=== PATIENT | male | born 1950 | race Caucasian/White ===

== ENCOUNTER 2018-05-21 15:30 | Inpatient (IN) ==
[2018-05-21] MEDS ORDERED: 0.9 % SODIUM CHLORIDE 1,000 ML IV ONE (15:53)
[2018-05-21] MEDS ORDERED: ONDANSETRON 4 MG/2 ML VIAL IV ONE (15:56)
--- NOTE | 2018-05-21 15:58 | Emergency Department Note ---
Abdominal Pain HPI - General Chief Complaint: Abdominal Pain Stated Complaint: Abdominal pain Time Seen by Provider: 05/21/18 15:49 Source: patient, family Mode of arrival: wheelchair Limitations: no limitations - History of Present Illness HPI Narrative: This patient has had significant abdominal pain with bloating for the last 2 weeks. Associated with nausea and diarrhea which is described as mild diarrhea. He was seen in March by Dr. Heard and had a colonoscopy and could not get past 40 cm due to severe diverticulitis and stenosis. Dr. Heard did have a follow-up note and I am assuming this patient was treated with antibiotics. He said 2 CT scans of the abdomen and pelvis this year. This patient did finish a course of antibiotics for diverticulitis last week. - Related Data Home Medications Medication Instructions Recorded Confirmed aspirin 81 mg tablet 81 mg PO QDAY 04/21/17 05/21/18 Hydrochlorothiazide [Oretic] 25 mg PO QDAY PRN 05/21/18 05/21/18 Previous Rx's Medication Instructions Recorded albuterol sulfate HFA 90 1 puff INHALATION Q6H PRN #18 g 11/26/17 mcg/actuation aerosol inhaler atorvastatin 80 mg tablet 80 mg PO QDAY #90 tab 01/19/18 benazepril 40 mg tablet 40 mg PO QDAY #90 tab 01/19/18 fluticasone 200 mcg-vilanterol 25 1 inh INHALATION QDAY #60 each 03/22/18 mcg/dose powder for inhalation tramadol 50 mg tablet 100 mg PO TID PRN #168 tab 04/19/18 Allergies Allergy/AdvReac Type Severity Reaction Status Date / Time morphine AdvReac Intermediate Unknown Verified 05/21/18 15:30 Review of Systems All systems ED: reviewed and negative except as stated. Abdominal Pain PMH - Past Medical History PMFSH Narrative: Medical History (Last Reviewed 03/16/18 @ 16:29 by Jairo Heard MD) Diverticulosis (Chronic) Low back pain (Chronic) Tobacco abuse (Chronic) Diverticulitis (Chronic ~09/2015) Hyperlipidemia (Chronic ~1986) Hypertension, essential (Chronic ~1986) Abdominal aneurysm (Chronic ~09/2015) Gout (Chronic ~1996) Back pain (Chronic ~2006) COPD (chronic obstructive pulmonary disease) (Chronic ~2011) Past Surgical History (Last Reviewed 03/16/18 @ 16:29 by Jairo Heard MD) H/O colonoscopy (Chronic ~2012) Family History (Last Reviewed 03/16/18 @ 16:29 by Jairo Heard MD) Mother Colon cancer Father Hypertension, essential Heart attack Brother Hypertension, essential Thyroid disease Medical history: Reports: aortic aneurysm, COPD, hyperlipidemia, hypertension Psychiatric history: Reports: no psych history - Social History Smoking status: Current some day smoker Physical Exam Limitations: no limitations General appearance: alert Head: atraumatic Eye: Present: normal appearance ENT: normal exam Neck: Present: normal inspection Chest: Present: normal inspection Respiratory: Present: normal lung sounds bilaterally Cardiovascular: Present: regular rate, normal rhythm, normal heart sounds Abdominal: Present: soft, distention, tenderness, normal bowel sounds. Absent: guarding, rebound, rigidity Neurological: Present: alert Psychiatric: Present: normal affect Skin: Present: warm, dry, intact Course Vital Signs Temperature 99.9 F H 05/21/18 15:30 Pulse Rate 108 H 05/21/18 15:30 Respiratory Rate 14 05/21/18 15:30 Blood Pressure 84/51 05/21/18 15:30 Pulse Oximetry (%) 93 05/21/18 15:30 Temperature 97.8 F 05/22/18 06:44 Pulse Rate 90 05/22/18 07:21 Respiratory Rate 20 05/22/18 07:16 Blood Pressure 89/50 05/22/18 07:16 Pulse Oximetry (%) 90 05/22/18 07:21 Abdominal Pain - MDM Narrative Medical decision making narrative: CT scan did reveal a blockage in the distal colon. Patient will be admitted to the hospital by Dr. Del Cid. - Lab Data Lab results reviewed: Yes I reviewed the patient's lab results. Result diagrams: 05/22/18 03:54 05/22/18 03:54 Lab Results 05/21/18 05/21/18 05/21/18 Range/Units 16:02 16:02 16:02 WBC 6.4 (4.5-11.0) K/mcL RBC 4.51 (4.50-5.90) M/mcL Hgb 13.1 L (13.5-16.5) g/dL Hct 39.7 L (41.0-55.0) % POC Hct 40.0 L (41.0-55.0) % MCV 88.1 (80.0-100.0) fL MCH 29.1 (26.0-34.0) pg MCHC 33.1 (31.0-36.0) g/dL RDW 14.9 H (11.5-14.5) % Plt Count 315 (140-440) K/mcL MPV 7.0 L (7.4-10.4) fL Total Counted 100 Seg Neutrophils % 61 (38-78) % Band Neutrophils % 6 (0-10) % Lymphocytes % 15 (15-49) % Monocytes % (Manual) 17 H (1-12) % Reactive Lymphocytes 1 (0-2) % Platelet Estimate Normal (NORMAL) RBC Morphology Normal (NORMAL) VBG Lactic Acid 1.7 (0.5-2.2) mmol/L POC Sodium 131 L (133-145) mmol/L Sodium 135 (133-145) mmol/L POC Potassium 3.2 L (3.3-5.1) mmol/L Potassium 3.5 (3.3-5.1) mmol/L POC Chloride 85 L (96-108) mmol/L Chloride 84 L (96-108) mmol/L Carbon Dioxide 34 H (22-30) mmol/L POC Total CO2 35 H (22-30) mmol/L Anion Gap 17.0 H (8-16) POC BUN 47 H (8-23) mg/dl BUN 56 H (8-23) mg/dl Creatinine 1.5 H (0.7-1.2) mg/dl POC Creatinine 1.4 H (0.7-1.2) mg/dl GFR Calculation 47 Glucose 107 H (70-105) mg/dL POC Glucose 105 (70-105) mg/dL Calcium 8.3 L (8.6-10.4) mg/dl POC WB Ioniz Calcium 0.84 L (1.16-1.32) mmol/L Total Bilirubin 0.9 (0.0-1.0) mg/dL AST 21 (0-37) U/l ALT 8 (0-40) U/l Alkaline Phosphatase 65 (39-117) U/L Total Protein 6.3 (5.9-8.4) gm/dL Albumin 2.9 L (3.2-5.2) gm/dL Globulin 3.4 (2.2-3.7) gm/dL Albumin/Globulin Ratio 0.9 L (1.0-2.3) Carcinoembryonic Ag (0.0-3.4) ng/mL Urine Color Urine Appearance Urine pH (5.0-9.0) Ur Specific [place] (1.000-1.035) Urine Protein (NEG) mg/dL Urine Glucose (UA) (NEG) mg/dL Urine Ketones (NEG) mg/dL Urine Occult Blood (<0.03) mg/dL Urine Nitrate (NEG) Urine Bilirubin (NEG) mg/dL Urine Urobilinogen (NEG) mg/dL Ur Leukocyte Esterase (NEG) /uL Urine RBC (0-1) /hpf Urine WBC (0-4) /hpf Ur Squamous Epith Cells (0-4) /hpf Ur Transition Epith Cell (0-2) /hpf Urine Bacteria (0) /hpf Hyaline Casts (0-2) /lpf Granular Casts (0) /lpf Urine Mucus (0) /hpf Ur Culture Indicated? 05/21/18 05/21/18 Range/Units 16:02 20:40 WBC (4.5-11.0) K/mcL RBC (4.50-5.90) M/mcL Hgb (13.5-16.5) g/dL Hct (41.0-55.0) % POC Hct (41.0-55.0) % MCV (80.0-100.0) fL MCH (26.0-34.0) pg MCHC (31.0-36.0) g/dL RDW (11.5-14.5) % Plt Count (140-440) K/mcL MPV (7.4-10.4) fL Total Counted Seg Neutrophils % (38-78) % Band Neutrophils % (0-10) % Lymphocytes % (15-49) % Monocytes % (Manual) (1-12) % Reactive Lymphocytes (0-2) % Platelet Estimate (NORMAL) RBC Morphology (NORMAL) VBG Lactic Acid (0.5-2.2) mmol/L POC Sodium (133-145) mmol/L Sodium (133-145) mmol/L POC Potassium (3.3-5.1) mmol/L Potassium (3.3-5.1) mmol/L POC Chloride (96-108) mmol/L Chloride (96-108) mmol/L Carbon Dioxide (22-30) mmol/L POC Total CO2 (22-30) mmol/L Anion Gap (8-16) POC BUN (8-23) mg/dl BUN (8-23) mg/dl Creatinine (0.7-1.2) mg/dl POC Creatinine (0.7-1.2) mg/dl GFR Calculation Glucose (70-105) mg/dL POC Glucose (70-105) mg/dL Calcium (8.6-10.4) mg/dl POC WB Ioniz Calcium (1.16-1.32) mmol/L Total Bilirubin (0.0-1.0) mg/dL AST (0-37) U/l ALT (0-40) U/l Alkaline Phosphatase (39-117) U/L Total Protein (5.9-8.4) gm/dL Albumin (3.2-5.2) gm/dL Globulin (2.2-3.7) gm/dL Albumin/Globulin Ratio (1.0-2.3) Carcinoembryonic Ag 3.8 H (0.0-3.4) ng/mL Urine Color Lyric Urine Appearance Hazy Urine pH 5.0 (5.0-9.0) Ur Specific [place] 1.019 (1.000-1.035) Urine Protein 30 A (NEG) mg/dL Urine Glucose (UA) Negative (NEG) mg/dL Urine Ketones 20 A (NEG) mg/dL Urine Occult Blood 0.03 A (<0.03) mg/dL Urine Nitrate Neg (NEG) Urine Bilirubin Neg (NEG) mg/dL Urine Urobilinogen 4.0 A (NEG) mg/dL Ur Leukocyte Esterase Neg (NEG) /uL Urine RBC 7 H (0-1) /hpf Urine WBC 8 H (0-4) /hpf Ur Squamous Epith Cells 0 (0-4) /hpf Ur Transition Epith Cell 2 (0-2) /hpf Urine Bacteria Few A (0) /hpf Hyaline Casts 10 H (0-2) /lpf Granular Casts 4 H (0) /lpf Urine Mucus Few (0) /hpf Ur Culture Indicated? Yes - Radiology Data Radiology results reviewed: Yes I reviewed the patient's radiology results. Disposition Pt seen by STUDIO CONTROL OPERATOR/PA only: No Clinical Impression: Large bowel obstruction Disposition: Xfer As Inpt ([facility])
[2018-05-21] MEDS: HYDROmorphone 2 MG/ML VIAL IV PRN ×2 (16:07→19:16)
[2018-05-21 16:18] LABS: Mean Cell Volume 88.1 fL (80.0-100.0); Mean Corpuscular HGB Conc 33.1 g/dL (31.0-36.0); Mean Corpuscular Hemoglobin 29.1 pg (26.0-34.0); Platelet Count 315 K/mcL (140-440); RBC 4.51 M/mcL (4.50-5.90); Red Cell Distribution Width 14.9 % (11.5-14.5)
[2018-05-21 16:39] LABS: ALT/SGPT 8 U/l (0-40); Albumin 2.9 gm/dL (3.2-5.2); Albumin/Globulin Ratio 0.9 (1.0-2.3); Alkaline Phosphatase 65 U/L (39-117); Blood Urea Nitrogen 56 mg/dl (8-23)
[2018-05-21 17:01] LABS: Band Neutrophils % 6 % (0-10); Lymphocytes % 15 % (15-49); Monocytes % (Manual) 17 % (1-12); Platelet Estimate NORMAL (NORMAL); RBC Morphology NORMAL (NORMAL); Segmented Neutrophils % 61 % (38-78)
[2018-05-21] MEDS ORDERED: LACTATED RINGERS 1,000 ML IV ONE (19:05)
[2018-05-21] MEDS ORDERED: METOCLOPRAMIDE 10 MG/2 ML VIAL IV ONE (19:42)
--- NOTE | 2018-05-21 20:28 | Cat Scan Report ---
CLINICAL INFORMATION: Diverticulitis with abdominal pain and distention COMPARISON: 03/05/18 TECHNIQUE: The abdomen was imaged without oral or IV contrast, scanning from the diaphragm to the symphysis pubis. Sagittal and coronal reformats were created. The radiation exposure was limited using dose reduction technology. FINDINGS: FINDINGS: Mild emphysema is present in the lung bases. There is no pleural effusion. The heart size is normal. There is pericardial thickening. Evaluation of abdominal organs without contrast is limited. The liver and spleen are normal in size and homogeneous. There is a small hiatus hernia. Gallbladder is distended but there are no stones within the lumen and the wall does not appear thickened or inflamed. The bile ducts are nondilated. No abnormality seen within the pancreas. There is a low-attenuation mass in the left adrenal gland which measures 1.2 x 2.2 cm. This is unchanged since the prior CT and may be a benign myelolipoma. The right adrenal is normal. There is no kidney stone or hydronephrosis on either side. A thrombosed saccular aneurysm is seen along the left side of the proximal abdominal aorta. It Measures 3.4 x 3.7 x 4.2 cm. This has remained stable since 03/05/18 and there is no retroperitoneal hemorrhage. The stomach is decompressed. There is dilatation of both large and small intestine. There is a large amount of impacted fecal material throughout the colon. There are appears to be an annular constricting lesion in the distal sigmoid colon. Transition point is at this level. Soft tissue thickening is present at the same level on 03/05/18 and was thought to represent diverticulitis. No diverticular identified at this level on the current exam. The patient had a colonoscopy performed in March and no tumor was reported in this region. On the prior CT there is a questionable tumor along the medial side of the cecum. There is a large amount stool in the cecum but I do not see an obvious tumor in this region. Urinary bladder is incompletely distended but appears normal. The prostate is small and there are calcifications within it. No ascites, free air, abscess or adenopathy are present. There are chronic stable degenerative changes in the lumbar spine. IMPRESSION: Distal large bowel obstruction in the sigmoid colon. This is highly suspicious for colon cancer. Acute diverticulitis is also in the differential. Emphysema Moderate sized saccular aneurysm in the abdominal aorta at the L2-3 level, near the origin of the left renal artery Dr. Sharp was called with the results Interpreted and Authenticated by: Christopher Clark 05/21/18
[2018-05-21] MEDS ORDERED: LIDOCAINE JEL 2% 1 TUBE 30GM TOPICAL ONE (21:26)
[2018-05-21 21:32] LABS: Appearance,Urine HAZY; Bacteria,Urine FEW /hpf (0); Bilirubin,Urine NEG (NEG); Color,Urine AMBER; Glucose,Urine (UA) NEGATIVE (NEG); Leukocyte Esterase,Urine NEG /uL (NEG); Mucus,Urine FEW /hpf (0); Protein,Urine 30 mg/dL (NEG); Specific Gravity,Urine 1.019 (1.000-1.035); Urine Blood 0.03 mg/dL (<0.03); Urine Granular Cast 4 /lpf (0); Urine Hyaline Cast 10 /lpf (0-2); Urine RBC 7 /hpf (0-1); Urine Squamous Epithelial Cell 0 /hpf (0-4); Urine Transitional Epi Cells 2 /hpf (0-2); Urine WBC 8 /hpf (0-4)
--- NOTE | 2018-05-21 21:44 | Internal Med History&Physical ---
Medical - H&P: HPI Patient information: Note initiated : 05/21/18 at 9:39 pm Service Date, if different from initiated Date: [] Patient: Luciano Nixon 67 y/o M admitted on for Abdominal pain. Chief Complaint: [] History of present illness: Mr. Nixon is a 67 year old M who was diagnosed with diverticulitis in February, since then has had continued abdominal symptoms. Doubt colitis was treated with antibiotics with some improvement in patient's symptoms. The patient has been following up with Dr. Heard. Patient notes that since the last few months he has had progressive abdominal pain progressive distention of abdomen, weight loss, decreased appetite and generalized weakness and malaise. The patient had a colonoscopy done I believe last month, severe stricture to the sigmoid colon was noted, colonoscope was not passed beyond the stricture. The patient notes that he has had bowel movements since, however he has had progressive distention of abdomen along with abdominal pain. He notes that he was unable to bear the pain today and therefore came to the ER for further evaluation. He has had 2-3 liquid bowel movements today. The patient has a history of COPD/emphysema does not use oxygen at baseline, uses Brio on a daily basis no recent use of rescue inhaler, denies any history of myocardial infarction or congestive heart failure denies any history of CVA or TIA, no history of chronic kidney disease., no history of diabetes. The patient admits to being a daily smoker. In the emergency room patient was hemodynamically stable, low-grade temperature at 99.9, tachycardia 108, blood pressure was low 84/51, saturating 93% on 2 L. Labs showed normal WBC count at 6.4, hemoglobin 13,000, potassium 3.5, BUN 56 creatinine 1.5. Lactic acid 1.7, bicarbonate 34. UA is pending. CT abdomen and pelvis shows large small bowel obstruction in the sigmoid colon, stricture probably in the sigmoid colon, possible acute diverticulitis in that region. Emphysema noted. 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 Patient has poor effort tolerance is unable to climb one flight of stairs. All systems: reviewed and no additional remarkable complaints except as stated ( as per HPI rest negative) Medical - H&P: PMH Medical history: Medical History (Last Reviewed 03/16/18 @ 16:29 by Jairo Heard MD) Diverticulosis (Chronic) Low back pain (Chronic) Tobacco abuse (Chronic) Diverticulitis (Chronic ~09/2015) Hyperlipidemia (Chronic ~1986) Hypertension, essential (Chronic ~1986) Abdominal aneurysm (Chronic ~09/2015) Gout (Chronic ~1996) Back pain (Chronic ~2006) COPD (chronic obstructive pulmonary disease) (Chronic ~2011) Surgical history: Past Surgical History (Last Reviewed 03/16/18 @ 16:29 by Jairo Heard MD) H/O colonoscopy (Chronic ~2011) Pertinent family history: Family History (Last Reviewed 03/16/18 @ 16:29 by Jairo Heard MD) Mother Colon cancer Father Hypertension, essential Heart attack Brother Hypertension, essential Thyroid disease Medical - H&P: Meds Home Medications Medication Instructions Recorded Confirmed Type aspirin 81 mg tablet 81 mg PO QDAY 04/21/17 05/21/18 History albuterol sulfate HFA 90 1 puff INHALATION Q6H PRN #18 g 11/26/17 05/21/18 Rx mcg/actuation aerosol inhaler atorvastatin 80 mg tablet 80 mg PO QDAY #90 tab 01/19/18 05/21/18 Rx benazepril 40 mg tablet 40 mg PO QDAY #90 tab 01/19/18 05/21/18 Rx fluticasone 200 mcg-vilanterol 25 1 inh INHALATION QDAY #60 each 03/22/18 Rx mcg/dose powder for inhalation tramadol 50 mg tablet 100 mg PO TID PRN #168 tab 04/19/18 05/21/18 Rx Hydrochlorothiazide [Oretic] 25 mg PO QDAY PRN 05/21/18 05/21/18 History Allergies Allergy/AdvReac Type Severity Reaction Status Date / Time morphine AdvReac Intermediate Unknown Verified 05/21/18 15:30 Medical - H&P: Exam - Constitutional Vitals: Temp Pulse Resp BP Pulse Ox 99.9 F H 106 H 16 116/65 93 05/21/18 15:30 05/21/18 21:16 05/21/18 16:14 05/21/18 21:16 05/21/18 21:16 Exam: GENERAL: The patient is a well-developed, thin in no apparent distress. Is alert and oriented x3. VITAL SIGNS: Reviewed and as noted elsewhere. HEENT: Head is normocephalic and atraumatic. Extraocular muscles are intact. Pupils are equal, round, and reactive to light. Nares appeared normal. Mouth appears any without lesions. Mucous membranes are dry. NECK: Normal to inspection, Supple, No lymphadenopathy or thyromegaly. LUNGS: Air entry equal on both sides decreased air entry bilaterally , no wheezing, crackles or rhonchi noted. No accessory muscles of respiration HEART: tachycardic rate and rhythm normal, S1 and S2 heard, no Gallop, S3 or Rub Noted, No Gross murmur heard. ABDOMEN: Soft, distended abdomen, can see colonic distention through skin, tender to palpation all over. EXTREMITIES: No cyanosis, clubbing, rash, lesions or edema. NEUROLOGIC: Cranial nerves II through XII are grossly intact. Motor and Sensory System Grossly Intact PSYCHIATRIC: Normal affect, Normal Mood. Appropriate Behavior. SKIN: No ulceration or wounds noted, No jaundice, No rash noted. Medical - H&P: Reslt - Labs CBC & Chem 7: 05/21/18 16:02 05/21/18 16:02 Labs: Short CBC 05/21/18 Range/Units 16:02 WBC 6.4 (4.5-11.0) K/mcL Hgb 13.1 L (13.5-16.5) g/dL Hct 39.7 L (41.0-55.0) % Plt Count 315 (140-440) K/mcL BMP 05/21/18 16:02 Sodium 135 Potassium 3.5 Chloride 84 L Carbon Dioxide 34 H BUN 56 H Creatinine 1.5 H Glucose 107 H Calcium 8.3 L Liver Function 05/21/18 Range/Units 16:02 Total Bilirubin 0.9 (0.0-1.0) mg/dL AST 21 (0-37) U/l ALT 8 (0-40) U/l Alkaline Phosphatase 65 (39-117) U/L Albumin 2.9 L (3.2-5.2) gm/dL Urine 05/21/18 Range/Units 20:40 Urine Color Lyric Urine Appearance Hazy Urine pH 5.0 (5.0-9.0) Ur Specific [place] 1.019 (1.000-1.035) Urine Protein 30 A (NEG) mg/dL Urine Glucose (UA) Negative (NEG) mg/dL Medical - H&P: A/P - Narrative A/P Narrative: A/P Acute large bowel obstruction Possible Ca Colon Acute Kidney Injury COPD exacerbation Acute hypoxic respiratory failure Dehydration Weight loss Hypertension Hyperlipidemia Iliac artery aneurysm thrombosed. Pre op risk assesstment Plan Admit to tele BP has stabilized by the time of admission IV cipro and flagyl for possible diverticulitis Gen Surgery consulted,NG to be placed, plan for likely surgery tomorrow RCRI is 1, but pt has Vascular disease, emphysema, on oxygen today, active smoker, which places him in moderate risk category No active wheezing, will avoid IV steroids, try and see how he does with neublizer treatment, some hypoxia could be from significant distention of abdomen preventing diaphragmatic movement hold home bp meds IV fluids for renal failure and dehydration, DVT scd, GI Famotid Full code NPO diet. Social History - Social History marital status: - Tobacco smoking status: Current some day smoker - Tobacco Type tobacco type: cigarettes - Alcohol alcohol intake frequency: holiday/special occasion only - Substance use substance use type: does not use
[2018-05-21] MEDS ORDERED: ACETAMINOPHEN 650 MG/65 ML BOTTLE IV PRN (22:31)
[2018-05-21] MEDS ORDERED: DEXTROSE 5%-1/2NS W/20MEQ KCL 1,000 ML IV SCH (22:31)
[2018-05-21] MEDS ORDERED: ONDANSETRON 4 MG/2 ML VIAL IV PRN (22:31)
[2018-05-21] MEDS ORDERED: NALOXONE HCL 0.4 MG/ML VIAL IV PRN (22:31)
[2018-05-21] MEDS ORDERED: CIPROFLOXACIN 400 MG/200 ML BAG IV SCH (22:31)
[2018-05-21] MEDS ORDERED: metroNIDAZOLE 500 MG/100 ML BAG IV ONE (22:40)
[2018-05-21] MEDS ORDERED: CIPROFLOXACIN 400 MG/200 ML BAG IV ONE (22:41)
[2018-05-21] MEDS: 0.9 % SODIUM CHLORIDE 10 ML SYRINGE IV SCH (22:56)
[2018-05-21] MEDS: metroNIDAZOLE 500 MG/100 ML BAG IV SCH (23:19)
[2018-05-21] MEDS ORDERED: ONDANSETRON 4 MG/2 ML VIAL ONE (23:20)
[2018-05-21] MEDS: IPRATROPIUM/ALBUTEROL 3 ML AMPUL.NEB NEB SCH (23:27)
--- NOTE | 2018-05-21 23:44 | Consultation ---
DATE OF CONSULTATION: 05/21/2018 CHIEF COMPLAINT: Mr. Nixon is seen in consultation at the request of Dr. Sharp in the Emergency Department for abdominal pain, distention, and findings on imaging suggestive of bowel obstruction. HISTORY OF PRESENT ILLNESS: Mr. Michel is a 67-year-old man, who presented to the emergency department with complaints of abdominal pain which has been present " With further questioning, the patient states that his pain has been present for about 4 months. He is not clear on the character of his pain other than it is a fairly constant pain. He states that it is starting to become intolerable. The pain itself has not changed much in character or severity by patient report over the past 2 months, but he is just very tired of hurting. He also reports recently having decreased food intake. He says that he has lost about 10 pounds since March. He says this is from not eating. He denies complete loss of appetite, but states that he does not feel like eating because of pain in his abdomen. He has not generally had nausea over the past couple of months, though he did have recent emesis last night. The patient is obviously distended in his abdomen during this interview and when questioned about the distention, he is unclear as to the onset or progression of this distention, but seems to suggest that this has been present for more than just the past couple of weeks. Regarding his most recent bowel habits, the patient states that he has passed 2 diarrhea stools today. He also had about 3-4 episodes of emesis last night, which consisted of brown liquid. He does not recall passing flatus for a week. His more recent medical history related to his GI system is significant for colonoscopy in 03/2018. This procedure was performed by Dr. Heard at [facility]. Review of that note shows that a colonoscopy could not be completed due to inability to pass a pediatric scope under fluoroscopy beyond what appeared to be a strictured sigmoid with tight turns. No mass, however, was noted during that evaluation. Followup evaluation during that admission included CT scan with air contrast in the rectum residual from the colonoscopy. At that time, moderate diverticulitis involving the mid distal sigmoid colon was noted with no sign of abscess, fistula, or other complications. This was noted to have increased inflammation compared to CT scan which had been done about 2 weeks ago also at [facility]. Review of that prior CT scan which was done on 03/05/2018 showed extensive sigmoid diverticulosis with pericolonic inflammatory change consistent with diverticulitis. The patient reports having an initial diagnosis of diverticulitis in 09/2015 with subsequent episodes. Review of the medical chart shows documentation of subsequent episodes as listed above. REVIEW OF SYSTEMS: CONSTITUTIONAL: Denies fevers or chills. GASTROINTESTINAL: Abdominal pain for several months as per above. Abdominal distention seemingly more recent occurrence. Emesis as per above. CARDIOVASCULAR: The patient denies a history of DE. States he is unable to walk up a single flight of stairs due to difficulty with breathing. Denies any history of arrhythmia. PULMONARY: The patient initially reported no lung problems on questioning of his pulmonary system, but further questioning reveals emphysema with continued smoking. GENITOURINARY: No dysuria or damir hematuria. PAST MEDICAL HISTORY: 1. COPD with history of exacerbations. 2. Personal history of colon polyps from colonoscopies prior to most recent by patient report, last colonoscopy was 2011. 3. Diverticulosis with episode of diverticulitis. 4. Low back pain. 5. Hypertension. 6. Thrombosed saccular abdominal aortic aneurysm. 7. Back pain. SOCIAL HISTORY: The patient is a current smoker, reportedly of 4 to 5 cigarettes a day and in the past year reports smoking 1 pack of cigarettes a day for 50 years. The patient is and accompanied at this visit by his . FAMILY HISTORY: Significant for colon cancer in his mother diagnosed at age 49. His mother from colon cancer. Father with myocardial infarction. Father and brother with hypertension. Brother with thyroid disease. ALLERGIES: MORPHINE. HOME MEDICATIONS: 1. Albuterol sulfate inhaler 1 puff q. 6 hours p.r.n. 2. Aspirin 81 mg daily. 3. Atorvastatin 80 mg daily. 4. Benazepril 40 mg daily. 5. Fluticasone 200 mcg - vilanterol 25 mcg 1 inhaled daily. 6. Hydrochlorothiazide 25 mg p.o. daily. 7. Tramadol 50 mg 2 pills t.i.d. p.r.n. PHYSICAL EXAMINATION: VITAL SIGNS: Temperature 99.9, pulse 95, respirations 16, blood pressure 103/62, O2 saturations 90% on 1 to 2 liters of oxygen during this evaluation. GENERAL APPEARANCE: Mr. Michel is an elderly gentleman, who appears older than stated age. He appears uncomfortable lying in the hospital bed, but not acutely distressed. The patient appears cachectic. HEENT: Head is normocephalic. Sclerae are white. CHEST: Breath sounds are clear in the upper taylor bilaterally. Diminished breath sounds at the bases. No wheezing noted on exam. CARDIOVASCULAR: Regular rhythm, slightly tachycardic rate. ABDOMEN: Distended. There is mild tenderness to palpation, but no guarding and no rebound. No tenderness in one specific area of the abdomen. Distention of the abdomen is clearly related to distended underlying bowel which in the area of the transverse colon can be seen outlined through the thin skin overlying the abdomen. EXTREMITIES: Warm with distal pulses diminished bilaterally at 1+. Capillary refill is at 2 to 3 seconds. No edema. LABS AND STUDIES: CBC drawn in the Emergency Department shows a normal white blood cell count of 6.4, hemoglobin of 13.1, hematocrit 39.7, and platelets of 315. Serum chemistries show glucose of 107, a BUN of 56, creatinine 1.5, sodium 135, potassium 3.5, chloride 84, CO2 of 34, calcium 8.3, total protein 6.3, albumin 2.9, total bilirubin 0.9, AST 21, ALT 8, alkaline phosphatase 65. Venous lactic acid is 1.7 (within normal range). Urinalysis is negative for nitrates, leukocyte esterase, but moderate blood is present. Urine was sent for culture. A CT scan of the abdomen and pelvis was performed in the Emergency Department. I reviewed the images and reports from that scan. Findings on the CT scan show dilatation of both the large and small intestine with a large amount of impacted fecal material throughout the colon. There is thought to be an annular constricting lesion in the distal sigmoid colon, which also appears to be a transition point of bowel caliber. Soft tissue thickening is present at the same level when compared to CT imaging from 03/05/2018 and at that time was thought to represent diverticulitis. On today's reading, no diverticula are identified at the level on current exam. There is no ascites, free air, abscess, or adenopathy present. Changes of emphysema are noted on the lower chest cuts. There is also noted to be pericardial thickening with a normal heart size. No pleural effusion noted. ASSESSMENT AND PLAN: Large bowel obstruction at the sigmoid colon, tumor versus stricture from recurring diverticulitis. I discussed findings on imaging with the patient and his . Findings on CT scan done today in the Emergency Department are suggestive of possible colon cancer, despite a previous CT imaging. It should be noted, however, that the final reading on today's CT report is read as the distal large bowel obstruction of the sigmoid colon, highly suspicious for colon cancer, although acute diverticulitis is also on the differential. The exact nature of the obstruction is not known at this time. However, given the patient's presentation and symptoms, treatment for his obstruction was discussed to begin with bowel rest, NG tube decompression, and IV fluid hydration. Given the degree of bowel distention, there is concern that he may need to proceed to surgery for a Patricia's procedure with creation of colostomy and resection of the area of obstructing bowel. Ideally if there is any way to prep the intestine prior to surgery to try and decrease the chance of having to create a colostomy, this would be ideal, although I cannot be sure that he would be able to do this even though the patient did tolerate at least half of his bowel prep and was able to clean out his intestine for the recently attempted colonoscopy in March. Plan at this time is that he will be admitted to the hospitalist service for management of his other medical issues with surgery consulting. NG tube will be placed for some decompression of the bowel, and he will be kept n.p.o. We will see how he does initially and if it seems possible to proceed with a slow bowel prep, then we can try this. If, however, his condition worsens, then we may need to proceed with operative intervention with the understanding that a colostomy creation is likely. This was all discussed with the patient and his . He verbalized understanding and agreement with this plan. RC:in Job ID: [id number] Doc ID: [id number] Jaylin POTTS
[2018-05-22] MEDS: HYDROmorphone 2 MG/ML VIAL IV PRN ×2 (00:03→06:46)
[2018-05-22] MEDS ORDERED: HYDROmorphone 2 MG/ML VIAL ONE ×3 (00:05→06:50)
[2018-05-22] MEDS ORDERED: ONDANSETRON 4 MG/2 ML VIAL ONE (02:36)
[2018-05-22] MEDS: IPRATROPIUM/ALBUTEROL 3 ML AMPUL.NEB NEB SCH ×6 (03:08→23:09)
[2018-05-22] MEDS: 0.9 % SODIUM CHLORIDE 10 ML SYRINGE IV SCH ×3 (05:19→23:24)
[2018-05-22 06:38] LABS: Basophils # (Auto) 0 K/mcL (0.0-0.3); Basophils % (Auto) 0.1 % (0.0-2.0); Eosinophils # (Auto) 0.1 K/mcL (0.0-0.7); Eosinophils % (Auto) 1.8 % (0.0-7.0); Granulocytes % (Auto) 71.1 % (38.0-78.0); Lymphocytes # (Auto) 0.5 K/mcL (1.5-4.8); Lymphocytes % (Auto) 11.7 % (15.5-49.0); Mean Corpuscular HGB Conc 33.4 g/dL (31.0-36.0); Mean Corpuscular Hemoglobin 29.4 pg (26.0-34.0); Monocytes # (Auto) 0.7 K/mcL (0.1-0.9); Monocytes % (Auto) 15.3 % (1.0-12.0); Platelet Count 285 K/mcL (140-440); RBC 3.78 M/mcL (4.50-5.90); Red Cell Distribution Width 15.2 % (11.5-14.5)
[2018-05-22] MEDS: metroNIDAZOLE 500 MG/100 ML BAG IV SCH ×5 (07:17→22:00)
[2018-05-22 07:18] LABS: ALT/SGPT 7 U/l (0-40); Albumin 2.5 gm/dL (3.2-5.2); Albumin/Globulin Ratio 0.9 (1.0-2.3); Alkaline Phosphatase 61 U/L (39-117); Bilirubin,Direct < 0.2 mg/dL (0.0-0.3); Blood Urea Nitrogen 52 mg/dl (8-23); Gamma Glutamyl Transpeptidase 13 U/L (8-61); Uric Acid 9.9 mg/dL (2.5-8.0)
[2018-05-22] MEDS ORDERED: LACTATED RINGERS 1,000 ML IV ONE ×3 (07:54→19:40)
--- NOTE | 2018-05-22 08:25 | General Surgery Progress Note ---
Surgical - Auxillary Note - Subjective Patient Information: Note initiated : 05/22/18 at 7:59 am Service Date, if different from initiated Date: [] Patient: Luciano Nixon 67 y/o M admitted on 05/21/18 for Abdominal pain. Chief Complaint: [] Patient resting in bed. Reports no change in abdomen. NGT placed with minimal output since ER last night. No stool or flatus overnight. BP down 82/45 this morning but had been medicated with Dilaudid prior. BP has been running low compared to documentation in prior outpatient records. Suspect related to dehydration from chronic evolving obstruction and poor p.o. intake. Vital Signs Temp Pulse Resp BP Pulse Ox 97.8 F 90 20 89/50 91 05/22/18 06:44 05/22/18 07:21 05/22/18 07:16 05/22/18 07:16 05/22/18 07:31 Period Temp Pulse Resp BP Sys/Faria Pulse Ox Last 24 Hr 97.8 F-99.9 F 90-132 11-24 81-123/41-75 81-99 Intake and Output 05/21/18 05/22/18 05/22/18 21:59 05:59 13:59 Intake Total 1000 / 1000 1300 / 1300 Output Total 50 / 50 200 / 200 Balance 950 / 950 1300 / 1300 -200 / -200 Weight 130 lb 132 lb 8 oz PE: No acute distress but uncomfortable in appearance. Chest: clear bilaterally CV: regular rhythm, tachycardic ABD: NGT in place with minimal bile tinged clear output. distention unchanged from admission; mildly tender over abdomen--recently medicated for pain. No guarding or rebound. EXT: warm, no edema. CBC and Chem 7 05/22/18 03:54 05/22/18 03:54 A/P: Large bowel obstruction at level of sigmoid colon: tumor vs inflammatory process. NGT output only 40cc of gastric juice slight bile tinged. Not much to decompress from above. Stomach decompressed on imaging. Patient with no stool or flatus. At home passed 2 diarrheal stools adn on further questioning these were with the help of milk of magnesia and has had no flatus at home over the past week. Without passage of any flatus for so long not likely to tolerate attempt for bowel prep. Discussed situation with patient and his , who was present at bedside. At this time surgical intervention with plans for colostomy is recommended to address sigmoid obstruction. Risks and benefits of procedure where reviewed. Risks include but are not limited to bleeding, infection, injury to other organs including the ureter, possible need for further surgery, and risks of general anesthesia. Patient verbalized understanding of the risks of surgery and would like to proceed.
[2018-05-22] MEDS: DEXTROSE 5%-LR W/20MEQ KCL 1,000 ML IV SCH ×2 (08:39→16:24)
[2018-05-22] MEDS ORDERED: FAMOTIDINE/PF 20 MG/2 ML VIAL IV SCH (09:00)
[2018-05-22] MEDS ORDERED: BUDESONIDE 0.5 MG/2 ML AMPUL.NEB NEB SCH (09:00)
[2018-05-22] MEDS ORDERED: CIPROFLOXACIN 400 MG/200 ML BAG IV SCH (09:00)
[2018-05-22] MEDS ORDERED: THIAMINE 100 MG in 0.9 % SODIUM CHLORIDE 50 ML IV SCH (09:00)
--- NOTE | 2018-05-22 09:12 | XRay Report ---
CLINICAL INFORMATION: Hypoxia COMPARISON: 03/22/2018 FINDINGS: Heart size, mediastinum and pulmonary vessels are normal. Moderate COPD changes appreciated. No infiltrates. No effusions. IMPRESSION: Moderate COPD - stable Interpreted and Authenticated by: Luciano Smith 05/22/18
--- NOTE | 2018-05-22 09:14 | XRay Report ---
CLINICAL INFORMATION: NG tube placement COMPARISON: None. FINDINGS: NG tip overlies the gastric fundus. [. Only the one superior one half the abdomen is included in the film. Stool gas pattern is grossly normal in this portion of the abdomen. No free air or soft tissue mass IMPRESSION: NG tip overlying the gastric fundus. Incomplete abdominal exam Interpreted and Authenticated by: Luciano Smith 05/22/18
[2018-05-22] MEDS ORDERED: LIDOCAINE 2% URO-JET 5 ML JEL.PF.APP UR ONE (09:56)
[2018-05-22] MEDS: 0.9 % SODIUM CHLORIDE 250 ML IV SCH ×2 (09:59→15:46)
[2018-05-22] MEDS ORDERED: ALBUMIN HUMAN 25 GM/100 ML BAG IV ONE (10:02)
[2018-05-22] MEDS ORDERED: IPRATROPIUM/ALBUTEROL 3 ML AMPUL.NEB NEB ONE ×2 (10:44→10:49)
--- NOTE | 2018-05-22 11:05 | Internal Med Progress Note ---
Medical - PN: Subj Patient information: Note initiated : 05/22/18 at 11:00 am Service Date, if different from initiated Date: [] Patient: Luciano Nixon 67 y/o M admitted on 05/21/18 for Abdominal pain. Chief Complaint: [] Interval history: Mr. Nixon is a 67 year old M who was diagnosed with diverticulitis in February, since then has had continued abdominal symptoms. Doubt colitis was treated with antibiotics with some improvement in patient's symptoms. The patient has been following up with Dr. Heard. Patient notes that since the last few months he has had progressive abdominal pain progressive distention of abdomen, weight loss, decreased appetite and generalized weakness and malaise. The patient had a colonoscopy done I believe last month, severe stricture to the sigmoid colon was noted, colonoscope was not passed beyond the stricture. The patient notes that he has had bowel movements since, however he has had progressive distention of abdomen along with abdominal pain. He notes that he was unable to bear the pain today and therefore came to the ER for further evaluation. He has had 2-3 liquid bowel movements today. The patient has a history of COPD/emphysema does not use oxygen at baseline, uses Brio on a daily basis no recent use of rescue inhaler, denies any history of myocardial infarction or congestive heart failure denies any history of CVA or TIA, no history of chronic kidney disease., no history of diabetes. The patient admits to being a daily smoker. In the emergency room patient was hemodynamically stable, low-grade temperature at 99.9, tachycardia 108, blood pressure was low 84/51, saturating 93% on 2 L. Labs showed normal WBC count at 6.4, hemoglobin 13,000, potassium 3.5, BUN 56 creatinine 1.5. Lactic acid 1.7, bicarbonate 34. UA is pending. CT abdomen and pelvis shows large small bowel obstruction in the sigmoid colon, stricture probably in the sigmoid colon, possible acute diverticulitis in that region. Emphysema noted. 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 Patient has poor effort tolerance is unable to climb one flight of stairs. 05/22 Patient seen examined, overnight was stable, still has abdominal pain, bp low, fluid bolus given, increase rate of IVF point of care echo shows collapsing IVC< pt should be able to tolerate more fluids. P(neri for surgery this AM still on oxygen place amin for measuring i/o, not much drainage from NG tube. Pertinent ROS: Denies headache, dizziness Denies chest pain, palpitations Denies cough or shortness of breath unchanged abdominal pain, . - Constitutional Vitals: Vital Signs Temp Pulse Resp BP Pulse Ox 97.8 F 98 H 20 108/57 96 05/22/18 06:44 05/22/18 10:30 05/22/18 07:16 05/22/18 10:31 05/22/18 10:30 Period Temp Pulse Resp BP Sys/Faria Pulse Ox Last 24 Hr 97.8 F-99.9 F 90-132 11-24 81-123/41-99 81-99 Intake and Output 05/21/18 05/22/18 05/22/18 21:59 05:59 13:59 Intake Total 1000 / 1000 1300 / 1300 100 / 100 Output Total 50 / 50 250 / 250 Balance 950 / 950 1300 / 1300 -150 / -150 Weight 130 lb 132 lb 8 oz Intake & Output: Intake & Output 05/21/18 05/22/18 05/22/18 21:59 05:59 13:59 Intake Total 1000 / 1000 1300 / 1300 100 / 100 Output Total 50 / 50 250 / 250 Balance 950 / 950 1300 / 1300 -150 / -150 Weight 130 lb 132 lb 8 oz Intake: IV 1000 / 1000 1300 / 1300 100 / 100 Sodium Chloride 0.9% 1,000 ml @ 1000 / 1000 Wide Open IV BOLUS ONE Rx#: [id number] CIPRO 400 mg In 200 ml @ 0 mls/ 200 / 200 hr IV .STK-MED ONE Rx#: [id number] Lactated Ringers 1,000 ml @ 1000 / 1000 Wide Open IV BOLUS ONE Rx#: [id number] FLAGYL 500 mg In 100 ml @ 0 mls 100 / 100 /hr IV .STK-MED ONE Rx#: [id number] Output: Gastric Drainage 50 / 50 Left Nare 50 / 50 Void Amount 250 / 250 Other: Urine Color Light Lyric Urine Odor Strong # Voids 1 Exam: Constitutional; Afebrile, cooperative, alert, not in distress. Eyes- No icterus, , No periorbital swelling Ears- Ext ear normal, hearing normal to conversation. Neck- Midline trachea, supple Respiratory system: Air Entry equal on both sides, No crackles or wheezing, no rhonchi. CVS- Rate rhythm regular, S1,S2 heard, no gallop, no rub. Abdomen- Soft tender and distended, not much change from yesterday NITROGLYCERIN NEUTRALIZER- AOOx3, moving all extremities, no gross focal deficit noted. Medical - PN: Obj Da - Labs CBC & Chem 7: 05/22/18 03:54 05/22/18 03:54 Labs: Abnormal Lab Results 05/22/18 05/22/18 05/22/18 03:54 03:54 03:54 RBC 3.78 L Hgb 11.1 L Hct 33.3 L POC Hct RDW 15.2 H MPV 7.2 L Lymph % (Auto) 11.7 L Lagrange % (Auto) 15.3 H Lymph # (Auto) 0.5 L Monocytes % (Manual) PT 16.4 H INR 1.3 H POC Sodium POC Potassium POC Chloride Chloride 91 L Carbon Dioxide 31 H POC Total CO2 Anion Gap POC BUN BUN 52 H Creatinine POC Creatinine Glucose 108 H Uric Acid 9.9 H Calcium 7.4 L POC WB Ioniz Calcium Total Protein 5.2 L Albumin 2.5 L Albumin/Globulin Ratio 0.9 L Carcinoembryonic Ag Urine Protein Urine Ketones Urine Occult Blood Urine Urobilinogen Urine RBC Urine WBC Urine Bacteria Hyaline Casts Granular Casts 05/21/18 05/21/18 05/21/18 20:40 16:02 16:02 RBC Hgb Hct POC Hct 40.0 L RDW MPV Lymph % (Auto) Lagrange % (Auto) Lymph # (Auto) Monocytes % (Manual) PT INR POC Sodium 131 L POC Potassium 3.2 L POC Chloride 85 L Chloride 84 L Carbon Dioxide 34 H POC Total CO2 35 H Anion Gap 17.0 H POC BUN 47 H BUN 56 H Creatinine 1.5 H POC Creatinine 1.4 H Glucose 107 H Uric Acid Calcium 8.3 L POC WB Ioniz Calcium 0.84 L Total Protein Albumin 2.9 L Albumin/Globulin Ratio 0.9 L Carcinoembryonic Ag 3.8 H Urine Protein 30 A Urine Ketones 20 A Urine Occult Blood 0.03 A Urine Urobilinogen 4.0 A Urine RBC 7 H Urine WBC 8 H Urine Bacteria Few A Hyaline Casts 10 H Granular Casts 4 H 05/21/18 16:02 RBC Hgb 13.1 L Hct 39.7 L POC Hct RDW 14.9 H MPV 7.0 L Lymph % (Auto) Lagrange % (Auto) Lymph # (Auto) Monocytes % (Manual) 17 H PT INR POC Sodium POC Potassium POC Chloride Chloride Carbon Dioxide POC Total CO2 Anion Gap POC BUN BUN Creatinine POC Creatinine Glucose Uric Acid Calcium POC WB Ioniz Calcium Total Protein Albumin Albumin/Globulin Ratio Carcinoembryonic Ag Urine Protein Urine Ketones Urine Occult Blood Urine Urobilinogen Urine RBC Urine WBC Urine Bacteria Hyaline Casts Granular Casts Meds: Medications Albuterol/Ipratropium (Duoneb) 3 ml NEB Q4HRT [facility] Last Admin: 05/22/18 07:30 Dose: Not Given Budesonide (Pulmicort) 0.5 mg NEB Q12 [facility] Last Admin: 05/22/18 07:30 Dose: Not Given Famotidine (Pepcid) 20 mg IV Q12 [facility] Last Admin: 05/22/18 09:59 Dose: 20 mg Hydromorphone HCl (Dilaudid) 1 mg IV Q2HP PRN PRN Reason: severe pain > 5 Last Admin: 05/22/18 06:46 Dose: 1 mg Acetaminophen (Ofirmev) 650 mg in 65 mls @ 130 mls/hr IV Q6HP PRN PRN Reason: PAIN/FEVER > 101 Metronidazole (Flagyl) 500 mg in 100 mls @ 100 mls/hr IV Q8H [facility] Last Infusion: 05/22/18 08:54 Dose: Infused Ciprofloxacin (Cipro) 400 mg in 200 mls @ 200 mls/hr IV Q12H [facility] Last Admin: 05/22/18 09:58 Dose: 200 mls/hr Potassium Cl/Dextrose/Lact Ringer's (Dextrose 5%-Lr W/20meq Kcl) 1,000 mls @ 125 mls/hr IV .Q8H [facility] Last Admin: 05/22/18 08:39 Dose: 125 mls/hr Thiamine HCl 100 mg/ Sodium (Chloride) 51 mls @ 50 mls/hr IV DAILY [facility] Stop: 05/24/18 10:02 Last Admin: 05/22/18 09:58 Dose: 50 mls/hr Sodium Chloride (Sodium Chloride 0.9%) 250 mls @ 20 mls/hr IV .[id number] [facility] Stop: 05/22/18 20:59 Last Admin: 05/22/18 09:59 Dose: Not Given Naloxone HCl (Narcan) 0.1 mg IV Q2MIN PRN PRN Reason: Opiate Reversal Ondansetron HCl (Zofran) 4 mg IV Q4HP PRN PRN Reason: Nausea And Vomiting Last Admin: 05/21/18 23:15 Dose: 4 mg Sodium Chloride (Saline Flush) 10 ml IV Q8 [facility] Last Admin: 05/22/18 05:19 Dose: Not Given Medical - PN: A/P - Time Spent With Patient Total time spent is greater than 50% in coordination of care (as documented) at patient's floor/unit and/or counseling patient: - Narrative A/P Narrative: A/P Acute large bowel obstruction Possible Ca Colon Acute Kidney Injury COPD exacerbation Acute hypoxic respiratory failure Dehydration Weight loss Hypertension Hyperlipidemia Iliac artery aneurysm thrombosed. Pre op risk assesstment Plan monitor on tele BP low this AM, IV LR bolus, switch IV replacement to D5LR with 20KCL, monitor BP Plan for surgery today, moderate risk from cardiovascular stand point, but also has emphysema and low albuminm which increase post op risk Continue IV cipro and flagyl for now. Continue duonebs and symbicort. hold home bp medications monitor urine output Amin to be placed DVT scd, GI Famotid Full code NPO diet. Medical - PN: Qual - VTE Deep Vein Thrombosis/Pulmonary Embolism Present on Admission: No
[2018-05-22] MEDS ORDERED: DEXAMETHASONE 10 MG/ML VIAL ONE (11:23)
[2018-05-22] MEDS ORDERED: SUCCINYLCHOLINE 20 MG/ML ML IV ONE (11:23)
[2018-05-22] MEDS ORDERED: PROPOFOL 200 MG/20 ML VIAL IV ONE (11:23)
[2018-05-22] MEDS ORDERED: KETAMINE 100 MG/ML ML ONE (11:23)
[2018-05-22] MEDS ORDERED: VECURONIUM BROMIDE 10 MG VIAL IV ONE (11:23)
[2018-05-22] MEDS ORDERED: LIDOCAINE HCL/PF 100 MG/5 ML SYRINGE IV ONE (11:23)
[2018-05-22] MEDS ORDERED: fentaNYL 100 MCG/2 ML VIAL IV ONE (11:23)
[2018-05-22] MEDS ORDERED: MIDAZOLAM 5 MG/5 ML VIAL ONE (11:23)
--- NOTE | 2018-05-22 12:11 | Brief Operative Note ---
Date of procedure: 05/22/18 Pre-op diagnosis: bowel obstruction Post-op diagnosis: same Procedure: cysto, mary kate stents Grafts/Implants: Yes (ureteral stents) Anesthesia: GETA Findings: see note Complications: none Surgeon: Rebel Slaughter Specimens Removed/Pathology: none sent Condition: stable Disposition: no change
[2018-05-22] MEDS ORDERED: PROPOFOL 1,000 MG in PREMIX 1 BAG IV SCH ×2 (15:15→17:37)
[2018-05-22] MEDS ORDERED: fentaNYL 2,500 MCG in 0.9 % SODIUM CHLORIDE 200 ML IV SCH (15:30)
--- NOTE | 2018-05-22 15:37 | Brief Operative Note ---
Date of procedure: 05/22/18 Pre-op diagnosis: large bowel obstruction at level of sigmoid colon. Post-op diagnosis: other (large bowel obstruction at level of rectosigmoid junction) Procedure: exploratory laparotomy with biopsy of liver nodule and creation of transverse loop colostomy. rigid proctoscopy to 10-12cm. Findings: Dilated small and large bowel from ligament of trietz to distal sigmoid colon at level of peritoneal reflection. No bowel ischemia or perforation. No visible mass at rectosigmoid junction but palpation below reflection suggest rectal mass. Very small white nodules noted in surface of liver mainly on left lobe. Rigid proctoscopy to 10-12cm with normal mucosa. Scope meets resistance at 10 - 12cm but no mass seen and no lumen to bowel found--question of tight curve to bowel that cannot be followed with scope. Complications: none Surgeon: Jaylin Del [employer] Cook: Rebel Slaughter Estimated blood loss (cc): 30 Specimens Removed/Pathology: other (liver nodules X2; left lobe) Condition: critical Disposition: ICU
--- NOTE | 2018-05-22 15:37 | Internal Med Progress Note ---
Medical - PN: Subj Patient information: Note initiated : 05/22/18 at 3:32 pm Service Date, if different from initiated Date: [] Patient: Luciano Nioxn 67 y/o M admitted on 05/21/18 for Abdominal pain. Chief Complaint: [] not passing stool. Obstruction in recto sigmoid colon unable to be traversed with pediatric scope. Interval history: Mr. Nixon is a 67 year old M who underwent low transverse colostomy this afternoon by Dr. Del Cid. Pt with dilated sigmoid above peritoneal reflection and Dr. Del Cid and Dr. Slaughter suspect a pelvic rectal mass. The pt had bilateral ureteral stents and mcdowell placed. Urine output was 200cc since noon and stool output was 800 since arrival on ICU. Pt is intubated sedated and hemodynamically stable without current pressors. Pt received small amount phenylephrine during surgery. He was weak on spontaneous breathing making only 80-150 volumes. Currently on vent AC 14 TV 400 FiO2 70% Additional PMFSH (Level 3 Only): COPD - Constitutional Vitals: Vital Signs Temp Pulse Resp BP Pulse Ox 97.8 F 98 H 20 108/57 96 05/22/18 06:44 05/22/18 10:30 05/22/18 07:16 05/22/18 10:31 05/22/18 10:30 Period Temp Pulse Resp BP Sys/Faria Pulse Ox Last 24 Hr 97.8 F-99.1 F 90-132 11-24 81-123/41-99 81-99 Intake and Output 05/22/18 05/22/18 05/22/18 05:59 13:59 21:59 Intake Total 1300 / 1300 100 / 100 200 / 200 Output Total 250 / 250 800 / 800 Balance 1300 / 1300 -150 / -150 -600 / -600 Weight 132 lb 8 oz Intake & Output: Intake & Output 05/22/18 05/22/18 05/22/18 05:59 13:59 21:59 Intake Total 1300 / 1300 100 / 100 200 / 200 Output Total 250 / 250 800 / 800 Balance 1300 / 1300 -150 / -150 -600 / -600 Weight 132 lb 8 oz Intake: IV 1300 / 1300 100 / 100 200 / 200 CIPRO 400 mg In 200 ml @ 0 mls/ 200 / 200 hr IV .[facility] Rx#: [id number] Lactated Ringers 1,000 ml @ 1000 / 1000 Wide Open IV B[facility] Rx#: [id number] FLAGYL 500 mg In 100 ml @ 0 mls 100 / 100 /hr IV .STK-[facility] Rx#: [id number] Output: Void Amount 250 / 250 Stool 800 / 800 Other: Urine Color Light Lyric Urine Odor Strong # Voids 1 General appearance: no acute distress, thin - Eye Eye exam: Present: normal appearance, PERRL. Absent: periorbital swelling - Neck Neck exam: Present: normal inspection. Absent: lymphadenopathy - Respiratory Respiratory exam: Present: decreased breath sounds, CTAB - Cardiovascular Cardiovascular exam: Present: normal rate and rhythm - GI/Abdominal GI/Abdominal exam: Present: diminished bowel sounds. Absent: firm, rigid Additional comments: loose de paz stool out colostomy - exam: Present: circumcision Additional comments: mcdowell and stent wires in place - Extremities Exam Extremities exam: Present: Foot pink and warm. Absent: pedal edema Additional comments: DP 1+ bilat Radial 1+ left right with art line in place - Skin Skin exam: Present: dry, warm. Absent: cyanosis, diaphoretic Medical - PN: Obj Da - Labs CBC & Chem 7: 05/22/18 03:54 05/22/18 03:54 Labs: Abnormal Lab Results 05/22/18 05/22/18 05/22/18 03:54 03:54 03:54 RBC 3.78 L Hgb 11.1 L Hct 33.3 L POC Hct RDW 15.2 H MPV 7.2 L Lymph % (Auto) 11.7 L [place] % (Auto) 15.3 H Lymph # (Auto) 0.5 L Monocytes % (Manual) PT 16.4 H INR 1.3 H POC Sodium POC Potassium POC Chloride Chloride 91 L Carbon Dioxide 31 H POC Total CO2 Anion Gap POC BUN BUN 52 H Creatinine POC Creatinine Glucose 108 H Uric Acid 9.9 H Calcium 7.4 L POC WB Ioniz Calcium Total Protein 5.2 L Albumin 2.5 L Albumin/Globulin Ratio 0.9 L Carcinoembryonic Ag Urine Protein Urine Ketones Urine Occult Blood Urine Urobilinogen Urine RBC Urine WBC Urine Bacteria Hyaline Casts Granular Casts 05/21/18 05/21/18 05/21/18 20:40 16:02 16:02 RBC Hgb Hct POC Hct 40.0 L RDW MPV Lymph % (Auto) [place] % (Auto) Lymph # (Auto) Monocytes % (Manual) PT INR POC Sodium 131 L POC Potassium 3.2 L POC Chloride 85 L Chloride 84 L Carbon Dioxide 34 H POC Total CO2 35 H Anion Gap 17.0 H POC BUN 47 H BUN 56 H Creatinine 1.5 H POC Creatinine 1.4 H Glucose 107 H Uric Acid Calcium 8.3 L POC WB Ioniz Calcium 0.84 L Total Protein Albumin 2.9 L Albumin/Globulin Ratio 0.9 L Carcinoembryonic Ag 3.8 H Urine Protein 30 A Urine Ketones 20 A Urine Occult Blood 0.03 A Urine Urobilinogen 4.0 A Urine RBC 7 H Urine WBC 8 H Urine Bacteria Few A Hyaline Casts 10 H Granular Casts 4 H 05/21/18 16:02 RBC Hgb 13.1 L Hct 39.7 L POC Hct RDW 14.9 H MPV 7.0 L Lymph % (Auto) [place] % (Auto) Lymph # (Auto) Monocytes % (Manual) 17 H PT INR POC Sodium POC Potassium POC Chloride Chloride Carbon Dioxide POC Total CO2 Anion Gap POC BUN BUN Creatinine POC Creatinine Glucose Uric Acid Calcium POC WB Ioniz Calcium Total Protein Albumin Albumin/Globulin Ratio Carcinoembryonic Ag Urine Protein Urine Ketones Urine Occult Blood Urine Urobilinogen Urine RBC Urine WBC Urine Bacteria Hyaline Casts Granular Casts Meds: Medications Albuterol/Ipratropium (Duoneb) 3 ml NEB Q4HRT [facility] Last Admin: 05/22/18 11:08 Dose: Not Given Budesonide (Pulmicort) 0.5 mg NEB Q12 [facility] Last Admin: 05/22/18 07:30 Dose: Not Given Famotidine (Pepcid) 20 mg IV Q12 [facility] Last Admin: 05/22/18 09:59 Dose: 20 mg Hydromorphone HCl (Dilaudid) 1 mg IV Q2HP PRN PRN Reason: severe pain > 5 Last Admin: 05/22/18 06:46 Dose: 1 mg Acetaminophen (Ofirmev) 650 mg in 65 mls @ 130 mls/hr IV Q6HP PRN PRN Reason: PAIN/FEVER > 101 Metronidazole (Flagyl) 500 mg in 100 mls @ 100 mls/hr IV Q8H [facility] Last Infusion: 05/22/18 08:54 Dose: Infused Ciprofloxacin (Cipro) 400 mg in 200 mls @ 200 mls/hr IV Q12H [facility] Last Infusion: 05/22/18 15:13 Dose: Infused Potassium Cl/Dextrose/Lact Ringer's (Dextrose 5%-Lr W/20meq Kcl) 1,000 mls @ 125 mls/hr IV .Q8H [facility] Last Admin: 05/22/18 08:39 Dose: 125 mls/hr Thiamine HCl 100 mg/ Sodium (Chloride) 51 mls @ 50 mls/hr IV DAILY [facility] Stop: 05/24/18 10:02 Last Admin: 05/22/18 09:58 Dose: 50 mls/hr Sodium Chloride (Sodium Chloride 0.9%) 250 mls @ 20 mls/hr IV .[id number] [facility] Stop: 05/22/18 20:59 Last Admin: 05/22/18 09:59 Dose: Not Given Propofol 1,000 mg/ Premix 100 mls @ 1.8 mls/hr IV .Q24H [facility]; Protocol Fentanyl 2,500 mcg/ Sodium (Chloride) 250 mls @ 4.2 mls/hr IV Q24H [facility]; Protocol Naloxone HCl (Narcan) 0.1 mg IV Q2MIN PRN PRN Reason: Opiate Reversal Ondansetron HCl (Zofran) 4 mg IV Q4HP PRN PRN Reason: Nausea And Vomiting Last Admin: 05/21/18 23:15 Dose: 4 mg Sodium Chloride (Saline Flush) 10 ml IV Q8 [facility] Last Admin: 05/22/18 05:19 Dose: Not Given Medical - PN: A/P - Time Spent With Patient Total time spent is greater than 50% in coordination of care (as documented) at patient's floor/unit and/or counseling patient: crirtical care time 45 mins Greater than 35 minutes (1) Large bowel obstruction Status: Acute Assessment and plan: post diverting distal transverse colostomy and passing lots of de paz stool Current Visit: Yes (2) COPD with exacerbation Status: Acute Assessment and plan: pt with respiratory failure and now ventilated. Will remain off paralytics and move toward extubation hopefully tomorrow. wean FI02 as tolerated Current Visit: No (3) Bilateral ureteral obstruction Status: Acute Assessment and plan: now post bilateral stents and on appropriate prophylactic coverage due to intraabdominal infection and on cipro and flagyl hematuria present not clotted but urine output has stopped despite bolus and good BP. Will flush mcdowell. Current Visit: Yes (4) Hypotension during surgery Status: Acute Assessment and plan: resolved. has art line and adequate IV access. not requiring pressors. Current Visit: Yes Medical - PN: Qual - VTE Deep Vein Thrombosis/Pulmonary Embolism Present on Admission: No
[2018-05-22] MEDS ORDERED: FUROSEMIDE 20 MG/2 ML VIAL IV ONE (16:19)
--- NOTE | 2018-05-22 17:32 | XRay Report ---
CLINICAL INFORMATION: Shortness of breath COPD COMPARISON: 05/21/2018 portable chest x-ray FINDINGS: Endotracheal tip is in satisfactory position - 3 cm above the jacky. OG tube extends off the edge of the film the gastric body. Heart size, mediastinum and pulmonary vessels are normal. Moderate COPD changes noted. Small patchy infiltrates have developed in both medial bases. There are no effusions IMPRESSION: Small patchy infiltrates developing in both medial bases - suspect aspiration Moderate COPD Endotracheal and OG tubes are in satisfactory position Interpreted and Authenticated by: Luciano Smith 05/22/18
[2018-05-22] MEDS ORDERED: 0.9 % SODIUM CHLORIDE 250 ML IV SCH (17:37)
[2018-05-22] MEDS ORDERED: NALOXONE HCL 0.4 MG/ML VIAL IV PRN (17:37)
--- NOTE | 2018-05-22 18:31 | XRay Report ---
CLINICAL INFORMATION: URETERAL STENT PLACEMENT COMPARISON: None. FINDINGS: Digital images from the OR show bilateral ureteral stents which are incompletely imaged. Exact location cannot be ascertained IMPRESSION: Probable bilateral ureteral stents - incompletely imaged Interpreted and Authenticated by: Luciano Smith 05/22/18
[2018-05-22] MEDS: BUDESONIDE 0.5 MG/2 ML AMPUL.NEB NEB SCH (19:09)
[2018-05-22 19:56] LABS: Blood Urea Nitrogen 43 mg/dl (8-23)
[2018-05-22] MEDS: FAMOTIDINE/PF 20 MG/2 ML VIAL IV SCH (20:58)
[2018-05-22] MEDS: CHLORHEXIDINE GLUCONATE 1 ML ORAL.SOL SWABMOUTH SCH (20:58)
[2018-05-22] MEDS: CIPROFLOXACIN 400 MG/200 ML BAG IV SCH (20:59)
[2018-05-22] MEDS ORDERED: 0.9 % SODIUM CHLORIDE 1,000 ML IV ONE (21:28)
[2018-05-23] MEDS ORDERED: 0.9 % SODIUM CHLORIDE 1,000 ML IV ONE (00:39)
[2018-05-23] MEDS: DEXTROSE 5%-LR W/20MEQ KCL 1,000 ML IV SCH ×4 (01:07→17:47)
[2018-05-23] MEDS ORDERED: NOREPINEPHRINE BITARTRATE 4 MG/4 ML AMPUL IV ONE (02:41)
[2018-05-23] MEDS ORDERED: HYDROCORTISONE SOD SUCC 100 MG VIAL IV ONE ×2 (02:42→05:23)
[2018-05-23] MEDS ORDERED: NOREPINEPHRINE BITARTRATE 8 MG in 0.9 % SODIUM CHLORIDE 242 ML IV SCH (02:45)
[2018-05-23] MEDS ORDERED: NOREPINEPHRINE BITARTRATE 16 MG in 0.9 % SODIUM CHLORIDE 234 ML IV SCH (02:50)
[2018-05-23] MEDS: 0.9 % SODIUM CHLORIDE 250 ML IV SCH ×4 (02:55→16:04)
[2018-05-23] MEDS: HYDROCORTISONE SOD SUCC 100 MG VIAL IV SCH ×5 (03:45→21:14)
[2018-05-23] MEDS: IPRATROPIUM/ALBUTEROL 3 ML AMPUL.NEB NEB SCH ×6 (03:49→22:56)
[2018-05-23 05:38] LABS: Basophils # (Auto) 0 K/mcL (0.0-0.3); Basophils % (Auto) 0.1 % (0.0-2.0); Eosinophils # (Auto) 0 K/mcL (0.0-0.7); Eosinophils % (Auto) 0 % (0.0-7.0); Granulocytes % (Auto) 88.7 % (38.0-78.0); Lymphocytes # (Auto) 0.3 K/mcL (1.5-4.8); Lymphocytes % (Auto) 3.9 % (15.5-49.0); Mean Cell Volume 88.8 fL (80.0-100.0); Mean Corpuscular HGB Conc 32.5 g/dL (31.0-36.0); Mean Corpuscular Hemoglobin 28.8 pg (26.0-34.0); Monocytes # (Auto) 0.6 K/mcL (0.1-0.9); Monocytes % (Auto) 7.3 % (1.0-12.0); Platelet Count 272 K/mcL (140-440); RBC 3.69 M/mcL (4.50-5.90); Red Cell Distribution Width 15.2 % (11.5-14.5)
[2018-05-23 05:45] LABS: ALT/SGPT 11 U/l (0-40); Albumin/Globulin Ratio 0.8 (1.0-2.3); Alkaline Phosphatase 118 U/L (39-117); Bilirubin,Direct < 0.2 mg/dL (0.0-0.3); Blood Urea Nitrogen 42 mg/dl (8-23); Gamma Glutamyl Transpeptidase 15 U/L (8-61)
[2018-05-23] MEDS: metroNIDAZOLE 500 MG/100 ML BAG IV SCH ×3 (05:47→21:14)
[2018-05-23] MEDS: 0.9 % SODIUM CHLORIDE 10 ML SYRINGE IV SCH ×3 (05:50→21:31)
[2018-05-23] MEDS: BUDESONIDE 0.5 MG/2 ML AMPUL.NEB NEB SCH ×2 (07:13→19:20)
[2018-05-23] MEDS ORDERED: LACTATED RINGERS 500 ML IV SCH ×2 (07:45→19:30)
--- NOTE | 2018-05-23 07:51 | General Surgery Progress Note ---
Surgical - Auxillary Note - Subjective Patient Information: Note initiated : 05/23/18 at 7:38 am Service Date, if different from initiated Date: [] Patient: Luciano Nixon 67 y/o M admitted on 05/21/18 for Abdominal pain. Chief Complaint: Patient remains sedated and ventilated. Was given 20mg lasix last evening post op for low urine output. Was initially hypertensive post op but became hypotensive throughout night and levophed started--currently at 8mcg. Had 120cc urine output overnight. Vital Signs Temp Pulse Resp BP Pulse Ox 98.6 F 79 14 90/53 99 05/23/18 07:15 05/23/18 07:26 05/23/18 07:26 05/23/18 00:35 05/23/18 07:15 Period Temp Pulse Resp BP Sys/Faria Pulse Ox Last 24 Hr 97.9 F-99.5 F 74-113 14-24 82-136/53-99 86-100 Intake and Output 05/22/18 05/23/18 05/23/18 21:59 05:59 13:59 Intake Total 4519 / 4519 2586 / 2586 70 / 70 Output Total 1245 / 1245 300 / 300 305 / 305 Balance 3274 / 3274 2286 / 2286 -235 / -235 Weight 132 lb 8 oz PE: Patient sedated. Chest: clear in upper taylor. Diminished at bases. CV: regular rate and rhythm ABD: soft, less distended than yesterday. Dressing clean and dry. Ostomy with large amount of yellow liquid stool in appliance. EXT: Mild edema of hands and feet. DP pulses diminished but palpable bilaterally (stronger than on admission). No cyanosis. Art line in place-- right radial. CBC and Chem 7 05/23/18 03:47 05/23/18 03:47 A/P: S/p exploratory laparotomy with transverse loop colostomy for large bowel obstruction, and biopsy of liver nodules. Post op Resp failure: hx of emphysema. Vent management per hospitalist service but will discuss when to start weaning trials. Hypotension: suspect this is combination of hypovolemia and added effect of propofol and fentanyl. Review of medical records show a baseline BUN and Cr from 07/2017 of 11 and 1.0. Will bolus with LR 500ccs and follow response. Would like to use lasix sparingly (although it is noted he is on this regularly at home.) Will try to wean levophed as tolerated to keep MAP at or above 60. If weaning trials are done will have better idea of what his pressures are like with less sedation.
--- NOTE | 2018-05-23 08:49 | XRay Report ---
CLINICAL INFORMATION: intubated patient - hypoxia COMPARISON: 05/22/2018. FINDINGS: Lines and tubes in stable satisfactory position. Cardiomediastinal silhouette and pulmonary vessels are normal. Moderate patchy bibasilar infiltrates progressed. Suspect aspiration. Moderate underlying COPD noted. (A prominent skin fold overlying the lateral mid/lower thorax mimics a pneumothorax) IMPRESSION: Moderate patchy bibasilar infiltrates - progressing. Suspect aspiration pneumonia. Interpreted and Authenticated by: Luciano Smith 05/23/18
--- NOTE | 2018-05-23 09:09 | Internal Med Progress Note ---
Medical - PN: Subj Patient information: Note initiated : 05/23/18 at 9:05 am Service Date, if different from initiated Date: [] Patient: Luciano Nixon 67 y/o M admitted on 05/21/18 for Abdominal pain. Chief Complaint: [] abdominal pain and bloating. pelvic colon obstruction Interval history: pt underwent distal transverse colon colostomy and last pm received 4 liters fluid. Pt had initially low urine output now is 100/hr. Pt with steroids started at 0200 and this morning doing some weaning exercises. following commands. Family and Dr. Del Cid have already visited. - Constitutional Vitals: Vital Signs Temp Pulse Resp BP Pulse Ox 98.6 F 79 14 90/53 99 05/23/18 07:15 05/23/18 07:26 05/23/18 07:26 05/23/18 00:35 05/23/18 07:15 Period Temp Pulse Resp BP Sys/Faria Pulse Ox Last 24 Hr 97.9 F-99.5 F 74-113 14-24 90-136/53-99 94-100 Intake and Output 05/22/18 05/23/18 05/23/18 21:59 05:59 13:59 Intake Total 4519 / 4519 2586 / 2586 162 / 162 Output Total 1245 / 1245 300 / 300 350 / 350 Balance 3274 / 3274 2286 / 2286 -188 / -188 Weight 132 lb 8 oz Intake & Output: Intake & Output 05/22/18 05/23/18 05/23/18 21:59 05:59 13:59 Intake Total 4519 / 4519 2586 / 2586 162 / 164 Output Total 1245 / 1245 300 / 300 350 / 350 Balance 3274 / 3274 2286 / 2286 -188 / -186 Weight 132 lb 8 oz Intake: IV 4519 / 4519 2586 / 2586 162 / 164 Sodium Chloride 0.9% 1,000 ml @ 1999 / 1999 Wide Open IV [facility] Rx#: [id number] Dextrose 5%-Lr W/20Meq KCl 1, 100 / 100 000 ml @ 125 mls/hr IV .Q8H [facility] Rx#:[id number] Lactated Ringers 1,000 ml @ 1000 / 1000 Wide Open IV [facility] Rx#: [id number] Levophed 16 mg In Sodium / 7 29 / 29 Chloride 0.9% 234 ml @ 8 MCG/ MIN 7.5 mls/hr IV Q24H [facility] Rx#: [id number] Diprivan 1,000 mg In Premix 1 73 / 75 Bag @ 5 MCG/KG/MIN 1.8 mls/hr IV .Q24H [facility] Rx#:[id number] Vitamin B1 100 mg In Sodium 51 / 51 Chloride 0.9% 50 ml @ 50 mls/hr IV DAILY [facility] Rx#:[id number] fentaNYL 2,500 MCG In Sodium 8 / 8 Chloride 0.9% 200 ml @ 0.7 MCG/ KG/HR 4.2 mls/hr IV Q24H [facility] Rx #:[id number] Output: Urine Catheter Amount 95 / 95 150 / 150 350 / 350 Stool 1150 / 1150 150 / 150 Other: Urine Appearance Uretheral (Mcdowell) Sediment Sediment Hematuria Hematuria Urine Color Dark Red Dark Lyric Uretheral (Mcdowell) Dark Red Dark Red Stool Size Moderate Stool Color Brown Brown Pale Stool Consistency Liquid Soft - Head Head exam: Present: atraumatic, normal inspection - Eye Eye exam: Present: normal appearance, PERRL. Absent: scleral icterus Pupils: Present: normal accommodation - Respiratory Respiratory exam: Present: normal respiratory exam, decreased breath sounds - Cardiovascular Cardiovascular exam: Present: normal rate and rhythm - GI/Abdominal GI/Abdominal exam: Present: soft, distended. Absent: diminished bowel sounds - Expanded Lower Extremity Exam Ankle exam: Absent: swelling, tenderness - Neurological Exam Additional comments: opens eyes to commands and squeezes with hands and raises left thumb to command Medical - PN: Obj Da - Labs CBC & Chem 7: 05/23/18 03:47 05/23/18 03:47 Labs: Abnormal Lab Results 05/23/18 05/23/18 05/22/18 03:47 03:47 18:43 RBC 3.69 L Hgb 10.6 L Hct 32.8 L POC Hct RDW 15.2 H MPV 6.9 L Gran % 88.7 H Lymph % (Auto) 3.9 L [place] % (Auto) Lymph # (Auto) 0.3 L Monocytes % (Manual) PT INR POC Sodium Sodium 131 L POC Potassium POC Chloride Chloride 94 L Carbon Dioxide POC Total CO2 Anion Gap POC BUN BUN 42 H 43 H Creatinine 1.6 H POC Creatinine Glucose 187 H 189 H Uric Acid Calcium 6.7 L 7.1 L POC WB Ioniz Calcium Alkaline Phosphatase 118 H Lactate Dehydrogenase 350 H Total Protein 4.4 L Albumin 2.0 L Albumin/Globulin Ratio 0.8 L Carcinoembryonic Ag Urine Protein Urine Ketones Urine Occult Blood Urine Urobilinogen Urine RBC Urine WBC Urine Bacteria Hyaline Casts Granular Casts 05/22/18 05/22/18 05/22/18 03:54 03:54 03:54 RBC 3.78 L Hgb 11.1 L Hct 33.3 L POC Hct RDW 15.2 H MPV 7.2 L Gran % Lymph % (Auto) 11.7 L [place] % (Auto) 15.3 H Lymph # (Auto) 0.5 L Monocytes % (Manual) PT 16.4 H INR 1.3 H POC Sodium Sodium POC Potassium POC Chloride Chloride 91 L Carbon Dioxide 31 H POC Total CO2 Anion Gap POC BUN BUN 52 H Creatinine POC Creatinine Glucose 108 H Uric Acid 9.9 H Calcium 7.4 L POC WB Ioniz Calcium Alkaline Phosphatase Lactate Dehydrogenase Total Protein 5.2 L Albumin 2.5 L Albumin/Globulin Ratio 0.9 L Carcinoembryonic Ag Urine Protein Urine Ketones Urine Occult Blood Urine Urobilinogen Urine RBC Urine WBC Urine Bacteria Hyaline Casts Granular Casts 05/21/18 05/21/18 05/21/18 20:40 16:02 16:02 RBC Hgb Hct POC Hct 40.0 L RDW MPV Gran % Lymph % (Auto) [place] % (Auto) Lymph # (Auto) Monocytes % (Manual) PT INR POC Sodium 131 L Sodium POC Potassium 3.2 L POC Chloride 85 L Chloride 84 L Carbon Dioxide 34 H POC Total CO2 35 H Anion Gap 17.0 H POC BUN 47 H BUN 56 H Creatinine 1.5 H POC Creatinine 1.4 H Glucose 107 H Uric Acid Calcium 8.3 L POC WB Ioniz Calcium 0.84 L Alkaline Phosphatase Lactate Dehydrogenase Total Protein Albumin 2.9 L Albumin/Globulin Ratio 0.9 L Carcinoembryonic Ag 3.8 H Urine Protein 30 A Urine Ketones 20 A Urine Occult Blood 0.03 A Urine Urobilinogen 4.0 A Urine RBC 7 H Urine WBC 8 H Urine Bacteria Few A Hyaline Casts 10 H Granular Casts 4 H 05/21/18 16:02 RBC Hgb 13.1 L Hct 39.7 L POC Hct RDW 14.9 H MPV 7.0 L Gran % Lymph % (Auto) [place] % (Auto) Lymph # (Auto) Monocytes % (Manual) 17 H PT INR POC Sodium Sodium POC Potassium POC Chloride Chloride Carbon Dioxide POC Total CO2 Anion Gap POC BUN BUN Creatinine POC Creatinine Glucose Uric Acid Calcium POC WB Ioniz Calcium Alkaline Phosphatase Lactate Dehydrogenase Total Protein Albumin Albumin/Globulin Ratio Carcinoembryonic Ag Urine Protein Urine Ketones Urine Occult Blood Urine Urobilinogen Urine RBC Urine WBC Urine Bacteria Hyaline Casts Granular Casts Meds: Medications Albuterol/Ipratropium (Duoneb) 3 ml NEB Q4HRT [facility] Last Admin: 05/23/18 07:13 Dose: 3 ml Budesonide (Pulmicort) 0.5 mg NEB Q12 [facility] Last Admin: 05/23/18 07:13 Dose: 0.5 mg Chlorhexidine Gluconate (Peridex) 15 ml SWABMOUTH BID [facility] Last Admin: 05/22/18 20:58 Dose: 15 ml Famotidine (Pepcid) 20 mg IV Q12 [facility] Last Admin: 05/22/18 20:58 Dose: 20 mg Hydrocortisone Sodium Succinate (Solu-Cortef) 50 mg IV Q6 [facility] Last Admin: 05/23/18 05:50 Dose: Not Given Hydromorphone HCl (Dilaudid) 1 mg IV Q2HP PRN PRN Reason: severe pain > 5 Ciprofloxacin (Cipro) 400 mg in 200 mls @ 200 mls/hr IV Q12H [facility] Last Infusion: 05/22/18 23:28 Dose: Infused Potassium Cl/Dextrose/Lact Ringer's (Dextrose 5%-Lr W/20meq Kcl) 1,000 mls @ 125 mls/hr IV .Q8H [facility] Last Admin: 05/23/18 01:55 Dose: 125 mls/hr Fentanyl 2,500 mcg/ Sodium (Chloride) 250 mls @ 4.2 mls/hr IV Q24H [facility]; Protocol Metronidazole (Flagyl) 500 mg in 100 mls @ 100 mls/hr IV Q8H [facility] Last Admin: 05/23/18 05:47 Dose: 100 mls/hr Acetaminophen (Ofirmev) 650 mg in 65 mls @ 130 mls/hr IV Q6HP PRN PRN Reason: PAIN/FEVER > 101 Propofol 1,000 mg/ Premix 100 mls @ 1.8 mls/hr IV .Q24H [facility]; Protocol Last Titration: 05/23/18 08:35 Dose: 20 mcg/kg/min, 7.21 mls/hr Thiamine HCl 100 mg/ Sodium (Chloride) 51 mls @ 50 mls/hr IV DAILY [facility] Stop: 05/24/18 10:02 Sodium Chloride (Sodium Chloride 0.9%) 250 mls @ 20 mls/hr IV .[id number] [facility] Last Admin: 05/23/18 02:55 Dose: 20 mls/hr Norepinephrine Bitartrate 16 (mg/ Sodium Chloride) 250 mls @ 7.5 mls/hr IV Q24H [facility]; Protocol Last Titration: 05/23/18 08:48 Dose: 4 mcg/min, 3.75 mls/hr Sodium Chloride (Sodium Chloride 0.9%) 250 mls @ 20 mls/hr IV .[id number] [facility] Last Admin: 05/23/18 03:47 Dose: Not Given Naloxone HCl (Narcan) 0.1 mg IV Q2MIN PRN PRN Reason: Opiate Reversal Ondansetron HCl (Zofran) 4 mg IV Q4HP PRN PRN Reason: Nausea And Vomiting Sodium Chloride (Saline Flush) 10 ml IV Q8 [facility] Last Admin: 05/23/18 05:50 Dose: Not Given - ABG Interpretation Interpretation: normal - EKG Data EKG shows normal: sinus rhythm Medical - PN: A/P - Time Spent With Patient Total time spent is greater than 50% in coordination of care (as documented) at patient's floor/unit and/or counseling patient: Greater than 35 minutes (1) Large bowel obstruction Status: Acute Assessment and plan: post diverting distal transverse colostomy and passing lots of de paz stool pt put out 1500cc stool overnight and doing well. no blood. suspected underlying colorectal cancer. liver bx pending. mildly elevated CEA Current Visit: Yes (2) COPD with exacerbation Problem details: stable on vent CO2 48. cont Pressure support trial at 5/5. Status: Chronic Assessment and plan: pt with respiratory failure and now ventilated. Will remain off paralytics and move toward extubation hopefully tomorrow. wean FI02 as tolerated Current Visit: Yes (3) Bilateral ureteral obstruction Status: Acute Assessment and plan: now post bilateral stents and on appropriate prophylactic coverage due to intraabdominal infection and on cipro and flagyl hematuria lessening. Pt now making adequate urine. Mild increase in creatinine from baseline. cont fluids and mcdowell and stents. Current Visit: Yes (4) Hypotension during surgery Status: Acute Assessment and plan: resolved. has art line and adequate IV access. not requiring pressors. Current Visit: Yes Medical - PN: Qual - VTE Deep Vein Thrombosis/Pulmonary Embolism Present on Admission: No
[2018-05-23] MEDS: CHLORHEXIDINE GLUCONATE 1 ML ORAL.SOL SWABMOUTH SCH (10:06)
[2018-05-23] MEDS: FAMOTIDINE/PF 20 MG/2 ML VIAL IV SCH ×2 (10:06→21:14)
[2018-05-23] MEDS: THIAMINE 100 MG in 0.9 % SODIUM CHLORIDE 50 ML IV SCH (10:07)
[2018-05-23] MEDS: CIPROFLOXACIN 400 MG/200 ML BAG IV SCH ×2 (10:07→21:13)
[2018-05-23] MEDS: HYDROmorphone 2 MG/ML VIAL IV PRN ×5 (13:59→22:36)
[2018-05-23] MEDS ORDERED: NOREPINEPHRINE BITARTRATE 16 MG in 0.9 % SODIUM CHLORIDE 234 ML IV PRN (15:15)
[2018-05-23] MEDS ORDERED: fentaNYL 2,500 MCG in 0.9 % SODIUM CHLORIDE 200 ML IV SCH (15:30)
[2018-05-23] MEDS ORDERED: ACETAMINOPHEN 650 MG/65 ML BOTTLE IV PRN (16:24)
[2018-05-23] MEDS ORDERED: HYDROmorphone 2 MG/ML VIAL IV ONE (16:30)
[2018-05-23] MEDS: ACETAMINOPHEN 650 MG/65 ML BOTTLE IV PRN (16:54)
[2018-05-23 17:31] LABS: ALT/SGPT 15 U/l (0-40); Albumin 2.1 gm/dL (3.2-5.2); Albumin/Globulin Ratio 0.8 (1.0-2.3); Alkaline Phosphatase 49 U/L (39-117); Blood Urea Nitrogen 42 mg/dl (8-23)
[2018-05-23] MEDS ORDERED: LACTATED RINGERS 500 ML IV ONE (19:28)
[2018-05-23] MEDS ORDERED: LACTATED RINGERS 1,000 ML IV ONE (21:07)
[2018-05-23] MEDS: HEPARIN 5,000 UNIT/ML VIAL SQ SCH (21:14)
[2018-05-24] MEDS ORDERED: LACTATED RINGERS 1,000 ML IV ONE (00:39)
[2018-05-24] MEDS: HYDROmorphone 2 MG/ML VIAL IV PRN ×6 (02:14→19:59)
[2018-05-24] MEDS: IPRATROPIUM/ALBUTEROL 3 ML AMPUL.NEB NEB SCH ×6 (02:45→23:02)
[2018-05-24] MEDS: fentaNYL 100 MCG/2 ML VIAL IV PRN ×5 (04:09→20:54)
[2018-05-24] MEDS ORDERED: fentaNYL 100 MCG/2 ML VIAL IV ONE (04:15)
[2018-05-24] MEDS: DEXTROSE 5%-LR W/20MEQ KCL 1,000 ML IV SCH ×4 (04:57→23:21)
[2018-05-24] MEDS: 0.9 % SODIUM CHLORIDE 250 ML IV SCH ×4 (05:01→17:45)
[2018-05-24] MEDS: metroNIDAZOLE 500 MG/100 ML BAG IV SCH ×3 (05:52→21:56)
[2018-05-24] MEDS: HYDROCORTISONE SOD SUCC 100 MG VIAL IV SCH ×3 (05:52→21:56)
[2018-05-24] MEDS: 0.9 % SODIUM CHLORIDE 10 ML SYRINGE IV SCH ×3 (05:52→21:55)
[2018-05-24 06:27] LABS: Basophils # (Auto) 0 K/mcL (0.0-0.3); Basophils % (Auto) 0 % (0.0-2.0); Eosinophils # (Auto) 0 K/mcL (0.0-0.7); Eosinophils % (Auto) 0.1 % (0.0-7.0); Granulocytes % (Auto) 81.8 % (38.0-78.0); Lymphocytes # (Auto) 0.3 K/mcL (1.5-4.8); Lymphocytes % (Auto) 4.9 % (15.5-49.0); Mean Cell Volume 88.1 fL (80.0-100.0); Mean Corpuscular HGB Conc 33.2 g/dL (31.0-36.0); Mean Corpuscular Hemoglobin 29.2 pg (26.0-34.0); Monocytes # (Auto) 0.7 K/mcL (0.1-0.9); Monocytes % (Auto) 13.2 % (1.0-12.0); Platelet Count 250 K/mcL (140-440); RBC 3.56 M/mcL (4.50-5.90); Red Cell Distribution Width 15.5 % (11.5-14.5)
[2018-05-24 07:01] LABS: ALT/SGPT 13 U/l (0-40); Albumin 1.9 gm/dL (3.2-5.2); Albumin/Globulin Ratio 0.8 (1.0-2.3); Alkaline Phosphatase 51 U/L (39-117); Bilirubin,Direct < 0.2 mg/dL (0.0-0.3); Blood Urea Nitrogen 41 mg/dl (8-23); Gamma Glutamyl Transpeptidase 17 U/L (8-61); Uric Acid 6.2 mg/dL (2.5-8.0)
[2018-05-24] MEDS: ACETAMINOPHEN 650 MG/65 ML BOTTLE IV PRN ×2 (07:06→21:53)
[2018-05-24] MEDS ORDERED: FUROSEMIDE 20 MG/2 ML VIAL IV ONE (08:00)
--- NOTE | 2018-05-24 08:00 | General Surgery Progress Note ---
Surgical - Auxillary Note - Subjective Patient Information: Note initiated : 05/24/18 at 7:40 am Service Date, if different from initiated Date: [] Patient: Luciano Nixon 67 y/o M admitted on 05/21/18 for Abdominal pain. Chief Complaint: Patient resting in bed. Had issues with pain control last night. Fentanyl for breakthrough was added and pain currently controlled at a 2/10. Also received 2.5 liters fluid bolus for low urine output. UO now about 20-30cc 's/hr. Currently 11 liters positive in I&Os and up from 132 to 158 lbs in weight from admission. Vital Signs Temp Pulse Resp BP Pulse Ox 98.9 F 102 H 20 90/53 95 05/24/18 04:30 05/24/18 06:30 05/24/18 06:00 05/23/18 00:35 05/24/18 06:30 Period Temp Pulse Resp BP Sys/Faria Pulse Ox Last 24 Hr 98.0 F-98.9 F 81-111 12-22 93-100 Intake and Output 05/23/18 05/24/18 05/24/18 21:59 05:59 13:59 Intake Total 1100 / 1100 2382 / 2382 483 / 483 Output Total 380 / 380 455 / 455 200 / 200 Balance 720 / 720 1927 / 1927 283 / 283 Weight 132 lb 8 oz 158 lb 3.2 oz Patient Weight 05/25/18 05:59 Weight 158 lb 3.2 oz PE: Resting in bed. Alert, oriented and appropriate in conversation. Not distressed. Chest: congested cough this morning. upper anterior taylor clear but diminished breath sounds at bases and posteriorly. CXR appears to have increased vascular markings and fluid overload. Final read pending. CV: regular rhythm, tachy ABD: distended--unchanged from yesterday. Incision without erythema or drainage. Ostomy with some stool balls in appliance. EXT: warm, DP pulses palpable. Mild edema of feet and hands. Capillary refill ~2 seconds in upper and lower extremities. CBC and Chem 7 05/24/18 04:21 05/24/18 04:21 A/P: s/p diverting loop transverse colostomy for large bowel obstruction; obstructing cause still uncertain. I&Os 11 liters positive with CXR findings c/w fluid overload. BPs good. Will dose with lasix. Nutritional status poor over at least two months preceding surgery. Not sure how soon bowel will adequately decompress and have function return. Will order PICC for TPN and because IVs failing--three lost yesterday. PT and OT for strengthening. Ureteral stents removed this morning by Dr. Norman. Liver nodule pathology pending.
[2018-05-24] MEDS ORDERED: ACETYLCYSTEINE 800 MG/4 ML VIAL NEB ONE (08:01)
--- NOTE | 2018-05-24 08:07 | Operative Note ---
DATE OF OPERATION: 05/22/2018 PREOPERATIVE DIAGNOSIS: Large bowel obstruction at the level of sigmoid colon. POSTOPERATIVE DIAGNOSIS: Large bowel obstruction at the level of the rectosigmoid junction with unclear etiology, inflammatory versus tumor. PROCEDURE PERFORMED: 1. Exploratory laparotomy with creation of transverse loop colostomy. 2. Biopsy of liver nodules x2. 3. Rigid proctoscopy. FINDINGS: 1. Dilated small and large bowel from the ligament of Treitz to the distal sigmoid colon at the level of the peritoneal reflection. No bowel ischemia or perforation. No visible mass at rectosigmoid junction but palpation below the reflection suggest a rectal mass. 2. Very small white nodules noted on the surface of the liver, mainly on the left flow. 3. Rigid proctoscopy performed to 10 to 12 cm with normal mucosa. The scope met some resistance at about 10 to 12 cm, but no masses seen and no lumen to the bowel was found, question of tight curve to bowel that could not be followed with the scope. INDICATIONS FOR PROCEDURE: The patient is a 67-year-old man who presented to the emergency department yesterday with complaints of abdominal pain which has been ongoing for a few months. The patient also on presentation had significant distention of his abdomen. Review of his past medical history reveals previous treatments for presumed diverticulitis of the sigmoid colon. He previously underwent a colonoscopy with an area of tight stricture thought to be a tight curve in the bowel with inability to complete the colonoscopy as this area of tight stricture was at the sigmoid colon. No mass was noted then. On presentation to the ER yesterday the patient complained of persistent pain that is unrelenting. Imaging of his abdomen was performed with a CT scan which showed a dilation of both the small and large intestine down to the level of the sigmoid colon. In this area the CT scan was read as having an area of stricture thought to be likely related to tumor, although acute diverticulitis was within the differential. Prior to coming to the hospital, patient had had episodes of emesis at home. Although he states he had passed two diarrheal stools he had only manage this with the use milk of magnesia and was otherwise not passing stool and had not passed flatus for about a week. NG tube was placed resulting in only a minimal amount of gastric output showing that NG tube decompression was not likely to help with decompressing the bowel. Due to patient's significant distention of the bowel with what seems to be a complete obstruction clinically, he is taken to the operating room for relief of the obstruction with plans for colostomy creation. DESCRIPTION OF PROCEDURE: After obtaining informed consent, the patient was taken to the operating room where a timeout was taken to confirm that he was here for the above-stated procedure. The patient was placed in the supine position on the operating table and general endotracheal anesthesia was induced. The patient was then placed in lithotomy position. At this point, Dr. Slaughter from Urology stepped in and placed two ureteral stents in anticipation of possible extensive pelvic dissection for resection of the sigmoid colon. That procedure is dictated in a separate note. Upon completion of this procedure, patient was placed in the supine position on the operating table, and the abdomen was prepped and draped in a sterile manner. The abdomen was entered via a vertical midline incision made in the skin with a scalpel. Dissection was carried down through the subcutaneous tissue layer using electrocautery. The abdominal wall fascia was incised and then the peritoneal cavity opened. Clear ascitic fluid came from the wound upon opening the peritoneal cavity. The bowel was grossly distended and met the incision immediately upon opening. There was a small serosal injury to the mid small bowel and this was repaired with interrupted 3-0 Vicryl sutures. Exploration of the abdomen was then performed. Bowel was noted to be dilated beginning at the ligament of Treitz and followed all the way along of the small bowel and the colon until the distal sigmoid. The bowel was dilated all the way down to the peritoneal reflection in the pelvis. The sigmoid colon extended into this area and seemed to take a sharp turn as it met the peritoneal reflection. There was no obvious sign of diverticulitis and diverticula were not noted significantly within the sigmoid colon. At the peritoneal reflection palpation revealed thickening of the tissue, although the bowel wall above the reflection was not itself thickened and no mass was palpated. Palpation of the tissues extending deep to the peritoneal reflection revealed a fullness suggestive of a mass lying in the bowel distal to the reflection. At this point, there was concern that cause of obstruction was more likely related to a rectal tumor. Given the findings at surgery and the palpable firmness that lay beneath the reflection it was decided to perform rigid proctoscopy. The abdomen was covered with moistened gauze and Ioban was placed. The upper field was kept sterile and the patient was placed back in [facility] and rigid proctoscopy was performed. A rigid proctoscopy was performed to about 10 to 12 cm. The proctoscope could not be advanced any further along the length of the rectum. At about this distance the rectum seemed to stop with no clear lumen to be seen. Despite repeated efforts of insufflation and gentle maneuvering of the proctoscope to follow the lumen of the bowel at about 10 to 12 cm the mucosa seemed to have no further openings suggesting that there may have been a tight turn in this area that could not be followed through with the scope. The rectal mucosa that was visualized appeared normal. The rigid proctoscope was withdrawn. The patient was returned back to supine position. The gloves and gowns were changed. I returned to the abdomen. Further inspection along the peritoneal surfaces was performed along with further running of the bowel and inspection of the omental surfaces. No lesions were noted. Palpation of the liver revealed some areas of small sand-like nodularity that on visual inspection were small white nodules on the surface of the liver more seen on the left than the right lobe. At this point, the falciform ligament was taken down; it was tied with 2-0 Vicryl ties proximally and distally and then divided between ties. This was done to allow better mobilization of the liver for visualization and for access to biopsy two of the larger nodules. The nodules seen on the liver were all 1 mm or less in size. Two of these nodules were taken from the left lobe of the liver and each sent separately for pathology. The sites of biopsy were cauterized. At this point, there was still concern that probable cause of obstruction may be a proximal rectal tumor, although this could not be verified by visualization of any mass from above or below. Not being certain the actual cause of obstruction but being concerned that it might be a rectal tumor, it was decided not to further dissect this area as the extent of that operation would be significant in an already ill and decompensated patient and he might benefit from preoperative therapies if this proves to be a rectal tumor. Additionally, the finding of the nodules on the liver were concerning for possibility of metastatic disease given their appearance and feel, so pending that pathology it was decided to address the most urgent problem at this time, which is a complete bowel obstruction and this was addressed with creation of a transverse loop colostomy. The transverse colon was very mobile and a site was chosen on the distal transverse colon the site of colostomy creation. The omentum was easily lifted off the transverse colon in this area to allow for mobilization of the colon to the abdominal wall. A site of ostomy creation was then picked on the anterior abdominal wall to the left of midline and a defect created using a scalpel to excise the skin and then electrocautery to excise the subcutaneous tissue and incise the abdominal wall fascia. The distal portion of transverse colon was brought through the abdominal wall defect and held in place with a Adriana forceps while the remainder of the intraperitoneal portion of the operation continued. The bowel was once again inspected. There was no evidence of any ischemia or perforation. It was returned to the abdomen. The liver was inspected at the sites of biopsy and no bleeding or leakage of bile was noted. The omentum was turned up to lay on top of these areas prior to closure. Before closing the abdomen, the site of ostomy was again evaluated. The transverse colon was well situated through the hole. A few stay sutures were placed on the undersurface of the abdominal wall in the serosal layer of the colon to help hold it in place during manipulation and closure of the abdomen. Next, the abdominal wall wound fascia was closed using 2 #1 Prolene sutures in a running fashion. Skin of the incision was irrigated and suctioned of the irrigant. The skin was then closed with skin pina. The abdominal incision was then covered with a towel and the ostomy was matured. The distal transverse colon was incised at the ostomy site and the edges of the colon were sewn to the skin. This was done using 3-0 chromic sutures. During maturing of the ostomy some liquid stool started to come from the ostomy. The ostomy was fitted with an appliance. Sponge and instrument counts were correct at the end of the case. The patient remained intubated postoperatively due to poor respiratory function which was not unexpected preoperatively. He was transferred directly to the ICU OR. IV FLUIDS: 3 liters. ESTIMATED BLOOD LOSS: 30 mL URINE OUTPUT: 150 mL SPECIMEN: Biopsy of liver nodules from the left lobe of liver. RC:[email or web address] Job ID: [id number] Doc ID: [id number] Jaylin Del Cid MD
[2018-05-24] MEDS: BUDESONIDE 0.5 MG/2 ML AMPUL.NEB NEB SCH ×2 (08:21→19:17)
--- NOTE | 2018-05-24 08:59 | Operative Note ---
DATE OF OPERATION: 05/22/2018 PREOPERATIVE DIAGNOSIS: Bowel obstruction. POSTOPERATIVE DIAGNOSIS: Bowel obstruction. PROCEDURE DONE: Cystoscopy and stent placement. SURGEON: Rebel Slaughter M.D. INDICATION: The patient is a 67-year-old with abdominal distention. It does appear that he has a bowel obstruction, and Dr. Del Cid requested that stents be placed to help define the anatomy. He presents now for that procedure. PROCEDURE: The patient was identified and consent was signed. He was given general anesthesia, placed in lithotomy position, prepped and draped in a standard fashion. Cystourethroscopy shows a narrowing at the bulbar urethra down to about 18-Omani. I was able to put the scope through this and then was able to enter the bladder. He did have some hypertrophy of the prostate. Orifices were in their normal position, but the floor of the bladder was distorted with the left higher than the right side. We were able to find the right orifice, placed a wire and a 7-Omani ureteral catheter was then placed. The wire was removed, and this showed good position. This was left exiting the penis. We then reinserted the cystoscope. We were able to find the left orifice, cannulate this, place a wire up into the kidney and then put the 7-Omani catheter over the top of this. The wire was then removed and both ureteral catheters were exiting the penis. Ferrell catheter was placed. A 16-Omani coude tip catheter was placed, and the stents were placed in the catheter and exiting to drainage bag. He was then repositioned for Dr. Del Cid' operation. He tolerated the procedure well. There was minimal blood loss. RZ:[email or web address] Job ID: [id number] Doc ID: [id number] Rebel Slaughter MD
[2018-05-24] MEDS: THIAMINE 100 MG in 0.9 % SODIUM CHLORIDE 50 ML IV SCH (09:34)
[2018-05-24] MEDS: CIPROFLOXACIN 400 MG/200 ML BAG IV SCH ×2 (09:35→21:04)
[2018-05-24] MEDS: HEPARIN 5,000 UNIT/ML VIAL SQ SCH ×2 (09:35→21:05)
[2018-05-24] MEDS: FAMOTIDINE/PF 20 MG/2 ML VIAL IV SCH ×2 (09:35→21:05)
--- NOTE | 2018-05-24 10:28 | XRay Report ---
CLINICAL INFORMATION: Intubated patient COMPARISON: 05/23/2018 FINDINGS: Heart size, mediastinum and pulmonary vessels are normal. Patient is now extubated. NG tube stable satisfactory position. Moderate COPD again noted. Moderate bibasilar infiltrates are worsened. Small left pleural effusion progressed IMPRESSION: Moderate bibasilar infiltrates - worsening. Suspect aspiration pneumonia. Patient now extubated moderate COPD. Moderately heavy calcific plaque in the carotid bifurcation regions - suggest carotid Doppler study as an outpatient Interpreted and Authenticated by: Luciano Smith 05/24/18
--- NOTE | 2018-05-24 11:51 | Internal Med Progress Note ---
Medical - PN: Subj Patient information: Note initiated : 05/24/18 at 11:49 am Service Date, if different from initiated Date: [] Patient: Luciano Nixon 67 y/o M admitted on 05/21/18 for Abdominal pain. Chief Complaint: [] Interval history: pt with hypotension to MAP 55 and low diastolic 35 last pm. Given fluid. This morning had more abd pain and fullness now better after diuresis. Pressors were not needed. Pt slept an hour late morning and feels better but reports severe fatigue and weakness. Pertinent ROS: no fever. U.O 35 cc hour last night now 200/hr this morning after lasix. Some nausea worsened with Ice chips. - Constitutional Vitals: Vital Signs Temp Pulse Resp BP Pulse Ox 98.7 F 109 H 18 144/71 96 05/24/18 08:00 05/24/18 11:26 05/24/18 11:26 05/24/18 07:33 05/24/18 11:00 Period Temp Pulse Resp BP Sys/Faria Pulse Ox Last 24 Hr 98.0 F-98.9 F 82-120 16-22 144-144/71-93 93-99 Intake and Output 05/23/18 05/24/18 05/24/18 21:59 05:59 13:59 Intake Total 1100 / 1100 2382 / 2382 899 / 899 Output Total 380 / 380 455 / 455 690 / 690 Balance 720 / 720 1926 209 Weight 132 lb 8 oz 158 lb 3.2 oz Patient Weight 05/25/18 05:59 Weight 158 lb 3.2 oz Intake & Output: Intake & Output 05/23/18 05/24/18 05/24/18 21:59 05:59 13:59 Intake Total 1100 / 1100 2382 / 2382 899 / 899 Output Total 380 / 380 455 / 455 690 / 690 Balance 720 / 720 1926 209 Weight 132 lb 8 oz 158 lb 3.2 oz Intake: IV 1100 / 1100 2382 / 2382 899 / 899 Dextrose 5%-Lr W/20Meq KCl 1, 1000 / 1000 000 ml @ 125 mls/hr IV .Q8H [facility] Rx#:[id number] Lactated Ringers 1,000 ml @ 1517 / 1517 483 / 483 Wide Open IV BOLUS ONE Rx#: [id number] Vitamin B1 100 mg In Sodium 51 / 51 Chloride 0.9% 50 ml @ 50 mls/hr IV DAILY [facility] Rx#:[id number] Output: Urine Catheter Amount 380 / 380 305 / 305 540 / 540 Stool 150 / 150 150 / 150 Other: Urine Appearance Clear Clear Sediment Sediment Mucous Threads Small Blood Clots Uretheral (Mcdowell) Clear Small Blood Clots Urine Color Light Lyric Blood Tinged Uretheral (Mcdowell) Blood Tinged Stool Color Brown Brown Brown Stool Consistency Soft Soft Liquid Adrianne General appearance: average body habitus, no acute distress - Respiratory Respiratory exam: Present: normal respiratory exam Additional comments: few basilar crackles cleared completely after several deep breaths.. mod air movt no wheezing - Cardiovascular Cardiovascular exam: Present: normal rate and rhythm - GI/Abdominal GI/Abdominal exam: Present: diminished bowel sounds, distended, guarding. Absent: rebound, rigid - Extremities Exam Extremities exam: Present: pedal edema Additional comments: trace - Skin Skin exam: Present: dry, warm Medical - PN: Obj Da - Labs CBC & Chem 7: 05/24/18 04:21 05/24/18 04:21 Labs: Abnormal Lab Results 05/24/18 05/24/18 05/23/18 04:21 04:21 16:20 RBC 3.56 L Hgb 10.4 L Hct 31.4 L POC Hct RDW 15.5 H MPV 6.9 L Gran % 81.8 H Lymph % (Auto) 4.9 L [place] % (Auto) 13.2 H Lymph # (Auto) 0.3 L Monocytes % (Manual) PT INR POC Sodium Sodium POC Potassium POC Chloride Chloride Carbon Dioxide POC Total CO2 Anion Gap POC BUN BUN 41 H 42 H Creatinine 1.7 H 1.8 H POC Creatinine Glucose 128 H 147 H Uric Acid Calcium 6.9 L 7.0 L POC WB Ioniz Calcium AST 44 H Alkaline Phosphatase Lactate Dehydrogenase Total Protein 4.3 L 4.8 L Albumin 1.9 L 2.1 L Albumin/Globulin Ratio 0.8 L 0.8 L Carcinoembryonic Ag Urine Protein Urine Ketones Urine Occult Blood Urine Urobilinogen Urine RBC Urine WBC Urine Bacteria Hyaline Casts Granular Casts 05/23/18 05/23/18 05/22/18 03:47 03:47 18:43 RBC 3.69 L Hgb 10.6 L Hct 32.8 L POC Hct RDW 15.2 H MPV 6.9 L Gran % 88.7 H Lymph % (Auto) 3.9 L [place] % (Auto) Lymph # (Auto) 0.3 L Monocytes % (Manual) PT INR POC Sodium Sodium 131 L POC Potassium POC Chloride Chloride 94 L Carbon Dioxide POC Total CO2 Anion Gap POC BUN BUN 42 H 43 H Creatinine 1.6 H POC Creatinine Glucose 187 H 189 H Uric Acid Calcium 6.7 L 7.1 L POC WB Ioniz Calcium AST Alkaline Phosphatase 118 H Lactate Dehydrogenase 350 H Total Protein 4.4 L Albumin 2.0 L Albumin/Globulin Ratio 0.8 L Carcinoembryonic Ag Urine Protein Urine Ketones Urine Occult Blood Urine Urobilinogen Urine RBC Urine WBC Urine Bacteria Hyaline Casts Granular Casts 05/22/18 05/22/18 05/22/18 03:54 03:54 03:54 RBC 3.78 L Hgb 11.1 L Hct 33.3 L POC Hct RDW 15.2 H MPV 7.2 L Gran % Lymph % (Auto) 11.7 L [place] % (Auto) 15.3 H Lymph # (Auto) 0.5 L Monocytes % (Manual) PT 16.4 H INR 1.3 H POC Sodium Sodium POC Potassium POC Chloride Chloride 91 L Carbon Dioxide 31 H POC Total CO2 Anion Gap POC BUN BUN 52 H Creatinine POC Creatinine Glucose 108 H Uric Acid 9.9 H Calcium 7.4 L POC WB Ioniz Calcium AST Alkaline Phosphatase Lactate Dehydrogenase Total Protein 5.2 L Albumin 2.5 L Albumin/Globulin Ratio 0.9 L Carcinoembryonic Ag Urine Protein Urine Ketones Urine Occult Blood Urine Urobilinogen Urine RBC Urine WBC Urine Bacteria Hyaline Casts Granular Casts 05/21/18 05/21/18 05/21/18 20:40 16:02 16:02 RBC Hgb Hct POC Hct 40.0 L RDW MPV Gran % Lymph % (Auto) [place] % (Auto) Lymph # (Auto) Monocytes % (Manual) PT INR POC Sodium 131 L Sodium POC Potassium 3.2 L POC Chloride 85 L Chloride 84 L Carbon Dioxide 34 H POC Total CO2 35 H Anion Gap 17.0 H POC BUN 47 H BUN 56 H Creatinine 1.5 H POC Creatinine 1.4 H Glucose 107 H Uric Acid Calcium 8.3 L POC WB Ioniz Calcium 0.84 L AST Alkaline Phosphatase Lactate Dehydrogenase Total Protein Albumin 2.9 L Albumin/Globulin Ratio 0.9 L Carcinoembryonic Ag 3.8 H Urine Protein 30 A Urine Ketones 20 A Urine Occult Blood 0.03 A Urine Urobilinogen 4.0 A Urine RBC 7 H Urine WBC 8 H Urine Bacteria Few A Hyaline Casts 10 H Granular Casts 4 H 05/21/18 16:02 RBC Hgb 13.1 L Hct 39.7 L POC Hct RDW 14.9 H MPV 7.0 L Gran % Lymph % (Auto) [place] % (Auto) Lymph # (Auto) Monocytes % (Manual) 17 H PT INR POC Sodium Sodium POC Potassium POC Chloride Chloride Carbon Dioxide POC Total CO2 Anion Gap POC BUN BUN Creatinine POC Creatinine Glucose Uric Acid Calcium POC WB Ioniz Calcium AST Alkaline Phosphatase Lactate Dehydrogenase Total Protein Albumin Albumin/Globulin Ratio Carcinoembryonic Ag Urine Protein Urine Ketones Urine Occult Blood Urine Urobilinogen Urine RBC Urine WBC Urine Bacteria Hyaline Casts Granular Casts Meds: Medications Albuterol/Ipratropium (Duoneb) 3 ml NEB Q4HRT [facility] Last Admin: 05/24/18 11:22 Dose: 3 ml Budesonide (Pulmicort) 0.5 mg NEB Q12 [facility] Last Admin: 05/24/18 08:21 Dose: 0.5 mg Famotidine (Pepcid) 20 mg IV Q12 [facility] Last Admin: 05/24/18 09:35 Dose: 20 mg Fentanyl (Sublimaze) 25 mcg IV Q1HP PRN PRN Reason: PAIN LEVEL > 6 Last Admin: 05/24/18 11:47 Dose: 25 mcg Heparin Sodium (Porcine) (Heparin) 5,000 unit SQ Q12 [facility] Last Admin: 05/24/18 09:35 Dose: 5,000 unit Hydrocortisone Sodium Succinate (Solu-Cortef) 50 mg IV Q8 [facility] Last Admin: 05/24/18 05:52 Dose: 50 mg Hydromorphone HCl (Dilaudid) 1 mg IV Q2HP PRN PRN Reason: severe pain > 5 Last Admin: 05/24/18 11:14 Dose: 1 mg Ciprofloxacin (Cipro) 400 mg in 200 mls @ 200 mls/hr IV Q12H [facility] Last Infusion: 05/24/18 10:35 Dose: Infused Potassium Cl/Dextrose/Lact Ringer's (Dextrose 5%-Lr W/20meq Kcl) 1,000 mls @ 125 mls/hr IV .Q8H [facility] Last Admin: 05/24/18 09:43 Dose: Not Given Metronidazole (Flagyl) 500 mg in 100 mls @ 100 mls/hr IV Q8H [facility] Last Infusion: 05/24/18 06:52 Dose: Infused Acetaminophen (Ofirmev) 650 mg in 65 mls @ 130 mls/hr IV Q6HP PRN PRN Reason: PAIN/FEVER > 101 Last Infusion: 05/24/18 07:36 Dose: Infused Sodium Chloride (Sodium Chloride 0.9%) 250 mls @ 20 mls/hr IV .[id number] [facility] Last Admin: 05/24/18 05:01 Dose: Not Given Sodium Chloride (Sodium Chloride 0.9%) 250 mls @ 20 mls/hr IV .[id number] [facility] Last Admin: 05/24/18 05:01 Dose: Not Given Acetaminophen (Ofirmev) 650 mg in 65 mls @ 130 mls/hr IV Q8HP PRN PRN Reason: PAIN/FEVER > 101 Naloxone HCl (Narcan) 0.1 mg IV Q2MIN PRN PRN Reason: Opiate Reversal Ondansetron HCl (Zofran) 4 mg IV Q4HP PRN PRN Reason: Nausea And Vomiting Sodium Chloride (Saline Flush) 10 ml IV Q8 [facility] Last Admin: 05/24/18 05:52 Dose: 10 ml - Imaging and cardiology Chest x-ray Status: image reviewed by me Additional comments: right middle lobe pneumonia. Medical - PN: A/P - Time Spent With Patient Total time spent is greater than 50% in coordination of care (as documented) at patient's floor/unit and/or counseling patient: Greater than 35 minutes (1) Large bowel obstruction Status: Acute Assessment and plan: post diverting distal transverse colostomy and passing lots of de paz stool initially now some formed stool. suspected underlying colorectal cancer. liver bx pending. mildly elevated CEA Current Visit: Yes (2) COPD with exacerbation Problem details: stable on vent CO2 48. cont Pressure support trial at 5/5. Status: Chronic Assessment and plan: extubated and RML infiltrate seen. Prob aspiration pneumonia. cont abx and nebs and steroids Current Visit: Yes (3) Bilateral ureteral obstruction Status: Resolved Assessment and plan: now post bilateral stents and on appropriate prophylactic coverage due to intraabdominal infection and on cipro and flagyl hematuria lessening. Pt now making adequate urine. Mild increase in creatinine from baseline. cont fluids and mcdowell and stents. stents removed today by DR. Slaughter. Reported was prophylactic not actual ureteral obstruction. Placed for possible tumor resection but was only diverted. does have bladder outlet obstruction and retained 400cc voided 25 prior to surgery, Current Visit: Yes (4) Hypotension during surgery Status: Acute Assessment and plan: off pressors but bp still marginal at night. Cortisol lab not back empiric treatment. Will replace 2 calcium corrected to 7.7 with albumin allowance. Current Visit: Yes (5) Protein calorie malnutrition Status: Acute Assessment and plan: severe malnutrition and is hypocalcemic also. correct for bp and start TPN as discussed with Dr. Del Cid Current Visit: Yes - Narrative A/P Narrative: 35 mins spent in evaluation and coordination of care for this patient today Medical - PN: Qual - VTE Deep Vein Thrombosis/Pulmonary Embolism Present on Admission: No
[2018-05-24] MEDS ORDERED: CALCIUM GLUCONATE 13.95 MEQ in DEXTROSE 5% IN WATER 50 ML IV ONE (12:11)
[2018-05-24] MEDS ORDERED: TPN PER PHARMACY IV SCH (12:18)
--- NOTE | 2018-05-24 14:29 | XRay Report ---
CLINICAL INFORMATION: Picc line position COMPARISON: 05/24/2018 0548 hours FINDINGS: Cardiomediastinal silhouette and pulmonary vessels are normal. Moderate COPD changes again noted. Moderate consolidated infiltrate or atelectasis left base, retrocardiac region, has worsened. Moderate vague right basilar infiltrate has also worsened. Small bilateral pleural effusions noted. NG tube is in stable satisfactory position. PICC line tip overlies the SVC right atrial junction in satisfactory position IMPRESSION: 1. Right PICC line in the SVC right atrial junction in satisfactory position 2. Moderate consolidated infiltrate/atelectasis left base and small left pleural effusion worsening. Moderate patchy right basilar infiltrate also worsening 3. Underlying moderate COPD Interpreted and Authenticated by: Luciano Smith 05/24/18
[2018-05-24] MEDS: POTASSIUM PHOSPHATE IV SCH (15:05)
[2018-05-24] MEDS: [UNRECOGNIZED DRUG - OTHER] IV SCH (15:05)
[2018-05-24] MEDS: FAT EMULSION 20% 250 ML IV SCH (15:05)
[2018-05-24] MEDS: MVI IV SCH (15:05)
[2018-05-24] MEDS: SODIUM CHLORIDE IV SCH (15:05)
[2018-05-24] MEDS: CALCIUM GLUCONATE IV SCH (15:05)
[2018-05-24] MEDS ORDERED: LORazepam 1 MG TABLET PO PRN (20:04)
[2018-05-24] MEDS: LORazepam 2 MG/ML VIAL IV SCH (21:54)
[2018-05-25] MEDS: DEXTROSE 5%-LR W/20MEQ KCL 1,000 ML IV SCH ×3 (04:00→17:11)
[2018-05-25] MEDS: IPRATROPIUM/ALBUTEROL 3 ML AMPUL.NEB NEB SCH ×4 (04:00→18:58)
[2018-05-25] MEDS: fentaNYL 100 MCG/2 ML VIAL IV PRN ×4 (05:00→21:00)
[2018-05-25] MEDS: HYDROmorphone 2 MG/ML VIAL IV PRN ×7 (05:10→22:04)
[2018-05-25] MEDS: 0.9 % SODIUM CHLORIDE 250 ML IV SCH ×3 (05:15→17:35)
[2018-05-25] MEDS: ACETAMINOPHEN 650 MG/65 ML BOTTLE IV PRN ×3 (05:30→18:50)
[2018-05-25] MEDS: HYDROCORTISONE SOD SUCC 100 MG VIAL IV SCH ×3 (05:30→22:02)
[2018-05-25] MEDS: metroNIDAZOLE 500 MG/100 ML BAG IV SCH ×3 (05:30→21:56)
[2018-05-25] MEDS: 0.9 % SODIUM CHLORIDE 10 ML SYRINGE IV SCH ×3 (05:31→21:57)
[2018-05-25 05:37] LABS: Basophils # (Auto) 0 K/mcL (0.0-0.3); Basophils % (Auto) 0 % (0.0-2.0); Eosinophils # (Auto) 0 K/mcL (0.0-0.7); Eosinophils % (Auto) 0 % (0.0-7.0); Granulocytes % (Auto) 76.8 % (38.0-78.0); Lymphocytes # (Auto) 0.3 K/mcL (1.5-4.8); Lymphocytes % (Auto) 8.6 % (15.5-49.0); Mean Cell Volume 87.9 fL (80.0-100.0); Mean Corpuscular HGB Conc 33.4 g/dL (31.0-36.0); Mean Corpuscular Hemoglobin 29.3 pg (26.0-34.0); Monocytes # (Auto) 0.5 K/mcL (0.1-0.9); Monocytes % (Auto) 14.6 % (1.0-12.0); Platelet Count 243 K/mcL (140-440); RBC 3.31 M/mcL (4.50-5.90); Red Cell Distribution Width 15.2 % (11.5-14.5)
[2018-05-25 06:00] LABS: ALT/SGPT 13 U/l (0-40); Albumin 1.9 gm/dL (3.2-5.2); Albumin/Globulin Ratio 0.9 (1.0-2.3); Alkaline Phosphatase 53 U/L (39-117); Bilirubin,Direct < 0.2 mg/dL (0.0-0.3); Blood Urea Nitrogen 37 mg/dl (8-23); Gamma Glutamyl Transpeptidase 12 U/L (8-61); Uric Acid 6.1 mg/dL (2.5-8.0)
[2018-05-25] MEDS: BUDESONIDE 0.5 MG/2 ML AMPUL.NEB NEB SCH ×2 (08:23→18:59)
[2018-05-25] MEDS: CIPROFLOXACIN 400 MG/200 ML BAG IV SCH ×2 (09:17→20:17)
[2018-05-25] MEDS: HEPARIN 5,000 UNIT/ML VIAL SQ SCH ×2 (09:17→20:16)
[2018-05-25] MEDS: FAMOTIDINE/PF 20 MG/2 ML VIAL IV SCH ×2 (09:17→20:16)
[2018-05-25] MEDS ORDERED: ACETYLCYSTEINE 800 MG/4 ML VIAL NEB ONE (09:58)
--- NOTE | 2018-05-25 13:24 | Surgical Pathology Report ---
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 -- NO MALIGNANCY IDENTIFIED. 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 -- NO MALIGNANCY IDENTIFIED. (DMT:selene) PROCEDURAL IMPRESSION Bowel obstruction. GROSS DESCRIPTION Specimen A: Received in formalin labeled "A", are two portions of de paz-brown tissue which are 0.3 x 0.2 x 0.1 and 0.9 x 0.7 x 0.3 cm. The larger fragment is inked black and it is trisected. Totally submitted - one cassette. Specimen B: Received in formalin labeled "B", is a 0.5 x 0.3 x 0.1 cm yellow-brown tissue fragment. Totally submitted - one cassette. (STS:sln) Electronically Signed by: Alexey Farias M.D.
[2018-05-25] MEDS ORDERED: [UNRECOGNIZED DRUG - OTHER] IV SCH (15:00)
[2018-05-25] MEDS ORDERED: CALCIUM GLUCONATE IV SCH (15:00)
[2018-05-25] MEDS ORDERED: MVI IV SCH (15:00)
[2018-05-25] MEDS ORDERED: SODIUM CHLORIDE IV SCH (15:00)
[2018-05-25] MEDS ORDERED: POTASSIUM PHOSPHATE IV SCH (15:00)
[2018-05-25] MEDS ORDERED: POTASSIUM CHLORIDE 20 MEQ in DEXTROSE 5% IN WATER 100 ML IV ONE ×2 (15:23→19:20)
[2018-05-25] MEDS: CALCIUM GLUCONATE IV SCH (15:30)
[2018-05-25] MEDS: POTASSIUM PHOSPHATE IV SCH (15:30)
[2018-05-25] MEDS: SODIUM CHLORIDE IV SCH (15:30)
[2018-05-25] MEDS: [UNRECOGNIZED DRUG - OTHER] IV SCH (15:30)
[2018-05-25] MEDS: MVI IV SCH (15:30)
[2018-05-25] MEDS: FAT EMULSION 20% 250 ML IV SCH (15:54)
[2018-05-25] MEDS: METOPROLOL TARTRATE 25 MG TABLET PO SCH ×2 (16:26→20:34)
--- NOTE | 2018-05-25 16:29 | General Surgery Progress Note ---
Subjective Patient reports: still having pain, no flatus, bowel movement, afebrile Narrative: Note initiated : 05/25/18 at 4:29 pm Service Date, if different from initiated Date: [] Patient: Luciano Nixon 67 y/o M admitted on 05/21/18 for Abdominal Pain/ Large Bowel Obstruction. Chief Complaint: [Patient's pain is still poorly controlled. He has some shortness of breath but his oxygenation saturation is adequate. He is afebrile. He has tachycardia which is probably related to pain. There is a small amount of output through his stoma.] Objective Temp Pulse Resp BP Pulse Ox 98.2 F 107 H 16 160/83 96 05/25/18 12:00 05/25/18 15:15 05/25/18 15:15 05/25/18 15:02 05/25/18 15:15 - Additional Data Intake & Output - Last 24 hours: Intake & Output 05/23/18 05/24/18 05/25/18 05/26/18 05:59 05:59 05:59 05:59 Intake Total 7205 / 7205 5654 / 5654 3614 / 3614 2320 / 2320 Output Total 1795 / 1795 1675 / 1675 2593 / 2593 633 / 633 Balance 5410 / 5410 3979 / 3979 1021 / 1021 1687 / 1687 Weight 132 lb 8 oz 132 lb 8 oz 159 lb - General physical appearance moderate distress, moderate pain - Eyes PERRL, normal ocular movement - ENT normal pinna, normal nares, normal mucosa, no hearing loss, no congestion - Neck no masses, no bruits, trachea midline, no lymphadectomy, no venous distension - Respiratory other (lungs are generally clear, though he has decreased breath sounds bilaterally; there is splinting due to incisional pain) - Cardiovascular Cardiovascular exam: Present: +S1, +S2, tachycardia. Absent: JVD - Abdomen tender (distended abdomen with hypoactive bowel sounds; incision looks good; small amount of stool output in his stoma) - Integumentary no rash, no growths, no abnormal pigmentation - Neurologic normal coordination, normal sensation - Psychiatric oriented to time, oriented to person, oriented to place, speech is normal, memory intact - Labs 06/02/18 04:24 06/03/18 04:22 Diabetes panel 05/25/18 Range/Units 04:00 Sodium 140 (133-145) mmol/L Potassium 3.4 (3.3-5.1) mmol/L Chloride 105 (96-108) mmol/L Carbon Dioxide 26 (22-30) mmol/L BUN 37 H (8-23) mg/dl Creatinine 1.7 H (0.7-1.2) mg/dl Glucose 208 H (70-105) mg/dL Calcium 7.5 L (8.6-10.4) mg/dl AST 29 (0-37) U/l ALT 13 (0-40) U/l Alkaline Phosphatase 53 (39-117) U/L Total Protein 4.1 L (5.9-8.4) gm/dL Albumin 1.9 L (3.2-5.2) gm/dL Triglycerides 39 (<150) mg/dl Calcium panel 05/25/18 Range/Units 04:00 Calcium 7.5 L (8.6-10.4) mg/dl Phosphorus 2.7 (2.7-4.5) mg/dL Albumin 1.9 L (3.2-5.2) gm/dL Pituitary panel 05/25/18 Range/Units 04:00 Sodium 140 (133-145) mmol/L Potassium 3.4 (3.3-5.1) mmol/L Chloride 105 (96-108) mmol/L Carbon Dioxide 26 (22-30) mmol/L BUN 37 H (8-23) mg/dl Creatinine 1.7 H (0.7-1.2) mg/dl Glucose 208 H (70-105) mg/dL Calcium 7.5 L (8.6-10.4) mg/dl Adrenal panel 05/25/18 Range/Units 04:00 Sodium 140 (133-145) mmol/L Potassium 3.4 (3.3-5.1) mmol/L Chloride 105 (96-108) mmol/L Carbon Dioxide 26 (22-30) mmol/L BUN 37 H (8-23) mg/dl Creatinine 1.7 H (0.7-1.2) mg/dl Glucose 208 H (70-105) mg/dL Calcium 7.5 L (8.6-10.4) mg/dl Total Bilirubin 0.2 (0.0-1.0) mg/dL AST 29 (0-37) U/l ALT 13 (0-40) U/l Alkaline Phosphatase 53 (39-117) U/L Total Protein 4.1 L (5.9-8.4) gm/dL Albumin 1.9 L (3.2-5.2) gm/dL Assessment and Plan (1) Large bowel obstruction Status: Acute Assessment and plan: We'll continue present therapy. Monitor IV fluid balance closely due to fluid overload (2) COPD (chronic obstructive pulmonary disease) Status: Chronic - Time Spent With Patient Total time spent is greater than 50% in coordination of care (as documented) at patient's floor/unit and/or counseling patient:
[2018-05-25] MEDS: ONDANSETRON 4 MG/2 ML VIAL IV PRN (17:07)
[2018-05-25] MEDS: INSULIN LISPRO 1 UNIT/0.01 ML UNIT SQ SCH (17:56)
[2018-05-25] MEDS: METOPROLOL TARTRATE 5 MG/5 ML VIAL IV SCH (18:38)
--- NOTE | 2018-05-25 19:24 | Internal Med Progress Note ---
Medical - PN: Subj Patient information: Note initiated : 05/25/18 at 7:22 pm Service Date, if different from initiated Date: [] Patient: Luciano Nixon 67 y/o M admitted on 05/21/18 for Abdominal Pain/ Large Bowel Obstruction. Chief Complaint: [] Interval history: Pt reports good rest today. Ice chips today didnt cause nausea or pain. After clamped 6 hours NGT residual was 250cc. Pt with TPN and LR. Rhythm last SVT this morning 4am. PACs and sinus tachy through day. Pt reports feels very weak. - Constitutional Vitals: Vital Signs Temp Pulse Resp BP Pulse Ox 97.8 F 99 H 18 123/91 98 05/25/18 17:45 05/25/18 18:01 05/25/18 18:01 05/25/18 18:01 05/25/18 18:01 Period Temp Pulse Resp BP Sys/Faria Pulse Ox Last 24 Hr 97.8 F-99.2 F 79-120 10-27 98-160/49-91 92-100 Intake and Output 05/25/18 05/25/18 05/25/18 05:59 13:59 21:59 Intake Total 1615 / 1615 1430 / 1430 1999 Output Total 520 / 520 505 / 505 813 / 813 Balance 1095 / 1095 925 / 925 1187 / 1187 Intake & Output: Intake & Output 05/25/18 05/25/18 05/25/18 05:59 13:59 21:59 Intake Total 1615 / 1615 1430 / 1430 1999 Output Total 520 / 520 505 / 505 813 / 813 Balance 1095 / 1095 925 / 925 1187 / 1187 Intake: IV 1615 / 1615 1430 / 1430 1999 Calcium Gluconate 4.65 Meq 710 / 710 Sodium Chloride 20 Meq Potassium Phosphate 15 Meq Infuvite Adult 10 ml Selenium 60 Mcg In Clinimix 5%-20% Solution 1,000 ml @ 30 mls/hr IV Q24H [facility] Rx#:[id number] Dextrose 5%-Lr W/20Meq KCl 1, 1000 / 1000 1000 / 1000 1000 / 1000 000 ml @ 125 mls/hr IV .Q8H [facility] Rx#:[id number] Intralipid 20% 250 ml @ 25 mls/ 250 / 250 hr IV DAILY@1600 [facility] Rx#: [id number] Potassium Chloride 20 Meq In 110 / 110 Dextrose 5% in Water 100 ml @ 55 mls/hr IV ONCE ONE Rx#: [id number] Output: Gastric Drainage 250 / 250 Left Nare 250 / 250 Urine Catheter Amount 345 / 345 505 / 505 153 / 153 Void Amount 160 / 160 Stool 175 / 175 250 / 250 Other: Urine Appearance Clear Clear Uretheral (Ferrell) Clear Clear Clear Urine Color Light Lyric Light Lyric Uretheral (Ferrell) Light Lyric Light Lyric Light Lyric Stool Size Moderate Stool Color Brown Brown Stool Consistency Liquid Liquid Adrianne Adrianne General appearance: average body habitus, cooperative - Respiratory Respiratory exam: Present: normal respiratory exam, decreased breath sounds Additional comments: bases - Cardiovascular Cardiovascular exam: Present: normal rate and rhythm, tachycardia - GI/Abdominal GI/Abdominal exam: Present: diminished bowel sounds, tenderness. Absent: firm, guarding, rebound - Extremities Exam Extremities exam: Present: pedal edema Additional comments: 2+ - Neurological Exam Neurological exam: Present: alert, oriented X3 - Psychiatric Psychiatric exam: Present: normal affect, normal mood Medical - PN: Obj Da - Labs CBC & Chem 7: 05/25/18 04:00 05/25/18 04:00 Labs: Abnormal Lab Results 05/25/18 05/25/18 05/24/18 04:00 04:00 04:21 WBC 3.6 L RBC 3.31 L Hgb 9.7 L Hct 29.1 L RDW 15.2 H MPV 6.8 L Gran % Lymph % (Auto) 8.6 L [place] % (Auto) 14.6 H Lymph # (Auto) 0.3 L Sodium Chloride BUN 37 H 41 H Creatinine 1.7 H 1.7 H Glucose 208 H 128 H Calcium 7.5 L 6.9 L AST Alkaline Phosphatase Lactate Dehydrogenase Total Protein 4.1 L 4.3 L Albumin 1.9 L 1.9 L Albumin/Globulin Ratio 0.9 L 0.8 L 05/24/18 05/23/18 05/23/18 04:21 16:20 03:47 WBC RBC 3.56 L Hgb 10.4 L Hct 31.4 L RDW 15.5 H MPV 6.9 L Gran % 81.8 H Lymph % (Auto) 4.9 L [place] % (Auto) 13.2 H Lymph # (Auto) 0.3 L Sodium Chloride BUN 42 H 42 H Creatinine 1.8 H 1.6 H Glucose 147 H 187 H Calcium 7.0 L 6.7 L AST 44 H Alkaline Phosphatase 118 H Lactate Dehydrogenase 350 H Total Protein 4.8 L 4.4 L Albumin 2.1 L 2.0 L Albumin/Globulin Ratio 0.8 L 0.8 L 05/23/18 05/22/18 03:47 18:43 WBC RBC 3.69 L Hgb 10.6 L Hct 32.8 L RDW 15.2 H MPV 6.9 L Gran % 88.7 H Lymph % (Auto) 3.9 L [place] % (Auto) Lymph # (Auto) 0.3 L Sodium 131 L Chloride 94 L BUN 43 H Creatinine Glucose 189 H Calcium 7.1 L AST Alkaline Phosphatase Lactate Dehydrogenase Total Protein Albumin Albumin/Globulin Ratio Meds: Medications Albuterol/Ipratropium (Duoneb) 3 ml NEB Q6HRT [facility] Last Admin: 05/25/18 18:58 Dose: 3 ml Budesonide (Pulmicort) 0.5 mg NEB Q12 [facility] Last Admin: 05/25/18 18:59 Dose: 0.5 mg Diagnostic Test (Pha) (Accu-Chek) 1 each FS Q6 [facility] Last Admin: 05/25/18 17:49 Dose: 1 each Famotidine (Pepcid) 20 mg IV Q12 [facility] Last Admin: 05/25/18 09:17 Dose: 20 mg Fentanyl (Sublimaze) 25 mcg IV Q1HP PRN PRN Reason: PAIN LEVEL > 6 Last Admin: 05/25/18 17:56 Dose: 25 mcg Furosemide (Lasix) 20 mg IV BIDD [facility] Heparin Sodium (Porcine) (Heparin) 5,000 unit SQ Q12 [facility] Last Admin: 05/25/18 09:17 Dose: 5,000 unit Hydrocortisone Sodium Succinate (Solu-Cortef) 50 mg IV Q8 [facility] Last Admin: 05/25/18 13:56 Dose: 50 mg Hydromorphone HCl (Dilaudid) 1 mg IV Q2HP PRN PRN Reason: severe pain > 5 Last Admin: 05/25/18 16:46 Dose: 1 mg Ciprofloxacin (Cipro) 400 mg in 200 mls @ 200 mls/hr IV Q12H [facility] Last Infusion: 05/25/18 13:57 Dose: Infused Metronidazole (Flagyl) 500 mg in 100 mls @ 100 mls/hr IV Q8H [facility] Last Infusion: 05/25/18 15:58 Dose: Infused Acetaminophen (Ofirmev) 650 mg in 65 mls @ 130 mls/hr IV Q6HP PRN PRN Reason: PAIN/FEVER > 101 Last Infusion: 05/25/18 11:50 Dose: Infused Sodium Chloride (Sodium Chloride 0.9%) 250 mls @ 20 mls/hr IV .[id number] [facility] Last Admin: 05/25/18 17:35 Dose: Not Given Acetaminophen (Ofirmev) 650 mg in 65 mls @ 130 mls/hr IV Q8HP PRN PRN Reason: PAIN/FEVER > 101 Fat Emulsion Intravenous (Intralipid 20%) 250 mls @ 25 mls/hr IV DAILY@1600 [facility] Last Admin: 05/25/18 15:54 Dose: 25 mls/hr Calcium Gluconate 5 meq/Sodium Chloride 20 meq/Potassium Phosphate 20 meq/ Multivitamins/Minerals 10 ml/Selenium 60 mcg/ Potassium Chloride 20 meq/ Amino Acids 1,041.7981 mls @ 30 mls/hr IV Q24H [facility] Last Admin: 05/25/18 14:45 Dose: 30 mls/hr Potassium Chloride 20 meq/ (Dextrose) 110 mls @ 55 mls/hr IV ONCE ONE Stop: 05/25/18 21:19 Insulin Human Lispro (Humalog) 0 unit SQ Q6 [facility]; Protocol Last Admin: 05/25/18 17:56 Dose: 2 unit Lorazepam (Ativan) 1 mg IV QHS [facility] Last Admin: 05/24/18 21:54 Dose: 1 mg Metoprolol Tartrate (Lopressor) 5 mg IV Q6 [facility] Last Admin: 05/25/18 18:38 Dose: Not Given Metoprolol Tartrate (Lopressor) 25 mg PO BID [facility] Last Admin: 05/25/18 16:26 Dose: 25 mg Naloxone HCl (Narcan) 0.1 mg IV Q2MIN PRN PRN Reason: Opiate Reversal Ondansetron HCl (Zofran) 4 mg IV Q4HP PRN PRN Reason: Nausea And Vomiting Last Admin: 05/25/18 17:07 Dose: 4 mg Sodium Chloride (Saline Flush) 10 ml IV Q8 [facility] Last Admin: 05/25/18 14:34 Dose: 10 ml Medical - PN: A/P - Time Spent With Patient Total time spent is greater than 50% in coordination of care (as documented) at patient's floor/unit and/or counseling patient: Greater than 35 minutes (1) Large bowel obstruction Status: Acute Assessment and plan: post diverting distal transverse colostomy and passing lots of de paz stool initially now some formed stool. suspected underlying colorectal cancer. liver bx pending. mildly elevated CEA Current Visit: Yes (2) COPD with exacerbation Problem details: stable on vent CO2 48. cont Pressure support trial at 12/26. Status: Chronic Assessment and plan: extubated and RML infiltrate seen. Prob aspiration pneumonia. cont abx and nebs and steroids Current Visit: Yes (3) Hypotension during surgery Status: Acute Assessment and plan: stable bp now. ready to diurese. Current Visit: Yes (4) Protein calorie malnutrition Status: Acute Assessment and plan: severe malnutrition and is hypocalcemic also. tolerating TPN. Stop LR fluid Current Visit: Yes (5) Ileus following gastrointestinal surgery Status: Acute Assessment and plan: was obstructed. Now with mild ileus. 250 cc residual on NGT. back to suction and will increase ambulation and diurese excess fluid replace potassium Current Visit: Yes Medical - PN: Qual - VTE Deep Vein Thrombosis/Pulmonary Embolism Present on Admission: No
[2018-05-25] MEDS: LORazepam 2 MG/ML VIAL IV SCH (20:12)
[2018-05-25] MEDS ORDERED: POTASSIUM CHLORIDE 20 MEQ/10 ML VIAL IV ONE (20:17)
[2018-05-25] MEDS: FUROSEMIDE 20 MG/2 ML VIAL IV SCH (22:01)
[2018-05-25] MEDS ORDERED: FUROSEMIDE 20 MG/2 ML VIAL IV ONE (22:05)
[2018-05-26] MEDS: METOPROLOL TARTRATE 5 MG/5 ML VIAL IV SCH ×3 (00:03→09:15)
[2018-05-26] MEDS: fentaNYL 100 MCG/2 ML VIAL IV PRN (00:03)
[2018-05-26] MEDS: IPRATROPIUM/ALBUTEROL 3 ML AMPUL.NEB NEB SCH ×4 (00:03→19:40)
[2018-05-26] MEDS: INSULIN LISPRO 1 UNIT/0.01 ML UNIT SQ SCH ×4 (00:29→18:01)
[2018-05-26] MEDS: ACETAMINOPHEN 650 MG/65 ML BOTTLE IV PRN ×2 (00:31→05:46)
[2018-05-26] MEDS: HYDROmorphone 2 MG/ML VIAL IV PRN ×5 (02:52→20:55)
[2018-05-26] MEDS: HYDROCORTISONE SOD SUCC 100 MG VIAL IV SCH ×3 (05:37→22:27)
[2018-05-26] MEDS ORDERED: ACETAMINOPHEN 1,000 MG/100 ML BOTTLE IV ONE (05:39)
[2018-05-26] MEDS: metroNIDAZOLE 500 MG/100 ML BAG IV SCH ×3 (05:39→22:28)
[2018-05-26] MEDS: 0.9 % SODIUM CHLORIDE 10 ML SYRINGE IV SCH ×3 (05:40→22:32)
[2018-05-26] MEDS: 0.9 % SODIUM CHLORIDE 250 ML IV SCH ×2 (05:41→17:52)
[2018-05-26 06:02] LABS: Basophils # (Auto) 0 K/mcL (0.0-0.3); Basophils % (Auto) 0 % (0.0-2.0); Eosinophils # (Auto) 0 K/mcL (0.0-0.7); Eosinophils % (Auto) 0 % (0.0-7.0); Granulocytes % (Auto) 88.4 % (38.0-78.0); Lymphocytes # (Auto) 0.5 K/mcL (1.5-4.8); Lymphocytes % (Auto) 4.9 % (15.5-49.0); Mean Cell Volume 88.6 fL (80.0-100.0); Mean Corpuscular Hemoglobin 29.3 pg (26.0-34.0); Monocytes # (Auto) 0.6 K/mcL (0.1-0.9); Monocytes % (Auto) 6.7 % (1.0-12.0); Platelet Count 257 K/mcL (140-440); RBC 3.74 M/mcL (4.50-5.90); Red Cell Distribution Width 15.4 % (11.5-14.5)
[2018-05-26 06:31] LABS: ALT/SGPT 13 U/l (0-40); Albumin/Globulin Ratio 0.8 (1.0-2.3); Alkaline Phosphatase 58 U/L (39-117); Bilirubin,Direct < 0.2 mg/dL (0.0-0.3); Blood Urea Nitrogen 34 mg/dl (8-23); Gamma Glutamyl Transpeptidase 15 U/L (8-61); Uric Acid 5.4 mg/dL (2.5-8.0)
[2018-05-26] MEDS: BUDESONIDE 0.5 MG/2 ML AMPUL.NEB NEB SCH ×2 (07:01→19:40)
[2018-05-26] MEDS: FUROSEMIDE 20 MG/2 ML VIAL IV SCH ×2 (07:17→16:05)
[2018-05-26] MEDS: METOPROLOL TARTRATE 25 MG TABLET PO SCH ×2 (07:18→20:58)
[2018-05-26] MEDS: HEPARIN 5,000 UNIT/ML VIAL SQ SCH ×2 (08:23→20:54)
[2018-05-26] MEDS: FAMOTIDINE/PF 20 MG/2 ML VIAL IV SCH ×2 (08:23→20:54)
[2018-05-26] MEDS: CIPROFLOXACIN 400 MG/200 ML BAG IV SCH ×2 (08:23→20:57)
[2018-05-26] MEDS ORDERED: DILTIAZEM 25 MG/5 ML VIAL IV ONE ×2 (09:41→10:37)
[2018-05-26] MEDS ORDERED: AMIODARONE 150 MG in DEXTROSE 5% IN WATER 50 ML IV ONE ×2 (09:50→10:36)
[2018-05-26] MEDS ORDERED: AMIODARONE 360 MG in PREMIX 1 BAG IV SCH (10:00)
[2018-05-26] MEDS ORDERED: AMIODARONE 150 MG/3 ML VIAL IV ONE (10:05)
--- NOTE | 2018-05-26 13:13 | General Surgery Progress Note ---
Subjective Patient reports: feels better, pain is less, flatus, bowel movement, diarrhea, afebrile Narrative: Note initiated : 05/26/18 at 1:11 pm Service Date, if different from initiated Date: [] Patient: Luciano Nixon 67 y/o M admitted on 05/21/18 for Abdominal Pain/ Large Bowel Obstruction. Chief Complaint: [patient is improved from a GI standpoint.. He has had more output through his stoma and his abdominal x-rays shows decreased fecal burden in his proximal colon. He has had difficulty with tachyarrhythmias, but this is now being controlled. He has no other complaints except for weakness.] Objective Temp Pulse Resp BP Pulse Ox 97.2 F 120 H 18 137/86 99 05/26/18 04:01 05/26/18 13:04 05/26/18 13:04 05/26/18 07:00 05/26/18 08:06 - Additional Data Intake & Output - Last 24 hours: Intake & Output 05/24/18 05/25/18 05/26/18 05/27/18 05:59 05:59 05:59 05:59 Intake Total 5654 / 5654 3614 / 3614 4568 / 4568 471 / 471 Output Total 1675 / 1675 2593 / 2593 3153 / 3153 60 / 60 Balance 3979 / 3979 1021 / 1021 1415 / 1415 411 / 411 Weight 132 lb 8 oz 159 lb 164 lb 8 oz - General physical appearance well developed, well nourished, no distress - Eyes PERRL, normal ocular movement - ENT normal pinna, normal nares, normal mucosa, no hearing loss, no congestion - Neck no masses, no bruits, trachea midline, no venous distension - Respiratory normal respiratory effort, clear to auscultation - Cardiovascular Cardiovascular exam: Present: irregular rhythm, tachycardia (irregularly irregular rhythm with heart rate 120) - Abdomen soft, tender (, mild tenderness along operative site; stoma appears to be healthy;;;;;;;;;;;;; active bowel sounds) - Integumentary no rash, no growths, no abnormal pigmentation - Neurologic normal coordination, normal sensation - Psychiatric oriented to time, oriented to person, oriented to place, speech is normal, memory intact - Labs 05/26/18 04:00 05/26/18 04:00 Diabetes panel 05/26/18 Range/Units 04:00 Sodium 141 (133-145) mmol/L Potassium 3.6 (3.3-5.1) mmol/L Chloride 105 (96-108) mmol/L Carbon Dioxide 27 (22-30) mmol/L BUN 34 H (8-23) mg/dl Creatinine 1.5 H (0.7-1.2) mg/dl Glucose 142 H (70-105) mg/dL Calcium 7.4 L (8.6-10.4) mg/dl AST 28 (0-37) U/l ALT 13 (0-40) U/l Alkaline Phosphatase 58 (39-117) U/L Total Protein 4.5 L (5.9-8.4) gm/dL Albumin 2.0 L (3.2-5.2) gm/dL Triglycerides 62 (<150) mg/dl Calcium panel 05/26/18 Range/Units 04:00 Calcium 7.4 L (8.6-10.4) mg/dl Phosphorus 2.4 L (2.7-4.5) mg/dL Albumin 2.0 L (3.2-5.2) gm/dL Pituitary panel 05/26/18 Range/Units 04:00 Sodium 141 (133-145) mmol/L Potassium 3.6 (3.3-5.1) mmol/L Chloride 105 (96-108) mmol/L Carbon Dioxide 27 (22-30) mmol/L BUN 34 H (8-23) mg/dl Creatinine 1.5 H (0.7-1.2) mg/dl Glucose 142 H (70-105) mg/dL Calcium 7.4 L (8.6-10.4) mg/dl Adrenal panel 05/26/18 Range/Units 04:00 Sodium 141 (133-145) mmol/L Potassium 3.6 (3.3-5.1) mmol/L Chloride 105 (96-108) mmol/L Carbon Dioxide 27 (22-30) mmol/L BUN 34 H (8-23) mg/dl Creatinine 1.5 H (0.7-1.2) mg/dl Glucose 142 H (70-105) mg/dL Calcium 7.4 L (8.6-10.4) mg/dl Total Bilirubin 0.2 (0.0-1.0) mg/dL AST 28 (0-37) U/l ALT 13 (0-40) U/l Alkaline Phosphatase 58 (39-117) U/L Total Protein 4.5 L (5.9-8.4) gm/dL Albumin 2.0 L (3.2-5.2) gm/dL Assessment and Plan (1) COPD with exacerbation Problem details: stable on vent CO2 48. cont Pressure support trial at 12/26. Status: Chronic Current Visit: Yes (2) Large bowel obstruction Status: Acute Current Visit: Yes (3) Ileus following gastrointestinal surgery Status: Acute Current Visit: Yes (4) Hypertension, essential Status: Chronic Current Visit: No (5) COPD (chronic obstructive pulmonary disease) Status: Chronic Current Visit: No - Time Spent With Patient Total time spent is greater than 50% in coordination of care (as documented) at patient's floor/unit and/or counseling patient:
--- NOTE | 2018-05-26 13:19 | XRay Report ---
CLINICAL INFORMATION: Follow distal colonic obstruction COMPARISON: 02/15/2018 plain film and preoperative abdominal and pelvic CT 05/13/2018 FINDINGS: NG tip in the gastric antrum in satisfactory position. Stomach is decompressed. There a few loops of mildly dilated small bowel in midabdomen. Most of the small bowel and colon are decompressed. No free air or soft tissue mass. Surgical pina present in the midline laparotomy. Small region of consolidated atelectasis in the left base with small left pleural effusion is new from the previous chest x-ray IMPRESSION: Mild ileus pattern. No evidence of bowel obstruction. Small region of densely consolidated atelectasis in left lower lobe with small left pleural effusion - new. Interpreted and Authenticated by: Luciano Smith 05/26/18
[2018-05-26] MEDS ORDERED: MAGNESIUM SULFATE 2 GM/50 ML BAG IV ONE (14:51)
[2018-05-26] MEDS ORDERED: POTASSIUM PHOSPHATE IV SCH (15:00)
[2018-05-26] MEDS ORDERED: [UNRECOGNIZED DRUG - OTHER] IV SCH (15:00)
[2018-05-26] MEDS: DILTIAZEM 125 MG in DEXTROSE 5% IN WATER 100 ML IV SCH (15:00)
[2018-05-26] MEDS ORDERED: POTASSIUM PHOSPHATE 20 MEQ in DEXTROSE 5% IN WATER 250 ML IV ONE (15:00)
[2018-05-26] MEDS ORDERED: CALCIUM GLUCONATE IV SCH (15:00)
[2018-05-26] MEDS ORDERED: SODIUM CHLORIDE IV SCH (15:00)
[2018-05-26] MEDS ORDERED: MVI IV SCH (15:00)
--- NOTE | 2018-05-26 15:00 | Internal Med Progress Note ---
Medical - PN: Subj Patient information: Note initiated : 05/26/18 at 2:57 pm Service Date, if different from initiated Date: [] Patient: Luciano Nixon 67 y/o M admitted on 05/21/18 for Abdominal Pain/ Large Bowel Obstruction. Chief Complaint: [] Interval history: Patient with runs of SVT yesterday with exertion limited to sitting up at the side of the bed. He was started on metoprolol IV. This morning he had atrial fibrillation with rapid ventricular response and I was called to bedside. Times he had mild diaphoresis and dyspnea when heart rate over 150. Heart rate controlled with diltiazem with minimal side effect of bradycardia. Patient has been receiving amiodarone load but the initial 150 mg bolus did not slow the heart rate or convert the rhythm. He received a second 150 mg bolus and is on his 1 mg/m load. Patient denies chest pain. He is uncomfortable with his NG tube states it makes it hard to swallow or spit. Additionally patient's colostomy output has increased. Dr. Heard has ordered for NG tube to be removed. Patient was started on TPN 2 days ago at 30 cc an hour and thus far is still tolerating it well. Patient is upset that the there was some nurse dispute yesterday at his bedside he also reports that he is upset that Dr. Heard has not pulled his NG tube yet. Ultimately the patient is much more alert and is no longer lethargic sleeping like he was yesterday. - Constitutional Vitals: Vital Signs Temp Pulse Resp BP Pulse Ox 98.1 F 123 H 16 96/72 98 05/26/18 14:31 05/26/18 14:02 05/26/18 14:31 05/26/18 14:31 05/26/18 14:31 Period Temp Pulse Resp BP Sys/Faria Pulse Ox Last 24 Hr 97.2 F-98.8 F 31-144 9-22 73-160/57-103 83-100 Intake and Output 05/26/18 05/26/18 05/26/18 05:59 13:59 21:59 Intake Total 825 / 825 471 / 471 Output Total 1695 / 1695 400 / 400 170 / 170 Balance -870 / -870 71 / 71 -170 / -170 Intake & Output: Intake & Output 05/26/18 05/26/18 05/26/18 05:59 13:59 21:59 Intake Total 825 / 825 471 / 471 Output Total 1695 / 1695 400 / 400 170 / 170 Balance -870 / -870 71 / 71 -170 / -170 Intake: IV 725 / 725 471 / 471 Cordarone 150 mg In Dextrose 5% 106 / 106 in Water 50 ml @ 300 mls/hr IV ONCE ONE Rx#:[id number] Intralipid 20% 250 ml @ 25 mls/ 250 / 250 hr IV DAILY@1600 [facility] Rx#: [id number] Oral 100 / 100 Output: Gastric Drainage 350 / 350 Left Nare 350 / 350 Urine Catheter Amount 860 / 860 400 / 400 170 / 170 Void Amount 360 / 360 Stool 125 / 125 Other: Urine Appearance Uretheral (Ferrell) Clear Clear Urine Color Uretheral (Ferrell) Light Lyric Bright Yellow Urine Odor Uretheral (Ferrell) Normal Stool Size Moderate Stool Color Brown Stool Consistency Liquid General appearance: average body habitus, cooperative, mild distress - Respiratory Respiratory exam: Present: normal respiratory exam, CTAB - Cardiovascular Cardiovascular exam: Present: irregular rhythm, tachycardia Additional comments: With carotid massage and diltiazem push he did drop his heart rate into the 90s but still irregular - GI/Abdominal GI/Abdominal exam: Present: soft, diminished bowel sounds, tenderness. Absent: guarding, rebound - Extremities Exam Extremities exam: Present: pedal edema (2+) - Psychiatric Psychiatric exam: Present: anxious, normal affect, normal mood Medical - PN: Obj Da - Labs CBC & Chem 7: 05/26/18 04:00 05/26/18 04:00 Labs: Abnormal Lab Results 05/26/18 05/26/18 05/25/18 04:00 04:00 04:00 WBC RBC 3.74 L Hgb 10.9 L Hct 33.1 L RDW 15.4 H MPV 6.8 L Gran % 88.4 H Lymph % (Auto) 4.9 L [place] % (Auto) Gran # 8.6 H Lymph # (Auto) 0.5 L BUN 34 H 37 H Creatinine 1.5 H 1.7 H Glucose 142 H 208 H Calcium 7.4 L 7.5 L Phosphorus 2.4 L AST Lactate Dehydrogenase 269 H Total Protein 4.5 L 4.1 L Albumin 2.0 L 1.9 L Albumin/Globulin Ratio 0.8 L 0.9 L 05/25/18 05/24/18 05/24/18 04:00 04:21 04:21 WBC 3.6 L RBC 3.31 L 3.56 L Hgb 9.7 L 10.4 L Hct 29.1 L 31.4 L RDW 15.2 H 15.5 H MPV 6.8 L 6.9 L Gran % 81.8 H Lymph % (Auto) 8.6 L 4.9 L [place] % (Auto) 14.6 H 13.2 H Gran # Lymph # (Auto) 0.3 L 0.3 L BUN 41 H Creatinine 1.7 H Glucose 128 H Calcium 6.9 L Phosphorus AST Lactate Dehydrogenase Total Protein 4.3 L Albumin 1.9 L Albumin/Globulin Ratio 0.8 L 05/23/18 16:20 WBC RBC Hgb Hct RDW MPV Gran % Lymph % (Auto) [place] % (Auto) Gran # Lymph # (Auto) BUN 42 H Creatinine 1.8 H Glucose 147 H Calcium 7.0 L Phosphorus AST 44 H Lactate Dehydrogenase Total Protein 4.8 L Albumin 2.1 L Albumin/Globulin Ratio 0.8 L Meds: Medications Albuterol/Ipratropium (Duoneb) 3 ml NEB Q6HRT [facility] Last Admin: 05/26/18 12:56 Dose: 3 ml Budesonide (Pulmicort) 0.5 mg NEB Q12 [facility] Last Admin: 05/26/18 07:01 Dose: 0.5 mg Diagnostic Test (Pha) (Accu-Chek) 1 each FS Q6 [facility] Last Admin: 05/26/18 12:25 Dose: 1 each Famotidine (Pepcid) 20 mg IV Q12 [facility] Last Admin: 05/26/18 08:23 Dose: 20 mg Fentanyl (Sublimaze) 25 mcg IV Q1HP PRN PRN Reason: PAIN LEVEL > 6 Last Admin: 05/26/18 00:03 Dose: 25 mcg Furosemide (Lasix) 20 mg IV BIDD [facility] Last Admin: 05/26/18 07:17 Dose: 20 mg Heparin Sodium (Porcine) (Heparin) 5,000 unit SQ Q12 [facility] Last Admin: 05/26/18 08:23 Dose: 5,000 unit Hydrocortisone Sodium Succinate (Solu-Cortef) 50 mg IV Q8 [facility] Last Admin: 05/26/18 14:12 Dose: 50 mg Hydromorphone HCl (Dilaudid) 1 mg IV Q2HP PRN PRN Reason: severe pain > 5 Last Admin: 05/26/18 14:08 Dose: 1 mg Ciprofloxacin (Cipro) 400 mg in 200 mls @ 200 mls/hr IV Q12H [facility] Last Infusion: 05/26/18 09:30 Dose: Infused Metronidazole (Flagyl) 500 mg in 100 mls @ 100 mls/hr IV Q8H [facility] Last Admin: 05/26/18 14:12 Dose: 100 mls/hr Acetaminophen (Ofirmev) 650 mg in 65 mls @ 130 mls/hr IV Q6HP PRN PRN Reason: PAIN/FEVER > 101 Last Infusion: 05/26/18 06:30 Dose: Infused Sodium Chloride (Sodium Chloride 0.9%) 250 mls @ 20 mls/hr IV .[id number] [facility] Last Admin: 05/26/18 05:41 Dose: Not Given Acetaminophen (Ofirmev) 650 mg in 65 mls @ 130 mls/hr IV Q8HP PRN PRN Reason: PAIN/FEVER > 101 Fat Emulsion Intravenous (Intralipid 20%) 250 mls @ 25 mls/hr IV DAILY@1600 [facility] Last Infusion: 05/26/18 02:50 Dose: Infused Calcium Gluconate 5 meq/Sodium Chloride 20 meq/Potassium Phosphate 20 meq/ Multivitamins/Minerals 10 ml/Selenium 60 mcg/ Potassium Chloride 20 meq/ Amino Acids 1,041.7981 mls @ 30 mls/hr IV Q24H [facility] Stop: 05/26/18 14:59 Last Admin: 05/25/18 14:45 Dose: 30 mls/hr AMIODARONE 360 mg/ Premix 200 mls @ 33.33 mls/hr IV .Q6H1M [facility]; Protocol Stop: 05/26/18 15:59 Last Admin: 05/26/18 10:16 Dose: 1 mg/min, 33.33 mls/hr Calcium Gluconate 5 meq/Sodium Chloride 20 meq/Potassium Phosphate 30 meq/ Multivitamins/Minerals 10 ml/Selenium 60 mcg/ Potassium Chloride 20 meq/ Magnesium Sulfate 16.24 meq/ Amino Acids 1,048.0708 mls @ 30 mls/hr IV Q24H [facility] AMIODARONE 360 mg/ Premix 200 mls @ 16.66 mls/hr IV .Q12H1M [facility] Stop: 05/27/18 10:00 Diltiazem HCl 125 mg/ Dextrose 125 mls @ 5 mls/hr IV Q12H [facility]; Protocol Potassium Phosphate 20 meq/ (Dextrose) 254.5455 mls @ 127.273 mls/hr IV ONCE ONE Stop: 05/26/18 16:51 Magnesium Sulfate (Magnesium Sulfate) 2 gm in 50 mls @ 50 mls/hr IV ONCE ONE Stop: 05/26/18 15:50 Insulin Human Lispro (Humalog) 0 unit SQ Q6 [facility]; Protocol Last Admin: 05/26/18 12:33 Dose: 2 unit Lorazepam (Ativan) 1 mg IV QHS [facility] Last Admin: 05/25/18 20:12 Dose: 1 mg Metoprolol Tartrate (Lopressor) 25 mg PO BID [facility] Last Admin: 05/26/18 07:18 Dose: Not Given Naloxone HCl (Narcan) 0.1 mg IV Q2MIN PRN PRN Reason: Opiate Reversal Ondansetron HCl (Zofran) 4 mg IV Q4HP PRN PRN Reason: Nausea And Vomiting Last Admin: 05/25/18 17:07 Dose: 4 mg Sodium Chloride (Saline Flush) 10 ml IV Q8 [facility] Last Admin: 05/26/18 12:18 Dose: 10 ml - EKG Data EKG comments: 05/26/18 15:01 A. fib with rapid ventricular response and occasional PVCs Medical - PN: A/P - Time Spent With Patient Total time spent is greater than 50% in coordination of care (as documented) at patient's floor/unit and/or counseling patient: Greater than 35 minutes (one hour of critical care time) (1) Large bowel obstruction Status: Acute Assessment and plan: post diverting distal transverse colostomy and passing lots of de paz stool initially now some formed stool. suspected underlying colorectal cancer. liver bx pending. mildly elevated CEA Current Visit: Yes (2) COPD with exacerbation Problem details: stable on vent CO2 48. cont Pressure support trial at 5/5. Status: Chronic Assessment and plan: extubated and RML infiltrate seen. Prob aspiration pneumonia. cont abx and nebs and steroids Current Visit: Yes (3) Hypotension during surgery Status: Acute Assessment and plan: stable bp now. ready to diurese. Current Visit: Yes (4) Protein calorie malnutrition Status: Acute Assessment and plan: severe malnutrition and is hypocalcemic also. tolerating TPN. Stop LR fluid Current Visit: Yes (5) Ileus following gastrointestinal surgery Status: Acute Assessment and plan: was obstructed. Now with mild ileus. 250 cc residual on NGT. back to suction and will increase ambulation and diurese excess fluid replace potassium Current Visit: Yes Medical - PN: Qual - VTE Documentation of Mechanical Device: Intermittent pneumatic compression boot (we' ll start low-dose Lovenox) Is this test being ordered to rule out VTE?: No Deep Vein Thrombosis/Pulmonary Embolism Present on Admission: No
[2018-05-26] MEDS: FAT EMULSION 20% 250 ML IV SCH (15:58)
[2018-05-26] MEDS: AMIODARONE 360 MG in PREMIX 1 BAG IV SCH (16:06)
[2018-05-26] MEDS: LORazepam 2 MG/ML VIAL IV SCH (20:50)
[2018-05-27] MEDS: INSULIN LISPRO 1 UNIT/0.01 ML UNIT SQ SCH ×5 (00:18→23:55)
[2018-05-27] MEDS: HYDROmorphone 2 MG/ML VIAL IV PRN ×6 (01:39→22:05)
[2018-05-27] MEDS: fentaNYL 100 MCG/2 ML VIAL IV PRN (02:54)
[2018-05-27] MEDS: DILTIAZEM 125 MG in DEXTROSE 5% IN WATER 100 ML IV SCH (04:24)
[2018-05-27] MEDS ORDERED: PREMIX 1 BAG IV ONE (04:26)
[2018-05-27] MEDS: AMIODARONE 360 MG in PREMIX 1 BAG IV SCH (05:43)
[2018-05-27 05:44] LABS: Basophils # (Auto) 0 K/mcL (0.0-0.3); Basophils % (Auto) 0 % (0.0-2.0); Eosinophils # (Auto) 0 K/mcL (0.0-0.7); Eosinophils % (Auto) 0.1 % (0.0-7.0); Granulocytes % (Auto) 90.9 % (38.0-78.0); Lymphocytes # (Auto) 0.5 K/mcL (1.5-4.8); Lymphocytes % (Auto) 5.7 % (15.5-49.0); Mean Cell Volume 87.4 fL (80.0-100.0); Mean Corpuscular HGB Conc 33.4 g/dL (31.0-36.0); Mean Corpuscular Hemoglobin 29.2 pg (26.0-34.0); Monocytes # (Auto) 0.3 K/mcL (0.1-0.9); Monocytes % (Auto) 3.3 % (1.0-12.0); Platelet Count 222 K/mcL (140-440); RBC 3.62 M/mcL (4.50-5.90); Red Cell Distribution Width 15.5 % (11.5-14.5)
[2018-05-27] MEDS: metroNIDAZOLE 500 MG/100 ML BAG IV SCH ×3 (05:49→21:26)
[2018-05-27] MEDS: HYDROCORTISONE SOD SUCC 100 MG VIAL IV SCH ×3 (05:49→21:33)
[2018-05-27] MEDS: 0.9 % SODIUM CHLORIDE 10 ML SYRINGE IV SCH ×3 (05:50→20:28)
[2018-05-27 06:23] LABS: ALT/SGPT 14 U/l (0-40); Albumin/Globulin Ratio 0.8 (1.0-2.3); Alkaline Phosphatase 63 U/L (39-117); Bilirubin,Direct < 0.2 mg/dL (0.0-0.3); Blood Urea Nitrogen 29 mg/dl (8-23); Gamma Glutamyl Transpeptidase 21 U/L (8-61); Uric Acid 5.5 mg/dL (2.5-8.0)
[2018-05-27] MEDS ORDERED: POTASSIUM PHOSPHATE 40 MEQ in DEXTROSE 5% IN WATER 500 ML IV ONE (07:30)
[2018-05-27] MEDS ORDERED: AMIODARONE HCL 200 MG TABLET PO ONE (07:37)
--- NOTE | 2018-05-27 07:44 | Internal Med Progress Note ---
Medical - PN: Subj Patient information: Note initiated : 05/27/18 at 7:42 am Service Date, if different from initiated Date: [] Patient: Luciano Nixon 67 y/o M admitted on 05/21/18 for Abdominal Pain/ Large Bowel Obstruction. Chief Complaint: [] Interval history: says he feels super weak though is agreeable to getting up with assistance. abdominal pain is much less. breathing ok. No nausea after NGT out yesterday. Converted to NSR last night but lots of PVCs potassium very low after diuresis (2.8) - Constitutional Vitals: Vital Signs Temp Pulse Resp BP Pulse Ox 98.0 F 88 18 130/66 95 05/26/18 17:31 05/27/18 06:01 05/27/18 06:01 05/27/18 06:01 05/27/18 06:01 Period Temp Pulse Resp BP Sys/Faria Pulse Ox Last 24 Hr 98.0 F-98.2 F 31-144 9-29 73-145/50-103 83-99 Intake and Output 05/26/18 05/27/18 05/27/18 21:59 05:59 13:59 Intake Total 1397.5455 / 1397.5455 300 / 300 100 / 100 Output Total 1240 / 1240 970 / 970 280 / 280 Balance 157.5455 / 157.5455 -670 / -670 -180 / -180 Weight 164 lb 8 oz Intake & Output: Intake & Output 05/26/18 05/27/18 05/27/18 21:59 05:59 13:59 Intake Total 1397.5455 / 1397.5455 300 / 300 100 / 100 Output Total 1240 / 1240 970 / 970 280 / 280 Balance 157.5455 / 157.5455 -670 / -670 -180 / -180 Weight 164 lb 8 oz Intake: IV 1397.5455 / 1397.5455 300 / 300 100 / 100 Nexterone 360 mg In Premix 1 194 / 194 200 / 200 Bag @ 0.5 MG/MIN 16.66 mls/hr IV .Q12H1M [facility] Rx#:[id number] Calcium Gluconate 5 Meq Sodium 756 / 756 Chloride 20 Meq Potassium Phosphate 20 Meq Infuvite Adult 10 ml Selenium 60 Mcg Potassium Chloride 20 Meq In Clinimix 5%-20% Solution 1,000 ml @ 30 mls/hr IV Q24H [facility] Rx#: [id number] Cardizem 125 mg In Dextrose 5% 43 / 43 in Water 100 ml @ 5 MG/HR 5 mls /hr IV Q12H [facility] Rx#:[id number] Potassium Phosphate 20 Meq In 254.5455 / 254.5455 Dextrose 5% in Water 250 ml @ 127.273 mls/hr IV ONCE ONE Rx#: [id number] Output: Urine Catheter Amount 1140 / 1140 970 / 970 280 / 280 Stool 100 / 100 Other: Urine Appearance Clear Clear Clear Uretheral (Ferrell) Clear Urine Color Bright Yellow Bright Yellow Bright Yellow Uretheral (Ferrell) Bright Yellow Urine Odor Normal Normal Normal Uretheral (Ferrell) Normal Stool Size Moderate Stool Color Brown Stool Consistency Liquid - Head Head exam: Present: normal inspection - Neck Neck exam: Present: full ROM - Cardiovascular Cardiovascular exam: Present: irregular rhythm Additional comments: rate controlled - GI/Abdominal GI/Abdominal exam: Present: normal bowel sounds, soft. Absent: distended, rebound, tenderness Additional comments: lots of de paz stool in the ostomy bag - Extremities Exam Extremities exam: Present: pedal edema Additional comments: 1+ - Neurological Exam Neurological exam: Present: alert, oriented X3 - Psychiatric Psychiatric exam: Present: normal affect, normal mood - Skin Skin exam: Present: dry, warm. Absent: cyanosis, diaphoretic Medical - PN: Obj Da - Labs CBC & Chem 7: 05/27/18 04:00 05/27/18 04:00 Labs: Abnormal Lab Results 05/27/18 05/27/18 05/26/18 04:00 04:00 04:00 WBC RBC 3.62 L Hgb 10.6 L Hct 31.6 L RDW 15.5 H MPV 6.7 L Gran % 90.9 H Lymph % (Auto) 5.7 L [place] % (Auto) Gran # Lymph # (Auto) 0.5 L Potassium 2.8 L* BUN 29 H 34 H Creatinine 1.5 H Glucose 147 H 142 H Calcium 7.2 L 7.4 L Phosphorus 2.4 L Lactate Dehydrogenase 281 H 269 H Total Protein 4.4 L 4.5 L Albumin 2.0 L 2.0 L Albumin/Globulin Ratio 0.8 L 0.8 L 05/26/18 05/25/18 05/25/18 04:00 04:00 04:00 WBC 3.6 L RBC 3.74 L 3.31 L Hgb 10.9 L 9.7 L Hct 33.1 L 29.1 L RDW 15.4 H 15.2 H MPV 6.8 L 6.8 L Gran % 88.4 H Lymph % (Auto) 4.9 L 8.6 L [place] % (Auto) 14.6 H Gran # 8.6 H Lymph # (Auto) 0.5 L 0.3 L Potassium BUN 37 H Creatinine 1.7 H Glucose 208 H Calcium 7.5 L Phosphorus Lactate Dehydrogenase Total Protein 4.1 L Albumin 1.9 L Albumin/Globulin Ratio 0.9 L Meds: Medications Albuterol/Ipratropium (Duoneb) 3 ml NEB Q6HP PRN PRN Reason: Shortness Of Breath Amiodarone HCl (Cordarone) 400 mg PO ONCE ONE Stop: 05/27/18 07:38 Budesonide (Pulmicort) 0.5 mg NEB Q12 [facility] Last Admin: 05/26/18 19:40 Dose: 0.5 mg Diagnostic Test (Pha) (Accu-Chek) 1 each FS Q6 [facility] Last Admin: 05/27/18 05:41 Dose: 1 each Famotidine (Pepcid) 20 mg PO BID [facility] Fentanyl (Sublimaze) 25 mcg IV Q1HP PRN PRN Reason: PAIN LEVEL > 6 Last Admin: 05/27/18 02:54 Dose: 25 mcg Heparin Sodium (Porcine) (Heparin) 5,000 unit SQ Q12 [facility] Last Admin: 05/26/18 20:54 Dose: 5,000 unit Hydrocortisone Sodium Succinate (Solu-Cortef) 50 mg IV Q8 [facility] Last Admin: 05/27/18 05:49 Dose: 50 mg Hydromorphone HCl (Dilaudid) 1 mg IV Q2HP PRN PRN Reason: severe pain > 5 Last Admin: 05/27/18 01:39 Dose: 1 mg Ciprofloxacin (Cipro) 400 mg in 200 mls @ 200 mls/hr IV Q12H [facility] Last Admin: 05/26/18 20:57 Dose: 200 mls/hr Metronidazole (Flagyl) 500 mg in 100 mls @ 100 mls/hr IV Q8H [facility] Last Infusion: 05/27/18 06:49 Dose: Infused Acetaminophen (Ofirmev) 650 mg in 65 mls @ 130 mls/hr IV Q6HP PRN PRN Reason: PAIN/FEVER > 101 Last Infusion: 05/26/18 06:30 Dose: Infused Sodium Chloride (Sodium Chloride 0.9%) 250 mls @ 20 mls/hr IV .[id number] [facility] Last Admin: 05/26/18 17:52 Dose: 10 mls/hr Acetaminophen (Ofirmev) 650 mg in 65 mls @ 130 mls/hr IV Q8HP PRN PRN Reason: PAIN/FEVER > 101 Fat Emulsion Intravenous (Intralipid 20%) 250 mls @ 25 mls/hr IV DAILY@1600 [facility] Last Admin: 05/26/18 15:58 Dose: 25 mls/hr Calcium Gluconate 5 meq/Sodium Chloride 20 meq/Potassium Phosphate 30 meq/ Multivitamins/Minerals 10 ml/Selenium 60 mcg/ Potassium Chloride 20 meq/ Magnesium Sulfate 16.24 meq/ Amino Acids 1,048.0708 mls @ 30 mls/hr IV Q24H [facility] Last Admin: 05/26/18 15:58 Dose: 30 mls/hr AMIODARONE 360 mg/ Premix 200 mls @ 16.66 mls/hr IV .Q12H1M [facility] Stop: 05/27/18 10:00 Last Admin: 05/27/18 05:43 Dose: 0.5 mg/min, 16.66 mls/hr Potassium Phosphate 40 meq/ (Dextrose) 509.0909 mls @ 127.273 mls/hr IV ONCE ONE Stop: 05/27/18 11:29 Insulin Human Lispro (Humalog) 0 unit SQ Q6 [facility]; Protocol Last Admin: 05/27/18 05:42 Dose: Not Given Lorazepam (Ativan) 1 mg IV QHS [facility] Last Admin: 05/26/18 20:50 Dose: 1 mg Metoprolol Tartrate (Lopressor) 25 mg PO BID [facility] Last Admin: 05/26/18 20:58 Dose: Not Given Naloxone HCl (Narcan) 0.1 mg IV Q2MIN PRN PRN Reason: Opiate Reversal Ondansetron HCl (Zofran) 4 mg IV Q4HP PRN PRN Reason: Nausea And Vomiting Last Admin: 05/25/18 17:07 Dose: 4 mg Potassium Chloride (Kdur) 40 meq PO Q4 [facility] Stop: 05/27/18 12:01 Sodium Chloride (Saline Flush) 10 ml IV Q8 [facility] Last Admin: 05/27/18 05:50 Dose: 10 ml Medical - PN: A/P - Time Spent With Patient Total time spent is greater than 50% in coordination of care (as documented) at patient's floor/unit and/or counseling patient: (1) Large bowel obstruction Status: Acute Assessment and plan: post diverting distal transverse colostomy and passing lots of de paz stool initially now some formed stool. suspected underlying colorectal cancer. liver bx pending. mildly elevated CEA advancing diet Current Visit: Yes (2) COPD with exacerbation Problem details: stable on vent CO2 48. cont Pressure support trial at 12/26. Status: Chronic Assessment and plan: extubated and RML infiltrate seen. Prob aspiration pneumonia. cont abx and nebs and steroids improved. 4 more days abx and stop Current Visit: Yes (3) Hypotension during surgery Status: Resolved Assessment and plan: resolved. multifactorial. adrenal insufficiency and afib and malnutrition and sepsis Current Visit: Yes (4) Protein calorie malnutrition Status: Acute Assessment and plan: severe malnutrition continue TPN and advance diet as tolerated. Current Visit: Yes (5) Ileus following gastrointestinal surgery Status: Resolved Assessment and plan: was obstructed. Now with mild ileus. 250 cc residual on NGT. back to suction and will increase ambulation and diurese excess fluid replace potassium Current Visit: Yes (6) Atrial fibrillation with rapid ventricular response Problem details: problematic post op and pt initially SVT not controlled with beta miky and dilt then AFib RVR started on amiodarone 05/26/18. Status: Acute Assessment and plan: amiodarone iv load complete. now plan 400mg po bid for 3 days then 200mg bid as rhythm allows. cont oral metoprolol 25 mg bid. stop diltiazem Current Visit: Yes - Narrative A/P Narrative: increase activity and need to be up in chair and out of bed. 40 mins critical care time. Dr. Painter to assume care this afternoon Medical - PN: Qual - VTE Is this test being ordered to rule out VTE?: No Deep Vein Thrombosis/Pulmonary Embolism Present on Admission: No
[2018-05-27] MEDS: BUDESONIDE 0.5 MG/2 ML AMPUL.NEB NEB SCH ×2 (08:07→20:45)
[2018-05-27] MEDS: IPRATROPIUM/ALBUTEROL 3 ML AMPUL.NEB NEB PRN ×2 (08:07→20:45)
[2018-05-27] MEDS: POTASSIUM CHLORIDE 20 MEQ TABLET PO SCH ×2 (08:22→12:46)
[2018-05-27] MEDS ORDERED: ENOXAPARIN 30 MG/0.3 ML SYRINGE SQ SCH (09:00)
[2018-05-27] MEDS: 0.9 % SODIUM CHLORIDE 250 ML IV SCH ×2 (10:35→20:29)
[2018-05-27] MEDS: CIPROFLOXACIN 400 MG/200 ML BAG IV SCH ×2 (10:36→20:28)
[2018-05-27] MEDS: FAMOTIDINE 20 MG TABLET PO SCH ×2 (10:45→20:29)
[2018-05-27] MEDS: HEPARIN 5,000 UNIT/ML VIAL SQ SCH ×2 (10:45→20:29)
[2018-05-27] MEDS: METOPROLOL TARTRATE 25 MG TABLET PO SCH ×2 (10:45→20:29)
--- NOTE | 2018-05-27 12:59 | XRay Report ---
CLINICAL INFORMATION: FOLLOW -UP OF SMALL BOWEL OBSTRUCTION COMPARISON: 05/26/2018 FINDINGS: NG is been removed. Small amounts of gas in the stomach and proximal small bowel which remain normal caliber. Distal small bowel and colon are decompressed. No free air or soft tissue mass. IMPRESSION: Mild ileus - no evidence recurrent bowel obstruction. Interpreted and Authenticated by: Luciano Smith 05/27/18
[2018-05-27] MEDS ORDERED: MVI IV SCH (15:00)
[2018-05-27] MEDS ORDERED: SODIUM CHLORIDE IV SCH (15:00)
[2018-05-27] MEDS ORDERED: POTASSIUM PHOSPHATE IV SCH (15:00)
[2018-05-27] MEDS ORDERED: [UNRECOGNIZED DRUG - OTHER] IV SCH (15:00)
[2018-05-27] MEDS ORDERED: CALCIUM GLUCONATE IV SCH (15:00)
[2018-05-27] MEDS: ONDANSETRON 4 MG/2 ML VIAL IV PRN (15:05)
[2018-05-27] MEDS: FAT EMULSION 20% 250 ML IV SCH (16:25)
[2018-05-27] MEDS: ACETAMINOPHEN 650 MG/65 ML BOTTLE IV PRN (16:53)
--- NOTE | 2018-05-27 18:24 | General Surgery Progress Note ---
Subjective Patient reports: feels better, pain is less, tolerating liquids well, flatus, bowel movement, afebrile Narrative: Note initiated : 05/27/18 at 6:22 pm Service Date, if different from initiated Date: [] Patient: Luciano Nixon 67 y/o M admitted on 05/21/18 for Abdominal Pain/ Large Bowel Obstruction. Chief Complaint: [patient continues to improve. He complains of weakness. His tachy- arrhythmia, is now controlled. He has excellent output through his stoma and his abdominal distention is significantly less. Low potassium has been corrected.] Objective Temp Pulse Resp BP Pulse Ox 97.5 F 82 15 114/77 97 05/27/18 16:01 05/27/18 17:01 05/27/18 17:01 05/27/18 17:01 05/27/18 17:01 - Additional Data Intake & Output - Last 24 hours: Intake & Output 05/25/18 05/26/18 05/27/18 05/28/18 05:59 05:59 05:59 05:59 Intake Total 3614 / 3614 4568 / 4568 2618.5455 / 2618.5455 1195.0909 / 1195.0909 Output Total 2593 / 2593 3153 / 3153 2610 / 2610 1775 / 1775 Balance 1021 / 1021 1415 / 1415 8.5455 / 8.5455 -579.9091 / -579.9091 Weight 159 lb 164 lb 8 oz 164 lb 8 oz 164 lb 8 oz - Labs 05/27/18 04:00 05/27/18 04:00 Diabetes panel 05/27/18 Range/Units 04:00 Sodium 141 (133-145) mmol/L Potassium 2.8 L* (3.3-5.1) mmol/L Chloride 103 (96-108) mmol/L Carbon Dioxide 28 (22-30) mmol/L BUN 29 H (8-23) mg/dl Creatinine 1.1 (0.7-1.2) mg/dl Glucose 147 H (70-105) mg/dL Calcium 7.2 L (8.6-10.4) mg/dl AST 33 (0-37) U/l ALT 14 (0-40) U/l Alkaline Phosphatase 63 (39-117) U/L Total Protein 4.4 L (5.9-8.4) gm/dL Albumin 2.0 L (3.2-5.2) gm/dL Triglycerides 91 (<150) mg/dl Calcium panel 05/27/18 Range/Units 04:00 Calcium 7.2 L (8.6-10.4) mg/dl Phosphorus 2.7 (2.7-4.5) mg/dL Albumin 2.0 L (3.2-5.2) gm/dL Pituitary panel 05/27/18 Range/Units 04:00 Sodium 141 (133-145) mmol/L Potassium 2.8 L* (3.3-5.1) mmol/L Chloride 103 (96-108) mmol/L Carbon Dioxide 28 (22-30) mmol/L BUN 29 H (8-23) mg/dl Creatinine 1.1 (0.7-1.2) mg/dl Glucose 147 H (70-105) mg/dL Calcium 7.2 L (8.6-10.4) mg/dl Adrenal panel 05/27/18 Range/Units 04:00 Sodium 141 (133-145) mmol/L Potassium 2.8 L* (3.3-5.1) mmol/L Chloride 103 (96-108) mmol/L Carbon Dioxide 28 (22-30) mmol/L BUN 29 H (8-23) mg/dl Creatinine 1.1 (0.7-1.2) mg/dl Glucose 147 H (70-105) mg/dL Calcium 7.2 L (8.6-10.4) mg/dl Total Bilirubin 0.2 (0.0-1.0) mg/dL AST 33 (0-37) U/l ALT 14 (0-40) U/l Alkaline Phosphatase 63 (39-117) U/L Total Protein 4.4 L (5.9-8.4) gm/dL Albumin 2.0 L (3.2-5.2) gm/dL Assessment and Plan (1) COPD with exacerbation Problem details: stable on vent CO2 48. cont Pressure support trial at 12/26. Status: Chronic Current Visit: Yes (2) Large bowel obstruction Status: Resolved Current Visit: Yes (3) Ileus following gastrointestinal surgery Status: Resolved Assessment and plan: Significantly improved with good output via colostomy Current Visit: Yes (4) Hypertension, essential Status: Chronic Current Visit: No (5) COPD (chronic obstructive pulmonary disease) Status: Chronic Current Visit: No - Time Spent With Patient Total time spent is greater than 50% in coordination of care (as documented) at patient's floor/unit and/or counseling patient:
[2018-05-27] MEDS ORDERED: 0.9 % SODIUM CHLORIDE 10 ML SYRINGE IV PRN (18:31)
[2018-05-27] MEDS: LORazepam 2 MG/ML VIAL IV SCH (20:28)
[2018-05-28] MEDS: HYDROmorphone 2 MG/ML VIAL IV PRN ×2 (04:47→08:03)
[2018-05-28] MEDS: metroNIDAZOLE 500 MG/100 ML BAG IV SCH ×3 (05:36→21:05)
[2018-05-28] MEDS: INSULIN LISPRO 1 UNIT/0.01 ML UNIT SQ SCH ×3 (05:37→17:45)
[2018-05-28] MEDS: 0.9 % SODIUM CHLORIDE 10 ML SYRINGE IV SCH ×3 (05:37→20:07)
[2018-05-28] MEDS: HYDROCORTISONE SOD SUCC 100 MG VIAL IV SCH ×3 (05:39→21:04)
[2018-05-28 06:38] LABS: Basophils # (Auto) 0 K/mcL (0.0-0.3); Basophils % (Auto) 0 % (0.0-2.0); Eosinophils # (Auto) 0 K/mcL (0.0-0.7); Eosinophils % (Auto) 0 % (0.0-7.0); Granulocytes % (Auto) 89.3 % (38.0-78.0); Lymphocytes # (Auto) 0.5 K/mcL (1.5-4.8); Lymphocytes % (Auto) 7.3 % (15.5-49.0); Mean Cell Volume 87.8 fL (80.0-100.0); Monocytes # (Auto) 0.2 K/mcL (0.1-0.9); Monocytes % (Auto) 3.4 % (1.0-12.0); Platelet Count 215 K/mcL (140-440); RBC 3.69 M/mcL (4.50-5.90); Red Cell Distribution Width 15.3 % (11.5-14.5)
[2018-05-28 07:19] LABS: ALT/SGPT 15 U/l (0-40); Albumin/Globulin Ratio 0.9 (1.0-2.3); Alkaline Phosphatase 45 U/L (39-117); Bilirubin,Direct < 0.2 mg/dL (0.0-0.3); Blood Urea Nitrogen 23 mg/dl (8-23); Gamma Glutamyl Transpeptidase 20 U/L (8-61); Uric Acid 4.7 mg/dL (2.5-8.0)
[2018-05-28] MEDS: BUDESONIDE 0.5 MG/2 ML AMPUL.NEB NEB SCH ×2 (08:18→20:29)
[2018-05-28] MEDS: IPRATROPIUM/ALBUTEROL 3 ML AMPUL.NEB NEB PRN ×2 (08:18→20:29)
[2018-05-28] MEDS ORDERED: MAGNESIUM SULFATE 2 GM/50 ML BAG IV ONE (09:38)
[2018-05-28] MEDS ORDERED: POTASSIUM CHLORIDE 20 MEQ PACKET PO ONE (09:38)
[2018-05-28] MEDS ORDERED: METOPROLOL TARTRATE 25 MG TABLET PO ONE (09:38)
[2018-05-28] MEDS: FAMOTIDINE 20 MG TABLET PO SCH ×2 (09:47→20:07)
[2018-05-28] MEDS: METOPROLOL TARTRATE 25 MG TABLET PO SCH ×2 (09:47→20:07)
[2018-05-28] MEDS: HEPARIN 5,000 UNIT/ML VIAL SQ SCH ×2 (09:47→20:07)
--- NOTE | 2018-05-28 09:55 | XRay Report ---
CLINICAL INFORMATION: pneumonia follow up COMPARISON: 05/24/2018 FINDINGS: Heart size, mediastinum and pulmonary vessels are unremarkable. Moderate consolidated infiltrate/atelectasis in the left base - retrocardiac region though slight progression. Moderate left pleural effusion is also worsened slightly. Small infiltrate or atelectasis in the right base with small effusion has also worsened. Right PICC line remains stable satisfactory position IMPRESSION: Moderate densely consolidated atelectasis/infiltrate in the left base (retrocardiac region) and moderate left pleural effusion - slight worsening Small infiltrate or atelectasis right base with small right pleural effusion also worsening Interpreted and Authenticated by: Luciano Smith 05/28/18
[2018-05-28] MEDS: CIPROFLOXACIN 400 MG/200 ML BAG IV SCH ×2 (10:17→20:07)
[2018-05-28] MEDS ORDERED: NALOXONE HCL 0.4 MG/ML VIAL IV PRN (11:01)
[2018-05-28] MEDS ORDERED: ONDANSETRON 4 MG/2 ML VIAL IV PRN (11:01)
[2018-05-28] MEDS ORDERED: HYDROmorphone 2 MG/ML VIAL IV PRN (11:01)
[2018-05-28] MEDS ORDERED: fentaNYL 100 MCG/2 ML VIAL IV PRN (11:01)
[2018-05-28] MEDS ORDERED: TPN PER PHARMACY IV SCH (11:01)
[2018-05-28] MEDS ORDERED: ACETAMINOPHEN 650 MG/65 ML BOTTLE IV PRN ×2 (11:01)
[2018-05-28] MEDS: traMADol 50 MG TABLET PO PRN ×2 (11:20→19:14)
[2018-05-28] MEDS ORDERED: SODIUM CHLORIDE IV SCH (12:00)
[2018-05-28] MEDS ORDERED: CALCIUM GLUCONATE IV SCH (12:00)
[2018-05-28] MEDS ORDERED: [UNRECOGNIZED DRUG - REMARK] IV SCH (12:00)
[2018-05-28] MEDS ORDERED: MVI IV SCH (12:00)
[2018-05-28] MEDS ORDERED: [UNRECOGNIZED DRUG - OTHER] IV SCH (12:00)
[2018-05-28] MEDS ORDERED: POTASSIUM PHOSPHATE IV SCH (12:00)
[2018-05-28] MEDS ORDERED: HYDROCORTISONE SOD SUCC 100 MG VIAL IV SCH (14:00)
[2018-05-28] MEDS: 0.9 % SODIUM CHLORIDE 10 ML SYRINGE IV PRN ×3 (14:22→20:08)
[2018-05-28] MEDS ORDERED: FUROSEMIDE 20 MG/2 ML VIAL IV ONE (15:14)
--- NOTE | 2018-05-28 15:23 | Internal Med Progress Note ---
Medical - PN: Subj Patient information: Note initiated : 05/28/18 at 3:20 pm Service Date, if different from initiated Date: [] Patient: Luciano Nixon 67 y/o M admitted on 05/21/18 for Abdominal Pain/ Large Bowel Obstruction. Chief Complaint: [] Interval history: 05/28 Patient seen examined, no acute overnight issues, patient has some chr pain for which he wans tramadol resumed X ray suggestive of worsening pleural effusion, and pna vs atelectasis, pt is positive [id number] since admission. No acute events on tele, sinus rhythm mostly, but has some SVT noted there was AFib with RVR for which cardizme and amiodarone was used Echo ordered Pertinent ROS: Denies headache, dizziness Denies chest pain, palpitations Denies cough or shortness of breath Denies abdominal pain, nausea or vomiting. Just has generalized weakness - Constitutional Vitals: Vital Signs Temp Pulse Resp BP Pulse Ox 98.4 F 95 H 18 114/72 97 05/28/18 12:11 05/28/18 12:11 05/28/18 12:11 05/28/18 12:11 05/28/18 12:11 Period Temp Pulse Resp BP Sys/Faria Pulse Ox Last 24 Hr 97.5 F-99.0 F 72-97 14-24 108-139/58-90 91-99 Intake and Output 05/28/18 05/28/18 05/28/18 05:59 13:59 21:59 Intake Total 350 / 350 700 / 700 Output Total 905 / 905 300 / 300 Balance -555 / -555 400 / 400 Intake & Output: Intake & Output 05/28/18 05/28/18 05/28/18 05:59 13:59 21:59 Intake Total 350 / 350 700 / 700 Output Total 905 / 905 300 / 300 Balance -555 / -555 400 / 400 Intake: IV 350 / 350 100 / 100 Intralipid 20% 250 ml @ 25 mls/ 250 / 250 hr IV DAILY@1600 [facility] Rx#: [id number] Oral 600 / 600 Output: Urine Catheter Amount 605 / 605 300 / 300 Stool 300 / 300 Other: Meal Breakfast Percent of Meal Consumed 75% Feeding Ability Independent Urine Appearance Hematuria Clear Uretheral (Mcdowell) Clear Hematuria Urine Color Dark Lyric Blood Tinged Uretheral (Mcdowell) Dark Lyric Blood Tinged Stool Size Copious Smear Stool Color Brown Brown Pale Stool Consistency Liquid Soft Watery Loose # of times incontinent of 1 Bowels Exam: Constitutional; Afebrile, cooperative, alert, not in distress. Eyes- No icterus, , No periorbital swelling Ears- Ext ear normal, hearing normal to conversation. Neck- Midline trachea, supple Respiratory system: Air Entry decreased no the left base, No crackles or wheezing, no rhonchi. CVS- Rate rhythm regular, S1,S2 heard, no gallop, no rub. 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 edema noted on hands and feet Medical - PN: Obj Da - Labs CBC & Chem 7: 05/28/18 04:00 05/28/18 04:00 Labs: Abnormal Lab Results 05/28/18 05/28/18 05/27/18 04:00 04:00 04:00 RBC 3.69 L Hgb 10.7 L Hct 32.4 L RDW 15.3 H MPV 7.1 L Gran % 89.3 H Lymph % (Auto) 7.3 L Gran # Lymph # (Auto) 0.5 L Potassium 2.8 L* BUN 29 H Creatinine Glucose 155 H 147 H Calcium 7.3 L 7.2 L Phosphorus Lactate Dehydrogenase 281 H Total Protein 4.2 L 4.4 L Albumin 2.0 L 2.0 L Albumin/Globulin Ratio 0.9 L 0.8 L 05/27/18 05/26/18 05/26/18 04:00 04:00 04:00 RBC 3.62 L 3.74 L Hgb 10.6 L 10.9 L Hct 31.6 L 33.1 L RDW 15.5 H 15.4 H MPV 6.7 L 6.8 L Gran % 90.9 H 88.4 H Lymph % (Auto) 5.7 L 4.9 L Gran # 8.6 H Lymph # (Auto) 0.5 L 0.5 L Potassium BUN 34 H Creatinine 1.5 H Glucose 142 H Calcium 7.4 L Phosphorus 2.4 L Lactate Dehydrogenase 269 H Total Protein 4.5 L Albumin 2.0 L Albumin/Globulin Ratio 0.8 L Meds: Medications Albuterol/Ipratropium (Duoneb) 3 ml NEB Q6HP PRN PRN Reason: Shortness Of Breath Budesonide (Pulmicort) 0.5 mg NEB Q12 [facility] Diagnostic Test (Pha) (Accu-Chek) 1 each FS Q6 [facility] Last Admin: 05/28/18 13:50 Dose: 1 each Famotidine (Pepcid) 20 mg PO BID [facility] Fentanyl (Sublimaze) 25 mcg IV Q1HP PRN PRN Reason: PAIN LEVEL > 6 Furosemide (Lasix) 20 mg IV DAILY [facility] Heparin Sodium (Porcine) (Heparin) 5,000 unit SQ Q12 [facility] Heparin Sodium (Porcine) (Heparin Flush) 2 ml IV Q12 [facility] Hydrocortisone Sodium Succinate (Solu-Cortef) 25 mg IV Q8 [facility] Last Admin: 05/28/18 14:22 Dose: 25 mg Calcium Gluconate 10 meq/Potassium Phosphate 80 meq/Multivitamins/Minerals 10 ml /Selenium 60 mcg/ Potassium Chloride 80 meq/ Magnesium Sulfate 32.48 meq/ Amino Acids 2,099.1871 mls @ 65 mls/hr IV Q24H [facility] Last Admin: 05/28/18 11:58 Dose: 65 mls/hr Ciprofloxacin (Cipro) 400 mg in 200 mls @ 200 mls/hr IV Q12H [facility] Fat Emulsion Intravenous (Intralipid 20%) 250 mls @ 25 mls/hr IV DAILY@1600 [facility] Metronidazole (Flagyl) 500 mg in 100 mls @ 100 mls/hr IV Q8H [facility] Last Admin: 05/28/18 14:22 Dose: 100 mls/hr Acetaminophen (Ofirmev) 650 mg in 65 mls @ 130 mls/hr IV Q6HP PRN PRN Reason: PAIN/FEVER > 101 Acetaminophen (Ofirmev) 650 mg in 65 mls @ 130 mls/hr IV Q8HP PRN PRN Reason: PAIN/FEVER > 101 Insulin Human Lispro (Humalog) 0 unit SQ Q6 [facility]; Protocol Last Admin: 05/28/18 14:06 Dose: Not Given Metoprolol Tartrate (Lopressor) 50 mg PO BID [facility] Naloxone HCl (Narcan) 0.1 mg IV Q2MIN PRN PRN Reason: Opiate Reversal Ondansetron HCl (Zofran) 4 mg IV Q4HP PRN PRN Reason: Nausea And Vomiting Oxycodone HCl (Roxicodone) 5 mg PO Q4HP PRN PRN Reason: Severe Pain Sodium Chloride (Saline Flush) 10 ml IV UD PRN PRN Reason: FLUSH Last Admin: 05/28/18 14:22 Dose: 10 ml Sodium Chloride (Saline Flush) 10 ml IV Q8 [facility] Last Admin: 05/28/18 14:23 Dose: 10 ml Tramadol HCl (Ultram) 50 mg PO Q6HP PRN PRN Reason: Pain Last Admin: 05/28/18 11:20 Dose: 50 mg Medical - PN: A/P - Time Spent With Patient Total time spent is greater than 50% in coordination of care (as documented) at patient's floor/unit and/or counseling patient: - Narrative A/P Narrative: A/P Acute large bowel obstruction- s/p surgery, followed by Dr Del Cid and now Dr Heard, Ostomy draining well, pt reports some urge to have bowel movement, etioogy could be colon ca or diverticulosis. Acute Kidney Injury- resolved, creat is now normal, Fluid overload/ - Generalized fluid overload noted, albumin is 2.0, gentle diuresis for now, will supplement with albumin if needed. Pleural effusion- Left sided effusion, atelactasis vs pna noted, on antibiotics , no increased oxygen needs, no cough, no fever, hence I think pna is low probability. Aggresive pulmonary toilet will help, diuresis will help, if persists, will tap the fluid. COPD exacerbation- no wheezing, no increased oxygen needs, wean off steroids, on hydrocortisone? Acute hypoxic respiratory failure- resolved Hypertension- BP stable, continue home meds, Atrial fibrillatino- Noted on tele, needing cardizem and amiodarone, on metoprolol now, titrate dosing upwards, etiology likely post op/ electrolytes imbalances. Echo ordered Hyperlipidemia- continue statin Iliac artery aneurysm thrombosed.- stable Pre op risk assesstment d/c mcdowell DVT scd, GI Famotid Full code Diet- TPN/liquid diet Xfer to tele status. Medical - PN: Qual - VTE Is this test being ordered to rule out VTE?: No Deep Vein Thrombosis/Pulmonary Embolism Present on Admission: No
[2018-05-28] MEDS ORDERED: FAT EMULSION 20% 250 ML IV SCH (16:00)
--- NOTE | 2018-05-28 16:18 | General Surgery Progress Note ---
Subjective Patient reports: feels better, pain is less, flatus, bowel movement, shortness of breath, afebrile Narrative: Note initiated : 05/28/18 at 4:16 pm Service Date, if different from initiated Date: [] Patient: Luciano Nixon 67 y/o M admitted on 05/21/18 for Abdominal Pain/ Large Bowel Obstruction. Chief Complaint: [Patient is clinically better. He is tolerating full liquids and ensure without difficulty. He is having regular bowel movements. He does complain of mild shortness of breath and has some volume overload. He has been started on diuresis earlier today. Chest x-ray shows developing bilateral pleural effusions.] Objective Temp Pulse Resp BP Pulse Ox 99 F 79 18 102/83 96 05/28/18 15:34 05/28/18 15:34 05/28/18 15:34 05/28/18 15:34 05/28/18 15:34 - Additional Data Intake & Output - Last 24 hours: Intake & Output 05/26/18 05/27/18 05/28/18 05/29/18 05:59 05:59 05:59 05:59 Intake Total 4568 / 4568 2618.5455 / 2618.5455 1745.0909 / 1745.0909 800 / 800 Output Total 3153 / 3153 2610 / 2610 3365 / 3365 1000 / 1000 Balance 1415 / 1415 8.5455 / 8.5455 -1619.9091 / -1619.9091 -200 / -200 Weight 164 lb 8 oz 164 lb 8 oz 160 lb 14.4 oz - General physical appearance well developed, well nourished, no distress, other (minimal abdominal pain) - Eyes PERRL, normal ocular movement - ENT normal pinna, normal nares, normal mucosa, no hearing loss, no congestion - Neck no masses, no bruits, trachea midline, no venous distension - Respiratory normal expansion, normal respiratory effort, clear to auscultation - Cardiovascular Cardiovascular exam: Present: irregular rhythm, +S1, +S2. Absent: JVD - Abdomen non tender, bowel sounds (present), surgical scars ( incision looks good; stoma is healthy), masses (none) - Integumentary no rash, no growths, no abnormal pigmentation - Neurologic normal coordination, normal sensation - Musculoskeletal normal gait, normal posture - Psychiatric oriented to time, oriented to person, oriented to place, speech is normal, memory intact - Labs 05/28/18 04:00 05/28/18 04:00 Diabetes panel 05/28/18 Range/Units 04:00 Sodium 142 (133-145) mmol/L Potassium 3.3 (3.3-5.1) mmol/L Chloride 107 (96-108) mmol/L Carbon Dioxide 25 (22-30) mmol/L BUN 23 (8-23) mg/dl Creatinine 0.8 (0.7-1.2) mg/dl Glucose 155 H (70-105) mg/dL Calcium 7.3 L (8.6-10.4) mg/dl AST 33 (0-37) U/l ALT 15 (0-40) U/l Alkaline Phosphatase 45 (39-117) U/L Total Protein 4.2 L (5.9-8.4) gm/dL Albumin 2.0 L (3.2-5.2) gm/dL Triglycerides 68 (<150) mg/dl Calcium panel 05/28/18 Range/Units 04:00 Calcium 7.3 L (8.6-10.4) mg/dl Phosphorus 3.0 (2.7-4.5) mg/dL Albumin 2.0 L (3.2-5.2) gm/dL Pituitary panel 05/28/18 Range/Units 04:00 Sodium 142 (133-145) mmol/L Potassium 3.3 (3.3-5.1) mmol/L Chloride 107 (96-108) mmol/L Carbon Dioxide 25 (22-30) mmol/L BUN 23 (8-23) mg/dl Creatinine 0.8 (0.7-1.2) mg/dl Glucose 155 H (70-105) mg/dL Calcium 7.3 L (8.6-10.4) mg/dl Adrenal panel 05/28/18 Range/Units 04:00 Sodium 142 (133-145) mmol/L Potassium 3.3 (3.3-5.1) mmol/L Chloride 107 (96-108) mmol/L Carbon Dioxide 25 (22-30) mmol/L BUN 23 (8-23) mg/dl Creatinine 0.8 (0.7-1.2) mg/dl Glucose 155 H (70-105) mg/dL Calcium 7.3 L (8.6-10.4) mg/dl Total Bilirubin 0.2 (0.0-1.0) mg/dL AST 33 (0-37) U/l ALT 15 (0-40) U/l Alkaline Phosphatase 45 (39-117) U/L Total Protein 4.2 L (5.9-8.4) gm/dL Albumin 2.0 L (3.2-5.2) gm/dL Assessment and Plan (1) COPD with exacerbation Problem details: stable on vent CO2 48. cont Pressure support trial at 12/26. Status: Chronic Current Visit: Yes (2) Large bowel obstruction Status: Resolved Current Visit: Yes (3) Ileus following gastrointestinal surgery Status: Resolved Assessment and plan: Significantly improved with good output via colostomy Diet advanced Current Visit: Yes (4) Hypertension, essential Status: Chronic Current Visit: No (5) COPD (chronic obstructive pulmonary disease) Status: Chronic Current Visit: No - Time Spent With Patient Total time spent is greater than 50% in coordination of care (as documented) at patient's floor/unit and/or counseling patient:
[2018-05-28] MEDS: oxyCODONE HCL 5 MG TABLET PO PRN ×2 (16:57→21:04)
[2018-05-28] MEDS ORDERED: METOPROLOL TARTRATE 25 MG TABLET PO SCH (21:00)
[2018-05-29] MEDS: INSULIN LISPRO 1 UNIT/0.01 ML UNIT SQ SCH ×4 (00:11→17:58)
[2018-05-29] MEDS: traMADol 50 MG TABLET PO PRN ×3 (00:18→20:03)
[2018-05-29] MEDS: oxyCODONE HCL 5 MG TABLET PO PRN ×3 (03:27→18:06)
[2018-05-29] MEDS: HYDROCORTISONE SOD SUCC 100 MG VIAL IV SCH ×2 (05:59→21:20)
[2018-05-29] MEDS: metroNIDAZOLE 500 MG/100 ML BAG IV SCH ×2 (05:59→14:35)
[2018-05-29] MEDS: 0.9 % SODIUM CHLORIDE 10 ML SYRINGE IV SCH ×2 (06:00→14:36)
[2018-05-29 06:22] LABS: Basophils # (Auto) 0 K/mcL (0.0-0.3); Basophils % (Auto) 0 % (0.0-2.0); Eosinophils # (Auto) 0 K/mcL (0.0-0.7); Eosinophils % (Auto) 0.1 % (0.0-7.0); Granulocytes % (Auto) 90.3 % (38.0-78.0); Lymphocytes # (Auto) 0.6 K/mcL (1.5-4.8); Lymphocytes % (Auto) 6.9 % (15.5-49.0); Mean Cell Volume 88.3 fL (80.0-100.0); Mean Corpuscular HGB Conc 32.9 g/dL (31.0-36.0); Mean Corpuscular Hemoglobin 29.1 pg (26.0-34.0); Monocytes # (Auto) 0.2 K/mcL (0.1-0.9); Monocytes % (Auto) 2.7 % (1.0-12.0); Platelet Count 240 K/mcL (140-440); RBC 3.75 M/mcL (4.50-5.90); Red Cell Distribution Width 15.6 % (11.5-14.5)
[2018-05-29] MEDS ORDERED: traMADol 50 MG TABLET PO PRN (06:30)
[2018-05-29 06:44] LABS: ALT/SGPT 14 U/l (0-40); Albumin/Globulin Ratio 0.9 (1.0-2.3); Alkaline Phosphatase 59 U/L (39-117); Bilirubin,Direct < 0.2 mg/dL (0.0-0.3); Blood Urea Nitrogen 25 mg/dl (8-23); Gamma Glutamyl Transpeptidase 22 U/L (8-61); Uric Acid 4.2 mg/dL (2.5-8.0)
[2018-05-29] MEDS: 0.9 % SODIUM CHLORIDE 10 ML SYRINGE IV PRN ×5 (06:59→14:35)
[2018-05-29] MEDS: BUDESONIDE 0.5 MG/2 ML AMPUL.NEB NEB SCH ×2 (08:10→20:08)
[2018-05-29] MEDS: IPRATROPIUM/ALBUTEROL 3 ML AMPUL.NEB NEB PRN ×3 (08:10→20:08)
[2018-05-29] MEDS: METOPROLOL TARTRATE 25 MG TABLET PO SCH ×2 (08:20→21:21)
[2018-05-29] MEDS: FAMOTIDINE 20 MG TABLET PO SCH ×2 (08:20→21:20)
[2018-05-29] MEDS: HEPARIN 5,000 UNIT/ML VIAL SQ SCH ×2 (08:20→21:21)
[2018-05-29] MEDS ORDERED: POTASSIUM CHLORIDE 20 MEQ PACKET PO ONE (08:35)
[2018-05-29] MEDS ORDERED: FUROSEMIDE 20 MG/2 ML VIAL IV SCH (09:00)
[2018-05-29] MEDS ORDERED: HYDROCORTISONE SOD SUCC 100 MG VIAL IV SCH (09:00)
[2018-05-29] MEDS: CIPROFLOXACIN 400 MG/200 ML BAG IV SCH ×2 (09:54→21:20)
[2018-05-29] MEDS ORDERED: fentaNYL 100 MCG/2 ML VIAL IV PRN (10:29)
[2018-05-29] MEDS ORDERED: NALOXONE HCL 0.4 MG/ML VIAL IV PRN (10:29)
[2018-05-29] MEDS ORDERED: ONDANSETRON 4 MG/2 ML VIAL IV PRN (10:29)
[2018-05-29] MEDS ORDERED: TPN PER PHARMACY IV SCH (10:29)
[2018-05-29] MEDS ORDERED: ACETAMINOPHEN 650 MG/65 ML BOTTLE IV PRN (10:29)
--- NOTE | 2018-05-29 11:23 | General Surgery Progress Note ---
Subjective Patient reports: feels better, pain is less, tolerating a regular diet, flatus, bowel movement, afebrile Narrative: Note initiated : 05/29/18 at 11:23 am Service Date, if different from initiated Date: [] Patient: Luciano Nixon 67 y/o M admitted on 05/21/18 for Abdominal Pain/ Large Bowel Obstruction. Chief Complaint: [patient continues to do well from a GI standpoint. He is having bowel movements through his stoma and through his rectum suggesting that the ostomy is only partially diverting. He is tolerating a regular diet without difficulty. His stoma looks healthy & His incision is healing uneventfully.] Objective Temp Pulse Resp BP Pulse Ox 98.1 F 94 H 18 138/87 94 05/29/18 07:24 05/29/18 08:11 05/29/18 08:11 05/29/18 07:24 05/29/18 08:11 - Additional Data Intake & Output - Last 24 hours: Intake & Output 05/27/18 05/28/18 05/29/18 05/30/18 05:59 05:59 05:59 05:59 Intake Total 2618.5455 / 2618.5455 1745.0909 / 1745.0909 2940.3435 / 2940.3435 100 / 100 Output Total 2610 / 2610 3365 / 3365 1850 / 1850 1025 / 1025 Balance 8.5455 / 8.5455 -1619.9091 / -1619.9091 1090.3435 / 1090.3435 -925 / - 925 Weight 164 lb 8 oz 160 lb 14.4 oz 163 lb 1 oz - General physical appearance well developed, well nourished, no distress - Eyes PERRL, normal ocular movement - ENT normal pinna, normal nares, normal mucosa, no hearing loss, no congestion - Neck no masses, no bruits, trachea midline, no venous distension - Respiratory normal expansion, normal respiratory effort, clear to percussion, clear to auscultation, other (patient has good equal breath sounds...... In spite of his chest x-ray findings) - Cardiovascular Cardiovascular exam: Present: normal rate and rhythm, +S1, +S2, tachycardia. Absent: JVD - Abdomen tender ( minimal abdominal tenderness;;;;;;;;;;;;;;;;;;;;;;;;;;;;; stoma looks good), bowel sounds (present), surgical scars (none), masses (none) - Integumentary no rash, no growths, no abnormal pigmentation - Neurologic normal coordination, normal sensation - Musculoskeletal normal gait, normal posture - Psychiatric oriented to time, oriented to person, oriented to place, speech is normal, memory intact - Labs 05/29/18 04:00 05/29/18 04:00 Diabetes panel 05/29/18 Range/Units 04:00 Sodium 142 (133-145) mmol/L Potassium 3.4 (3.3-5.1) mmol/L Chloride 107 (96-108) mmol/L Carbon Dioxide 26 (22-30) mmol/L BUN 25 H (8-23) mg/dl Creatinine 0.7 (0.7-1.2) mg/dl Glucose 125 H (70-105) mg/dL Calcium 7.3 L (8.6-10.4) mg/dl AST 25 (0-37) U/l ALT 14 (0-40) U/l Alkaline Phosphatase 59 (39-117) U/L Total Protein 4.2 L (5.9-8.4) gm/dL Albumin 2.0 L (3.2-5.2) gm/dL Triglycerides 104 (<150) mg/dl Calcium panel 05/29/18 Range/Units 04:00 Calcium 7.3 L (8.6-10.4) mg/dl Phosphorus 2.7 (2.7-4.5) mg/dL Albumin 2.0 L (3.2-5.2) gm/dL Pituitary panel 05/29/18 Range/Units 04:00 Sodium 142 (133-145) mmol/L Potassium 3.4 (3.3-5.1) mmol/L Chloride 107 (96-108) mmol/L Carbon Dioxide 26 (22-30) mmol/L BUN 25 H (8-23) mg/dl Creatinine 0.7 (0.7-1.2) mg/dl Glucose 125 H (70-105) mg/dL Calcium 7.3 L (8.6-10.4) mg/dl Adrenal panel 05/29/18 Range/Units 04:00 Sodium 142 (133-145) mmol/L Potassium 3.4 (3.3-5.1) mmol/L Chloride 107 (96-108) mmol/L Carbon Dioxide 26 (22-30) mmol/L BUN 25 H (8-23) mg/dl Creatinine 0.7 (0.7-1.2) mg/dl Glucose 125 H (70-105) mg/dL Calcium 7.3 L (8.6-10.4) mg/dl Total Bilirubin < 0.2 (0.0-1.0) mg/dL AST 25 (0-37) U/l ALT 14 (0-40) U/l Alkaline Phosphatase 59 (39-117) U/L Total Protein 4.2 L (5.9-8.4) gm/dL Albumin 2.0 L (3.2-5.2) gm/dL Assessment and Plan (1) COPD with exacerbation Problem details: stable on vent CO2 48. cont Pressure support trial at 5. Status: Chronic Current Visit: Yes (2) Large bowel obstruction Status: Resolved Assessment and plan: Patient has good stoma function Current Visit: Yes (3) Ileus following gastrointestinal surgery Status: Resolved Assessment and plan: Significantly improved with good output via colostomy Diet advanced Current Visit: Yes (4) Hypertension, essential Status: Chronic Current Visit: No (5) COPD (chronic obstructive pulmonary disease) Status: Chronic Current Visit: No - Time Spent With Patient Total time spent is greater than 50% in coordination of care (as documented) at patient's floor/unit and/or counseling patient:
--- NOTE | 2018-05-29 11:25 | XRay Report ---
CLINICAL INFORMATION: Follow up for pleural effusion COMPARISON: 05/28/2018 FINDINGS: Heart size, mediastinum and pulmonary vessels are normal. Moderate bilateral pleural effusions and bibasilar infiltrates have progressed modestly even given technique differences. Right PICC line stable satisfactory position IMPRESSION: Slight worsening in moderate size bibasilar infiltrates and effusions Interpreted and Authenticated by: Luciano Smith 05/29/18
[2018-05-29] MEDS: ACETAMINOPHEN 650 MG/65 ML BOTTLE IV PRN ×2 (11:58→21:50)
[2018-05-29] MEDS ORDERED: [UNRECOGNIZED DRUG - REMARK] IV SCH (12:00)
--- NOTE | 2018-05-29 13:16 | Internal Med Progress Note ---
Medical - PN: Subj Patient information: Note initiated : 05/29/18 at 1:13 pm Service Date, if different from initiated Date: [] Patient: Luciano Nixon 67 y/o M admitted on 05/21/18 for Abdominal Pain/ Large Bowel Obstruction. Chief Complaint: [] Interval history: 05/28 Patient seen examined, no acute overnight issues, patient has some chr pain for which he wans tramadol resumed X ray suggestive of worsening pleural effusion, and pna vs atelectasis, pt is positive [id number] since admission. No acute events on tele, sinus rhythm mostly, but has some SVT noted there was AFib with RVR for which cardizme and amiodarone was used Echo ordered 05/29 Patient seen and examined, no acute overnight events, no events on telemetry. Pain medications at home doses reviewed and resumed. Chest x-ray done today shows again worsening of infiltrate versus atelectasis and effusion. Patient is on IV diuretics but we will do a therapeutic thoracocentesis today. Echo result pending. Patient has no acute complaints still feels weak, but better. Surgery consult appreciated. Stoma is functioning well. Patient is having bowel movements as well as stool output from the stoma. xfer to med surg status. Pertinent ROS: Denies headache, dizziness Denies chest pain, palpitations Denies cough improving shortness of breath Denies abdominal pain, nausea or vomiting. - Constitutional Vitals: Vital Signs Temp Pulse Resp BP Pulse Ox 98.1 F 94 H 18 138/87 94 05/29/18 07:24 05/29/18 08:11 05/29/18 08:11 05/29/18 07:24 05/29/18 08:11 Period Temp Pulse Resp BP Sys/Faria Pulse Ox Last 24 Hr 98.1 F-99.2 F 79-99 16-22 102-144/68-87 92-99 Intake and Output 05/28/18 05/29/18 05/29/18 21:59 05:59 13:59 Intake Total 540 / 540 400 / 400 165 / 165 Output Total 1550 / 1550 1425 / 1425 Balance -1010 / -1010 400 / 400 -1260 / -1260 Weight 163 lb 1 oz Intake & Output: Intake & Output 05/28/18 05/29/18 05/29/18 21:59 05:59 13:59 Intake Total 540 / 540 400 / 400 165 / 165 Output Total 1550 / 1550 1425 / 1425 Balance -1010 / -1010 400 / 400 -1260 / -1260 Weight 163 lb 1 oz Intake: IV 300 / 300 350 / 350 165 / 165 Intralipid 20% 250 ml @ 25 mls/ 250 / 250 hr IV DAILY@1600 [facility] Rx#: [id number] Oral 240 / 240 50 / 50 Output: Void Amount 1225 / 1225 975 / 975 Urine/Stool Mix 150 / 150 Stool 325 / 325 300 / 300 Other: Meal Nourishment/Supplement Percent of Meal Consumed 100% Feeding Ability Independent Urine Appearance Clear Clear Urine Color Bright Yellow Straw Urine Odor Strong Stool Size Moderate Moderate Stool Color Brown Brown Stool Consistency Liquid Liquid Watery Loose # Voids 1 1 # Bowel Movements 1 1 # of times incontinent of 1 Bowels Exam: Constitutional; Afebrile, cooperative, alert, not in distress. Eyes- No icterus, , No periorbital swelling Ears- Ext ear normal, hearing normal to conversation. Neck- Midline trachea, supple Respiratory system: Air Entry decreased left base, No crackles or wheezing, no rhonchi. CVS- Rate rhythm regular, S1,S2 heard, no gallop, no rub. 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 Medical - PN: Obj Da - Labs CBC & Chem 7: 05/29/18 04:00 05/29/18 04:00 Labs: Abnormal Lab Results 05/29/18 05/29/18 05/28/18 04:00 04:00 04:00 RBC 3.75 L Hgb 10.9 L Hct 33.1 L RDW 15.6 H MPV 7.2 L Gran % 90.3 H Lymph % (Auto) 6.9 L Lymph # (Auto) 0.6 L Potassium BUN 25 H Glucose 125 H 155 H Calcium 7.3 L 7.3 L Lactate Dehydrogenase Total Protein 4.2 L 4.2 L Albumin 2.0 L 2.0 L Albumin/Globulin Ratio 0.9 L 0.9 L 05/28/18 05/27/18 05/27/18 04:00 04:00 04:00 RBC 3.69 L 3.62 L Hgb 10.7 L 10.6 L Hct 32.4 L 31.6 L RDW 15.3 H 15.5 H MPV 7.1 L 6.7 L Gran % 89.3 H 90.9 H Lymph % (Auto) 7.3 L 5.7 L Lymph # (Auto) 0.5 L 0.5 L Potassium 2.8 L* BUN 29 H Glucose 147 H Calcium 7.2 L Lactate Dehydrogenase 281 H Total Protein 4.4 L Albumin 2.0 L Albumin/Globulin Ratio 0.8 L Meds: Medications Albuterol/Ipratropium (Duoneb) 3 ml NEB Q6HP PRN PRN Reason: Shortness Of Breath Budesonide (Pulmicort) 0.5 mg NEB Q12 [facility] Diagnostic Test (Pha) (Accu-Chek) 1 each FS Q6 [facility] Last Admin: 05/29/18 12:45 Dose: 1 each Famotidine (Pepcid) 20 mg PO BID [facility] Fentanyl (Sublimaze) 25 mcg IV Q1HP PRN PRN Reason: PAIN LEVEL > 6 Furosemide (Lasix) 20 mg IV DAILY [facility] Heparin Sodium (Porcine) (Heparin) 5,000 unit SQ Q12 [facility] Heparin Sodium (Porcine) (Heparin Flush) 2 ml IV Q12 [facility] Hydrocortisone Sodium Succinate (Solu-Cortef) 25 mg IV Q12 [facility] Calcium Gluconate 10 meq/Potassium Phosphate 120 meq/Multivitamins/Minerals 10 ml/Selenium 60 mcg/ Potassium Chloride 80 meq/ Magnesium Sulfate 32.48 meq/ Amino Acids 2,108.278 mls @ 65 mls/hr IV Q24H [facility] Last Admin: 05/29/18 12:23 Dose: 65 mls/hr Ciprofloxacin (Cipro) 400 mg in 200 mls @ 200 mls/hr IV Q12H [facility] Fat Emulsion Intravenous (Intralipid 20%) 250 mls @ 25 mls/hr IV DAILY@1600 [facility] Metronidazole (Flagyl) 500 mg in 100 mls @ 100 mls/hr IV Q8H [facility] Acetaminophen (Ofirmev) 650 mg in 65 mls @ 130 mls/hr IV Q6-8HP PRN PRN Reason: PAIN/FEVER > 101 Last Infusion: 05/29/18 12:28 Dose: Infused Insulin Human Lispro (Humalog) 0 unit SQ Q6 [facility]; Protocol Last Admin: 05/29/18 13:03 Dose: Not Given Metoprolol Tartrate (Lopressor) 50 mg PO BID [facility] Naloxone HCl (Narcan) 0.1 mg IV Q2MIN PRN PRN Reason: Opiate Reversal Ondansetron HCl (Zofran) 4 mg IV Q4HP PRN PRN Reason: Nausea And Vomiting Oxycodone HCl (Roxicodone) 5 mg PO Q4HP PRN PRN Reason: Severe Pain Last Admin: 05/29/18 11:57 Dose: 5 mg Sodium Chloride (Saline Flush) 10 ml IV UD PRN PRN Reason: FLUSH Last Admin: 05/29/18 12:00 Dose: 10 ml Sodium Chloride (Saline Flush) 10 ml IV Q8 [facility] Tramadol HCl (Ultram) 100 mg PO Q6HP PRN PRN Reason: Pain Medical - PN: A/P - Time Spent With Patient Total time spent is greater than 50% in coordination of care (as documented) at patient's floor/unit and/or counseling patient: - Narrative A/P Narrative: A/P Acute large bowel obstruction- s/p surgery, followed by Dr Del Cid and now Dr Heard, Ostomy draining well, pt reports some urge to have bowel movement, etioogy could be colon ca or diverticulosis. Acute Kidney Injury- resolved, creat is now normal, Fluid overload/ - Generalized fluid overload noted, albumin is 2.0, gentle diuresis for now, will supplement with albumin if needed. Pleural effusion- Left sided effusion, atelactasis vs pna noted, on antibiotics , no increased oxygen needs, no cough, no fever, hence I think pna is low probability. x ray shows persistent fluid, to under go thoracocentesis today. COPD exacerbation- no wheezing, no increased oxygen needs, continute to wean off steroid, on hydrocort 25 bid for now, Acute hypoxic respiratory failure- on 2 L oxygen, incresaed demands likely from worsening effusion. Hypertension- BP stable, continue home meds, Atrial fibrillation- Noted on tele, needing cardizem and amiodarone, on metoprolol now, titrate dosing upwards, etiology likely post op/ electrolytes imbalances. Echo ordered, results awaited. HR stable for 24 hrs, Hyperlipidemia- continue statin Iliac artery aneurysm thrombosed.- stable d/c mcdowell DVT scd, GI Famotid Full code Diet- being advanced by surgery. Xfer to med surg status, Medical - PN: Qual - VTE Is this test being ordered to rule out VTE?: No Deep Vein Thrombosis/Pulmonary Embolism Present on Admission: No
[2018-05-29] MEDS: FAT EMULSION 20% 250 ML IV SCH (15:56)
--- NOTE | 2018-05-29 17:47 | XRay Report ---
CLINICAL INFORMATION: Post left thoracentesis with 1 L transudative fluid removed COMPARISON: 05/29/2018 1052 hours FINDINGS: Left pleural effusion has resolved. There is a small (5%) left basilar pneumothorax. Left lung is now well expanded and clear. Small right pleural effusion and minimal infiltrate in the right base shows improvement from x-ray earlier today. PICC line in stable satisfactory position. Heart size, mediastinum and pulmonary vessels are normal IMPRESSION: Following left thoracentesis - the pleural effusion has been completely evacuated. There is a 5% left basilar pneumothorax. Suggest follow-up film in two hours to ensure stability or regression Small right pleural effusion and minor right basilar infiltrate improving on the film earlier today Interpreted and Authenticated by: Luciano Smith 05/29/18
--- NOTE | 2018-05-29 17:49 | Ultrasound Report ---
Ultrasound-guided thoracentesis CLINICAL INFORMATION: Moderate left pleural effusion TECHNIQUE: Procedure and risks including possibility of bleeding, infection, and pneumothorax were explained to the patient. They understood and wished to proceed. With the patient in upright position, the fluid was first sonographically localized over the posterior left 10th intercostal space at posterior axillary line. The skin overlying this region was marked, prepped and locally anesthetized with 1% lidocaine using a 25-gauge needle to the level the parietal pleura. An 18-gauge Yueh needle was then advanced under sonographic guidance into the pleural fluid and approximately 1 L of simple appearing transudative fluid was aspirated. Post procedure scanning shows only minimal residual fluid. Patient tolerated procedure well. Follow-up chest x-ray to be obtained IMPRESSION: Successful thoracentesis yielding 1 L of transudative appearing simple pleural fluid. It was sent to the lab for requested studies. Interpreted and Authenticated by: Luciano Smith 05/29/18
[2018-05-29 19:02] LABS: pH,Body Fluid 7.54
[2018-05-29 19:06] LABS: Amylase,Pleural Fluid 10 U/L; Glucose,Pleural Fluid 127 mg/dL; LDH,Pleural Fluid 88 U/L
[2018-05-29 19:49] LABS: Appearance,Pleural Fluid CLEAR; Color,Pleural Fluid PALE YELLOW; Lymphocytes,Pleural Fluid 12 %; Monocytes,Pleural Fluid 9 %; Neutrophils,Pleural Fluid 24 %; Nucleated Cells,Pleural Fld 18 /cumm; RBC,Pleural Fluid < 50000 /cumm
[2018-05-29] MEDS ORDERED: HYDROmorphone 2 MG/ML VIAL IV SCH (21:45)
[2018-05-29] MEDS ORDERED: HYDROmorphone 2 MG/ML VIAL ONE (21:48)
[2018-05-29] MEDS ORDERED: KETOROLAC 15 MG/ML VIAL IV ONE (21:52)
--- NOTE | 2018-05-29 22:09 | General Surgery Procedure Note ---
Date of procedure: Note initiated : 05/29/18 at 10:07 pm Service Date, if different from initiated Date: [] Pre-op diagnosis: left pneumothorax Post-op diagnosis: other (left pneumothorax) Procedure: left closed tube thoracoscopy Findings: greater than 50% left sided pneumothorax Anesthesia: local (1% xylocaine) Surgeon: Jairo Heard Pathology: none sent Condition: stable Disposition: no change
--- NOTE | 2018-05-29 22:14 | General Surgery Progress Note ---
Subjective Patient reports: shortness of breath Narrative: Note initiated : 05/29/18 at 10:12 pm Service Date, if different from initiated Date: [] Patient: Luciano Nixon 67 y/o M admitted on 05/21/18 for Abdominal Pain/ Large Bowel Obstruction. Chief Complaint: [Patient developed pneumothorax left side After drainage of pleural fluid . He was observed for a few hours and the pneumothorax increased. The patient was seen by me earlier and a 24 [place] straight [place] chest tube was placed uneventfully. Follow-up chest x-ray shows full expansion of the left lung. The patient's shortness of breath improved. He has the anticipated chest wall pain.] Objective Temp Pulse Resp BP Pulse Ox 98.9 F 102 H 26 H 125/74 100 05/29/18 16:15 05/29/18 21:12 05/29/18 21:12 05/29/18 16:15 05/29/18 21:12 - Additional Data Intake & Output - Last 24 hours: Intake & Output 05/27/18 05/28/18 05/29/18 05/30/18 05:59 05:59 05:59 05:59 Intake Total 2618.5455 / 2618.5455 1745.0909 / 1745.0909 2940.3435 / 2940.3435 1072 / 1072 Output Total 2610 / 2610 3365 / 3365 1850 / 1850 2350 / 2350 Balance 8.5455 / 8.5455 -1619.9091 / -1619.9091 1090.3435 / 1090.3435 -1278 / - 1278 Weight 164 lb 8 oz 160 lb 14.4 oz 163 lb 1 oz - General physical appearance moderate distress, moderate pain - Eyes PERRL, normal ocular movement - ENT normal pinna, normal nares, normal mucosa, no hearing loss, no congestion - Neck no masses, no bruits, trachea midline, no lymphadectomy, no venous distension - Respiratory other (some splinting due to chest wall pain but with equal breath sounds bilaterally) - Cardiovascular Cardiovascular exam: Present: RRR, +S1, +S2, tachycardia - Abdomen tender (mild incisional tenderness; stoma is working adequately; good active bowel sounds) - Integumentary no rash, no growths, no abnormal pigmentation - Neurologic normal coordination, normal sensation - Psychiatric oriented to time, oriented to person, oriented to place, speech is normal, memory intact - Labs 06/02/18 04:24 06/03/18 04:22 Diabetes panel 05/29/18 Range/Units 04:00 Sodium 142 (133-145) mmol/L Potassium 3.4 (3.3-5.1) mmol/L Chloride 107 (96-108) mmol/L Carbon Dioxide 26 (22-30) mmol/L BUN 25 H (8-23) mg/dl Creatinine 0.7 (0.7-1.2) mg/dl Glucose 125 H (70-105) mg/dL Calcium 7.3 L (8.6-10.4) mg/dl AST 25 (0-37) U/l ALT 14 (0-40) U/l Alkaline Phosphatase 59 (39-117) U/L Total Protein 4.2 L (5.9-8.4) gm/dL Albumin 2.0 L (3.2-5.2) gm/dL Triglycerides 104 (<150) mg/dl Calcium panel 05/29/18 Range/Units 04:00 Calcium 7.3 L (8.6-10.4) mg/dl Phosphorus 2.7 (2.7-4.5) mg/dL Albumin 2.0 L (3.2-5.2) gm/dL Pituitary panel 05/29/18 Range/Units 04:00 Sodium 142 (133-145) mmol/L Potassium 3.4 (3.3-5.1) mmol/L Chloride 107 (96-108) mmol/L Carbon Dioxide 26 (22-30) mmol/L BUN 25 H (8-23) mg/dl Creatinine 0.7 (0.7-1.2) mg/dl Glucose 125 H (70-105) mg/dL Calcium 7.3 L (8.6-10.4) mg/dl Adrenal panel 05/29/18 Range/Units 04:00 Sodium 142 (133-145) mmol/L Potassium 3.4 (3.3-5.1) mmol/L Chloride 107 (96-108) mmol/L Carbon Dioxide 26 (22-30) mmol/L BUN 25 H (8-23) mg/dl Creatinine 0.7 (0.7-1.2) mg/dl Glucose 125 H (70-105) mg/dL Calcium 7.3 L (8.6-10.4) mg/dl Total Bilirubin < 0.2 (0.0-1.0) mg/dL AST 25 (0-37) U/l ALT 14 (0-40) U/l Alkaline Phosphatase 59 (39-117) U/L Total Protein 4.2 L (5.9-8.4) gm/dL Albumin 2.0 L (3.2-5.2) gm/dL Assessment and Plan (1) Pneumothorax, left Status: Resolved Assessment and plan: f/u cxr in a.m. continuous suction under water seal at 20cm water (2) COPD with exacerbation Problem details: stable on vent CO2 48. cont Pressure support trial at 5/. Status: Chronic (3) Large bowel obstruction Status: Acute Assessment and plan: Patient has good stoma function (4) Ileus following gastrointestinal surgery Status: Deleted Assessment and plan: Significantly improved with good output via colostomy Diet advanced (5) Hypertension, essential Status: Chronic (6) COPD (chronic obstructive pulmonary disease) Status: Chronic - Time Spent With Patient Total time spent is greater than 50% in coordination of care (as documented) at patient's floor/unit and/or counseling patient:
[2018-05-29] MEDS ORDERED: KETOROLAC 15 MG/ML VIAL ONE (22:23)
--- NOTE | 2018-05-29 22:24 | Event Note ---
Patient had a USG guided pleural tap by radiology pt post procedure developed pneumothorax, I was unaware of this complication. Radiologist wanted a repeat CXR after 2 hrs according to his x ray report, The patient was short of breath, and had a repeat CXR which showed significant pneumothorax. Given worsening shortness of breath and pneumothorax, Dr Heard was called in for urgent chest tube placement. The chest tube was placed by Dr Heard at bed side. Repeat CXR Showed good reexpansion of the lungs. Aggressive pain management post procedure.
[2018-05-30] MEDS: metroNIDAZOLE 500 MG/100 ML BAG IV SCH ×4 (00:07→21:35)
[2018-05-30] MEDS: oxyCODONE HCL 5 MG TABLET PO PRN ×5 (00:41→21:36)
[2018-05-30] MEDS: INSULIN LISPRO 1 UNIT/0.01 ML UNIT SQ SCH ×4 (00:42→17:16)
[2018-05-30] MEDS: 0.9 % SODIUM CHLORIDE 10 ML SYRINGE IV SCH (02:43)
[2018-05-30 06:58] LABS: Basophils # (Auto) 0 K/mcL (0.0-0.3); Basophils % (Auto) 0 % (0.0-2.0); Eosinophils # (Auto) 0 K/mcL (0.0-0.7); Eosinophils % (Auto) 0 % (0.0-7.0); Granulocytes % (Auto) 90.3 % (38.0-78.0); Lymphocytes # (Auto) 0.7 K/mcL (1.5-4.8); Lymphocytes % (Auto) 6.3 % (15.5-49.0); Mean Cell Volume 87.9 fL (80.0-100.0); Monocytes # (Auto) 0.4 K/mcL (0.1-0.9); Monocytes % (Auto) 3.4 % (1.0-12.0); Platelet Count 269 K/mcL (140-440); RBC 3.67 M/mcL (4.50-5.90); Red Cell Distribution Width 15.6 % (11.5-14.5)
[2018-05-30 07:18] LABS: ALT/SGPT 13 U/l (0-40); Albumin 2.1 gm/dL (3.2-5.2); Albumin/Globulin Ratio 0.9 (1.0-2.3); Alkaline Phosphatase 55 U/L (39-117); Bilirubin,Direct < 0.2 mg/dL (0.0-0.3); Blood Urea Nitrogen 25 mg/dl (8-23); Gamma Glutamyl Transpeptidase 27 U/L (8-61); Uric Acid 4.1 mg/dL (2.5-8.0)
[2018-05-30] MEDS: HYDROmorphone 2 MG/ML VIAL IV PRN ×5 (07:49→22:50)
--- NOTE | 2018-05-30 08:21 | XRay Report ---
CLINICAL INFORMATION: pneumothorax follow up COMPARISON: 05/29/2018 1726 hours FINDINGS: Left pneumothorax as increased now approximately 50%. Left lung is clear. Heart size, mediastinum and pulmonary vessels are normal. Small infiltrate or atelectasis has progressed in the right base. A small right pleural effusion is unchanged IMPRESSION: Worsening left pneumothorax - now 50% Small right basilar infiltrate or atelectasis progressing Interpreted and Authenticated by: Luciano Smith 05/30/18
--- NOTE | 2018-05-30 08:23 | XRay Report ---
CLINICAL INFORMATION: chest tube placement COMPARISON: Left-sided pneumothorax FINDINGS: Left chest tube now in place overlying the lateral mid thorax. Left lung has reexpanded and the pneumothorax has resolved. Tiny left pleural effusion noted. Moderate subcutaneous emphysema now noted over the left lateral chest wall. Small infiltrate in the right base with small right pleural effusion has worsened slightly. Cardiomediastinal silhouette and pulmonary vessels remain normal. PICC line in stable satisfactory position. IMPRESSION: Left lung now reexpanded following chest tube placement. Small left pleural effusion noted. Small right basilar infiltrate and effusion continue to worsen Interpreted and Authenticated by: Luciano Smith 05/30/18
--- NOTE | 2018-05-30 08:34 | XRay Report ---
CLINICAL INFORMATION: pneumothorax follow up COMPARISON: 05/29/2018 2144 hours FINDINGS: Heart size, mediastinum and pulmonary vessels are normal. PICC line remains in stable satisfactory position. The sidehole of the left chest tube overlies left lateral ribs. Consider advancing the tube 4 to 5 cm. Left lung remains well expanded and clear. No pleural effusion. Small patchy infiltrate and effusion the right base is improved. IMPRESSION: 1. The most proximal left chest tube sidehole overlies the ribs and may be extrapleural. Consider advancing the tube 5 cm. Subcutaneous gas in the left lateral chest wall is unchanged. Left lung is well expanded and clear without evidence recurrent pneumothorax. No left pleural effusion 2. Small right basilar infiltrate and effusion - improved Interpreted and Authenticated by: Luciano Smith 05/30/18
[2018-05-30] MEDS ORDERED: FUROSEMIDE 20 MG/2 ML VIAL IV SCH (09:00)
[2018-05-30] MEDS: FAMOTIDINE 20 MG TABLET PO SCH ×2 (09:15→21:35)
[2018-05-30] MEDS: METOPROLOL TARTRATE 25 MG TABLET PO SCH ×2 (09:15→21:35)
[2018-05-30] MEDS: HYDROCORTISONE SOD SUCC 100 MG VIAL IV SCH (09:16)
[2018-05-30] MEDS: CIPROFLOXACIN 400 MG/200 ML BAG IV SCH ×2 (09:16→20:31)
[2018-05-30] MEDS: HEPARIN 5,000 UNIT/ML VIAL SQ SCH ×2 (09:17→21:35)
[2018-05-30] MEDS: BUDESONIDE 0.5 MG/2 ML AMPUL.NEB NEB SCH ×2 (09:30→20:55)
[2018-05-30] MEDS: IPRATROPIUM/ALBUTEROL 3 ML AMPUL.NEB NEB PRN ×2 (09:30→20:56)
[2018-05-30] MEDS: traMADol 50 MG TABLET PO PRN ×2 (11:54→18:59)
[2018-05-30] MEDS ORDERED: [UNRECOGNIZED DRUG - REMARK] IV SCH (12:00)
--- NOTE | 2018-05-30 12:40 | General Surgery Progress Note ---
Subjective Patient reports: feels better, pain is less, tolerating a regular diet, flatus, bowel movement, afebrile Narrative: Note initiated : 05/30/18 at 12:38 pm Service Date, if different from initiated Date: [] Patient: Luciano Nixon 67 y/o M admitted on 05/21/18 for Abdominal Pain/ Large Bowel Obstruction. Chief Complaint: [Patient is doing much better Status post left closed tube thoracostomy for major pneumothorax. He no longer has demonstrable air leak. His chest wall pain is much improved. He denies abdominal discomfort and his stoma continues to function appropriately. Chest x-ray shows complete reexpansion of the left lung.] Objective Temp Pulse Resp BP Pulse Ox 98.5 F 75 20 102/60 96 05/30/18 12:00 05/30/18 09:20 05/30/18 12:00 05/30/18 12:00 05/30/18 12:00 - Additional Data Intake & Output - Last 24 hours: Intake & Output 05/28/18 05/29/18 05/30/18 05/31/18 05:59 05:59 05:59 05:59 Intake Total 1745.0909 / 1745.0909 2940.3435 / 2940.3435 2040 / 2040 300 / 300 Output Total 3365 / 3365 1850 / 1850 3175 / 3175 900 / 900 Balance -1619.9091 / -1619.9091 1090.3435 / 1090.3435 -1135 / -1135 -600 / -600 Weight 160 lb 14.4 oz 163 lb 1 oz 157 lb - General physical appearance no distress, moderate pain, chronically ill - Eyes PERRL, normal ocular movement - ENT normal pinna, normal nares, normal mucosa, no hearing loss, no congestion - Neck no masses, no bruits, trachea midline, no lymphadectomy, no venous distension - Respiratory normal expansion, normal respiratory effort, clear to auscultation, other ( excellent breath sounds bilaterally without around pleural rub) - Cardiovascular Cardiovascular exam: Present: normal rate and rhythm, RRR, +S1, +S2. Absent: JVD, tachycardia - Abdomen soft, non tender (abdomen is soft and benign; incision looks good; stoma is functioning appropriately) - Integumentary no rash, no growths, no abnormal pigmentation - Neurologic normal coordination, normal sensation - Musculoskeletal normal gait, normal posture - Psychiatric oriented to time, oriented to person, oriented to place, speech is normal, memory intact - Labs 05/30/18 04:00 05/30/18 04:00 Diabetes panel 05/30/18 Range/Units 04:00 Sodium 143 (133-145) mmol/L Potassium 3.6 (3.3-5.1) mmol/L Chloride 108 (96-108) mmol/L Carbon Dioxide 24 (22-30) mmol/L BUN 25 H (8-23) mg/dl Creatinine 0.7 (0.7-1.2) mg/dl Glucose 99 (70-105) mg/dL Calcium 7.2 L (8.6-10.4) mg/dl AST 25 (0-37) U/l ALT 13 (0-40) U/l Alkaline Phosphatase 55 (39-117) U/L Total Protein 4.4 L (5.9-8.4) gm/dL Albumin 2.1 L (3.2-5.2) gm/dL Triglycerides 139 (<150) mg/dl Calcium panel 05/30/18 Range/Units 04:00 Calcium 7.2 L (8.6-10.4) mg/dl Phosphorus 3.4 (2.7-4.5) mg/dL Albumin 2.1 L (3.2-5.2) gm/dL Pituitary panel 05/30/18 Range/Units 04:00 Sodium 143 (133-145) mmol/L Potassium 3.6 (3.3-5.1) mmol/L Chloride 108 (96-108) mmol/L Carbon Dioxide 24 (22-30) mmol/L BUN 25 H (8-23) mg/dl Creatinine 0.7 (0.7-1.2) mg/dl Glucose 99 (70-105) mg/dL Calcium 7.2 L (8.6-10.4) mg/dl Adrenal panel 05/30/18 Range/Units 04:00 Sodium 143 (133-145) mmol/L Potassium 3.6 (3.3-5.1) mmol/L Chloride 108 (96-108) mmol/L Carbon Dioxide 24 (22-30) mmol/L BUN 25 H (8-23) mg/dl Creatinine 0.7 (0.7-1.2) mg/dl Glucose 99 (70-105) mg/dL Calcium 7.2 L (8.6-10.4) mg/dl Total Bilirubin 0.2 (0.0-1.0) mg/dL AST 25 (0-37) U/l ALT 13 (0-40) U/l Alkaline Phosphatase 55 (39-117) U/L Total Protein 4.4 L (5.9-8.4) gm/dL Albumin 2.1 L (3.2-5.2) gm/dL Assessment and Plan (1) Pneumothorax, left Status: Acute Assessment and plan: f/u cxr in a.m. continuous suction under water seal at 20cm water Current Visit: Yes (2) COPD with exacerbation Problem details: stable on vent CO2 48. cont Pressure support trial at 12/26. Status: Chronic Current Visit: Yes (3) Large bowel obstruction Status: Resolved Assessment and plan: Patient has good stoma function Current Visit: Yes (4) Ileus following gastrointestinal surgery Status: Resolved Assessment and plan: Significantly improved with good output via colostomy Diet advanced Current Visit: Yes (5) Hypertension, essential Status: Chronic Current Visit: No (6) COPD (chronic obstructive pulmonary disease) Status: Chronic Current Visit: No - Time Spent With Patient Total time spent is greater than 50% in coordination of care (as documented) at patient's floor/unit and/or counseling patient:
--- NOTE | 2018-05-30 12:50 | Internal Med Progress Note ---
Medical - PN: Subj Patient information: Note initiated : 05/30/18 at 12:46 pm Service Date, if different from initiated Date: [] Patient: Luciano Nixon 67 y/o M admitted on 05/21/18 for Abdominal Pain/ Large Bowel Obstruction. Chief Complaint: [] Interval history: 05/28 Patient seen examined, no acute overnight issues, patient has some chr pain for which he wans tramadol resumed X ray suggestive of worsening pleural effusion, and pna vs atelectasis, pt is positive [id number] since admission. No acute events on tele, sinus rhythm mostly, but has some SVT noted there was AFib with RVR for which cardizme and amiodarone was used Echo ordered 05/29 Patient seen and examined, no acute overnight events, no events on telemetry. Pain medications at home doses reviewed and resumed. Chest x-ray done today shows again worsening of infiltrate versus atelectasis and effusion. Patient is on IV diuretics but we will do a therapeutic thoracocentesis today. Echo result pending. Patient has no acute complaints still feels weak, but better. Surgery consult appreciated. Stoma is functioning well. Patient is having bowel movements as well as stool output from the stoma. xfer to med surg status. 05/30 Patient seen and examined, status post thoracocentesis complicated by significant pneumothorax. Status post chest tube placement by surgery. Repeat chest x-ray shows resolution of pneumothorax. Stoma functioning well. Pain control is reasonable. Patient is tolerating p.o. diet well he remains on TPN. Albumin still low. Besides the pain in the chest from the chest tube the patient has no acute complaints Pertinent ROS: chest pain present Denies headache, dizziness Denies palpitations Denies cough or shortness of breath Denies abdominal pain, nausea or vomiting. - Constitutional Vitals: Vital Signs Temp Pulse Resp BP Pulse Ox 98.5 F 75 20 102/60 96 05/30/18 12:00 05/30/18 09:20 05/30/18 12:00 05/30/18 12:00 05/30/18 12:00 Period Temp Pulse Resp BP Sys/Faria Pulse Ox Last 24 Hr 98.5 F-99.0 F 75-104 16-26 102-146/60-90 94-100 Intake and Output 05/29/18 05/30/18 05/30/18 21:59 05:59 13:59 Intake Total 547 / 547 768 / 768 300 / 300 Output Total 925 / 925 825 / 825 900 / 900 Balance -378 / -378 -57 / -57 -600 / -600 Weight 157 lb Intake & Output: Intake & Output 05/29/18 05/30/18 05/30/18 21:59 05:59 13:59 Intake Total 547 / 547 768 / 768 300 / 300 Output Total 925 / 925 825 / 825 900 / 900 Balance -378 / -378 -57 / -57 -600 / -600 Weight 157 lb Intake: IV 427 / 427 588 / 588 100 / 100 Calcium Gluconate 10 Meq 300 / 300 Potassium Phosphate 120 Meq Infuvite Adult 10 ml Selenium 60 Mcg Potassium Chloride 80 Meq Magnesium Sulfate 32.48 Meq In Clinimix 5%-20% Solution 2, 000 ml @ 65 mls/hr IV Q24H [facility] Rx#:[id number] Intralipid 20% 250 ml @ 25 mls/ 27 / 27 223 / 223 hr IV DAILY@1600 [facility] Rx#: [id number] Oral 120 / 120 180 / 180 200 / 200 Output: Chest Tube Drainage 0 / 0 Left Mid-Axillary Chest 0 / 0 Void Amount 325 / 325 600 / 600 900 / 900 Urine/Stool Mix 350 / 350 Stool 250 / 250 225 / 225 Other: Meal Breakfast Percent of Meal Consumed 100% Feeding Ability Independent Urine Appearance Clear Clear Urine Color Dark Yellow Light Lyric Urine Odor Normal Stool Size Moderate Stool Color Brown Stool Consistency Liquid Loose # Voids 1 Exam: Constitutional; Afebrile, cooperative, alert, not in distress. Eyes- No icterus, , No periorbital swelling Ears- Ext ear normal, hearing normal to conversation. Neck- Midline trachea, supple Respiratory system: Air Entry equal on both sides, No crackles or wheezing, no rhonchi. CVS- Rate rhythm regular, S1,S2 heard, no gallop, no rub. 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 Medical - PN: Obj Da - Labs CBC & Chem 7: 05/30/18 04:00 05/30/18 04:00 Labs: Abnormal Lab Results 05/30/18 05/30/18 05/29/18 04:00 04:00 04:00 RBC 3.67 L Hgb 10.7 L Hct 32.3 L RDW 15.6 H MPV 7.2 L Gran % 90.3 H Lymph % (Auto) 6.3 L Gran # 9.7 H Lymph # (Auto) 0.7 L BUN 25 H 25 H Glucose 125 H Calcium 7.2 L 7.3 L Lactate Dehydrogenase 300 H Total Protein 4.4 L 4.2 L Albumin 2.1 L 2.0 L Albumin/Globulin Ratio 0.9 L 0.9 L 05/29/18 05/28/18 05/28/18 04:00 04:00 04:00 RBC 3.75 L 3.69 L Hgb 10.9 L 10.7 L Hct 33.1 L 32.4 L RDW 15.6 H 15.3 H MPV 7.2 L 7.1 L Gran % 90.3 H 89.3 H Lymph % (Auto) 6.9 L 7.3 L Gran # Lymph # (Auto) 0.6 L 0.5 L BUN Glucose 155 H Calcium 7.3 L Lactate Dehydrogenase Total Protein 4.2 L Albumin 2.0 L Albumin/Globulin Ratio 0.9 L Meds: Medications Albuterol/Ipratropium (Duoneb) 3 ml NEB Q6HP PRN PRN Reason: Shortness Of Breath Last Admin: 05/30/18 09:30 Dose: 3 ml Budesonide (Pulmicort) 0.5 mg NEB Q12 [facility] Last Admin: 05/30/18 09:30 Dose: 0.5 mg Diagnostic Test (Pha) (Accu-Chek) 1 each FS Q6 [facility] Last Admin: 05/30/18 11:49 Dose: 1 each Famotidine (Pepcid) 20 mg PO BID [facility] Last Admin: 05/30/18 09:15 Dose: 20 mg Fentanyl (Sublimaze) 25 mcg IV Q1HP PRN PRN Reason: PAIN LEVEL > 6 Furosemide (Lasix) 20 mg IV DAILY [facility] Last Admin: 05/30/18 09:16 Dose: 20 mg Heparin Sodium (Porcine) (Heparin) 5,000 unit SQ Q12 [facility] Last Admin: 05/30/18 09:17 Dose: 5,000 unit Heparin Sodium (Porcine) (Heparin Flush) 2 ml IV Q12 [facility] Last Admin: 05/30/18 09:17 Dose: 2 ml Hydrocortisone Sodium Succinate (Solu-Cortef) 25 mg IV DAILY [facility] Hydromorphone HCl (Dilaudid) 1 mg IV Q2HP PRN PRN Reason: PAIN LEVEL > 6 Last Admin: 05/30/18 12:38 Dose: 1 mg Ciprofloxacin (Cipro) 400 mg in 200 mls @ 200 mls/hr IV Q12H [facility] Last Admin: 05/30/18 09:16 Dose: 200 mls/hr Fat Emulsion Intravenous (Intralipid 20%) 250 mls @ 25 mls/hr IV DAILY@1600 [facility] Last Infusion: 05/30/18 02:55 Dose: Infused Metronidazole (Flagyl) 500 mg in 100 mls @ 100 mls/hr IV Q8H [facility] Last Infusion: 05/30/18 06:05 Dose: Infused Acetaminophen (Ofirmev) 650 mg in 65 mls @ 130 mls/hr IV Q6-8HP PRN PRN Reason: PAIN/FEVER > 101 Last Infusion: 05/29/18 22:20 Dose: Infused Calcium Gluconate 10 meq/Potassium Phosphate 100 meq/Multivitamins/Minerals 10 ml/Selenium 60 mcg/ Potassium Chloride 80 meq/ Magnesium Sulfate 48.72 meq/ Amino Acids 2,107.7326 mls @ 65 mls/hr IV Q24H [facility] Last Admin: 05/30/18 12:21 Dose: 65 mls/hr Insulin Human Lispro (Humalog) 0 unit SQ Q6 [facility]; Protocol Last Admin: 05/30/18 11:50 Dose: Not Given Metoprolol Tartrate (Lopressor) 50 mg PO BID [facility] Last Admin: 05/30/18 09:15 Dose: 50 mg Naloxone HCl (Narcan) 0.1 mg IV Q2MIN PRN PRN Reason: Opiate Reversal Ondansetron HCl (Zofran) 4 mg IV Q4HP PRN PRN Reason: Nausea And Vomiting Oxycodone HCl (Roxicodone) 5 mg PO Q4HP PRN PRN Reason: Severe Pain Last Admin: 05/30/18 09:15 Dose: 5 mg Sodium Chloride (Saline Flush) 10 ml IV UD PRN PRN Reason: FLUSH Last Admin: 05/29/18 14:35 Dose: 10 ml Tramadol HCl (Ultram) 100 mg PO Q6HP PRN PRN Reason: Pain Last Admin: 05/30/18 11:54 Dose: 100 mg Medical - PN: A/P - Time Spent With Patient Total time spent is greater than 50% in coordination of care (as documented) at patient's floor/unit and/or counseling patient: - Narrative A/P Narrative: A/P Acute large bowel obstruction- s/p surgery, followed by Dr Del Cid and now Dr Heard, Ostomy draining well, pt reports some urge to have bowel movement, etioogy could be colon ca or diverticulosis. Acute Pneumothorax,- s/p thoracocentesis, s/p chest tube, with good reexpansion of the lung. Acute Kidney Injury- resolved, creat is now normal, Fluid overload/ - Generalized fluid overload noted, albumin is 2.0, gentle diuresis for now, will supplement with albumin if needed. Pleural effusion-s/p thoracocentesis, left sided, 900cc drained, transudative. microbiology is neg. COPD exacerbation- no wheezing, no increased oxygen needs, continute to wean off steroid, on hydrocort 25 daily for now, will wean off rapidly over next couple of days Acute hypoxic respiratory failure- resolved, on room air now. Hypertension- BP stable, continue home meds, Atrial fibrillation- Noted on tele, needing cardizem and amiodarone, on metoprolol now, titrate dosing upwards, etiology likely post op/ electrolytes imbalances. Echo ordered, results awaited. HR stable for 24 hrs, Hyperlipidemia- continue statin Iliac artery aneurysm thrombosed.- stable d/c mcdowell DVT scd, GI Famotid Full code Diet- being advanced by surgery. Medical - PN: Qual - VTE Is this test being ordered to rule out VTE?: No Deep Vein Thrombosis/Pulmonary Embolism Present on Admission: No
[2018-05-30] MEDS: FAT EMULSION 20% 250 ML IV SCH (17:14)
[2018-05-31] MEDS: INSULIN LISPRO 1 UNIT/0.01 ML UNIT SQ SCH ×4 (01:36→17:01)
[2018-05-31] MEDS: traMADol 50 MG TABLET PO PRN ×3 (01:36→23:52)
[2018-05-31] MEDS: HYDROmorphone 2 MG/ML VIAL IV PRN ×2 (03:39→21:56)
[2018-05-31] MEDS: metroNIDAZOLE 500 MG/100 ML BAG IV SCH ×3 (05:21→23:53)
[2018-05-31] MEDS: oxyCODONE HCL 5 MG TABLET PO PRN ×5 (05:21→23:52)
[2018-05-31 05:29] LABS: Basophils # (Auto) 0 K/mcL (0.0-0.3); Basophils % (Auto) 0 % (0.0-2.0); Eosinophils # (Auto) 0.2 K/mcL (0.0-0.7); Eosinophils % (Auto) 1.8 % (0.0-7.0); Granulocytes % (Auto) 82.8 % (38.0-78.0); Lymphocytes # (Auto) 1.1 K/mcL (1.5-4.8); Mean Cell Volume 87.7 fL (80.0-100.0); Mean Corpuscular HGB Conc 33.1 g/dL (31.0-36.0); Monocytes # (Auto) 0.3 K/mcL (0.1-0.9); Monocytes % (Auto) 3.4 % (1.0-12.0); Platelet Count 266 K/mcL (140-440); RBC 3.48 M/mcL (4.50-5.90); Red Cell Distribution Width 15.5 % (11.5-14.5)
[2018-05-31 05:52] LABS: ALT/SGPT 11 U/l (0-40); Albumin 1.9 gm/dL (3.2-5.2); Albumin/Globulin Ratio 0.8 (1.0-2.3); Alkaline Phosphatase 43 U/L (39-117); Bilirubin,Direct < 0.2 mg/dL (0.0-0.3); Blood Urea Nitrogen 24 mg/dl (8-23); Gamma Glutamyl Transpeptidase 27 U/L (8-61); Uric Acid 3.7 mg/dL (2.5-8.0)
[2018-05-31] MEDS: IPRATROPIUM/ALBUTEROL 3 ML AMPUL.NEB NEB PRN ×2 (08:07→20:27)
[2018-05-31] MEDS: BUDESONIDE 0.5 MG/2 ML AMPUL.NEB NEB SCH ×2 (08:08→20:27)
--- NOTE | 2018-05-31 08:37 | XRay Report ---
CLINICAL INFORMATION: pneumothorax follow up COMPARISON: 05/30/2018 FINDINGS: Left-sided chest tube has further retracted: the radiopaque marker representing location of most proximal end hole, is now clearly in the soft tissues of the left lateral chest wall. A small amount of subcutaneous emphysema has increased slightly. Prominent skinfold over the lateral left upper thorax mimics a recurrent pneumothorax. A similar skinfold seen over the lateral right upper lobe. Moderate right basilar infiltrate as worsened. New small left basilar infiltrate or atelectasis developed. Small right pleural effusion unchanged. Cardiomediastinal silhouette and pulmonary vessels remain normal.] Stable satisfactory position. IMPRESSION: 1. No evidence of recurrent left pneumothorax. A skinfold, laterally in the left upper lobe region, mimics a pneumothorax. 2. Interval retraction of the chest tube. The most proximal sidehole is now located in the soft tissues of the left lateral chest wall resulting in modest increase in subcutaneous emphysema. 3. Moderate right basilar infiltrate worsening. New small left basilar infiltrate or atelectasis. Small right pleural effusion Interpreted and Authenticated by: Luciano Smith 05/31/18
[2018-05-31] MEDS: FUROSEMIDE 20 MG/2 ML VIAL IV SCH (08:55)
[2018-05-31] MEDS: FAMOTIDINE 20 MG TABLET PO SCH ×2 (08:56→21:57)
[2018-05-31] MEDS: METOPROLOL TARTRATE 25 MG TABLET PO SCH ×2 (08:56→21:57)
[2018-05-31] MEDS: HEPARIN 5,000 UNIT/ML VIAL SQ SCH ×2 (08:56→21:55)
[2018-05-31] MEDS ORDERED: HYDROCORTISONE SOD SUCC 100 MG VIAL IV SCH (09:00)
--- NOTE | 2018-05-31 11:09 | Internal Med Progress Note ---
Medical - PN: Subj Patient information: Note initiated : 05/31/18 at 11:07 am Service Date, if different from initiated Date: [] Patient: Luciano Nixon 67 y/o M admitted on 05/21/18 for Abdominal Pain/ Large Bowel Obstruction. Chief Complaint: [] Interval history: 05/28 Patient seen examined, no acute overnight issues, patient has some chr pain for which he wans tramadol resumed X ray suggestive of worsening pleural effusion, and pna vs atelectasis, pt is positive [id number] since admission. No acute events on tele, sinus rhythm mostly, but has some SVT noted there was AFib with RVR for which cardizme and amiodarone was used Echo ordered 05/29 Patient seen and examined, no acute overnight events, no events on telemetry. Pain medications at home doses reviewed and resumed. Chest x-ray done today shows again worsening of infiltrate versus atelectasis and effusion. Patient is on IV diuretics but we will do a therapeutic thoracocentesis today. Echo result pending. Patient has no acute complaints still feels weak, but better. Surgery consult appreciated. Stoma is functioning well. Patient is having bowel movements as well as stool output from the stoma. xfer to med surg status. 05/30 Patient seen and examined, status post thoracocentesis complicated by significant pneumothorax. Status post chest tube placement by surgery. Repeat chest x-ray shows resolution of pneumothorax. Stoma functioning well. Pain control is reasonable. Patient is tolerating p.o. diet well he remains on TPN. Albumin still low. Besides the pain in the chest from the chest tube the patient has no acute complaints 05/31 Patient seen and examined, no acute overnight events, pain level is around 5-6. Chest x-ray shows no recurrence of pneumothorax. Plan to clamp chest tube and possible removal tomorrow. Patient is able to tolerate p.o. diet well is hungry. Remains on TPN will discuss with surgery if okay to discontinue same. IV lasix increased to 40, pt is diuresing well Pertinent ROS: Denies headache, dizziness Denies chest pain, palpitations. chest pain at site of chest tube present. Denies cough or shortness of breath Denies abdominal pain, nausea or vomiting. - Constitutional Vitals: Vital Signs Temp Pulse Resp BP Pulse Ox 98.2 F 88 20 127/76 94 05/31/18 07:24 05/31/18 08:09 05/31/18 08:09 05/31/18 07:24 05/31/18 08:09 Period Temp Pulse Resp BP Sys/Faria Pulse Ox Last 24 Hr 97.7 F-98.5 F 69-88 16-20 102-127/60-82 94-97 Intake and Output 05/30/18 05/31/18 05/31/18 21:59 05:59 13:59 Intake Total 100 / 100 100 / 100 Output Total 325 / 325 1110 / 1110 1450 / 1450 Balance -225 / -225 -1010 / -1010 -1450 / -1450 Weight 158 lb Intake & Output: Intake & Output 05/30/18 05/31/18 05/31/18 21:59 05:59 13:59 Intake Total 100 / 100 100 / 100 Output Total 325 / 325 1110 / 1110 1450 / 1450 Balance -225 / -225 -1010 / -1010 -1450 / -1450 Weight 158 lb Intake: IV 100 / 100 100 / 100 Output: Chest Tube Drainage 0 / 0 Left Mid-Axillary Chest 0 / 0 Urine Catheter Amount 225 / 225 Void Amount 325 / 325 475 / 475 1400 / 1400 # of times incontinent of urine 0 / 0 Stool 410 / 410 50 / 50 Other: Meal Breakfast Percent of Meal Consumed 75% Feeding Ability Independent Urine Appearance Clear Clear Clear Urine Color Light Lyric Dark Yellow Pale Urine Odor Normal Normal Stool Size Moderate Small Stool Color Brown Brown Stool Consistency Liquid Liquid Loose # Voids 1 4 # Bowel Movements 1 Exam: Constitutional; Afebrile, cooperative, alert, not in distress. Eyes- No icterus, , No periorbital swelling Ears- Ext ear normal, hearing normal to conversation. Neck- Midline trachea, supple Respiratory system: Air Entry equal on both sides, No crackles or wheezing, no rhonchi. Left chest tube in place. CVS- Rate rhythm regular, S1,S2 heard, no gallop, no rub. Abdomen- Soft abdomen, no organomegaly, no guarding or rigidity, [employer]- AOOx3, moving all extremities, no gross focal deficit noted. Medical - PN: Obj Da - Labs CBC & Chem 7: 05/31/18 04:00 05/31/18 04:00 Labs: Abnormal Lab Results 05/31/18 05/31/18 05/30/18 04:00 04:00 04:00 RBC 3.48 L Hgb 10.1 L Hct 30.5 L RDW 15.5 H MPV 6.8 L Gran % 82.8 H Lymph % (Auto) 12.0 L Gran # Lymph # (Auto) 1.1 L BUN 24 H 25 H Creatinine 0.6 L Glucose Calcium 7.2 L 7.2 L Lactate Dehydrogenase 300 H Total Protein 4.2 L 4.4 L Albumin 1.9 L 2.1 L Albumin/Globulin Ratio 0.8 L 0.9 L 05/30/18 05/29/18 05/29/18 04:00 04:00 04:00 RBC 3.67 L 3.75 L Hgb 10.7 L 10.9 L Hct 32.3 L 33.1 L RDW 15.6 H 15.6 H MPV 7.2 L 7.2 L Gran % 90.3 H 90.3 H Lymph % (Auto) 6.3 L 6.9 L Gran # 9.7 H Lymph # (Auto) 0.7 L 0.6 L BUN 25 H Creatinine Glucose 125 H Calcium 7.3 L Lactate Dehydrogenase Total Protein 4.2 L Albumin 2.0 L Albumin/Globulin Ratio 0.9 L Meds: Medications Albuterol/Ipratropium (Duoneb) 3 ml NEB Q6HP PRN PRN Reason: Shortness Of Breath Last Admin: 05/31/18 08:07 Dose: 3 ml Budesonide (Pulmicort) 0.5 mg NEB Q12 [facility] Last Admin: 05/31/18 08:08 Dose: 0.5 mg Diagnostic Test (Pha) (Accu-Chek) 1 each FS Q6 [facility] Last Admin: 05/31/18 05:48 Dose: 1 each Famotidine (Pepcid) 20 mg PO BID [facility] Last Admin: 05/31/18 08:56 Dose: 20 mg Fentanyl (Sublimaze) 25 mcg IV Q1HP PRN PRN Reason: PAIN LEVEL > 6 Furosemide (Lasix) 40 mg IV DAILY [facility] Last Admin: 05/31/18 08:55 Dose: 40 mg Heparin Sodium (Porcine) (Heparin) 5,000 unit SQ Q12 [facility] Last Admin: 05/31/18 08:56 Dose: 5,000 unit Heparin Sodium (Porcine) (Heparin Flush) 2 ml IV Q12 [facility] Last Admin: 05/31/18 08:55 Dose: 2 ml Hydrocortisone Sodium Succinate (Solu-Cortef) 25 mg IV DAILY [facility] Last Admin: 05/31/18 08:54 Dose: 25 mg Hydromorphone HCl (Dilaudid) 1 mg IV Q2HP PRN PRN Reason: PAIN LEVEL > 6 Last Admin: 05/31/18 03:39 Dose: 1 mg Ciprofloxacin (Cipro) 400 mg in 200 mls @ 200 mls/hr IV Q12H [facility] Last Admin: 05/30/18 20:31 Dose: 200 mls/hr Fat Emulsion Intravenous (Intralipid 20%) 250 mls @ 25 mls/hr IV DAILY@1600 [facility] Last Admin: 05/30/18 17:14 Dose: 25 mls/hr Metronidazole (Flagyl) 500 mg in 100 mls @ 100 mls/hr IV Q8H [facility] Last Admin: 05/31/18 05:21 Dose: 100 mls/hr Acetaminophen (Ofirmev) 650 mg in 65 mls @ 130 mls/hr IV Q6-8HP PRN PRN Reason: PAIN/FEVER > 101 Last Infusion: 05/29/18 22:20 Dose: Infused Calcium Gluconate 10 meq/Potassium Phosphate 100 meq/Multivitamins/Minerals 10 ml/Selenium 60 mcg/ Potassium Chloride 80 meq/ Magnesium Sulfate 48.72 meq/ Amino Acids 2,107.7326 mls @ 65 mls/hr IV Q24H [facility] Last Admin: 05/30/18 12:21 Dose: 65 mls/hr Insulin Human Lispro (Humalog) 0 unit SQ Q6 [facility]; Protocol Last Admin: 05/31/18 05:49 Dose: Not Given Metoprolol Tartrate (Lopressor) 50 mg PO BID [facility] Last Admin: 05/31/18 08:56 Dose: 50 mg Naloxone HCl (Narcan) 0.1 mg IV Q2MIN PRN PRN Reason: Opiate Reversal Ondansetron HCl (Zofran) 4 mg IV Q4HP PRN PRN Reason: Nausea And Vomiting Oxycodone HCl (Roxicodone) 5 mg PO Q4HP PRN PRN Reason: Severe Pain Last Admin: 05/31/18 10:14 Dose: 5 mg Sodium Chloride (Saline Flush) 10 ml IV UD PRN PRN Reason: FLUSH Last Admin: 05/29/18 14:35 Dose: 10 ml Tramadol HCl (Ultram) 100 mg PO Q6HP PRN PRN Reason: Pain Last Admin: 05/31/18 01:36 Dose: 100 mg Medical - PN: A/P - Time Spent With Patient Total time spent is greater than 50% in coordination of care (as documented) at patient's floor/unit and/or counseling patient: - Narrative A/P Narrative: A/P Acute large bowel obstruction- s/p surgery, followed by Dr Del Cid and now Dr Heard, Ostomy draining well, pt reports some urge to have bowel movement, etioogy could be colon ca or diverticulosis. Acute Pneumothorax,- s/p thoracocentesis, s/p chest tube, with good reexpansion of the lung, clampped today, will be likely removed. Acute Kidney Injury- resolved, creat is now normal, diuresing well. Fluid overload/ - Generalized fluid overload noted, albumin is 2.0, gentle diuresis for now, Pleural effusion-s/p thoracocentesis, left sided, 900cc drained, transudative. microbiology is neg. COPD exacerbation- no wheezing, no increased oxygen needs, continue to wean off steroid, on Hydrocort 25 daily for now, 12.5 for tomorrow and then stop. Acute hypoxic respiratory failure- resolved, on room air now. Hypertension- BP stable, continue home meds, Atrial fibrillation- Noted on tele, needing cardizem and amiodarone, on metoprolol now, titrate dosing upwards, etiology likely post op/ electrolytes imbalances. Echo ordered, results awaited. HR stable now on metoprolol. Hyperlipidemia- continue statin Iliac artery aneurysm thrombosed.- stable d/c mcdowell DVT scd, GI Famotid Full code Diet- being advanced by surgery. Medical - PN: Qual - VTE Is this test being ordered to rule out VTE?: No Deep Vein Thrombosis/Pulmonary Embolism Present on Admission: No
[2018-05-31] MEDS: CIPROFLOXACIN 400 MG/200 ML BAG IV SCH ×2 (11:11→22:41)
[2018-05-31] MEDS ORDERED: [UNRECOGNIZED DRUG - REMARK] IV SCH (12:00)
--- NOTE | 2018-05-31 15:23 | General Surgery Progress Note ---
Subjective Patient reports: feels better, pain is less, tolerating a regular diet, flatus, bowel movement, afebrile Narrative: Note initiated : 05/31/18 at 3:21 pm Service Date, if different from initiated Date: [] Patient: Luciano Nixon 67 y/o M admitted on 05/21/18 for Abdominal Pain/ Large Bowel Obstruction. Chief Complaint: [Patient is doing well. He has some discomfort around his chest tube. His abdominal discomfort is well controlled. He is having regular bowel movements through the stoma and per rectum. There is no evidence of air leak. Chest x-ray shows no pneumothorax but they there is some subcutaneous emphysema. Suction was discontinued earlier today.] Objective Temp Pulse Resp BP Pulse Ox 98.5 F 88 18 115/74 96 05/31/18 15:15 05/31/18 08:09 05/31/18 15:15 05/31/18 15:15 05/31/18 15:15 - Additional Data Intake & Output - Last 24 hours: Intake & Output 05/29/18 05/30/18 05/31/18 06/01/18 05:59 05:59 05:59 05:59 Intake Total 2940.3435 / 2940.3435 2040 / 2040 900 / 900 660 / 660 Output Total 1850 / 1850 3175 / 3175 2335 / 2335 1750 / 1750 Balance 1090.3435 / 1090.3435 -1135 / -1135 -1435 / -1435 -1090 / -1090 Weight 163 lb 1 oz 157 lb 158 lb 158 lb - General physical appearance well developed, well nourished, no distress - Eyes PERRL, normal ocular movement - ENT normal pinna, normal nares, normal mucosa, no hearing loss, no congestion - Neck no masses, no bruits, trachea midline, no lymphadectomy, no venous distension - Respiratory normal expansion, normal respiratory effort, clear to auscultation, other (Good equal breath sounds bilaterally) - Cardiovascular Cardiovascular exam: Present: normal rate and rhythm, RRR, +S1, +S2. Absent: JVD, tachycardia - Abdomen non tender, bowel sounds (present), surgical scars (none), masses (Stoma shows evidence of more retraction and may need to be revised) - Neurologic normal coordination, normal sensation - Musculoskeletal normal gait, normal posture - Psychiatric oriented to time, oriented to person, oriented to place, speech is normal, memory intact - Labs 05/31/18 04:00 05/31/18 04:00 Diabetes panel 05/31/18 Range/Units 04:00 Sodium 143 (133-145) mmol/L Potassium 3.3 (3.3-5.1) mmol/L Chloride 108 (96-108) mmol/L Carbon Dioxide 26 (22-30) mmol/L BUN 24 H (8-23) mg/dl Creatinine 0.6 L (0.7-1.2) mg/dl Glucose 98 (70-105) mg/dL Calcium 7.2 L (8.6-10.4) mg/dl AST 18 (0-37) U/l ALT 11 (0-40) U/l Alkaline Phosphatase 43 (39-117) U/L Total Protein 4.2 L (5.9-8.4) gm/dL Albumin 1.9 L (3.2-5.2) gm/dL Triglycerides 80 (<150) mg/dl Calcium panel 05/31/18 Range/Units 04:00 Calcium 7.2 L (8.6-10.4) mg/dl Phosphorus 3.4 (2.7-4.5) mg/dL Albumin 1.9 L (3.2-5.2) gm/dL Pituitary panel 05/31/18 Range/Units 04:00 Sodium 143 (133-145) mmol/L Potassium 3.3 (3.3-5.1) mmol/L Chloride 108 (96-108) mmol/L Carbon Dioxide 26 (22-30) mmol/L BUN 24 H (8-23) mg/dl Creatinine 0.6 L (0.7-1.2) mg/dl Glucose 98 (70-105) mg/dL Calcium 7.2 L (8.6-10.4) mg/dl Adrenal panel 05/31/18 Range/Units 04:00 Sodium 143 (133-145) mmol/L Potassium 3.3 (3.3-5.1) mmol/L Chloride 108 (96-108) mmol/L Carbon Dioxide 26 (22-30) mmol/L BUN 24 H (8-23) mg/dl Creatinine 0.6 L (0.7-1.2) mg/dl Glucose 98 (70-105) mg/dL Calcium 7.2 L (8.6-10.4) mg/dl Total Bilirubin 0.2 (0.0-1.0) mg/dL AST 18 (0-37) U/l ALT 11 (0-40) U/l Alkaline Phosphatase 43 (39-117) U/L Total Protein 4.2 L (5.9-8.4) gm/dL Albumin 1.9 L (3.2-5.2) gm/dL Assessment and Plan (1) Pneumothorax, left Status: Acute Assessment and plan: f/u cxr in a.m. continuous suction under water seal at 20cm water Current Visit: Yes (2) COPD with exacerbation Problem details: stable on vent CO2 48. cont Pressure support trial at 12/26. Status: Chronic Current Visit: Yes (3) Large bowel obstruction Status: Resolved Assessment and plan: Patient has good stoma function Current Visit: Yes (4) Ileus following gastrointestinal surgery Status: Resolved Assessment and plan: Significantly improved with good output via colostomy Diet advanced Current Visit: Yes (5) Hypertension, essential Status: Chronic Current Visit: No (6) COPD (chronic obstructive pulmonary disease) Status: Chronic Current Visit: No - Time Spent With Patient Total time spent is greater than 50% in coordination of care (as documented) at patient's floor/unit and/or counseling patient:
[2018-05-31] MEDS: FAT EMULSION 20% 250 ML IV SCH (16:57)
[2018-06-01] MEDS: INSULIN LISPRO 1 UNIT/0.01 ML UNIT SQ SCH ×4 (00:01→16:35)
[2018-06-01] MEDS: HYDROmorphone 2 MG/ML VIAL IV PRN ×2 (04:28→23:22)
[2018-06-01] MEDS: oxyCODONE HCL 5 MG TABLET PO PRN ×4 (04:29→20:44)
[2018-06-01] MEDS: metroNIDAZOLE 500 MG/100 ML BAG IV SCH ×3 (05:09→22:02)
[2018-06-01 06:10] LABS: Basophils # (Auto) 0 K/mcL (0.0-0.3); Basophils % (Auto) 0.2 % (0.0-2.0); Eosinophils # (Auto) 0.3 K/mcL (0.0-0.7); Eosinophils % (Auto) 3.1 % (0.0-7.0); Granulocytes % (Auto) 79.8 % (38.0-78.0); Lymphocytes % (Auto) 11.8 % (15.5-49.0); Mean Cell Volume 88.4 fL (80.0-100.0); Mean Corpuscular HGB Conc 32.7 g/dL (31.0-36.0); Mean Corpuscular Hemoglobin 28.9 pg (26.0-34.0); Monocytes # (Auto) 0.4 K/mcL (0.1-0.9); Monocytes % (Auto) 5.1 % (1.0-12.0); Platelet Count 288 K/mcL (140-440); Red Cell Distribution Width 15.4 % (11.5-14.5)
[2018-06-01] MEDS: traMADol 50 MG TABLET PO PRN ×3 (06:31→22:01)
[2018-06-01] MEDS: IPRATROPIUM/ALBUTEROL 3 ML AMPUL.NEB NEB PRN ×2 (07:34→20:49)
[2018-06-01] MEDS: BUDESONIDE 0.5 MG/2 ML AMPUL.NEB NEB SCH ×2 (07:35→20:49)
--- NOTE | 2018-06-01 08:12 | XRay Report ---
CLINICAL INFORMATION: pneumothorax COMPARISON: 05/31/2018 FINDINGS: Left chest tube remain in stable position. Left lung is well expanded with only minimal residual left basilar atelectasis. There is no evidence recurrent pneumothorax or pleural effusion. Moderate right basilar infiltrate and small right pleural effusion are unchanged. Heart size, mediastinum and pulmonary vessels are normal. Right PICC line remaining in stable satisfactory position IMPRESSION: 1. Left lung remains is well expanded with minor left basilar atelectasis. No evidence of recurrent left pneumothorax or effusion 2. 3. Moderate vague right basilar infiltrate and small effusion unchanged Interpreted and Authenticated by: Luciano Smith 06/01/18
[2018-06-01] MEDS ORDERED: HYDROCORTISONE SOD SUCC 100 MG VIAL IV SCH (09:00)
[2018-06-01] MEDS: FAMOTIDINE 20 MG TABLET PO SCH ×2 (09:01→20:44)
[2018-06-01] MEDS: METOPROLOL TARTRATE 25 MG TABLET PO SCH ×2 (09:03→20:44)
[2018-06-01] MEDS: HEPARIN 5,000 UNIT/ML VIAL SQ SCH ×2 (09:07→20:45)
[2018-06-01 09:10] LABS: Basophils # (Auto) 0 K/mcL (0.0-0.3); Basophils % (Auto) 0 % (0.0-2.0); Eosinophils # (Auto) 0.3 K/mcL (0.0-0.7); Eosinophils % (Auto) 3.2 % (0.0-7.0); Granulocytes % (Auto) 81.1 % (38.0-78.0); Lymphocytes # (Auto) 0.8 K/mcL (1.5-4.8); Lymphocytes % (Auto) 10.1 % (15.5-49.0); Mean Cell Volume 88.3 fL (80.0-100.0); Mean Corpuscular HGB Conc 33.2 g/dL (31.0-36.0); Mean Corpuscular Hemoglobin 29.3 pg (26.0-34.0); Monocytes # (Auto) 0.5 K/mcL (0.1-0.9); Monocytes % (Auto) 5.6 % (1.0-12.0); Platelet Count 313 K/mcL (140-440); RBC 3.53 M/mcL (4.50-5.90); Red Cell Distribution Width 15.8 % (11.5-14.5)
[2018-06-01 09:36] LABS: ALT/SGPT 15 U/l (0-40); Albumin 1.9 gm/dL (3.2-5.2); Albumin/Globulin Ratio 0.8 (1.0-2.3); Alkaline Phosphatase 54 U/L (39-117); Bilirubin,Direct < 0.2 mg/dL (0.0-0.3); Blood Urea Nitrogen 20 mg/dl (8-23); Gamma Glutamyl Transpeptidase 51 U/L (8-61); Uric Acid 3.6 mg/dL (2.5-8.0)
[2018-06-01] MEDS ORDERED: POTASSIUM CHLORIDE 20 MEQ PACKET PO ONE (09:38)
[2018-06-01] MEDS: FUROSEMIDE 20 MG/2 ML VIAL IV SCH (09:45)
[2018-06-01] MEDS: CIPROFLOXACIN 400 MG/200 ML BAG IV SCH ×3 (10:19→20:45)
--- NOTE | 2018-06-01 11:36 | Internal Med Progress Note ---
Medical - PN: Subj Patient information: Note initiated : 06/01/18 at 11:33 am Service Date, if different from initiated Date: [] Patient: Luciano Nixon 67 y/o M admitted on 05/21/18 for Abdominal Pain/ Large Bowel Obstruction. Chief Complaint: [] Interval history: 05/28 Patient seen examined, no acute overnight issues, patient has some chr pain for which he wans tramadol resumed X ray suggestive of worsening pleural effusion, and pna vs atelectasis, pt is positive [id number] since admission. No acute events on tele, sinus rhythm mostly, but has some SVT noted there was AFib with RVR for which cardizme and amiodarone was used Echo ordered 05/29 Patient seen and examined, no acute overnight events, no events on telemetry. Pain medications at home doses reviewed and resumed. Chest x-ray done today shows again worsening of infiltrate versus atelectasis and effusion. Patient is on IV diuretics but we will do a therapeutic thoracocentesis today. Echo result pending. Patient has no acute complaints still feels weak, but better. Surgery consult appreciated. Stoma is functioning well. Patient is having bowel movements as well as stool output from the stoma. xfer to med surg status. 05/30 Patient seen and examined, status post thoracocentesis complicated by significant pneumothorax. Status post chest tube placement by surgery. Repeat chest x-ray shows resolution of pneumothorax. Stoma functioning well. Pain control is reasonable. Patient is tolerating p.o. diet well he remains on TPN. Albumin still low. Besides the pain in the chest from the chest tube the patient has no acute complaints 05/31 Patient seen and examined, no acute overnight events, pain level is around 5-6. Chest x-ray shows no recurrence of pneumothorax. Plan to clamp chest tube and possible removal tomorrow. Patient is able to tolerate p.o. diet well is hungry. Remains on TPN will discuss with surgery if okay to discontinue same. IV lasix increased to 40, pt is diuresing well 06/01 Patient seen and examined, no acute overnight events, pain is controlled. Chest x-ray shows stable findings. Patient feels better feels that he is moving better appetite is coming back. Swelling is improving slowly Pertinent ROS: Denies headache, dizziness Denies chest pain, palpitations (chest tube site cp present) Denies cough or shortness of breath Denies abdominal pain, nausea or vomiting. - Constitutional Vitals: Vital Signs Temp Pulse Resp BP Pulse Ox 98.4 F 79 16 129/71 95 06/01/18 08:00 06/01/18 08:00 06/01/18 08:00 06/01/18 08:00 06/01/18 08:00 Period Temp Pulse Resp BP Sys/Faria Pulse Ox Last 24 Hr 97.7 F-98.8 F 75-95 - 104-137/60-87 95-96 Intake and Output 05/31/18 06/01/18 06/01/18 21:59 05:59 13:59 Intake Total 460 / 460 150 / 150 Output Total 925 / 925 725 / 725 800 / 800 Balance -465 / -465 -575 / -575 -800 / -800 Weight 155 lb Intake & Output: Intake & Output 05/31/18 06/01/18 06/01/18 21:59 05:59 13:59 Intake Total 460 / 460 150 / 150 Output Total 925 / 925 725 / 725 800 / 800 Balance -465 / -465 -575 / -575 -800 / -800 Weight 155 lb Intake: IV 100 / 100 100 / 100 Oral 360 / 360 50 / 50 Output: Void Amount 725 / 725 600 / 600 300 / 300 Urine/Stool Mix 500 / 500 Stool 200 / 200 125 / 125 Other: Urine Appearance Clear Clear Urine Color Bright Yellow Dark Lyric Dark Yellow Urine Odor Normal Normal Normal Stool Size Small Stool Color Brown Brown Stool Consistency Liquid Loose # Voids 1 # Bowel Movements 2 Exam: Constitutional; Afebrile, cooperative, alert, not in distress. Eyes- No icterus, , No periorbital swelling Ears- Ext ear normal, hearing normal to conversation. Neck- Midline trachea, supple Respiratory system: Air Entry equal on both sides, No crackles or wheezing, no rhonchi. CVS- Rate rhythm regular, S1,S2 heard, no gallop, no rub. Abdomen- Soft nontender abdomen, no organomegaly, no tenderness, no guarding or rigidity, [employer]- AOOx3, moving all extremities, no gross focal deficit noted. Medical - PN: Obj Da - Labs CBC & Chem 7: 06/01/18 08:08 06/01/18 08:08 Labs: Abnormal Lab Results 06/01/18 06/01/18 06/01/18 08:08 08:08 04:40 RBC 3.53 L 3.40 L Hgb 10.4 L 9.8 L Hct 31.2 L 30.0 L RDW 15.8 H 15.4 H MPV 6.9 L 7.2 L Gran % 81.1 H 79.8 H Lymph % (Auto) 10.1 L 11.8 L Gran # Lymph # (Auto) 0.8 L 1.0 L Potassium 3.2 L Anion Gap 6.0 L BUN Creatinine 0.5 L Calcium 7.0 L Lactate Dehydrogenase 257 H Total Protein 4.4 L Albumin 1.9 L Albumin/Globulin Ratio 0.8 L 05/31/18 05/31/18 05/30/18 04:00 04:00 04:00 RBC 3.48 L Hgb 10.1 L Hct 30.5 L RDW 15.5 H MPV 6.8 L Gran % 82.8 H Lymph % (Auto) 12.0 L Gran # Lymph # (Auto) 1.1 L Potassium Anion Gap BUN 24 H 25 H Creatinine 0.6 L Calcium 7.2 L 7.2 L Lactate Dehydrogenase 300 H Total Protein 4.2 L 4.4 L Albumin 1.9 L 2.1 L Albumin/Globulin Ratio 0.8 L 0.9 L 05/30/18 04:00 RBC 3.67 L Hgb 10.7 L Hct 32.3 L RDW 15.6 H MPV 7.2 L Gran % 90.3 H Lymph % (Auto) 6.3 L Gran # 9.7 H Lymph # (Auto) 0.7 L Potassium Anion Gap BUN Creatinine Calcium Lactate Dehydrogenase Total Protein Albumin Albumin/Globulin Ratio Meds: Medications Albuterol/Ipratropium (Duoneb) 3 ml NEB Q6HP PRN PRN Reason: Shortness Of Breath Last Admin: 06/01/18 07:34 Dose: 3 ml Budesonide (Pulmicort) 0.5 mg NEB Q12 [facility] Last Admin: 06/01/18 07:35 Dose: 0.5 mg Diagnostic Test (Pha) (Accu-Chek) 1 each FS Q6 [facility] Stop: 06/01/18 18:01 Last Admin: 06/01/18 11:18 Dose: 1 each Famotidine (Pepcid) 20 mg PO BID [facility] Last Admin: 06/01/18 09:01 Dose: 20 mg Fentanyl (Sublimaze) 25 mcg IV Q1HP PRN PRN Reason: PAIN LEVEL > 6 Furosemide (Lasix) 40 mg IV DAILY [facility] Last Admin: 06/01/18 09:45 Dose: 40 mg Guaifenesin (Mucinex) 600 mg PO BIDP PRN PRN Reason: Congestion Heparin Sodium (Porcine) (Heparin) 5,000 unit SQ Q12 [facility] Last Admin: 06/01/18 09:07 Dose: 5,000 unit Heparin Sodium (Porcine) (Heparin Flush) 2 ml IV Q12 [facility] Last Admin: 06/01/18 09:40 Dose: 2 ml Hydrocortisone Sodium Succinate (Solu-Cortef) 12.5 mg IV DAILY [facility] Stop: 06/02/18 08:59 Last Admin: 06/01/18 09:40 Dose: 12.5 mg Hydromorphone HCl (Dilaudid) 1 mg IV Q2HP PRN PRN Reason: PAIN LEVEL > 6 Last Admin: 06/01/18 04:28 Dose: 1 mg Fat Emulsion Intravenous (Intralipid 20%) 250 mls @ 25 mls/hr IV DAILY@1600 [facility] Last Admin: 05/31/18 16:57 Dose: 25 mls/hr Metronidazole (Flagyl) 500 mg in 100 mls @ 100 mls/hr IV Q8H [facility] Last Admin: 06/01/18 05:09 Dose: 100 mls/hr Acetaminophen (Ofirmev) 650 mg in 65 mls @ 130 mls/hr IV Q6-8HP PRN PRN Reason: PAIN/FEVER > 101 Last Infusion: 05/29/18 22:20 Dose: Infused Calcium Gluconate 5 meq/Potassium Phosphate 60 meq/Multivitamins/Minerals 10 ml/ Selenium 60 mcg/ Potassium Chloride 40 meq/ Magnesium Sulfate 24.36 meq/ Amino Acids 1,061.889 mls @ 30 mls/hr IV Q24H [facility] Stop: 06/01/18 11:59 Last Admin: 05/31/18 12:34 Dose: 30 mls/hr Ciprofloxacin (Cipro) 400 mg in 200 mls @ 200 mls/hr IV Q12H [facility] Last Admin: 06/01/18 10:19 Dose: 200 mls/hr Insulin Human Lispro (Humalog) 0 unit SQ Q6 [facility]; Protocol Stop: 06/01/18 18:01 Last Admin: 06/01/18 05:17 Dose: Not Given Metoprolol Tartrate (Lopressor) 50 mg PO BID [facility] Last Admin: 06/01/18 09:03 Dose: 50 mg Naloxone HCl (Narcan) 0.1 mg IV Q2MIN PRN PRN Reason: Opiate Reversal Ondansetron HCl (Zofran) 4 mg IV Q4HP PRN PRN Reason: Nausea And Vomiting Oxycodone HCl (Roxicodone) 5 mg PO Q4HP PRN PRN Reason: Severe Pain Last Admin: 06/01/18 09:01 Dose: 5 mg Sodium Chloride (Saline Flush) 10 ml IV UD PRN PRN Reason: FLUSH Last Admin: 05/29/18 14:35 Dose: 10 ml Tramadol HCl (Ultram) 100 mg PO Q6HP PRN PRN Reason: Pain Last Admin: 06/01/18 06:31 Dose: 100 mg Medical - PN: A/P - Time Spent With Patient Total time spent is greater than 50% in coordination of care (as documented) at patient's floor/unit and/or counseling patient: - Narrative A/P Narrative: A/P Acute large bowel obstruction- s/p surgery, followed by Dr Del Cid and now Dr Heard, Ostomy draining well, pt reports some urge to have bowel movement, etioogy could be colon ca or diverticulosis. Acute Pneumothorax,- s/p thoracocentesis, s/p chest tube, with good reexpansion of the lung,possible removal today. Acute Kidney Injury- resolved, creat is now normal, diuresing well. Fluid overload/ - Generalized fluid overload noted, albumin is 2.0, gentle diuresis for now, Pleural effusion-s/p thoracocentesis, left sided, 900cc drained, transudative. microbiology is neg. COPD exacerbation- no wheezing, no increased oxygen needs, off steroids now. Acute hypoxic respiratory failure- resolved, on room air now. Hypertension- BP stable, continue home meds, Atrial fibrillation- Noted on tele, needing cardizem and amiodarone, on metoprolol now, titrate dosing upwards, etiology likely post op/ electrolytes imbalances. Echo ordered, results awaited. HR stable now on metoprolol. Hyperlipidemia- continue statin Iliac artery aneurysm thrombosed.- stable d/c [facility] DVT scd, GI Famotid Full code Diet- being advanced by surgery. will need to be off TPN hopefully today Will plan for D/c likely tomorrow if ok from surgical stand point. Medical - PN: Qual - VTE Is this test being ordered to rule out VTE?: No Deep Vein Thrombosis/Pulmonary Embolism Present on Admission: No
--- NOTE | 2018-06-01 13:00 | General Surgery Progress Note ---
Subjective Patient reports: feels better, pain is less, flatus, bowel movement, afebrile Narrative: Note initiated : 06/01/18 at 12:58 pm Service Date, if different from initiated Date: [] Patient: Luciano Nixon 67 y/o M admitted on 05/21/18 for Abdominal Pain/ Large Bowel Obstruction. Chief Complaint: [Patient states that he feels better even though he is still weak. He denies shortness of breath. He has mild discomfort around the chest tube insertion site. He is tolerating diet and is having regular movement of stool. No complaint of nausea. Chest x-ray shows full expansion of the left lung and there is no evidence of air leak. Chest tube was taken off suction yesterday and has been on waterseal. White blood count remains normal.] Objective Temp Pulse Resp BP Pulse Ox 98.5 F 74 16 96/58 95 06/01/18 12:00 06/01/18 12:00 06/01/18 12:00 06/01/18 12:00 06/01/18 12:00 - Additional Data Intake & Output - Last 24 hours: Intake & Output 05/30/18 05/31/18 06/01/18 06/02/18 05:59 05:59 05:59 05:59 Intake Total 2040 / 2040 1150 / 1150 910 / 910 300 / 300 Output Total 3175 / 3175 2335 / 2335 3100 / 3100 900 / 900 Balance -1135 / -1135 -1185 / -1185 -2190 / -2190 -600 / -600 Weight 157 lb 158 lb 155 lb - General physical appearance well developed, well nourished, no distress - Eyes PERRL, normal ocular movement - ENT normal pinna, normal nares, normal mucosa, no hearing loss, no congestion - Neck no masses, no bruits, trachea midline, no lymphadectomy, no venous distension - Respiratory normal expansion, normal respiratory effort, clear to auscultation, other ( Equal breath sounds bilaterally) - Cardiovascular Cardiovascular exam: Present: normal rate and rhythm, RRR, +S1, +S2. Absent: JVD, tachycardia - Abdomen non tender, bowel sounds (present), surgical scars (none), masses (none) - Genitourinary normal penis with no external lesions, testicles present, testicles non-tender - Integumentary no rash, no growths, no abnormal pigmentation - Neurologic normal coordination, normal sensation - Musculoskeletal normal gait, normal posture - Psychiatric oriented to time, oriented to person, oriented to place, speech is normal, memory intact - Labs 06/01/18 08:08 06/01/18 08:08 Diabetes panel 06/01/18 06/01/18 Range/Units 04:40 08:08 Sodium TNP 141 Potassium TNP 3.2 L Chloride TNP 108 Carbon Dioxide TNP 27 BUN TNP 20 Creatinine TNP 0.5 L Glucose TNP 87 Calcium TNP 7.0 L AST TNP 27 ALT TNP 15 Alkaline Phosphatase TNP 54 Total Protein TNP 4.4 L Albumin TNP 1.9 L Triglycerides TNP 74 Calcium panel 06/01/18 06/01/18 Range/Units 04:40 08:08 Calcium TNP 7.0 L Phosphorus TNP 2.7 Albumin TNP 1.9 L Pituitary panel 06/01/18 06/01/18 Range/Units 04:40 08:08 Sodium TNP 141 Potassium TNP 3.2 L Chloride TNP 108 Carbon Dioxide TNP 27 BUN TNP 20 Creatinine TNP 0.5 L Glucose TNP 87 Calcium TNP 7.0 L Adrenal panel 06/01/18 06/01/18 Range/Units 04:40 08:08 Sodium TNP 141 Potassium TNP 3.2 L Chloride TNP 108 Carbon Dioxide TNP 27 BUN TNP 20 Creatinine TNP 0.5 L Glucose TNP 87 Calcium TNP 7.0 L Total Bilirubin TNP 0.3 AST TNP 27 ALT TNP 15 Alkaline Phosphatase TNP 54 Total Protein TNP 4.4 L Albumin TNP 1.9 L Assessment and Plan (1) Pneumothorax, left Status: Acute Assessment and plan: Pneumothorax has resolved. Chest tube was removed and occlusive dressing applied. Will have follow-up chest x-ray in the morning. Current Visit: Yes (2) COPD with exacerbation Problem details: stable on vent CO2 48. cont Pressure support trial at 12/26. Status: Chronic Current Visit: Yes (3) Large bowel obstruction Status: Resolved Assessment and plan: Patient has good stoma function Current Visit: Yes (4) Ileus following gastrointestinal surgery Status: Resolved Assessment and plan: Significantly improved with good output via colostomy Diet advanced Current Visit: Yes (5) Hypertension, essential Status: Chronic Current Visit: No (6) COPD (chronic obstructive pulmonary disease) Status: Chronic Current Visit: No - Time Spent With Patient Total time spent is greater than 50% in coordination of care (as documented) at patient's floor/unit and/or counseling patient:
[2018-06-01] MEDS: guaiFENesin 600 MG TAB.SR.12H PO PRN ×2 (14:06→20:44)
--- NOTE | 2018-06-01 15:44 | Internal Med Progress Note ---
Medical - PN: Subj Patient information: Note initiated : 06/01/18 at 3:37 pm Service Date, if different from initiated Date: [] Patient: Luciano Nixon 67 y/o M admitted on 05/21/18 for Abdominal Pain/ Large Bowel Obstruction. Chief Complaint: [] Interval history: 05/28 Patient seen examined, no acute overnight issues, patient has some chr pain for which he wans tramadol resumed X ray suggestive of worsening pleural effusion, and pna vs atelectasis, pt is positive [id number] since admission. No acute events on tele, sinus rhythm mostly, but has some SVT noted there was AFib with RVR for which cardizme and amiodarone was used Echo ordered 05/29 Patient seen and examined, no acute overnight events, no events on telemetry. Pain medications at home doses reviewed and resumed. Chest x-ray done today shows again worsening of infiltrate versus atelectasis and effusion. Patient is on IV diuretics but we will do a therapeutic thoracocentesis today. Echo result pending. Patient has no acute complaints still feels weak, but better. Surgery consult appreciated. Stoma is functioning well. Patient is having bowel movements as well as stool output from the stoma. xfer to med surg status. 05/30 Patient seen and examined, status post thoracocentesis complicated by significant pneumothorax. Status post chest tube placement by surgery. Repeat chest x-ray shows resolution of pneumothorax. Stoma functioning well. Pain control is reasonable. Patient is tolerating p.o. diet well he remains on TPN. Albumin still low. Besides the pain in the chest from the chest tube the patient has no acute complaints 05/31 Patient seen and examined, no acute overnight events, pain level is around 5-6. Chest x-ray shows no recurrence of pneumothorax. Plan to clamp chest tube and possible removal tomorrow. Patient is able to tolerate p.o. diet well is hungry. Remains on TPN will discuss with surgery if okay to discontinue same. IV lasix increased to 40, pt is diuresing well 06/01 Patient seen and examined, no acute overnight events, pain is controlled. Chest x-ray shows stable findings. Patient feels better feels that he is moving better appetite is coming back. Swelling is improving slowly 06/02 - Constitutional Vitals: Vital Signs Temp Pulse Resp BP Pulse Ox 98.5 F 74 16 96/58 95 06/01/18 12:00 06/01/18 12:00 06/01/18 12:00 06/01/18 12:00 06/01/18 12:00 Period Temp Pulse Resp BP Sys/Faria Pulse Ox Last 24 Hr 97.7 F-98.8 F 74-95 -18 96-137/58-87 95-96 Intake and Output 06/01/18 06/01/18 06/01/18 05:59 13:59 21:59 Intake Total 150 / 150 300 / 300 Output Total 725 / 725 900 / 900 275 / 275 Balance -575 / -575 -600 / -600 -275 / -275 Intake & Output: Intake & Output 06/01/18 06/01/18 06/01/18 05:59 13:59 21:59 Intake Total 150 / 150 300 / 300 Output Total 725 / 725 900 / 900 275 / 275 Balance -575 / -575 -600 / -600 -275 / -275 Intake: IV 100 / 100 300 / 300 Oral 50 / 50 Output: Void Amount 600 / 600 400 / 400 Urine/Stool Mix 500 / 500 275 / 275 Stool 125 / 125 Other: Urine Appearance Clear Clear Clear Urine Color Dark Lyric Bright Yellow Bright Yellow Urine Odor Normal Normal Normal Stool Size Small Stool Color Brown Stool Consistency Loose # Bowel Movements 2 1 Exam: General: Alert, Awake, No acute Distress HEENT: EOMI, CV: RRR, No murmurs, normal s1/s2 Pulm: Clear b/l, no wheezing/rhonchi/rales Abd: soft, Ext: no clubbing/cyanosis/edema Neuro: Alert, no focal deficits, moves all extremities Skin: warm/dry Medical - PN: Obj Da - Labs CBC & Chem 7: 06/01/18 08:08 06/01/18 08:08 Labs: Abnormal Lab Results 06/01/18 06/01/18 06/01/18 08:08 08:08 04:40 RBC 3.53 L 3.40 L Hgb 10.4 L 9.8 L Hct 31.2 L 30.0 L RDW 15.8 H 15.4 H MPV 6.9 L 7.2 L Gran % 81.1 H 79.8 H Lymph % (Auto) 10.1 L 11.8 L Gran # Lymph # (Auto) 0.8 L 1.0 L Potassium 3.2 L Anion Gap 6.0 L BUN Creatinine 0.5 L Calcium 7.0 L Lactate Dehydrogenase 257 H Total Protein 4.4 L Albumin 1.9 L Albumin/Globulin Ratio 0.8 L 05/31/18 05/31/18 05/30/18 04:00 04:00 04:00 RBC 3.48 L Hgb 10.1 L Hct 30.5 L RDW 15.5 H MPV 6.8 L Gran % 82.8 H Lymph % (Auto) 12.0 L Gran # Lymph # (Auto) 1.1 L Potassium Anion Gap BUN 24 H 25 H Creatinine 0.6 L Calcium 7.2 L 7.2 L Lactate Dehydrogenase 300 H Total Protein 4.2 L 4.4 L Albumin 1.9 L 2.1 L Albumin/Globulin Ratio 0.8 L 0.9 L 05/30/18 04:00 RBC 3.67 L Hgb 10.7 L Hct 32.3 L RDW 15.6 H MPV 7.2 L Gran % 90.3 H Lymph % (Auto) 6.3 L Gran # 9.7 H Lymph # (Auto) 0.7 L Potassium Anion Gap BUN Creatinine Calcium Lactate Dehydrogenase Total Protein Albumin Albumin/Globulin Ratio Meds: Medications Albuterol/Ipratropium (Duoneb) 3 ml NEB Q6HP PRN PRN Reason: Shortness Of Breath Last Admin: 06/01/18 07:34 Dose: 3 ml Budesonide (Pulmicort) 0.5 mg NEB Q12 [facility] Last Admin: 06/01/18 07:35 Dose: 0.5 mg Diagnostic Test (Pha) (Accu-Chek) 1 each FS Q6 [facility] Stop: 06/01/18 18:01 Last Admin: 06/01/18 11:18 Dose: 1 each Famotidine (Pepcid) 20 mg PO BID [facility] Last Admin: 06/01/18 09:01 Dose: 20 mg Fentanyl (Sublimaze) 25 mcg IV Q1HP PRN PRN Reason: PAIN LEVEL > 6 Furosemide (Lasix) 40 mg IV DAILY [facility] Last Admin: 06/01/18 09:45 Dose: 40 mg Guaifenesin (Mucinex) 600 mg PO BIDP PRN PRN Reason: Congestion Last Admin: 06/01/18 14:06 Dose: 600 mg Heparin Sodium (Porcine) (Heparin) 5,000 unit SQ Q12 [facility] Last Admin: 06/01/18 09:07 Dose: 5,000 unit Heparin Sodium (Porcine) (Heparin Flush) 2 ml IV Q12 [facility] Last Admin: 06/01/18 09:40 Dose: 2 ml Hydrocortisone Sodium Succinate (Solu-Cortef) 12.5 mg IV DAILY [facility] Stop: 06/02/18 08:59 Last Admin: 06/01/18 09:40 Dose: 12.5 mg Hydromorphone HCl (Dilaudid) 1 mg IV Q2HP PRN PRN Reason: PAIN LEVEL > 6 Last Admin: 06/01/18 04:28 Dose: 1 mg Metronidazole (Flagyl) 500 mg in 100 mls @ 100 mls/hr IV Q8H [facility] Last Admin: 06/01/18 14:38 Dose: 100 mls/hr Acetaminophen (Ofirmev) 650 mg in 65 mls @ 130 mls/hr IV Q6-8HP PRN PRN Reason: PAIN/FEVER > 101 Last Infusion: 05/29/18 22:20 Dose: Infused Ciprofloxacin (Cipro) 400 mg in 200 mls @ 200 mls/hr IV Q12H [facility] Last Infusion: 06/01/18 11:50 Dose: Infused Insulin Human Lispro (Humalog) 0 unit SQ Q6 [facility]; Protocol Stop: 06/01/18 18:01 Last Admin: 06/01/18 11:35 Dose: 1 unit Metoprolol Tartrate (Lopressor) 50 mg PO BID [facility] Last Admin: 06/01/18 09:03 Dose: 50 mg Naloxone HCl (Narcan) 0.1 mg IV Q2MIN PRN PRN Reason: Opiate Reversal Ondansetron HCl (Zofran) 4 mg IV Q4HP PRN PRN Reason: Nausea And Vomiting Oxycodone HCl (Roxicodone) 5 mg PO Q4HP PRN PRN Reason: Severe Pain Last Admin: 06/01/18 14:06 Dose: 5 mg Sodium Chloride (Saline Flush) 10 ml IV UD PRN PRN Reason: FLUSH Last Admin: 05/29/18 14:35 Dose: 10 ml Tramadol HCl (Ultram) 100 mg PO Q6HP PRN PRN Reason: Pain Last Admin: 06/01/18 12:15 Dose: 100 mg Medical - PN: A/P - Time Spent With Patient Total time spent is greater than 50% in coordination of care (as documented) at patient's floor/unit and/or counseling patient: - Narrative A/P Narrative: Assess: *Acute large bowel obstruction- s/p surgery, followed by Dr Del Cid and now Dr Heard, Ostomy draining well, pt reports some urge to have bowel movement, etioogy could be colon ca or diverticulosis. *Acute Pneumothorax: s/p thoracocentesis, s/p chest tube, with good reexpansion of the lung,possible removal today. *Acute Kidney Injury; resolved, creat is now normal, diuresing well. *Fluid overload: - Generalized fluid overload noted, albumin is 2.0, gentle diuresis for now, *Pleural effusion-s/p thoracocentesis, left sided, 900cc drained, transudative. microbiology is neg. *COPD exacerbation- no wheezing, no increased oxygen needs, off steroids now. *Acute hypoxic respiratory failure- resolved, on room air now. *Hypertension- BP stable, continue home meds, *Atrial fibrillation- Noted on tele, needing cardizem and amiodarone, on metoprolol now, titrate dosing upwards, etiology likely post op/ electrolytes imbalances. Echo ordered, results awaited. HR stable now on metoprolol. *Hyperlipidemia- continue statin *Iliac artery aneurysm thrombosed.- stable Diet: being advanced by surgery. will need to be off TPN hopefully today ppx: scd/Famotid Will plan for D/c likely tomorrow if ok from surgical stand point. Medical - PN: Qual - VTE Is this test being ordered to rule out VTE?: No Deep Vein Thrombosis/Pulmonary Embolism Present on Admission: No
--- NOTE | 2018-06-01 15:47 | Discharge Summary ---
Medical - DS: Prov Patient information: Note initiated : 06/01/18 at 3:44 pm Service Date, if different from initiated Date: [] Patient: Luciano Nixon 67 y/o M admitted on 05/21/18 for Abdominal Pain/ Large Bowel Obstruction. Chief Complaint: [] Date of admission: 05/21/18 22:27 Discharge date: 06/03/18 Primary care physician: Luciano Griffin Consults: 05/21/18 Consult to Physician [CONS] Stat Comment: Consulting Provider: Jaylin Del Cid Reason For Exam: Physician to Consult Consult to Physician [CONS] Stat Comment: Consulting Provider: Natacha Painter Reason For Exam: Physician to Consult 05/24/18 09:48 Consult to Physician [CONS] Routine Comment: Consulting Provider: Jairo Heard Reason For Exam: Physician to Consult Medical - DS: Meds - Discharge Medications Prescriptions: Metoprolol Tartrate [Lopressor] 50 mg PO BID #60 tablet oxyCODONE HCL [Roxicodone] 5 mg PO Q4HP PRN #30 tablet PRN Reason: Severe Pain Active and Home Medications: Home Medications aspirin 81 mg tablet 81 mg PO QDAY 04/21/17 [History Confirmed 05/21/18 Last Taken 03/25/18] albuterol sulfate HFA 90 mcg/actuation aerosol inhaler 1 puff INHALATION Q6H PRN #18 g 11/26/17 [Rx Confirmed 05/21/18 Last Taken 03/22/18] atorvastatin 80 mg tablet 80 mg PO QDAY #90 tab 01/19/18 [Rx Confirmed 05/21/18 Last Taken 03/25/18] benazepril 40 mg tablet 40 mg PO QDAY #90 tab 01/19/18 [Rx Confirmed 05/21/18 Last Taken 03/25/18] fluticasone 200 mcg-vilanterol 25 mcg/dose powder for inhalation 1 inh INHALATION QDAY #60 each 03/22/18 [Rx Confirmed 05/21/18 Last Taken 03/22/18] tramadol 50 mg tablet 100 mg PO TID PRN #168 tab 04/19/18 [Rx Confirmed Last Taken Unknown] Hydrochlorothiazide [Oretic] 25 mg PO QDAY PRN 05/21/18 [History Confirmed 05/21 Last Taken Unknown] Medical - DS: Hosp Hospital course: Mr. Nixon is a 67 year old M who was diagnosed with diverticulitis in February, since then has had continued abdominal symptoms. Doubt colitis was treated with antibiotics with some improvement in patient's symptoms. The patient has been following up with Dr. Heard. Patient notes that since the last few months he has had progressive abdominal pain progressive distention of abdomen, weight loss, decreased appetite and generalized weakness and malaise. The patient had a colonoscopy done I believe last month, severe stricture to the sigmoid colon was noted, colonoscope was not passed beyond the stricture. The patient notes that he has had bowel movements since, however he has had progressive distention of abdomen along with abdominal pain. He notes that he was unable to bear the pain today and therefore came to the ER for further evaluation. He has had 2-3 liquid bowel movements today. The patient has a history of COPD/emphysema does not use oxygen at baseline, uses Brio on a daily basis no recent use of rescue inhaler, denies any history of myocardial infarction or congestive heart failure denies any history of CVA or TIA, no history of chronic kidney disease., no history of diabetes. The patient admits to being a daily smoker. In the emergency room patient was hemodynamically stable, low-grade temperature at 99.9, tachycardia 108, blood pressure was low 84/51, saturating 93% on 2 L. Labs showed normal WBC count at 6.4, hemoglobin 13,000, potassium 3.5, BUN 56 creatinine 1.5. Lactic acid 1.7, bicarbonate 34. UA is pending. CT abdomen and pelvis shows large small bowel obstruction in the sigmoid colon, stricture probably in the sigmoid colon, possible acute diverticulitis in that region. Emphysema noted. 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 Patient has poor effort tolerance is unable to climb one flight of stairs. 05/28 Patient seen examined, no acute overnight issues, patient has some chr pain for which he wans tramadol resumed X ray suggestive of worsening pleural effusion, and pna vs atelectasis, pt is positive [id number] since admission. No acute events on tele, sinus rhythm mostly, but has some SVT noted there was AFib with RVR for which cardizme and amiodarone was used Echo ordered 05/29 Patient seen and examined, no acute overnight events, no events on telemetry. Pain medications at home doses reviewed and resumed. Chest x-ray done today shows again worsening of infiltrate versus atelectasis and effusion. Patient is on IV diuretics but we will do a therapeutic thoracocentesis today. Echo result pending. Patient has no acute complaints still feels weak, but better. Surgery consult appreciated. Stoma is functioning well. Patient is having bowel movements as well as stool output from the stoma. xfer to med surg status. 05/30 Patient seen and examined, status post thoracocentesis complicated by significant pneumothorax. Status post chest tube placement by surgery. Repeat chest x-ray shows resolution of pneumothorax. Stoma functioning well. Pain control is reasonable. Patient is tolerating p.o. diet well he remains on TPN. Albumin still low. Besides the pain in the chest from the chest tube the patient has no acute complaints 05/31 Patient seen and examined, no acute overnight events, pain level is around 5-6. Chest x-ray shows no recurrence of pneumothorax. Plan to clamp chest tube and possible removal tomorrow. Patient is able to tolerate p.o. diet well is hungry. Remains on TPN will discuss with surgery if okay to discontinue same. IV lasix increased to 40, pt is diuresing well 06/01 Patient seen and examined, no acute overnight events, pain is controlled. Chest x-ray shows stable findings. Patient feels better feels that he is moving better appetite is coming back. Swelling is improving slowly. 06/02 Finally slept better. Had a mild headache earlier resolved. No new complaints. Good appetite this morning. 06/03 Continues to feel better doing well stable for discharge. And having BMs. Discharge diagnosis: Acute large bowel obstruction pneumothorax acute kidney injury COPD exacerb - Time Spent with Patient Total time spent providing and/or coordinating discharge services: Greater than 30 minutes Medical - DS: Exam - Constitutional Vitals: Vital Signs Temp Pulse Pulse Pulse Resp BP Pulse Ox 06/01/18 12:00 98.5 F 74 16 96/58 95 06/01/18 08:00 98.4 F 79 16 129/71 95 06/01/18 07:47 95 06/01/18 04:00 98.1 F 75 16 121/73 95 05/31/18 23:39 98.8 F 85 16 119/74 96 05/31/18 20:25 95 H 18 05/31/18 20:00 97.7 F 78 16 137/87 95 Intake and Output 06/01/18 06/01/18 06/01/18 05:59 13:59 21:59 Intake Total 150 / 150 300 / 300 Output Total 725 / 725 900 / 900 275 / 275 Balance -575 / -575 -600 / -600 -275 / -275 Intake: IV 100 / 100 300 / 300 Oral 50 / 50 Output: Void Amount 600 / 600 400 / 400 Urine/Stool Mix 500 / 500 275 / 275 Stool 125 / 125 Other: Urine Appearance Clear Clear Clear Urine Color Dark Lyric Bright Yellow Bright Yellow Urine Odor Normal Normal Normal Stool Size Small Stool Color Brown Stool Consistency Loose # Bowel Movements 2 1 Medical - DS: Data Labs on day of discharge: Labs from last 24 hours 06/01/18 06/01/18 06/01/18 08:08 08:08 04:40 WBC 8.3 RBC 3.53 L Hgb 10.4 L Hct 31.2 L MCV 88.3 MCH 29.3 MCHC 33.2 RDW 15.8 H Plt Count 313 MPV 6.9 L Gran % 81.1 H Lymph % (Auto) 10.1 L Sear[place] % (Auto) 5.6 Eos % (Auto) 3.2 Baso % (Auto) 0 Gran # 6.7 Lymph # (Auto) 0.8 L [place] # (Auto) 0.5 Eos # (Auto) 0.3 Baso # (Auto) 0 Sodium 141 TNP Potassium 3.2 L TNP Chloride 108 TNP Carbon Dioxide 27 TNP Anion Gap 6.0 L TNP BUN 20 TNP Creatinine 0.5 L TNP GFR Calculation 112 Not Reportable Glucose 87 TNP Uric Acid 3.6 TNP Calcium 7.0 L TNP Phosphorus 2.7 TNP Magnesium 1.6 TNP Total Bilirubin 0.3 TNP Direct Bilirubin < 0.2 TNP GGT 51 TNP AST 27 TNP ALT 15 TNP Alkaline Phosphatase 54 TNP Lactate Dehydrogenase 257 H TNP Total Protein 4.4 L TNP Albumin 1.9 L TNP Globulin 2.5 TNP Albumin/Globulin Ratio 0.8 L TNP Triglycerides 74 TNP 06/01/18 04:40 WBC 8.3 RBC 3.40 L Hgb 9.8 L Hct 30.0 L MCV 88.4 MCH 28.9 MCHC 32.7 RDW 15.4 H Plt Count 288 MPV 7.2 L Gran % 79.8 H Lymph % (Auto) 11.8 L Sear[place] % (Auto) 5.1 Eos % (Auto) 3.1 Baso % (Auto) 0.2 Gran # 6.6 Lymph # (Auto) 1.0 L Sear[place] # (Auto) 0.4 Eos # (Auto) 0.3 Baso # (Auto) 0 Sodium Potassium Chloride Carbon Dioxide Anion Gap BUN Creatinine GFR Calculation Glucose Uric Acid Calcium Phosphorus Magnesium Total Bilirubin Direct Bilirubin GGT AST ALT Alkaline Phosphatase Lactate Dehydrogenase Total Protein Albumin Globulin Albumin/Globulin Ratio Triglycerides Medical - DS: A/P - Patient/Caregiver Discharge Instructions Activity: as per physical therapy Diet: Regular Diet Prescriptions: Metoprolol Tartrate [Lopressor] 50 mg PO BID #60 tablet oxyCODONE HCL [Roxicodone] 5 mg PO Q4HP PRN #30 tablet PRN Reason: Severe Pain - Follow up Plan Follow up with: Luciano Griffin DO [Primary Care Provider] - Jairo Heard MD [Physician] - Disposition: Home Health Service Prognosis: Fair Rehab Potential: Fair Medical - DS: Qual - VTE Deep Vein Thrombosis/Pulmonary Embolism Present on Admission: No
[2018-06-01] MEDS ORDERED: ACETAMINOPHEN 325 MG TABLET PO PRN (16:07)
[2018-06-02] MEDS: oxyCODONE HCL 5 MG TABLET PO PRN ×2 (04:01→07:34)
[2018-06-02] MEDS: traMADol 50 MG TABLET PO PRN ×3 (05:02→18:59)
[2018-06-02 05:13] LABS: Basophils # (Auto) 0 K/mcL (0.0-0.3); Basophils % (Auto) 0.3 % (0.0-2.0); Eosinophils # (Auto) 0.3 K/mcL (0.0-0.7); Eosinophils % (Auto) 4.6 % (0.0-7.0); Granulocytes % (Auto) 72.9 % (38.0-78.0); Lymphocytes # (Auto) 1.1 K/mcL (1.5-4.8); Lymphocytes % (Auto) 15.6 % (15.5-49.0); Mean Cell Volume 87.2 fL (80.0-100.0); Mean Corpuscular HGB Conc 33.6 g/dL (31.0-36.0); Mean Corpuscular Hemoglobin 29.3 pg (26.0-34.0); Monocytes # (Auto) 0.5 K/mcL (0.1-0.9); Monocytes % (Auto) 6.6 % (1.0-12.0); Platelet Count 320 K/mcL (140-440); RBC 3.38 M/mcL (4.50-5.90); Red Cell Distribution Width 15.8 % (11.5-14.5)
[2018-06-02 05:41] LABS: ALT/SGPT 17 U/l (0-40); Albumin 1.9 gm/dL (3.2-5.2); Albumin/Globulin Ratio 0.8 (1.0-2.3); Alkaline Phosphatase 55 U/L (39-117); Bilirubin,Direct < 0.2 mg/dL (0.0-0.3); Blood Urea Nitrogen 21 mg/dl (8-23); Gamma Glutamyl Transpeptidase 46 U/L (8-61); Uric Acid 4.2 mg/dL (2.5-8.0)
[2018-06-02] MEDS: metroNIDAZOLE 500 MG/100 ML BAG IV SCH ×3 (06:01→21:59)
[2018-06-02] MEDS: IPRATROPIUM/ALBUTEROL 3 ML AMPUL.NEB NEB PRN ×2 (06:49→20:22)
[2018-06-02] MEDS: BUDESONIDE 0.5 MG/2 ML AMPUL.NEB NEB SCH ×3 (06:50→20:14)
[2018-06-02] MEDS ORDERED: MAGNESIUM SULFATE 8.12 MEQ in DEXTROSE 5% IN WATER 50 ML IV ONE (07:04)
[2018-06-02] MEDS ORDERED: POTASSIUM CHLORIDE 20 MEQ TABLET PO ONE (07:04)
--- NOTE | 2018-06-02 07:06 | Internal Med Progress Note ---
Medical - PN: Subj Patient information: Note initiated : 06/02/18 at 7:04 am Service Date, if different from initiated Date: [] Patient: Luciano Nixon 67 y/o M admitted on 05/21/18 for Abdominal Pain/ Large Bowel Obstruction. Chief Complaint: [] Interval history: 05/28 Patient seen examined, no acute overnight issues, patient has some chr pain for which he wans tramadol resumed X ray suggestive of worsening pleural effusion, and pna vs atelectasis, pt is positive [id number] since admission. No acute events on tele, sinus rhythm mostly, but has some SVT noted there was AFib with RVR for which cardizme and amiodarone was used Echo ordered 05/29 Patient seen and examined, no acute overnight events, no events on telemetry. Pain medications at home doses reviewed and resumed. Chest x-ray done today shows again worsening of infiltrate versus atelectasis and effusion. Patient is on IV diuretics but we will do a therapeutic thoracocentesis today. Echo result pending. Patient has no acute complaints still feels weak, but better. Surgery consult appreciated. Stoma is functioning well. Patient is having bowel movements as well as stool output from the stoma. xfer to med surg status. 05/30 Patient seen and examined, status post thoracocentesis complicated by significant pneumothorax. Status post chest tube placement by surgery. Repeat chest x-ray shows resolution of pneumothorax. Stoma functioning well. Pain control is reasonable. Patient is tolerating p.o. diet well he remains on TPN. Albumin still low. Besides the pain in the chest from the chest tube the patient has no acute complaints 05/31 Patient seen and examined, no acute overnight events, pain level is around 5-6. Chest x-ray shows no recurrence of pneumothorax. Plan to clamp chest tube and possible removal tomorrow. Patient is able to tolerate p.o. diet well is hungry. Remains on TPN will discuss with surgery if okay to discontinue same. IV lasix increased to 40, pt is diuresing well 06/01 Patient seen and examined, no acute overnight events, pain is controlled. Chest x-ray shows stable findings. Patient feels better feels that he is moving better appetite is coming back. Swelling is improving slowly 06/02 Finally slept better. Had a mild headache earlier resolved. No new complaints. Good appetite this morning. Review of Systems: denies fever/chills/nausea/vomiting/chest or abdominal pain/cough/dyspnea. Otherwise see above. - Constitutional Vitals: Vital Signs Temp Pulse Resp BP Pulse Ox 98.4 F 71 19 113/63 92 06/02/18 04:00 06/02/18 04:00 06/02/18 04:00 06/02/18 04:00 06/02/18 04:00 Period Temp Pulse Resp BP Sys/Faria Pulse Ox Last 24 Hr 98.3 F-98.7 F 71-88 16-19 96-129/58-71 92-95 Intake and Output 06/01/18 06/02/18 06/02/18 21:59 05:59 13:59 Intake Total 400 / 400 350 / 350 Output Total 800 / 800 275 / 275 Balance -400 / -400 75 / 75 Weight 64.637 kg Intake & Output: Intake & Output 06/01/18 06/02/18 06/02/18 21:59 05:59 13:59 Intake Total 400 / 400 350 / 350 Output Total 800 / 800 275 / 275 Balance -400 / -400 75 / 75 Weight 64.637 kg Intake: IV 100 / 100 300 / 300 Oral 300 / 300 50 / 50 Output: Void Amount 150 / 150 200 / 200 Urine/Stool Mix 275 / 275 Stool 375 / 375 75 / 75 Other: Urine Appearance Clear Urine Color Bright Yellow Dark Lyric Urine Odor Normal Normal Stool Size Small Stool Color Brown Stool Consistency Liquid Loose # Voids 175 1 # Bowel Movements 1 Exam: General: Alert, Awake, No acute Distress HEENT: EOMI, neck supple CV: RRR, No murmurs, normal s1/s2 Pulm: Clear b/l, no wheezing/rhonchi/rales Abd: soft, Ext: no clubbing/cyanosis, trace b/l LE edema Neuro: Alert, no focal deficits, moves all extremities Skin: warm/dry Medical - PN: Obj Da - Labs CBC & Chem 7: 06/02/18 04:24 06/02/18 04:23 Labs: Abnormal Lab Results 06/02/18 06/02/18 06/01/18 04:24 04:23 08:08 RBC 3.38 L Hgb 9.9 L Hct 29.5 L RDW 15.8 H MPV 7.0 L Gran % Lymph % (Auto) Lymph # (Auto) 1.1 L Potassium 3.0 L 3.2 L Anion Gap 6.0 L BUN Creatinine 0.5 L Calcium 7.0 L 7.0 L Phosphorus 2.5 L Magnesium 1.4 L Lactate Dehydrogenase 257 H Total Protein 4.4 L 4.4 L Albumin 1.9 L 1.9 L Albumin/Globulin Ratio 0.8 L 0.8 L 06/01/18 06/01/18 05/31/18 08:08 04:40 04:00 RBC 3.53 L 3.40 L Hgb 10.4 L 9.8 L Hct 31.2 L 30.0 L RDW 15.8 H 15.4 H MPV 6.9 L 7.2 L Gran % 81.1 H 79.8 H Lymph % (Auto) 10.1 L 11.8 L Lymph # (Auto) 0.8 L 1.0 L Potassium Anion Gap BUN 24 H Creatinine 0.6 L Calcium 7.2 L Phosphorus Magnesium Lactate Dehydrogenase Total Protein 4.2 L Albumin 1.9 L Albumin/Globulin Ratio 0.8 L 05/31/18 05/30/18 04:00 04:00 RBC 3.48 L Hgb 10.1 L Hct 30.5 L RDW 15.5 H MPV 6.8 L Gran % 82.8 H Lymph % (Auto) 12.0 L Lymph # (Auto) 1.1 L Potassium Anion Gap BUN 25 H Creatinine Calcium 7.2 L Phosphorus Magnesium Lactate Dehydrogenase 300 H Total Protein 4.4 L Albumin 2.1 L Albumin/Globulin Ratio 0.9 L Meds: Medications Acetaminophen (Tylenol) 650 mg PO Q4HP PRN PRN Reason: PAIN/FEVER > 101 Last Admin: 06/01/18 16:15 Dose: 650 mg Albuterol/Ipratropium (Duoneb) 3 ml NEB Q6HP PRN PRN Reason: Shortness Of Breath Last Admin: 06/02/18 06:49 Dose: 3 ml Budesonide (Pulmicort) 0.5 mg NEB Q12 [facility] Last Admin: 06/02/18 06:50 Dose: 0.5 mg Famotidine (Pepcid) 20 mg PO BID [facility] Last Admin: 06/01/18 20:44 Dose: 20 mg Fentanyl (Sublimaze) 25 mcg IV Q1HP PRN PRN Reason: PAIN LEVEL > 6 Furosemide (Lasix) 40 mg IV DAILY [facility] Last Admin: 06/01/18 09:45 Dose: 40 mg Guaifenesin (Mucinex) 600 mg PO BIDP PRN PRN Reason: Congestion Last Admin: 06/01/18 20:44 Dose: 600 mg Heparin Sodium (Porcine) (Heparin) 5,000 unit SQ Q12 [facility] Last Admin: 06/01/18 20:45 Dose: 5,000 unit Heparin Sodium (Porcine) (Heparin Flush) 2 ml IV Q12 [facility] Last Admin: 06/01/18 20:46 Dose: 2 ml Hydrocortisone Sodium Succinate (Solu-Cortef) 12.5 mg IV DAILY [facility] Stop: 06/02/18 08:59 Last Admin: 06/01/18 09:40 Dose: 12.5 mg Hydromorphone HCl (Dilaudid) 1 mg IV Q2HP PRN PRN Reason: PAIN LEVEL > 6 Last Admin: 06/01/18 23:22 Dose: 1 mg Metronidazole (Flagyl) 500 mg in 100 mls @ 100 mls/hr IV Q8H [facility] Last Admin: 06/02/18 06:01 Dose: 100 mls/hr Ciprofloxacin (Cipro) 400 mg in 200 mls @ 200 mls/hr IV Q12H [facility] Last Infusion: 06/01/18 22:02 Dose: Infused Metoprolol Tartrate (Lopressor) 50 mg PO BID [facility] Last Admin: 06/01/18 20:44 Dose: 50 mg Naloxone HCl (Narcan) 0.1 mg IV Q2MIN PRN PRN Reason: Opiate Reversal Ondansetron HCl (Zofran) 4 mg IV Q4HP PRN PRN Reason: Nausea And Vomiting Oxycodone HCl (Roxicodone) 5 mg PO Q4HP PRN PRN Reason: Severe Pain Last Admin: 06/02/18 04:01 Dose: 5 mg Sodium Chloride (Saline Flush) 10 ml IV UD PRN PRN Reason: FLUSH Last Admin: 05/29/18 14:35 Dose: 10 ml Tramadol HCl (Ultram) 100 mg PO Q6HP PRN PRN Reason: Pain Last Admin: 06/02/18 05:02 Dose: 100 mg Medical - PN: A/P - Time Spent With Patient Total time spent is greater than 50% in coordination of care (as documented) at patient's floor/unit and/or counseling patient: - Narrative A/P Narrative: Assess: *Acute large bowel obstruction: s/p surgery with colostomy, followed by Dr Del Cid and now Dr Heard, Ostomy draining well, pt reports some urge to have bowel movement, etiology could be colon ca or diverticulosis. *Acute Pneumothorax: s/p thoracocentesis, s/p chest tube, with good reexpansion of the lung, removed 06/01 *Acute Kidney Injury; resolved, creat is now normal, diuresing well. *Fluid overload: Generalized fluid overload noted, albumin is 2.0, IV lasix daily will change to PO in AM *Pleural effusion: s/p thoracocentesis, left sided, 900cc drained, transudative. microbiology is neg. *COPD exacerbation: no wheezing, no increased oxygen needs, off steroids now. *Acute hypoxic respiratory failure: resolved, on room air now. *Hypertension: BP stable, continue home meds, *episode of Atrial fibrillation, now NSR: Noted on tele, needed cardizem/ amiodarone, on metoprolol now and stable. Etiology likely post op/ electrolytes imbalances -Echo ordered, results awaited *Hyperlipidemia- continue statin *Iliac artery aneurysm thrombosed.- stable *Hypokal/Mag: prn replace Diet: being advanced by surgery. TPN stopped ppx: scd/pepcid Medical - PN: Qual - VTE Is this test being ordered to rule out VTE?: No Deep Vein Thrombosis/Pulmonary Embolism Present on Admission: No
--- NOTE | 2018-06-02 07:47 | XRay Report ---
CLINICAL INFORMATION: Follow-up of pneumothorax status post chest tube COMPARISON: 06/01/2018 FINDINGS: No evidence of recurrent left pneumothorax or effusion. Subcutaneous emphysema in the left lateral chest wall has regressed. Moderate right basilar infiltrate is more consolidated with small right pleural effusion. Heart size, mediastinum and pulmonary vessels remain normal. Right sided PICC line remains in stable, satisfactory position. IMPRESSION: 1. Moderate consolidated right basilar infiltrate and small effusion - worsening 2. 3. No evidence recurrent left pneumothorax or effusion. The subcutaneous emphysema left lateral chest wall continues to subside. Interpreted and Authenticated by: Luciano Smith 06/02/18
[2018-06-02] MEDS ORDERED: CALCIUM GLUCONATE 4.65 MEQ/10 ML VIAL IV ONE (08:27)
[2018-06-02] MEDS ORDERED: CALCIUM GLUCONATE 9.3 MEQ in DEXTROSE 5% IN WATER 100 ML IV ONE (09:00)
[2018-06-02] MEDS: METOPROLOL TARTRATE 25 MG TABLET PO SCH ×2 (09:42→20:49)
[2018-06-02] MEDS: FAMOTIDINE 20 MG TABLET PO SCH ×2 (09:42→20:49)
[2018-06-02] MEDS: FUROSEMIDE 20 MG/2 ML VIAL IV SCH (09:42)
[2018-06-02] MEDS: HEPARIN 5,000 UNIT/ML VIAL SQ SCH ×2 (09:43→20:49)
[2018-06-02] MEDS: guaiFENesin 600 MG TAB.SR.12H PO PRN (09:43)
[2018-06-02] MEDS: HYDROmorphone 2 MG/ML VIAL IV PRN ×2 (09:44→13:46)
[2018-06-02] MEDS: CIPROFLOXACIN 400 MG/200 ML BAG IV SCH ×2 (10:43→20:49)
--- NOTE | 2018-06-02 15:09 | General Surgery Progress Note ---
Subjective Patient reports: feels better, pain is less, tolerating a regular diet, flatus, bowel movement, afebrile Narrative: Note initiated : 06/02/18 at 3:04 pm Service Date, if different from initiated Date: [] Patient: Luciano Nixon 67 y/o M admitted on 05/21/18 for Abdominal Pain/ Large Bowel Obstruction. Chief Complaint: [patient is doing well. He does not have any chest discomfort or shortness of breath. He has had good output through his stoma and denies nausea. Chest x-ray shows full expansion of his lung on the left side.] Objective Temp Pulse Resp BP Pulse Ox 98.3 F 81 18 112/70 92 06/02/18 12:00 06/02/18 12:00 06/02/18 12:00 06/02/18 12:00 06/02/18 12:00 - Additional Data Intake & Output - Last 24 hours: Intake & Output 05/31/18 06/01/18 06/02/18 06/03/18 05:59 05:59 05:59 05:59 Intake Total 1150 / 1150 910 / 910 1050 / 1050 300 / 300 Output Total 2335 / 2335 3100 / 3100 1974 / 1974 600 / 600 Balance -1185 / -1185 -2190 / -2190 -925 / -925 -300 / -300 Weight 158 lb 155 lb 142 lb 8 oz - General physical appearance moderate pain, chronically ill - Eyes PERRL, normal ocular movement - ENT normal pinna, normal nares, normal mucosa, no hearing loss, no congestion - Neck no masses, no bruits, trachea midline, no lymphadectomy, no venous distension - Respiratory normal expansion, normal respiratory effort, clear to auscultation - Cardiovascular Cardiovascular exam: Present: normal rate and rhythm, RRR, +S1, +S2. Absent: JVD, tachycardia - Abdomen tender (Minimal tenderness of incision; good active bowel sounds; stoma looks good) - Integumentary no rash, no growths, no abnormal pigmentation - Neurologic normal coordination, normal sensation - Musculoskeletal normal gait, normal posture - Psychiatric oriented to time, oriented to person, oriented to place, speech is normal, memory intact - Labs 06/02/18 04:24 06/02/18 04:23 Diabetes panel 06/02/18 Range/Units 04:23 Sodium 143 (133-145) mmol/L Potassium 3.0 L (3.3-5.1) mmol/L Chloride 107 (96-108) mmol/L Carbon Dioxide 28 (22-30) mmol/L BUN 21 (8-23) mg/dl Creatinine 0.7 (0.7-1.2) mg/dl Glucose 73 (70-105) mg/dL Calcium 7.0 L (8.6-10.4) mg/dl AST 29 (0-37) U/l ALT 17 (0-40) U/l Alkaline Phosphatase 55 (39-117) U/L Total Protein 4.4 L (5.9-8.4) gm/dL Albumin 1.9 L (3.2-5.2) gm/dL Triglycerides 126 (<150) mg/dl Calcium panel 06/02/18 Range/Units 04:23 Calcium 7.0 L (8.6-10.4) mg/dl Phosphorus 2.5 L (2.7-4.5) mg/dL Albumin 1.9 L (3.2-5.2) gm/dL Pituitary panel 06/02/18 Range/Units 04:23 Sodium 143 (133-145) mmol/L Potassium 3.0 L (3.3-5.1) mmol/L Chloride 107 (96-108) mmol/L Carbon Dioxide 28 (22-30) mmol/L BUN 21 (8-23) mg/dl Creatinine 0.7 (0.7-1.2) mg/dl Glucose 73 (70-105) mg/dL Calcium 7.0 L (8.6-10.4) mg/dl Adrenal panel 06/02/18 Range/Units 04:23 Sodium 143 (133-145) mmol/L Potassium 3.0 L (3.3-5.1) mmol/L Chloride 107 (96-108) mmol/L Carbon Dioxide 28 (22-30) mmol/L BUN 21 (8-23) mg/dl Creatinine 0.7 (0.7-1.2) mg/dl Glucose 73 (70-105) mg/dL Calcium 7.0 L (8.6-10.4) mg/dl Total Bilirubin 0.4 (0.0-1.0) mg/dL AST 29 (0-37) U/l ALT 17 (0-40) U/l Alkaline Phosphatase 55 (39-117) U/L Total Protein 4.4 L (5.9-8.4) gm/dL Albumin 1.9 L (3.2-5.2) gm/dL Assessment and Plan (1) Pneumothorax, left Status: Resolved Assessment and plan: Pneumothorax has resolved. Chest x-ray confirms full expansion after removal of chest tube Current Visit: Yes (2) COPD with exacerbation Problem details: stable on vent CO2 48. cont Pressure support trial at 12/26. Status: Chronic Assessment and plan: Stable on present treatment Current Visit: Yes (3) Large bowel obstruction Status: Resolved Assessment and plan: Patient has good stoma function Current Visit: Yes (4) Hypertension, essential Status: Chronic Current Visit: No (5) COPD (chronic obstructive pulmonary disease) Status: Chronic Current Visit: No - Time Spent With Patient Total time spent is greater than 50% in coordination of care (as documented) at patient's floor/unit and/or counseling patient:
[2018-06-03] MEDS: traMADol 50 MG TABLET PO PRN ×2 (03:19→09:51)
[2018-06-03] MEDS: guaiFENesin 600 MG TAB.SR.12H PO PRN ×2 (03:22→09:51)
[2018-06-03] MEDS: metroNIDAZOLE 500 MG/100 ML BAG IV SCH ×2 (05:52→14:33)
[2018-06-03 06:52] LABS: ALT/SGPT 15 U/l (0-40); Albumin/Globulin Ratio 0.8 (1.0-2.3); Alkaline Phosphatase 54 U/L (39-117); Bilirubin,Direct < 0.2 mg/dL (0.0-0.3); Blood Urea Nitrogen 19 mg/dl (8-23); Gamma Glutamyl Transpeptidase 47 U/L (8-61); Uric Acid 4.3 mg/dL (2.5-8.0)
[2018-06-03] MEDS: oxyCODONE HCL 5 MG TABLET PO PRN ×2 (07:02→14:32)
[2018-06-03] MEDS ORDERED: POTASSIUM CHLORIDE 20 MEQ TABLET PO STA (07:07)
[2018-06-03] MEDS ORDERED: POTASSIUM CHLORIDE 20 MEQ in DEXTROSE 5% IN WATER 250 ML IV ONE (07:07)
[2018-06-03] MEDS ORDERED: MAGNESIUM SULFATE 2 GM/50 ML BAG IV ONE (07:07)
[2018-06-03] MEDS: CIPROFLOXACIN 400 MG/200 ML BAG IV SCH (07:33)
[2018-06-03] MEDS: METOPROLOL TARTRATE 25 MG TABLET PO SCH (07:34)
[2018-06-03] MEDS: HEPARIN 5,000 UNIT/ML VIAL SQ SCH (07:34)
[2018-06-03] MEDS: FAMOTIDINE 20 MG TABLET PO SCH (07:34)
[2018-06-03] MEDS: FUROSEMIDE 20 MG/2 ML VIAL IV SCH (07:34)
[2018-06-03] MEDS: IPRATROPIUM/ALBUTEROL 3 ML AMPUL.NEB NEB PRN (09:34)
[2018-06-03] MEDS: BUDESONIDE 0.5 MG/2 ML AMPUL.NEB NEB SCH (09:37)
[2018-06-03] MEDS: HYDROmorphone 2 MG/ML VIAL IV PRN (14:31)
== END 2018-06-03 17:10 | disposition home health service (06) | DRG 329 ==
LOC: ED 15:30 → ICU 22:26 → MEDSUR 05-29 17:15
PROVIDERS: ADMIT Internal Medicine; ATTEND Internal Medicine
CPT/HCPCS: 32551; 32555; 44320; 45300; 47100; 80047; 84145; 85014; 90686; 93306; 97161; 99223; 99231; A4221; A4340; C1751; C1758; C1769; J0131; J0282; J0330; J0610; J0744; J1100; J1170; J1644; J1720; J1817; J1885; J1940; J2001; J2060; J2250; J2405; J2765; J3010; J3411; J3475; J3480; J7030; J7050; J7060; J7120; J7608; J7620; J7620-GY; J7626; J7626-GY; P9047

== ENCOUNTER 2018-09-08 05:03 | Inpatient (IN) ==
--- NOTE | 2018-09-02 16:11 | XRay Report ---
CLINICAL INFORMATION: pre surgery COMPARISON: 06/10/2018 FINDINGS: The heart size, mediastinum and pulmonary vessels are unremarkable. COPD changes - no acute disease. There are no effusions. The bones and soft tissues are within normal limits. IMPRESSION: COPD changes - no acute disease. Interpreted and Authenticated by: Luciano Smith 09/02/18
[2018-09-02 19:21] LABS: ALT/SGPT 12 U/l (0-40); Albumin 3.8 gm/dL (3.2-5.2); Albumin/Globulin Ratio 1.2 (1.0-2.3); Alkaline Phosphatase 118 U/L (39-117); Blood Urea Nitrogen 14 mg/dl (8-23)
[2018-09-02 19:26] LABS: Basophils # (Auto) 0 K/mcL (0.0-0.3); Basophils % (Auto) 0.6 % (0.0-2.0); Eosinophils # (Auto) 0.7 K/mcL (0.0-0.7); Eosinophils % (Auto) 9.7 % (0.0-7.0); Granulocytes % (Auto) 55.9 % (38.0-78.0); Lymphocytes # (Auto) 2.1 K/mcL (1.5-4.8); Lymphocytes % (Auto) 28.1 % (15.5-49.0); Mean Cell Volume 89.5 fL (80.0-100.0); Mean Corpuscular HGB Conc 33.2 g/dL (31.0-36.0); Monocytes # (Auto) 0.4 K/mcL (0.1-0.9); Monocytes % (Auto) 5.7 % (1.0-12.0); Platelet Count 299 K/mcL (140-440); RBC 5.06 M/mcL (4.50-5.90); Red Cell Distribution Width 13.2 % (11.5-14.5)
[2018-09-08] MEDS ORDERED: metroNIDAZOLE 500 MG/100 ML BAG IV ONE (07:00)
[2018-09-08] MEDS ORDERED: KETAMINE 100 MG/ML ML IV ONE (07:45)
[2018-09-08] MEDS ORDERED: DEXAMETHASONE 10 MG/ML VIAL IV ONE (07:45)
[2018-09-08] MEDS ORDERED: ROCURONIUM 10 MG/ML ML IV ONE (07:45)
[2018-09-08] MEDS ORDERED: NEOSTIGMINE 1 MG/ML VIAL IV ONE (07:45)
[2018-09-08] MEDS ORDERED: MIDAZOLAM 2 MG/2 ML VIAL IV ONE (07:45)
[2018-09-08] MEDS ORDERED: ePHEDrine 50 MG/ML AMPUL IV ONE (07:45)
[2018-09-08] MEDS ORDERED: GLYCOPYRROLATE 0.2 MG/ML VIAL IV ONE (07:45)
[2018-09-08] MEDS ORDERED: LIDOCAINE HCL/PF 100 MG/5 ML SYRINGE IV ONE (07:45)
[2018-09-08] MEDS ORDERED: ONDANSETRON 4 MG/2 ML VIAL IV ONE (07:45)
[2018-09-08] MEDS ORDERED: HYDROmorphone 2 MG/ML VIAL IV ONE (07:45)
[2018-09-08] MEDS ORDERED: PROPOFOL 200 MG/20 ML VIAL IV ONE (07:45)
[2018-09-08] MEDS ORDERED: cefOXitin 2 GM VIAL IV SCH (08:00)
[2018-09-08] MEDS ORDERED: NALOXONE HCL 0.4 MG/ML VIAL IV PRN (09:47)
[2018-09-08] MEDS ORDERED: fentaNYL 100 MCG/2 ML VIAL IV PRN (09:47)
[2018-09-08] MEDS ORDERED: FLUMAZENIL 0.1 MG/ML ML IV PRN (09:47)
[2018-09-08] MEDS ORDERED: BENZOCAINE/MENTHOL 1 LOZENGE PO PRN (09:47)
[2018-09-08] MEDS ORDERED: HYDROmorphone 2 MG/ML VIAL IV PRN (09:47)
[2018-09-08] MEDS ORDERED: ONDANSETRON 4 MG/2 ML VIAL IV PRN ×2 (09:47→11:34)
[2018-09-08] MEDS ORDERED: MEPERIDINE 25 MG/ML SYRINGE IV PRN (09:47)
[2018-09-08] MEDS ORDERED: PROMETHAZINE 25 MG/ML VIAL IV PRN (09:47)
[2018-09-08] MEDS ORDERED: IPRATROPIUM/ALBUTEROL 3 ML AMPUL.NEB NEB PRN (09:47)
[2018-09-08] MEDS ORDERED: LACTATED RINGERS 250 ML IV PRN (09:47)
[2018-09-08] MEDS ORDERED: ACETAMINOPHEN 1,000 MG/100 ML BOTTLE IV ONE ×2 (09:47→22:20)
[2018-09-08] MEDS ORDERED: diphenhydrAMINE 50 MG/ML VIAL IV PRN (09:47)
[2018-09-08] MEDS ORDERED: LACTATED RINGERS 1,000 ML IV SCH (10:00)
--- NOTE | 2018-09-08 10:11 | Brief Operative Note ---
Date of procedure: 09/08/18 Pre-op diagnosis: diverticulitis with colostomy Post-op diagnosis: other (diverticulitis with colostomy) Procedure: sigmoid colectomy with Hartmans pouch Grafts/Implants: No Anesthesia: GETA Findings: SEVERE INFLAMMATION OF SIGMOID COLON AND PROXIMAL RECTUM Complications: none Surgeon: Jairo Heard Estimated blood loss (cc): 50 Specimens Removed/Pathology: other (SIGMOID COLON) Condition: stable Disposition: PACU
[2018-09-08] MEDS ORDERED: ALBUTEROL SULFATE 1 PUFF INHALER INH PRN (10:34)
[2018-09-08] MEDS: METOCLOPRAMIDE 10 MG/2 ML VIAL IV SCH ×2 (12:23→17:33)
[2018-09-08] MEDS: PIPERACILLIN SODIUM/TAZOBACTAM 3.375 GM in DEXTROSE 5% IN WATER 50 ML IV SCH ×2 (12:23→17:37)
[2018-09-08] MEDS: 0.9 % SODIUM CHLORIDE 1,000 ML IV SCH ×2 (12:23→20:40)
[2018-09-08] MEDS: HYDROmorphone 2 MG/ML VIAL IV PRN ×3 (12:33→19:57)
[2018-09-08] MEDS: 0.9 % SODIUM CHLORIDE 10 ML SYRINGE IV SCH ×2 (13:41→20:40)
[2018-09-08] MEDS: metroNIDAZOLE 500 MG/100 ML BAG IV SCH ×2 (13:46→19:48)
[2018-09-08] MEDS: ACETAMINOPHEN 1,000 MG in PREMIX 1 BAG IV SCH ×2 (16:23→22:25)
[2018-09-08] MEDS: PANTOPRAZOLE 40 MG VIAL IV SCH (17:32)
[2018-09-08] MEDS: METOPROLOL TARTRATE 50 MG TABLET PO SCH (20:39)
[2018-09-08] MEDS: Mometasone/Formoterol [Dulera] 100 Mcg/5 Mcg Inhaler INH SCH (20:40)
[2018-09-08] MEDS ORDERED: METOPROLOL TARTRATE 50 MG TABLET PO SCH (21:00)
[2018-09-08] MEDS ORDERED: Mometasone/Formoterol [Dulera] 100 Mcg/5 Mcg Inhaler INH SCH (21:00)
[2018-09-09] MEDS: METOCLOPRAMIDE 10 MG/2 ML VIAL IV SCH ×5 (00:02→23:28)
[2018-09-09] MEDS: PIPERACILLIN SODIUM/TAZOBACTAM 3.375 GM in DEXTROSE 5% IN WATER 50 ML IV SCH ×5 (00:03→23:28)
[2018-09-09] MEDS: 0.9 % SODIUM CHLORIDE 1,000 ML IV SCH ×5 (01:11→19:32)
[2018-09-09] MEDS: metroNIDAZOLE 500 MG/100 ML BAG IV SCH ×4 (01:12→19:57)
[2018-09-09] MEDS: HYDROmorphone 2 MG/ML VIAL IV PRN ×11 (01:21→22:43)
[2018-09-09] MEDS ORDERED: ACETAMINOPHEN 1,000 MG/100 ML BOTTLE IV ONE ×2 (03:12→10:03)
[2018-09-09] MEDS: ACETAMINOPHEN 1,000 MG in PREMIX 1 BAG IV SCH ×2 (03:17→10:12)
[2018-09-09] MEDS: 0.9 % SODIUM CHLORIDE 10 ML SYRINGE IV SCH ×3 (05:36→20:29)
[2018-09-09 06:31] LABS: Basophils # (Auto) 0.1 K/mcL (0.0-0.3); Basophils % (Auto) 0.4 % (0.0-2.0); Eosinophils # (Auto) 0 K/mcL (0.0-0.7); Eosinophils % (Auto) 0 % (0.0-7.0); Granulocytes % (Auto) 90.3 % (38.0-78.0); Lymphocytes # (Auto) 0.7 K/mcL (1.5-4.8); Lymphocytes % (Auto) 5.2 % (15.5-49.0); Mean Cell Volume 89.2 fL (80.0-100.0); Mean Corpuscular HGB Conc 32.7 g/dL (31.0-36.0); Monocytes # (Auto) 0.5 K/mcL (0.1-0.9); Monocytes % (Auto) 4.1 % (1.0-12.0); Platelet Count 208 K/mcL (140-440); RBC 4.18 M/mcL (4.50-5.90); Red Cell Distribution Width 12.6 % (11.5-14.5)
[2018-09-09] MEDS: PANTOPRAZOLE 40 MG VIAL IV SCH ×2 (06:45→17:50)
[2018-09-09 07:18] LABS: ALT/SGPT 8 U/l (0-40); Albumin 2.8 gm/dL (3.2-5.2); Albumin/Globulin Ratio 1.1 (1.0-2.3); Alkaline Phosphatase 76 U/L (39-117); Bilirubin,Direct < 0.2 mg/dL (0.0-0.3); Blood Urea Nitrogen 27 mg/dl (8-23); Gamma Glutamyl Transpeptidase 12 U/L (8-61); Uric Acid 6.3 mg/dL (2.5-8.0)
[2018-09-09] MEDS ORDERED: Fluticasone/Vilanterol [Breo Ellipta] 200-25 Mcg Inhaler INH SCH (09:00)
[2018-09-09] MEDS: Fluticasone/Vilanterol [Breo Ellipta] 200-25 Mcg Inhaler INH SCH (09:28)
[2018-09-09] MEDS: Mometasone/Formoterol [Dulera] 100 Mcg/5 Mcg Inhaler INH SCH ×2 (09:28→19:33)
[2018-09-09] MEDS: METOPROLOL TARTRATE 50 MG TABLET PO SCH ×2 (09:28→19:53)
[2018-09-09] MEDS ORDERED: MAGNESIUM SULFATE 32.48 MEQ in DEXTROSE 5% IN WATER 50 ML IV ONE (12:28)
[2018-09-09] MEDS ORDERED: MAGNESIUM SULFATE IN WATER 4 GM/100 ML BAG IV ONE (13:00)
--- NOTE | 2018-09-09 16:20 | General Surgery Progress Note ---
Subjective Patient reports: feels better, still having pain, no flatus, no bowel movement, afebrile Narrative: Note initiated : 09/09/18 at 4:20 pm Service Date, if different from initiated Date: [] Patient: Luciano Nixon 67 y/o M admitted on 09/08/18 for Subtotal Colectomy. Chief Complaint: [patient is stable except for incisional discomfort. He has been afebrile. he has not had flatus or bowel movement.] Objective Temp Pulse Resp BP Pulse Ox 98.3 F 79 16 121/60 95 09/09/18 12:00 09/09/18 12:00 09/09/18 12:00 09/09/18 12:00 09/09/18 12:00 - Additional Data Intake & Output - Last 24 hours: Intake & Output 09/07/18 09/08/18 09/09/18 09/10/18 05:59 05:59 05:59 05:59 Intake Total 4740 / 4740 1520 / 1520 Output Total 687 / 687 760 / 760 Balance 4053 / 4053 760 / 760 Weight 121 lb 3.2 oz 133 lb 14.4 oz 133 lb 14.4 oz - General physical appearance well developed, well nourished, moderate distress, moderate pain - Eyes PERRL, normal ocular movement - ENT normal pinna - Neck no masses, no bruits, trachea midline, no lymphadenopathy, no venous distension - Respiratory normal expansion, normal respiratory effort, clear to auscultation - Cardiovascular Cardiovascular exam: Present: normal rate and rhythm, RRR, +S1, +S2. Absent: irregular rhythm, JVD, systolic murmur, tachycardia - Abdomen tender (tender incision;; hypoactive bowel sounds; incision looks good; stoma looks good), bowel sounds (present), surgical scars (none), masses (none) - Integumentary no rash, no growths, no abnormal pigmentation - Neurologic normal coordination, normal sensation - Musculoskeletal normal gait, normal posture - Psychiatric oriented to time, oriented to person, oriented to place, speech is normal, memory intact - Labs 09/09/18 05:32 09/09/18 05:32 Diabetes panel 09/09/18 Range/Units 05:32 Sodium 140 (133-145) mmol/L Potassium 4.0 (3.3-5.1) mmol/L Chloride 102 (96-108) mmol/L Carbon Dioxide 25 (22-30) mmol/L BUN 27 H (8-23) mg/dl Creatinine 1.2 (0.7-1.2) mg/dl Glucose 132 H (70-105) mg/dL Calcium 7.9 L (8.6-10.4) mg/dl AST 14 (0-37) U/l ALT 8 (0-40) U/l Alkaline Phosphatase 76 (39-117) U/L Total Protein 5.3 L (5.9-8.4) gm/dL Albumin 2.8 L (3.2-5.2) gm/dL Triglycerides 62 (<150) mg/dl Calcium panel 09/09/18 Range/Units 05:32 Calcium 7.9 L (8.6-10.4) mg/dl Phosphorus 4.7 H (2.7-4.5) mg/dL Albumin 2.8 L (3.2-5.2) gm/dL Pituitary panel 09/09/18 Range/Units 05:32 Sodium 140 (133-145) mmol/L Potassium 4.0 (3.3-5.1) mmol/L Chloride 102 (96-108) mmol/L Carbon Dioxide 25 (22-30) mmol/L BUN 27 H (8-23) mg/dl Creatinine 1.2 (0.7-1.2) mg/dl Glucose 132 H (70-105) mg/dL Calcium 7.9 L (8.6-10.4) mg/dl Adrenal panel 09/09/18 Range/Units 05:32 Sodium 140 (133-145) mmol/L Potassium 4.0 (3.3-5.1) mmol/L Chloride 102 (96-108) mmol/L Carbon Dioxide 25 (22-30) mmol/L BUN 27 H (8-23) mg/dl Creatinine 1.2 (0.7-1.2) mg/dl Glucose 132 H (70-105) mg/dL Calcium 7.9 L (8.6-10.4) mg/dl Total Bilirubin 0.3 (0.0-1.0) mg/dL AST 14 (0-37) U/l ALT 8 (0-40) U/l Alkaline Phosphatase 76 (39-117) U/L Total Protein 5.3 L (5.9-8.4) gm/dL Albumin 2.8 L (3.2-5.2) gm/dL Assessment and Plan (1) Diverticulitis large intestine Status: Acute Assessment and plan: We'll continue present antibiotics Nasogastric decompression to continue Current Visit: Yes (2) COPD (chronic obstructive pulmonary disease) Status: Chronic Current Visit: No (3) Hypertension, essential Status: Chronic Current Visit: No - Time Spent With Patient Total time spent is greater than 50% in coordination of care (as documented) at patient's floor/unit and/or counseling patient:
[2018-09-09] MEDS: DIAZEPAM 5 MG/ML VIAL IV PRN (22:17)
[2018-09-10] MEDS: HYDROmorphone 2 MG/ML VIAL IV PRN ×10 (00:45→23:10)
[2018-09-10] MEDS: metroNIDAZOLE 500 MG/100 ML BAG IV SCH ×4 (00:46→19:35)
[2018-09-10] MEDS: DIAZEPAM 5 MG/ML VIAL IV PRN ×2 (02:39→09:15)
[2018-09-10] MEDS: 0.9 % SODIUM CHLORIDE 1,000 ML IV SCH ×4 (02:39→23:59)
[2018-09-10] MEDS: METOCLOPRAMIDE 10 MG/2 ML VIAL IV SCH ×4 (05:17→23:10)
[2018-09-10] MEDS: PIPERACILLIN SODIUM/TAZOBACTAM 3.375 GM in DEXTROSE 5% IN WATER 50 ML IV SCH ×4 (05:21→23:10)
[2018-09-10] MEDS: 0.9 % SODIUM CHLORIDE 10 ML SYRINGE IV SCH ×3 (05:22→21:24)
[2018-09-10] MEDS: PANTOPRAZOLE 40 MG VIAL IV SCH ×2 (06:45→17:31)
[2018-09-10 06:53] LABS: Basophils # (Auto) 0 K/mcL (0.0-0.3); Basophils % (Auto) 0.2 % (0.0-2.0); Eosinophils # (Auto) 0 K/mcL (0.0-0.7); Eosinophils % (Auto) 0.3 % (0.0-7.0); Granulocytes % (Auto) 85.2 % (38.0-78.0); Lymphocytes % (Auto) 10.4 % (15.5-49.0); Mean Cell Volume 88.8 fL (80.0-100.0); Mean Corpuscular HGB Conc 32.8 g/dL (31.0-36.0); Monocytes # (Auto) 0.4 K/mcL (0.1-0.9); Monocytes % (Auto) 3.9 % (1.0-12.0); Platelet Count 205 K/mcL (140-440); RBC 4.37 M/mcL (4.50-5.90); Red Cell Distribution Width 12.5 % (11.5-14.5)
[2018-09-10 07:03] LABS: ALT/SGPT 6 U/l (0-40); Albumin 2.8 gm/dL (3.2-5.2); Albumin/Globulin Ratio 1.1 (1.0-2.3); Alkaline Phosphatase 71 U/L (39-117); Bilirubin,Direct < 0.2 mg/dL (0.0-0.3); Blood Urea Nitrogen 16 mg/dl (8-23); Gamma Glutamyl Transpeptidase 13 U/L (8-61); Uric Acid 4.6 mg/dL (2.5-8.0)
[2018-09-10] MEDS: METOPROLOL TARTRATE 50 MG TABLET PO SCH ×3 (11:01→19:48)
[2018-09-10] MEDS: Mometasone/Formoterol [Dulera] 100 Mcg/5 Mcg Inhaler INH SCH ×2 (11:02→19:35)
[2018-09-10] MEDS: Fluticasone/Vilanterol [Breo Ellipta] 200-25 Mcg Inhaler INH SCH (11:02)
--- NOTE | 2018-09-10 11:56 | General Surgery Progress Note ---
Subjective Patient reports: feels better, still having pain, pain is less, no flatus, no bowel movement, afebrile Narrative: Note initiated : 09/10/18 at 11:53 am Service Date, if different from initiated Date: [] Patient: Luciano Nixon 67 y/o M admitted on 09/08/18 for Subtotal Colectomy. Chief Complaint: [patient is stable.. He complains of shortness of breath. O2 saturation is 90% on 1 L O2.. His stoma is not functioning so for.] Objective Temp Pulse Resp BP Pulse Ox 99 F 99 H 18 167/78 92 09/10/18 08:00 09/10/18 03:32 09/10/18 08:00 09/10/18 08:00 09/10/18 08:00 - Additional Data Intake & Output - Last 24 hours: Intake & Output 09/08/18 09/09/18 09/10/18 09/11/18 05:59 05:59 05:59 05:59 Intake Total 4740 3070 100 Output Total 687 1810 Balance 4053 1260 100 Weight 121 lb 3.2 oz 133 lb 14.4 oz 135 lb - General physical appearance well developed, well nourished, moderate distress, moderate pain - Eyes PERRL, normal ocular movement - ENT normal pinna, normal nares, normal mucosa, no hearing loss, no congestion - Neck no masses, no bruits, trachea midline, no lymphadenopathy, no venous distension - Respiratory normal expansion, normal respiratory effort, clear to auscultation, other (no rales rhonchi or wheezes) - Cardiovascular Cardiovascular exam: Present: normal rate and rhythm, RRR, +S1, +S2. Absent: J VD, tachycardia - Abdomen soft, tender ( mild incisional tenderness otherwise benign exam; stoma looks good) - Integumentary no rash, no growths, no abnormal pigmentation - Neurologic normal coordination, normal sensation - Musculoskeletal normal gait, normal posture - Psychiatric oriented to time, oriented to person, oriented to place, speech is normal, memory intact - Labs 09/10/18 05:21 09/10/18 05:21 Diabetes panel 09/10/18 Range/Units 05:21 Sodium 143 (133-145) mmol/L Potassium 3.5 (3.3-5.1) mmol/L Chloride 106 (96-108) mmol/L Carbon Dioxide 27 (22-30) mmol/L BUN 16 (8-23) mg/dl Creatinine 0.9 (0.7-1.2) mg/dl Glucose 73 (70-105) mg/dL Calcium 8.0 L (8.6-10.4) mg/dl AST 12 (0-37) U/l ALT 6 (0-40) U/l Alkaline Phosphatase 71 (39-117) U/L Total Protein 5.4 L (5.9-8.4) gm/dL Albumin 2.8 L (3.2-5.2) gm/dL Triglycerides 74 (<150) mg/dl Calcium panel 09/10/18 Range/Units 05:21 Calcium 8.0 L (8.6-10.4) mg/dl Phosphorus 2.3 L (2.7-4.5) mg/dL Albumin 2.8 L (3.2-5.2) gm/dL Pituitary panel 09/10/18 Range/Units 05:21 Sodium 143 (133-145) mmol/L Potassium 3.5 (3.3-5.1) mmol/L Chloride 106 (96-108) mmol/L Carbon Dioxide 27 (22-30) mmol/L BUN 16 (8-23) mg/dl Creatinine 0.9 (0.7-1.2) mg/dl Glucose 73 (70-105) mg/dL Calcium 8.0 L (8.6-10.4) mg/dl Adrenal panel 09/10/18 Range/Units 05:21 Sodium 143 (133-145) mmol/L Potassium 3.5 (3.3-5.1) mmol/L Chloride 106 (96-108) mmol/L Carbon Dioxide 27 (22-30) mmol/L BUN 16 (8-23) mg/dl Creatinine 0.9 (0.7-1.2) mg/dl Glucose 73 (70-105) mg/dL Calcium 8.0 L (8.6-10.4) mg/dl Total Bilirubin 0.2 (0.0-1.0) mg/dL AST 12 (0-37) U/l ALT 6 (0-40) U/l Alkaline Phosphatase 71 (39-117) U/L Total Protein 5.4 L (5.9-8.4) gm/dL Albumin 2.8 L (3.2-5.2) gm/dL Assessment and Plan (1) Diverticulitis large intestine Status: Acute Assessment and plan: We'll continue present antibiotic Discontinue nasogastric tube Current Visit: Yes (2) COPD (chronic obstructive pulmonary disease) Status: Chronic Current Visit: No (3) Hypertension, essential Status: Chronic Assessment and plan: Restart oral antihypertensive meds Current Visit: No - Time Spent With Patient Total time spent is greater than 50% in coordination of care (as documented) at patient's floor/unit and/or counseling patient:
--- NOTE | 2018-09-10 15:32 | Surgical Pathology Report ---
HISTOLOGY SPECIMEN MICROSCOPIC DIAGNOSIS COLON, SIGMOID, SEGMENTAL RESECTION: -- MARKED DIVERTICULAR DISEASE WITH FIBROUS SEROSAL ADHESIONS. -- EIGHT PARACOLONIC LYMPH NODES WITH REACTIVE CHANGE. -- SURGICAL MARGINS APPEAR VIABLE. -- NO NEOPLASIA OR MALIGNANCY IDENTIFIED. (ACP:sln) PROCEDURAL IMPRESSION Large bowel obstruction. GROSS DESCRIPTION Received in formalin labeled sigmoid colon, is a segment of bowel received closed with both margins stapled. It is 23.4 cm in length and 2.6 cm in diameter. The serosa is fermin-de paz with de paz attached fat. Approximately 4.5 cm from one margin, there is a bend in the bowel and an area of possible adhesion. The wall is 0.5 cm thick. The mucosa is de paz and plicated. There are a few areas of possible diverticula identified. There are multiple candidate lymph nodes identified from less than 0.1 to 0.3 cm. [employer] sections are submitted in six cassettes: A1 - margins; A2-A3 - areas of possible adhesions; A4 - areas of possible diverticula; A5 - random sections; A6 - candidate lymph nodes. (SCB:lorenzo) Electronically Signed by: Neftaly Clark M.D.
[2018-09-11] MEDS: metroNIDAZOLE 500 MG/100 ML BAG IV SCH ×4 (00:11→19:02)
[2018-09-11] MEDS: HYDROmorphone 2 MG/ML VIAL IV PRN ×6 (01:14→23:15)
[2018-09-11 05:32] LABS: Basophils # (Auto) 0 K/mcL (0.0-0.3); Basophils % (Auto) 0.5 % (0.0-2.0); Eosinophils # (Auto) 0.1 K/mcL (0.0-0.7); Granulocytes % (Auto) 73.3 % (38.0-78.0); Lymphocytes # (Auto) 1.5 K/mcL (1.5-4.8); Lymphocytes % (Auto) 18.9 % (15.5-49.0); Mean Cell Volume 89.1 fL (80.0-100.0); Mean Corpuscular HGB Conc 32.5 g/dL (31.0-36.0); Monocytes # (Auto) 0.5 K/mcL (0.1-0.9); Monocytes % (Auto) 6.3 % (1.0-12.0); Platelet Count 191 K/mcL (140-440); RBC 4.41 M/mcL (4.50-5.90); Red Cell Distribution Width 12.7 % (11.5-14.5)
[2018-09-11] MEDS: PIPERACILLIN SODIUM/TAZOBACTAM 3.375 GM in DEXTROSE 5% IN WATER 50 ML IV SCH ×4 (05:33→23:26)
[2018-09-11] MEDS: DIAZEPAM 5 MG/ML VIAL IV PRN ×3 (05:34→14:50)
[2018-09-11] MEDS: METOCLOPRAMIDE 10 MG/2 ML VIAL IV SCH ×4 (05:34→23:25)
[2018-09-11] MEDS: 0.9 % SODIUM CHLORIDE 1,000 ML IV SCH ×2 (05:34→15:07)
[2018-09-11 05:54] LABS: ALT/SGPT 6 U/l (0-40); Albumin 2.5 gm/dL (3.2-5.2); Albumin/Globulin Ratio 0.9 (1.0-2.3); Alkaline Phosphatase 67 U/L (39-117); Bilirubin,Direct < 0.2 mg/dL (0.0-0.3); Blood Urea Nitrogen 11 mg/dl (8-23); Gamma Glutamyl Transpeptidase 12 U/L (8-61); Uric Acid 3.8 mg/dL (2.5-8.0)
[2018-09-11] MEDS: 0.9 % SODIUM CHLORIDE 10 ML SYRINGE IV SCH ×3 (05:58→21:37)
[2018-09-11] MEDS: PANTOPRAZOLE 40 MG VIAL IV SCH ×2 (06:59→17:45)
[2018-09-11] MEDS: LISINOPRIL 20 MG TABLET PO SCH (09:42)
[2018-09-11] MEDS: METOPROLOL TARTRATE 50 MG TABLET PO SCH ×2 (09:42→23:24)
[2018-09-11] MEDS: Mometasone/Formoterol [Dulera] 100 Mcg/5 Mcg Inhaler INH SCH ×2 (09:43→21:36)
[2018-09-11] MEDS: ALBUTEROL SULFATE 1 PUFF INHALER INH PRN (09:43)
[2018-09-11] MEDS: Fluticasone/Vilanterol [Breo Ellipta] 200-25 Mcg Inhaler INH SCH (09:43)
--- NOTE | 2018-09-11 14:20 | General Surgery Progress Note ---
Subjective Patient reports: still having pain, pain is less, no flatus, no bowel movement, afebrile Narrative: Note initiated : 09/11/18 at 2:19 pm Service Date, if different from initiated Date: [] Patient: Luciano Nixon 67 y/o M admitted on 09/08/18 for Subtotal Colectomy. Chief Complaint: [Patient is stable but he has not been cooperative in his care. He refuses to be out of bed or ambulate.. He is afebrile. White blood count 7.8; hemoglobin 12.8; magnesium 1.4; phosphorus 2.] Objective Temp Pulse Resp BP Pulse Ox 98.4 F 77 16 147/66 96 09/11/18 11:22 09/11/18 07:15 09/11/18 11:22 09/11/18 11:22 09/11/18 11:22 - Additional Data Intake & Output - Last 24 hours: Intake & Output 09/09/18 09/10/18 09/11/18 09/12/18 05:59 05:59 05:59 05:59 Intake Total 4740 3070 2550 200 Output Total 687 1810 2555 Balance 4053 1260 -5 200 Weight 133 lb 14.4 oz 135 lb 136 lb - General physical appearance well developed, well nourished, moderate distress, moderate pain - Eyes PERRL, normal ocular movement - ENT normal pinna, normal nares, normal mucosa, no hearing loss, no congestion - Neck no masses, no bruits, trachea midline, no lymphadenopathy, no venous distension - Respiratory normal expansion, normal respiratory effort, clear to auscultation - Cardiovascular Cardiovascular exam: Present: normal rate and rhythm, +S1, +S2. Absent: irregular rhythm, JVD, tachycardia - Abdomen tender (moderate tenderness of the entire abdomen; good active bowel sounds; stoma looks good) - Integumentary no rash, no growths, no abnormal pigmentation - Neurologic normal coordination, normal sensation - Musculoskeletal normal gait, normal posture - Psychiatric oriented to time, oriented to person, oriented to place, speech is normal, memory intact - Labs 09/11/18 04:59 09/11/18 04:59 Diabetes panel 09/11/18 Range/Units 04:59 Sodium 144 (133-145) mmol/L Potassium 3.5 (3.3-5.1) mmol/L Chloride 105 (96-108) mmol/L Carbon Dioxide 27 (22-30) mmol/L BUN 11 (8-23) mg/dl Creatinine 0.8 (0.7-1.2) mg/dl Glucose 67 L (70-105) mg/dL Calcium 7.9 L (8.6-10.4) mg/dl AST 12 (0-37) U/l ALT 6 (0-40) U/l Alkaline Phosphatase 67 (39-117) U/L Total Protein 5.2 L (5.9-8.4) gm/dL Albumin 2.5 L (3.2-5.2) gm/dL Triglycerides 91 (<150) mg/dl Calcium panel 09/11/18 Range/Units 04:59 Calcium 7.9 L (8.6-10.4) mg/dl Phosphorus 2.4 L (2.7-4.5) mg/dL Albumin 2.5 L (3.2-5.2) gm/dL Pituitary panel 09/11/18 Range/Units 04:59 Sodium 144 (133-145) mmol/L Potassium 3.5 (3.3-5.1) mmol/L Chloride 105 (96-108) mmol/L Carbon Dioxide 27 (22-30) mmol/L BUN 11 (8-23) mg/dl Creatinine 0.8 (0.7-1.2) mg/dl Glucose 67 L (70-105) mg/dL Calcium 7.9 L (8.6-10.4) mg/dl Adrenal panel 09/11/18 Range/Units 04:59 Sodium 144 (133-145) mmol/L Potassium 3.5 (3.3-5.1) mmol/L Chloride 105 (96-108) mmol/L Carbon Dioxide 27 (22-30) mmol/L BUN 11 (8-23) mg/dl Creatinine 0.8 (0.7-1.2) mg/dl Glucose 67 L (70-105) mg/dL Calcium 7.9 L (8.6-10.4) mg/dl Total Bilirubin 0.3 (0.0-1.0) mg/dL AST 12 (0-37) U/l ALT 6 (0-40) U/l Alkaline Phosphatase 67 (39-117) U/L Total Protein 5.2 L (5.9-8.4) gm/dL Albumin 2.5 L (3.2-5.2) gm/dL Assessment and Plan (1) Diverticulitis large intestine Status: Acute Assessment and plan: We'll continue present antibiotic Discontinue Ferrell catheter Replace magnesium and phosphorus Current Visit: Yes (2) COPD (chronic obstructive pulmonary disease) Status: Chronic Current Visit: No (3) Hypertension, essential Status: Chronic Assessment and plan: Restart oral antihypertensive meds Current Visit: No - Time Spent With Patient Total time spent is greater than 50% in coordination of care (as documented) at patient's floor/unit and/or counseling patient:
[2018-09-11] MEDS ORDERED: MAGNESIUM SULFATE 32.48 MEQ in DEXTROSE 5% IN WATER 50 ML IV ONE (14:23)
[2018-09-11] MEDS ORDERED: POTASSIUM PHOSPHATE 40 MEQ in DEXTROSE 5% IN WATER 500 ML IV ONE (14:23)
[2018-09-11] MEDS ORDERED: MAGNESIUM SULFATE IN WATER 4 GM/100 ML BAG IV ONE (14:30)
[2018-09-12] MEDS: metroNIDAZOLE 500 MG/100 ML BAG IV SCH ×4 (01:38→19:54)
[2018-09-12] MEDS: DIAZEPAM 5 MG/ML VIAL IV PRN ×3 (01:59→11:53)
[2018-09-12] MEDS: 0.9 % SODIUM CHLORIDE 1,000 ML IV SCH (04:02)
[2018-09-12] MEDS: HYDROmorphone 2 MG/ML VIAL IV PRN ×5 (04:15→19:27)
[2018-09-12] MEDS: PIPERACILLIN SODIUM/TAZOBACTAM 3.375 GM in DEXTROSE 5% IN WATER 50 ML IV SCH ×3 (05:36→17:33)
[2018-09-12] MEDS: METOCLOPRAMIDE 10 MG/2 ML VIAL IV SCH ×3 (05:36→17:36)
[2018-09-12] MEDS: 0.9 % SODIUM CHLORIDE 10 ML SYRINGE IV SCH ×3 (05:36→23:00)
[2018-09-12] MEDS: ALBUTEROL SULFATE 1 PUFF INHALER INH PRN (05:36)
[2018-09-12] MEDS: PANTOPRAZOLE 40 MG VIAL IV SCH ×2 (06:57→17:15)
[2018-09-12] MEDS: Fluticasone/Vilanterol [Breo Ellipta] 200-25 Mcg Inhaler INH SCH (09:20)
[2018-09-12] MEDS: Mometasone/Formoterol [Dulera] 100 Mcg/5 Mcg Inhaler INH SCH ×2 (09:20→21:56)
[2018-09-12] MEDS: METOPROLOL TARTRATE 50 MG TABLET PO SCH ×2 (09:21→21:54)
[2018-09-12] MEDS: LISINOPRIL 20 MG TABLET PO SCH (09:21)
--- NOTE | 2018-09-12 13:26 | General Surgery Progress Note ---
Subjective Patient reports: feels better, pain is less, tolerating liquids well, flatus, bowel movement, diarrhea, afebrile Narrative: Note initiated : 09/12/18 at 1:24 pm Service Date, if different from initiated Date: [] Patient: Luciano Nixon 67 y/o M admitted on 09/08/18 for Subtotal Colectomy. Chief Complaint: [patient is doing well. He is still reluctant to participate in his care. He has started to have movement through his stoma. He denies nausea and is tolerating liquid diet. His incisional discomfort is better controlled.] Objective Temp Pulse Resp BP Pulse Ox 98.1 F 76 16 182/79 94 09/12/18 11:38 09/12/18 12:00 09/12/18 12:00 09/12/18 11:38 09/12/18 12:00 - Additional Data Intake & Output - Last 24 hours: Intake & Output 09/10/18 09/11/18 09/12/18 09/13/18 05:59 05:59 05:59 05:59 Intake Total 3070 2550 2321 200 Output Total 1810 2555 1175 250 Balance 1260 -5 1146 -50 Weight 135 lb 136 lb 132 lb - General physical appearance well developed, well nourished, no distress - Eyes PERRL, normal ocular movement - ENT normal pinna, normal nares, normal mucosa, no hearing loss, no congestion - Neck no masses, no bruits, trachea midline, no lymphadenopathy, no venous distension - Respiratory normal expansion, normal respiratory effort, clear to auscultation - Cardiovascular Cardiovascular exam: Present: normal rate and rhythm, RRR, +S1, +S2. Absent: JVD, tachycardia - Abdomen tender (mild incisional tenderness otherwise benign abdomen; good active bowel sounds) - Integumentary no rash, no growths, no abnormal pigmentation - Neurologic normal coordination, normal sensation - Musculoskeletal normal gait, normal posture - Psychiatric oriented to time, oriented to person, oriented to place, speech is normal, memory intact - Labs 09/11/18 04:59 09/11/18 04:59 Assessment and Plan (1) Diverticulitis large intestine Status: Acute Assessment and plan: We'll continue present antibiotic Regular diet Saline lock IV Current Visit: Yes (2) COPD (chronic obstructive pulmonary disease) Status: Chronic Current Visit: No (3) Hypertension, essential Status: Chronic Assessment and plan: Restart oral antihypertensive meds Current Visit: No - Time Spent With Patient Total time spent is greater than 50% in coordination of care (as documented) at patient's floor/unit and/or counseling patient:
[2018-09-13] MEDS: PIPERACILLIN SODIUM/TAZOBACTAM 3.375 GM in DEXTROSE 5% IN WATER 50 ML IV SCH ×3 (00:16→11:16)
[2018-09-13] MEDS: DIAZEPAM 5 MG/ML VIAL IV PRN ×2 (00:16→05:39)
[2018-09-13] MEDS: HYDROmorphone 2 MG/ML VIAL IV PRN (01:41)
[2018-09-13] MEDS: metroNIDAZOLE 500 MG/100 ML BAG IV SCH ×3 (01:42→12:26)
[2018-09-13] MEDS: METOCLOPRAMIDE 10 MG/2 ML VIAL IV SCH ×3 (01:42→11:16)
[2018-09-13 06:10] LABS: Basophils # (Auto) 0 K/mcL (0.0-0.3); Basophils % (Auto) 0.2 % (0.0-2.0); Eosinophils # (Auto) 0.6 K/mcL (0.0-0.7); Eosinophils % (Auto) 10.5 % (0.0-7.0); Granulocytes % (Auto) 62.7 % (38.0-78.0); Lymphocytes # (Auto) 1.1 K/mcL (1.5-4.8); Lymphocytes % (Auto) 19.4 % (15.5-49.0); Mean Cell Volume 88.3 fL (80.0-100.0); Monocytes # (Auto) 0.4 K/mcL (0.1-0.9); Monocytes % (Auto) 7.2 % (1.0-12.0); Platelet Count 176 K/mcL (140-440); RBC 4.16 M/mcL (4.50-5.90); Red Cell Distribution Width 12.6 % (11.5-14.5)
[2018-09-13 06:49] LABS: ALT/SGPT 5 U/l (0-40); Albumin 2.3 gm/dL (3.2-5.2); Albumin/Globulin Ratio 0.9 (1.0-2.3); Alkaline Phosphatase 55 U/L (39-117); Bilirubin,Direct < 0.2 mg/dL (0.0-0.3); Blood Urea Nitrogen 8 mg/dl (8-23); Gamma Glutamyl Transpeptidase 13 U/L (8-61); Uric Acid 2.9 mg/dL (2.5-8.0)
[2018-09-13] MEDS: PANTOPRAZOLE 40 MG VIAL IV SCH (07:24)
[2018-09-13] MEDS: METOPROLOL TARTRATE 50 MG TABLET PO SCH (08:47)
[2018-09-13] MEDS: LISINOPRIL 20 MG TABLET PO SCH (08:47)
[2018-09-13] MEDS: Mometasone/Formoterol [Dulera] 100 Mcg/5 Mcg Inhaler INH SCH (08:48)
[2018-09-13] MEDS: Fluticasone/Vilanterol [Breo Ellipta] 200-25 Mcg Inhaler INH SCH (08:48)
--- NOTE | 2018-09-13 15:06 | Discharge Summary ---
Providers - Providers Patient information: Note initiated : 09/13/18 at 3:01 pm Service Date, if different from initiated Date: [] Patient: Luciano Nixon 67 y/o M admitted on 09/08/18 for Subtotal Colectomy. Chief Complaint: [] Date of admission: 09/08/18 Discharge date: 09/13/18 Attending physician: Jairo Heard Hospitalization Hospital course: 67-year-old male with history of diverticulitis. He presented in May with sigmoid colon obstruction due to acute diverticulitis. He had transverse colon diversion with colostomy and was treated long-term with antibiotics. He was scheduled for colostomy closure intraoperatively the rectum was severely adherent and could not be dissected out safely to do a safe tension-free anastomosis. Segmental sigmoid colectomy was done to remove most of the disease segment. His colostomy was left intact with anticipation that he will be treated for 3 more months after which the rectal segment will be evaluated to determine if it is adequate for anastomosis. Patient has done relatively well. He has a [facility] care and is upset that I did not take down his colostomy. At this time he is tolerating a regular diet having copious output from his stoma. He is discharged home in stable condition Discharge diagnosis: sigmoid colon obstruction Secondary discharge diagnosis: Recurrent chronic diverticulitis Chronic obstructive lung disease Hypertension Reason for admission: colostomy status Procedures: Sigmoid colectomy with Patricia's pouch Pertinent studies/significant findings: None Complications: none Exam Temp Pulse Resp BP Pulse Ox 98.8 F 73 22 165/94 93 09/13/18 11:31 09/13/18 07:18 09/13/18 11:31 09/13/18 11:31 09/13/18 11:31 - General physical appearance well developed, well nourished, no distress - Eyes PERRL, normal ocular movement - ENT normal pinna, normal nares, normal mucosa, no hearing loss, no congestion - Head Head exam IM: Present: atraumatic, normocephalic - Neck no masses, no bruits, trachea midline, no lymphadenopathy, no venous distension - Cardiovascular Cardiovascular exam IM: Present: normal rate and rhythm - Respiratory normal expansion, normal respiratory effort, clear to auscultation - Abdomen Abdomen: Present: soft, tender (mild incisional tenderness; stoma appears to be normal), bowel sounds Hernia: Present: none - Genitourinary Present: normal penis with no external lesions - Integumentary Present: no rash, no growths, no abnormal pigmentation - Neurologic Present: normal coordination, normal sensation - Musculoskeletal Present: normal gait, normal posture - Psychiatric Present: oriented to time, oriented to person, oriented to place, speech is normal, memory intact Discharge Plan - Patient/Caregiver Discharge Instructions Activity: increase activity as tolerated Diet: Regular Diet Additional Instructions: Continue stomal care as prior to surgery Prescriptions: Ciprofloxacin [Cipro] 500 mg PO BID #60 tablet metroNIDAZOLE [Metronidazole] 500 mg PO Q8 #90 tablet oxyCODONE HCL/ACETAMINOPHEN [Endocet 10-325 mg Tablet] 1 tab PO Q4H PRN #60 tab PRN Reason: Pain - Follow up Plan Follow up with: Jairo Heard MD [Physician] - 09/23/18 1:00 pm Disposition: Home, Self-Care Prognosis: Good Rehab Potential: Good I certify that the patient requires SNF services.: No Overall status at discharge: patient is progressing back to baseline Pending Studies Resuscitation Status Full Code Diet Regular Diet Start Sun Sep 12 132 Albuterol Sulfate (Ventolin) 2 puff INH Q6HP PRN PRN Reason: Shortness Of Breath Last Admin: 09/12/18 05:36 Dose: 2 puff Documented by: Admin: 09/11/18 09:43 Dose: 2 puff Documented by: YELENA Diazepam (Valium) 5 mg IV Q4HP PRN PRN Reason: Severe Pain Last Admin: 09/13/18 05:39 Dose: 5 mg Documented by: Admin: 09/13/18 00:16 Dose: 5 mg Documented by: RADHA Hydromorphone HCl (Dilaudid) 1.5 mg IV Q2HP PRN PRN Reason: PAIN LEVEL > 6 Last Admin: 09/13/18 01:41 Dose: 1.5 mg Documented by: Admin: 09/12/18 19:27 Dose: 1.5 mg Documented by: Admin: 09/12/18 17:14 Dose: 1.5 mg Documented by: Admin: 09/12/18 13:32 Dose: 1.5 mg Documented by: Admin: 09/12/18 09:33 Dose: 1.5 mg Documented by: Admin: 09/12/18 04:15 Dose: 1.5 mg Documented by: Admin: 09/11/18 23:15 Dose: 1.5 mg Documented by: Admin: 09/11/18 17:46 Dose: 1.5 mg Documented by: Admin: 09/11/18 12:18 Dose: 1.5 mg Documented by: Admin: 09/11/18 07:17 Dose: 1.5 mg Documented by: Admin: 09/11/18 04:30 Dose: 1.5 mg Documented by: Admin: 09/11/18 01:14 Dose: 1.5 mg Documented by: Admin: 09/10/18 23:10 Dose: 1.5 mg Documented by: Admin: 09/10/18 19:34 Dose: 1.5 mg Documented by: Admin: 09/10/18 17:30 Dose: 1.5 mg Documented by: Admin: 09/10/18 14:54 Dose: 1.5 mg Documented by: Admin: 09/10/18 11:57 Dose: 1.5 mg Documented by: Admin: 09/10/18 09:15 Dose: 1.5 mg Documented by: Admin: 09/10/18 07:14 Dose: 1.5 mg Documented by: Admin: 09/10/18 05:16 Dose: 1.5 mg Documented by: Admin: 09/10/18 03:26 Dose: 1.5 mg Documented by: Admin: 09/10/18 00:45 Dose: 1.5 mg Documented by: Admin: 09/09/18 22:43 Dose: 1.5 mg Documented by: Admin: 09/09/18 20:25 Dose: 1.5 mg Documented by: Admin: 09/09/18 18:17 Dose: 1.5 mg Documented by: Admin: 09/09/18 16:16 Dose: 1.5 mg Documented by: F Admin: 09/09/18 14:18 Dose: 1.5 mg Documented by: Faviola Metronidazole (Flagyl) 500 mg in 100 mls @ 100 mls/hr IV Q6H MILLIE [facility] [[email or web address] Admin: 09/13/18 12:26 Dose: 100 mls/hr Documented by: [email or web address] Infusion: 09/13/18 08:24 Dose: 100 mls/hr Documented by: [email or web address] [email or web address] Admin: 09/13/18 07:24 Dose: 100 mls/hr Documented by: [email or web address] Infusion: 09/13/18 02:42 Dose: 100 mls/hr Documented by: Admin: 09/13/18 01:42 Dose: 100 mls/hr Documented by: Infusion: 09/12/18 20:54 Dose: 100 mls/hr Documented by: Admin: 09/12/18 19:54 Dose: 100 mls/hr Documented by: Infusion: 09/12/18 14:25 Dose: 0 mls/hr Documented by: Admin: 09/12/18 13:24 Dose: 100 mls/hr Documented by: Infusion: 09/12/18 08:00 Dose: 0 mls/hr Documented by: Admin: 09/12/18 06:58 Dose: 100 mls/hr Documented by: Infusion: 09/12/18 02:40 Dose: 0 mls/hr Documented by: Admin: 09/12/18 01:38 Dose: 100 mls/hr Documented by: Infusion: 09/11/18 20:02 Dose: 100 mls/hr Documented by: Admin: 09/11/18 19:02 Dose: 100 mls/hr Documented by: Infusion: 09/11/18 14:10 Dose: 0 mls/hr Documented by: Admin: 09/11/18 13:09 Dose: 100 mls/hr Documented by: Infusion: 09/11/18 08:00 Dose: 0 mls/hr Documented by: Admin: 09/11/18 06:59 Dose: 100 mls/hr Documented by: [email or web address] Infusion: 09/11/18 01:11 Dose: 0 mls/hr Documented by: Admin: 09/11/18 00:11 Dose: 100 mls/hr Documented by: Infusion: 09/10/18 21:24 Dose: 0 mls/hr Documented by: Admin: 09/10/18 19:35 Dose: 100 mls/hr Documented by: Infusion: 09/10/18 14:35 Dose: 0 mls/hr Documented by: Admin: 09/10/18 13:19 Dose: 100 mls/hr Documented by: Infusion: 09/10/18 07:45 Dose: 0 mls/hr Documented by: Admin: 09/10/18 06:45 Dose: 100 mls/hr Documented by: Infusion: 09/10/18 02:41 Dose: 0 mls/hr Documented by: Admin: 09/10/18 00:46 Dose: 100 mls/hr Documented by: Infusion: 09/09/18 20:57 Dose: 0 mls/hr Documented by: Admin: 09/09/18 19:57 Dose: 100 mls/hr Documented by: Infusion: 09/09/18 14:10 Dose: 0 mls/hr Documented by: Admin: 09/09/18 13:07 Dose: 100 mls/hr Documented by: Infusion: 09/09/18 07:45 Dose: 0 mls/hr Documented by: Admin: 09/09/18 06:45 Dose: 100 mls/hr Documented by: Infusion: 09/09/18 02:08 Dose: 0 mls/hr Documented by: Admin: 09/09/18 01:12 Dose: 100 mls/hr Documented by: Infusion: 09/08/18 20:45 Dose: 0 mls/hr Documented by: Admin: 09/08/18 19:48 Dose: 100 mls/hr Documented by: Infusion: 09/08/18 14:46 Dose: 100 mls/hr Documented by: Admin: 09/08/18 13:46 Dose: 100 mls/hr Documented by: [email or web address] Piperacillin Sod/Tazobactam (Sod 3.375 gm/ Dextrose) 50 mls @ 100 mls/hr IV Q6H MILLIE [facility] [[email or web address] Admin: 09/13/18 11:16 Dose: 100 mls/hr Documented by: Infusion: 09/13/18 06:02 Dose: 100 mls/hr Documented by: Admin: 09/13/18 05:32 Dose: 100 mls/hr Documented by: Infusion: 09/13/18 01:43 Dose: 0 mls/hr Documented by: Admin: 09/13/18 00:16 Dose: 100 mls/hr Documented by: Infusion: 09/12/18 18:03 Dose: 100 mls/hr Documented by: Admin: 09/12/18 17:33 Dose: 100 mls/hr Documented by: [email or web address] Infusion: 09/12/18 12:22 Dose: 0 mls/hr Documented by: [email or web address] Admin: 09/12/18 11:52 Dose: 100 mls/hr Documented by: [email or web address] Infusion: 09/12/18 06:06 Dose: 0 mls/hr Documented by: [email or web address] Admin: 09/12/18 05:36 Dose: 100 mls/hr Documented by: Infusion: 09/11/18 23:56 Dose: 100 mls/hr Documented by: Admin: 09/11/18 23:26 Dose: 100 mls/hr Documented by: Infusion: 09/11/18 18:17 Dose: 100 mls/hr Documented by: [email or web address] Admin: 09/11/18 17:47 Dose: 100 mls/hr Documented by: [email or web address] Infusion: 09/11/18 12:50 Dose: 0 mls/hr Documented by: [email or web address] Admin: 09/11/18 12:18 Dose: 100 mls/hr Documented by: [email or web address] Infusion: 09/11/18 06:05 Dose: 0 mls/hr Documented by: [email or web address] Admin: 09/11/18 05:33 Dose: 100 mls/hr Documented by: Infusion: 09/10/18 23:59 Dose: 0 mls/hr Documented by: Admin: 09/10/18 23:10 Dose: 100 mls/hr Documented by: Infusion: 09/10/18 18:03 Dose: 0 mls/hr Documented by: Admin: 09/10/18 17:31 Dose: 100 mls/hr Documented by: Infusion: 09/10/18 13:05 Dose: 100 mls/hr Documented by: Admin: 09/10/18 12:35 Dose: 100 mls/hr Documented by: Infusion: 09/10/18 05:51 Dose: 0 mls/hr Documented by: Admin: 09/10/18 05:21 Dose: 100 mls/hr Documented by: Infusion: 09/09/18 23:56 Dose: 0 mls/hr Documented by: Admin: 09/09/18 23:28 Dose: 100 mls/hr Documented by: Infusion: 09/09/18 18:20 Dose: 0 mls/hr Documented by: Admin: 09/09/18 17:50 Dose: 100 mls/hr Documented by: Infusion: 09/09/18 13:00 Dose: 0 mls/hr Documented by: Admin: 09/09/18 11:59 Dose: 100 mls/hr Documented by: Infusion: 09/09/18 06:10 Dose: 0 mls/hr Documented by: Admin: 09/09/18 05:36 Dose: 100 mls/hr Documented by: Infusion: 09/09/18 02:09 Dose: 0 mls/hr Documented by: Admin: 09/09/18 00:03 Dose: 100 mls/hr Documented by: Infusion: 09/08/18 18:09 Dose: 0 mls/hr Documented by: Admin: 09/08/18 17:37 Dose: 100 mls/hr Documented by: Infusion: 09/08/18 12:53 Dose: 0 mls/hr Documented by: [email or web address] Admin: 09/08/18 12:23 Dose: 100 mls/hr Documented by: [email or web address] Lisinopril (Zestril) 40 mg PO DAILY MILLIE Last Admin: 09/13/18 08:47 Dose: 40 mg Documented by: [email or web address] Admin: 09/12/18 09:21 Dose: 40 mg Documented by: [email or web address] Admin: 09/11/18 09:42 Dose: 40 mg Documented by: [email or web address] Metoclopramide HCl (Reglan) 10 mg IV Q6 MILLIE Last Admin: 09/13/18 11:16 Dose: 10 mg Documented by: [email or web address] Admin: 09/13/18 05:39 Dose: 10 mg Documented by: Admin: 09/13/18 01:42 Dose: 10 mg Documented by: Admin: 09/12/18 17:36 Dose: 10 mg Documented by: [email or web address] Admin: 09/12/18 11:52 Dose: 10 mg Documented by: Admin: 09/12/18 05:36 Dose: 10 mg Documented by: Admin: 09/11/18 23:25 Dose: 10 mg Documented by: Admin: 09/11/18 17:45 Dose: 10 mg Documented by: Admin: 09/11/18 12:18 Dose: 10 mg Documented by: Admin: 09/11/18 05:34 Dose: 10 mg Documented by: Admin: 09/10/18 23:10 Dose: 10 mg Documented by: Admin: 09/10/18 17:31 Dose: 10 mg Documented by: Admin: 09/10/18 12:35 Dose: 10 mg Documented by: Admin: 09/10/18 05:17 Dose: 10 mg Documented by: Admin: 09/09/18 23:28 Dose: 10 mg Documented by: Admin: 09/09/18 17:50 Dose: 10 mg Documented by: F Admin: 09/09/18 11:58 Dose: 10 mg Documented by: Admin: 09/09/18 05:36 Dose: 10 mg Documented by: Admin: 09/09/18 00:02 Dose: 10 mg Documented by: Admin: 09/08/18 17:33 Dose: 10 mg Documented by: F Admin: 09/08/18 12:23 Dose: 10 mg Documented by: [email or web address] Metoprolol Tartrate (Lopressor) 50 mg PO BID [facility] Admin: 09/13/18 08:47 Dose: 50 mg Documented by: [email or web address] Admin: 09/12/18 21:54 Dose: 50 mg Documented by: Admin: 09/12/18 09:21 Dose: 50 mg Documented by: [facility] Admin: 09/11/18 23:24 Dose: 50 mg Documented by: Admin: 09/11/18 09:42 Dose: 50 mg Documented by: [facility] Admin: 09/10/18 19:48 Dose: 50 mg Documented by: Admin: 09/10/18 12:34 Dose: 50 mg Documented by: Admin: 09/09/18 19:53 Dose: Not Given Documented by: Admin: 09/09/18 09:28 Dose: Not Given Documented by: [facility] Admin: 09/08/18 20:39 Dose: Not Given Documented by: RBLEW Pantoprazole Sodium (Protonix) 40 mg IV BIDAC [facility] Admin: 09/13/18 07:24 Dose: 40 mg Documented by: [email or web address] Admin: 09/12/18 17:15 Dose: 40 mg Documented by: [facility] Admin: 09/12/18 06:57 Dose: 40 mg Documented by: [facility] Admin: 09/11/18 17:45 Dose: 40 mg Documented by: [facility] Admin: 09/11/18 06:59 Dose: 40 mg Documented by: [facility] Admin: 09/10/18 17:31 Dose: 40 mg Documented by: Admin: 09/10/18 06:45 Dose: 40 mg Documented by: Admin: 09/09/18 17:50 Dose: 40 mg Documented by: [facility] Admin: 09/09/18 06:45 Dose: 40 mg Documented by: [facility] Admin: 09/08/18 17:32 Dose: 40 mg Documented by: [facility] Fluticasone/Vilanterol [Breo Ellipta] 200-25 Mcg Inhaler 1 dose INH DAILY [facility] Admin: 09/13/18 08:48 Dose: 1 dose Documented by: [email or web address] Admin: 09/12/18 09:20 Dose: 1 dose Documented by: [facility] Admin: 09/11/18 09:43 Dose: 1 dose Documented by: [facility] Admin: 09/10/18 11:02 Dose: Not Given Documented by: Admin: 09/09/18 09:28 Dose: Not Given Documented by: [facility] Mometasone/Formoterol [Dulera] 100 Mcg/5 Mcg Inhaler 2 dose INH BID [facility] Admin: 09/13/18 08:48 Dose: 2 dose Documented by: [email or web address] Admin: 09/12/18 21:56 Dose: 2 dose Documented by: Admin: 09/12/18 09:20 Dose: 2 dose Documented by: Admin: 09/11/18 21:36 Dose: Not Given Documented by: Admin: 09/11/18 09:43 Dose: 2 dose Documented by: Admin: 09/10/18 19:35 Dose: Not Given Documented by: Admin: 09/10/18 11:02 Dose: Not Given Documented by: Admin: 09/09/18 19:33 Dose: Not Given Documented by: Admin: 09/09/18 09:28 Dose: Not Given Documented by: Admin: 09/08/18 20:40 Dose: Not Given Documented by: MALIA Sodium Chloride (Saline Flush) 10 ml IV Q8 MILLIE Last Admin: 09/12/18 23:00 Dose: 10 ml Documented by: Admin: 09/12/18 13:37 Dose: Not Given Documented by: Admin: 09/12/18 05:36 Dose: 10 ml Documented by: Admin: 09/11/18 21:37 Dose: Not Given Documented by: Admin: 09/11/18 13:10 Dose: Not Given Documented by: Admin: 09/11/18 05:58 Dose: Not Given Documented by: Admin: 09/10/18 21:24 Dose: Not Given Documented by: Admin: 09/10/18 14:09 Dose: Not Given Documented by: Admin: 09/10/18 05:22 Dose: 10 ml Documented by: Admin: 09/09/18 20:29 Dose: Not Given Documented by: Admin: 09/09/18 14:37 Dose: Not Given Documented by: Admin: 09/09/18 05:36 Dose: Not Given Documented by: Admin: 09/08/18 20:40 Dose: Not Given Documented by: Admin: 09/08/18 13:41 Dose: Not Given Documented by: YELENA Shift Summary 09/13/18 06:09 Shift Summary by Amina Perez Pt AA&O x4; Midline incision with pina and tegaderm, clean, dry and intact. Left abdomen colostomy with liquid brown stool. RLQ MAYITO drain with sanguinous drainage, 100 mL out overnight. Refusing SCD's. Uses IS up to 1000mL with encouragement; Medicated with Dilaudid 1.5mg x2 and Valium 10mg x2 for 7-8/10 abdominal and back pain. OOB with SBA; no complaints of nausea following advancement to regular diet yesterday; left fa IV site infiltrated this morning; right fa site with TKO for q 6 hour IV abx and q 6 hour IV reglan; was on RA while awake with sats in low 90's% but when sleeping, dipped to 84% on RA, requiring 2L/NC while sleeping; Bedside report to follow. Initialized on 09/13/18 06:09 - END OF NOTE
--- NOTE | 2018-09-14 12:59 | Operative Note ---
DATE OF OPERATION: 09/08/2018 PREOPERATIVE DIAGNOSIS: Diverticulitis with colostomy. POSTOPERATIVE DIAGNOSIS: Diverticulitis with colostomy. PROCEDURE: Sigmoid colectomy with Patricia's pouch. SURGEON: Jairo Heard MD FINDINGS: Severe inflammation of the sigmoid colon and proximal rectum precluding colostomy takedown. DESCRIPTION OF PROCEDURE: Under general anesthesia, the patient's colostomy was closed using running locking 2-0 silk. The abdominal wall was then prepped and draped and covered with Ioban drape. The old midline incision was made. There were extensive adhesions to the anterior abdominal wall which were taken down with electrocautery and Metzenbaum scissors. In the pelvis there was acute and subacute severe inflammation involving the mid and distal sigmoid colon and proximal rectum. Using very meticulous blunt and sharp dissection, the sigmoid colon was from surrounding structures including omentum, small bowel and other loops of colon and rectum. The sigmoid was dissected down to the proximal rectum. The proximal rectum was severely adhesed into the deep pelvis. I could not find an area that was not subacutely inflamed. The proximal sigmoid was dissected up to an area slightly distal to the colostomy. It was divided at this point. All of this colon had hard inspissated stool. The colon was divided using contour stapler. Dissection was continued on the rectum posteriorly until I could get to an area that was soft enough for transection. It was decided that reanastomosis was not advisable at this point because of the residual inflammation and the large amount of residual stool. The rectum was divided above the peritoneal reflection using a contour stapler. The mesocolon was divided using LigaSure. The specimen was passed off. Irrigation was carried out. The edge of the rectum was sutured with two sutures of 0 Prolene for future reference. A MAYITO drain was placed. Sponge, needle, instrument and blade counts were verified as correct. The blind at the end of the descending colon distal to the new colostomy was doubly stapled using a TA 60 stapler to prevent a perforation. Irrigation was carried out. The area was then coated with a large vial Avista powder. Sponge, needle, instrument and blade counts were verified as correct. The abdominal peritoneum and fascia were closed using running #1 Prolene. The subcutaneous tissue was closed with 2-0 Monocryl. Skin was closed with pina. The stoma suture was removed and a stoma appliance was placed. Tegaderm was placed. The patient tolerated the procedure well. He was awakened and transferred to a bed and taken to the postanesthetic care unit in satisfactory condition. LCS:vernon Job ID: [id number] Doc ID: [id number] Jairo Heard M.D.
== END 2018-09-13 17:08 | disposition home or self-care (01) | DRG 330 ==
LOC: MEDSUR 05:03
PROVIDERS: ADMIT Family Medicine Adult Medicine; ATTEND Family Medicine Adult Medicine

== ENCOUNTER 2018-10-12 09:00 | Inpatient (IN) ==
[2018-10-12] MEDS ORDERED: PROMETHAZINE 25 MG/ML VIAL IV PRN (10:21)
[2018-10-12] MEDS ORDERED: ALBUTEROL SULFATE 1 PUFF INHALER INH PRN (10:36)
--- NOTE | 2018-10-12 11:11 | XRay Report ---
INDICATION: Congestion TECHNIQUE: PA chest x-ray, COMPARISON: Previous chest x-rays dated 09/02/2018, 06/10/2018, 06/02/2018 FINDINGS:Hyperexpansion and changes consistent with COPD. No focal pulmonary parenchymal infiltrate or mass. There is no pneumothorax. No significant pleural effusion. Heart size and vascularity are normal. Tanya and mediastinum are negative. No acute abnormality. No interval change IMPRESSION: 1. Changes consistent with COPD. 2. No acute or focal abnormality. No interval change Interpreted and Authenticated by: Luciano Edgar 10/12/18
--- NOTE | 2018-10-12 11:14 | XRay Report ---
CLINICAL INFORMATION: Nausea and vomiting TECHNIQUE: Supine and upright abdomen COMPARISON: Previous CT scan dated 08/18/2018 FINDINGS: There is a left-sided ostomy. There is mildly distended gas filled small bowel in the left upper quadrant. No significant air-fluid levels. No pneumoperitoneum. No biliary or portal venous gas. No pneumatosis. There are multiple surgical clips in the midabdomen. IMPRESSION: 1. Mildly prominent small bowel in the left upper quadrant. 2. Bowel gas pattern is nonspecific. No definite evidence for obstruction. Interpreted and Authenticated by: Luciano Edgar 10/12/18
[2018-10-12] MEDS: 0.9 % SODIUM CHLORIDE 1,000 ML IV SCH ×5 (11:21→18:45)
[2018-10-12] MEDS: METOCLOPRAMIDE 10 MG/2 ML VIAL IV SCH ×3 (12:44→23:21)
[2018-10-12 13:15] LABS: Basophils # (Auto) 0 K/mcL (0.0-0.3); Basophils % (Auto) 0.8 % (0.0-2.0); Eosinophils # (Auto) 0.1 K/mcL (0.0-0.7); Eosinophils % (Auto) 2.3 % (0.0-7.0); Granulocytes % (Auto) 67.2 % (38.0-78.0); Lymphocytes # (Auto) 1.4 K/mcL (1.5-4.8); Lymphocytes % (Auto) 24.4 % (15.5-49.0); Mean Cell Volume 88.2 fL (80.0-100.0); Mean Corpuscular HGB Conc 32.8 g/dL (31.0-36.0); Monocytes # (Auto) 0.3 K/mcL (0.1-0.9); Monocytes % (Auto) 5.3 % (1.0-12.0); Platelet Count 214 K/mcL (140-440); RBC 4.61 M/mcL (4.50-5.90); Red Cell Distribution Width 13.9 % (11.5-14.5)
[2018-10-12 13:18] LABS: C-Reactive Protein < 0.3 mg/dl (0.0-0.8)
[2018-10-12 13:19] LABS: ALT/SGPT 14 U/l (0-40); Albumin 2.8 gm/dL (3.2-5.2); Albumin/Globulin Ratio 1.1 (1.0-2.3); Alkaline Phosphatase 51 U/L (39-117); Bilirubin,Direct < 0.2 mg/dL (0.0-0.3); Blood Urea Nitrogen 11 mg/dl (8-23); Gamma Glutamyl Transpeptidase 20 U/L (8-61); Uric Acid 6.1 mg/dL (2.5-8.0)
[2018-10-12] MEDS ORDERED: MAGNESIUM SULFATE 32.48 MEQ in DEXTROSE 5% IN WATER 50 ML IV ONE (13:46)
[2018-10-12] MEDS ORDERED: MAGNESIUM SULFATE IN WATER 4 GM/100 ML BAG IV SCH (14:00)
[2018-10-12 15:13] LABS: Appearance,Urine CLEAR; Bacteria,Urine 0 /hpf (0); Bilirubin,Urine NEG (NEG); Color,Urine YELLOW; Glucose,Urine (UA) NEGATIVE (NEG); Leukocyte Esterase,Urine NEG /uL (NEG); Mucus,Urine FEW /hpf (0); Protein,Urine NEG (NEG); Specific Gravity,Urine 1.011 (1.000-1.035); Urine Blood 0.03 mg/dL (<0.03); Urine Hyaline Cast 3 /lpf (0-2); Urine RBC 1 /hpf (0-1); Urine Squamous Epithelial Cell 0 /hpf (0-4); Urine WBC 1 /hpf (0-4); Urobilinogen,Urine NEG (NEG)
[2018-10-12] MEDS: POTASSIUM PHOSPHATE 40 MEQ in DEXTROSE 5% IN WATER 500 ML IV SCH ×2 (15:17→20:14)
[2018-10-12] MEDS: MAGNESIUM SULFATE IN WATER 4 GM/100 ML BAG IV SCH ×2 (16:11→20:14)
[2018-10-12] MEDS: 0.9 % SODIUM CHLORIDE 10 ML SYRINGE IV SCH ×2 (16:18→20:19)
[2018-10-12] MEDS: PANTOPRAZOLE 40 MG VIAL IV SCH (17:49)
[2018-10-12] MEDS: FORMOTEROL INH SCH (20:14)
[2018-10-12] MEDS: MOMETASONE INH SCH (20:14)
[2018-10-13] MEDS: 0.9 % SODIUM CHLORIDE 1,000 ML IV SCH ×5 (03:07→19:48)
[2018-10-13] MEDS: METOCLOPRAMIDE 10 MG/2 ML VIAL IV SCH ×4 (04:01→22:50)
[2018-10-13] MEDS: 0.9 % SODIUM CHLORIDE 10 ML SYRINGE IV SCH ×4 (04:02→20:50)
[2018-10-13 05:49] LABS: Basophils # (Auto) 0 K/mcL (0.0-0.3); Basophils % (Auto) 0.7 % (0.0-2.0); Eosinophils # (Auto) 0.5 K/mcL (0.0-0.7); Eosinophils % (Auto) 9.6 % (0.0-7.0); Lymphocytes # (Auto) 1.7 K/mcL (1.5-4.8); Lymphocytes % (Auto) 32.6 % (15.5-49.0); Monocytes # (Auto) 0.3 K/mcL (0.1-0.9); Monocytes % (Auto) 6.1 % (1.0-12.0); Platelet Count 215 K/mcL (140-440); RBC 4.53 M/mcL (4.50-5.90); Red Cell Distribution Width 13.9 % (11.5-14.5)
[2018-10-13 06:10] LABS: ALT/SGPT 12 U/l (0-40); Albumin 2.7 gm/dL (3.2-5.2); Alkaline Phosphatase 51 U/L (39-117); Bilirubin,Direct < 0.2 mg/dL (0.0-0.3); Blood Urea Nitrogen 7 mg/dl (8-23); Gamma Glutamyl Transpeptidase 19 U/L (8-61); Uric Acid 5.9 mg/dL (2.5-8.0)
[2018-10-13] MEDS: HYDROmorphone 2 MG/ML VIAL IV PRN ×3 (08:29→19:46)
[2018-10-13] MEDS: PANTOPRAZOLE 40 MG VIAL IV SCH ×2 (08:30→17:51)
[2018-10-13] MEDS: FORMOTEROL INH SCH ×2 (08:39→19:50)
[2018-10-13] MEDS: MOMETASONE INH SCH ×2 (08:39→19:50)
[2018-10-13] MEDS ORDERED: FLUTICASONE INH SCH (09:00)
[2018-10-13] MEDS ORDERED: VILANTEROL INH SCH (09:00)
[2018-10-13] MEDS: ENOXAPARIN 40 MG/0.4 ML SYRINGE SQ SCH (10:55)
--- NOTE | 2018-10-13 15:10 | General Surgery Progress Note ---
Subjective Patient reports: feels better, pain is less, tolerating liquids well, voiding w/o difficulty, flatus, no bowel movement, afebrile Narrative: Note initiated : 10/13/18 at 3:07 pm Service Date, if different from initiated Date: [] Patient: Luciano Nixon 67 y/o M admitted on 10/12/18 for Recurrent N/V. Chief Complaint: [Patient feels much better. He is much stronger and much more alert. His nausea and vomiting has resolved. He's tolerated liquid diet without difficulty. He has had flatus but no bowel movement. BUN and creatinine are normal. White blood count was normal.] Objective Temp Pulse Resp BP Pulse Ox 98.6 F 84 16 121/77 96 10/13/18 11:12 10/13/18 11:12 10/13/18 11:12 10/13/18 11:12 10/13/18 11:12 - Additional Data Intake & Output - Last 24 hours: Intake & Output 10/11/18 10/12/18 10/13/18 10/14/18 05:59 05:59 05:59 05:59 Intake Total 3889 1000 Output Total 1200 460 Balance 2689 540 Weight 118 lb - General physical appearance well developed, well nourished, no distress - Eyes PERRL, normal ocular movement - ENT normal pinna, normal nares, normal mucosa, no hearing loss, no congestion - Neck no masses, no bruits, trachea midline, no lymphadenopathy, no venous distension - Respiratory normal expansion, normal respiratory effort, clear to auscultation - Cardiovascular Cardiovascular exam: Present: normal rate and rhythm, RRR, +S1, +S2. Absent: JVD, tachycardia - Abdomen non tender, bowel sounds (present), surgical scars (none), masses (none) - Integumentary no rash, no growths, no abnormal pigmentation - Neurologic normal coordination, normal sensation - Musculoskeletal normal gait, normal posture - Psychiatric oriented to time, oriented to person, oriented to place, speech is normal, memory intact - Labs 10/13/18 04:10 10/13/18 04:10 Diabetes panel 10/13/18 Range/Units 04:10 Sodium 145 (133-145) mmol/L Potassium 3.4 (3.3-5.1) mmol/L Chloride 109 H (96-108) mmol/L Carbon Dioxide 25 (22-30) mmol/L BUN 7 L (8-23) mg/dl Creatinine 0.7 (0.7-1.2) mg/dl Glucose 87 (70-105) mg/dL Calcium 8.0 L (8.6-10.4) mg/dl AST 18 (0-37) U/l ALT 12 (0-40) U/l Alkaline Phosphatase 51 (39-117) U/L Total Protein 5.3 L (5.9-8.4) gm/dL Albumin 2.7 L (3.2-5.2) gm/dL Triglycerides 104 (<150) mg/dl Calcium panel 10/13/18 Range/Units 04:10 Calcium 8.0 L (8.6-10.4) mg/dl Phosphorus 4.8 H (2.7-4.5) mg/dL Albumin 2.7 L (3.2-5.2) gm/dL Pituitary panel 10/13/18 Range/Units 04:10 Sodium 145 (133-145) mmol/L Potassium 3.4 (3.3-5.1) mmol/L Chloride 109 H (96-108) mmol/L Carbon Dioxide 25 (22-30) mmol/L BUN 7 L (8-23) mg/dl Creatinine 0.7 (0.7-1.2) mg/dl Glucose 87 (70-105) mg/dL Calcium 8.0 L (8.6-10.4) mg/dl Adrenal panel 10/13/18 Range/Units 04:10 Sodium 145 (133-145) mmol/L Potassium 3.4 (3.3-5.1) mmol/L Chloride 109 H (96-108) mmol/L Carbon Dioxide 25 (22-30) mmol/L BUN 7 L (8-23) mg/dl Creatinine 0.7 (0.7-1.2) mg/dl Glucose 87 (70-105) mg/dL Calcium 8.0 L (8.6-10.4) mg/dl Total Bilirubin 0.3 (0.0-1.0) mg/dL AST 18 (0-37) U/l ALT 12 (0-40) U/l Alkaline Phosphatase 51 (39-117) U/L Total Protein 5.3 L (5.9-8.4) gm/dL Albumin 2.7 L (3.2-5.2) gm/dL Assessment and Plan (1) Nausea with vomiting, unspecified Status: Acute Assessment and plan: Advanced to regular diet Out of bed to ambulate Probable discharge home tomorrow Restart home medications Current Visit: Yes - Time Spent With Patient Total time spent is greater than 50% in coordination of care (as documented) at patient's floor/unit and/or counseling patient:
[2018-10-13] MEDS: METOPROLOL TARTRATE 25 MG TABLET PO SCH (19:46)
[2018-10-14] MEDS: 0.9 % SODIUM CHLORIDE 1,000 ML IV SCH ×2 (01:45→03:35)
[2018-10-14] MEDS: HYDROmorphone 2 MG/ML VIAL IV PRN ×2 (03:33→14:08)
[2018-10-14] MEDS: METOCLOPRAMIDE 10 MG/2 ML VIAL IV SCH ×2 (05:06→11:58)
[2018-10-14] MEDS: 0.9 % SODIUM CHLORIDE 10 ML SYRINGE IV SCH ×2 (05:06→14:09)
[2018-10-14 05:49] LABS: Basophils # (Auto) 0 K/mcL (0.0-0.3); Basophils % (Auto) 0.7 % (0.0-2.0); Eosinophils # (Auto) 0.5 K/mcL (0.0-0.7); Eosinophils % (Auto) 9.5 % (0.0-7.0); Granulocytes % (Auto) 50.8 % (38.0-78.0); Lymphocytes # (Auto) 1.7 K/mcL (1.5-4.8); Mean Cell Volume 87.7 fL (80.0-100.0); Mean Corpuscular HGB Conc 33.5 g/dL (31.0-36.0); Monocytes # (Auto) 0.4 K/mcL (0.1-0.9); Platelet Count 196 K/mcL (140-440); RBC 4.28 M/mcL (4.50-5.90); Red Cell Distribution Width 13.6 % (11.5-14.5)
[2018-10-14 06:20] LABS: ALT/SGPT 10 U/l (0-40); Albumin 2.7 gm/dL (3.2-5.2); Albumin/Globulin Ratio 1.2 (1.0-2.3); Alkaline Phosphatase 50 U/L (39-117); Bilirubin,Direct < 0.2 mg/dL (0.0-0.3); Blood Urea Nitrogen 10 mg/dl (8-23); Gamma Glutamyl Transpeptidase 19 U/L (8-61)
[2018-10-14] MEDS: PANTOPRAZOLE 40 MG VIAL IV SCH (07:13)
[2018-10-14] MEDS: ENOXAPARIN 40 MG/0.4 ML SYRINGE SQ SCH (08:31)
[2018-10-14] MEDS: METOPROLOL TARTRATE 25 MG TABLET PO SCH (08:31)
[2018-10-14] MEDS ORDERED: LISINOPRIL 20 MG TABLET PO SCH (09:00)
[2018-10-14] MEDS: FORMOTEROL INH SCH (09:05)
[2018-10-14] MEDS: MOMETASONE INH SCH (09:05)
--- NOTE | 2018-10-14 16:55 | Discharge Summary ---
Providers - Providers Patient information: Note initiated : 10/14/18 at 4:52 pm Service Date, if different from initiated Date: [] Patient: Luciano Nixon 67 y/o M admitted on 10/12/18 for Recurrent N/V. Chief Complaint: [] Date of admission: 10/13/18 Discharge date: 10/14/18 Attending physician: Jairo Heard Hospitalization Hospital course: 67-year-old male who is status post sigmoid resection with Pradhan's procedure. The patient has been doing well however over the past week he is having increased nausea and vomiting which was probably related to the ciprofloxacin and Flagyl. He complained of twitching in his arms and legs. He was admitted with intractable nausea and vomiting. Patient was treated symptomatically with IV fluids anti-emetics. He improved and has been able to tolerate diet without difficulty. He is having regular bowel movements. His white blood count is 5.3. BUN and creatinine normal. Patient is clinically stable and is discharged home. Discharge diagnosis: intractable nausea and vomiting Secondary discharge diagnosis: History of diverticulitis Protein calorie malnutrition Reason for admission: recurrent nausea and vomiting Procedures: None Pertinent studies/significant findings: None Exam Temp Pulse Resp BP Pulse Ox 98.2 F 66 14 147/80 95 10/14/18 12:00 10/14/18 12:00 10/14/18 12:00 10/14/18 12:00 10/14/18 12:00 - General physical appearance well developed, well nourished, no distress, cachectic, chronically ill - Eyes PERRL, normal ocular movement - ENT normal pinna, normal nares, normal mucosa, no hearing loss, no congestion - Head Head exam IM: Present: atraumatic, normocephalic - Neck no masses, no bruits, trachea midline, no lymphadenopathy, no venous distension - Cardiovascular Cardiovascular exam IM: Present: normal rate and rhythm - Respiratory normal expansion, normal respiratory effort, clear to percussion, clear to auscultation - Abdomen Abdomen: Present: soft, non tender (abdominal exam is benign. He does not have any tenderness. He has good active bowel sounds. His stoma is functioning normal), bowel sounds Hernia: Present: none - Genitourinary Present: normal penis with no external lesions - Integumentary Present: no rash, no growths, no abnormal pigmentation - Neurologic Present: normal coordination, normal sensation - Musculoskeletal Present: normal gait, normal posture - Psychiatric Present: oriented to time, oriented to person, oriented to place, speech is normal, memory intact Discharge Plan - Patient/Caregiver Discharge Instructions Activity: increase activity as tolerated Diet: Regular Diet Additional Instructions: Do not take the Cipro or Flagyl Keep you regular scheduled appointment Follow up in the office as needed - Follow up Plan Disposition: Home, Self-Care Prognosis: Good Rehab Potential: Good I certify that the patient requires SNF services.: No Overall status at discharge: patient is progressing back to baseline Pending Studies Resuscitation Status Full Code Diet Regular Diet Start Robina Oct 14 1632 Enoxaparin Sodium (Lovenox) 40 mg SQ DAILY COUNT INCLUDES THE [facility] Last Admin: 10/14/18 08:31 Dose: 40 mg Documented by: Admin: 10/13/18 10:55 Dose: 40 mg Documented by: CATHERINE Hydromorphone HCl (Dilaudid) 0.5 mg IV Q2HP PRN PRN Reason: PAIN LEVEL > 6 Last Admin: 10/14/18 14:08 Dose: 0.5 mg Documented by: Admin: 10/14/18 03:33 Dose: 0.5 mg Documented by: Admin: 10/13/18 19:46 Dose: 0.5 mg Documented by: Admin: 10/13/18 11:43 Dose: 0.5 mg Documented by: Admin: 10/13/18 08:29 Dose: 0.5 mg Documented by: CATHERINE Sodium Chloride (Sodium Chloride 0.9%) 1,000 mls @ 125 mls/hr IV .Q8H COUNT INCLUDES THE [facility] Last Infusion: 10/14/18 11:48 Dose: 0 mls/hr Documented by: Admin: 10/14/18 03:35 Dose: 125 mls/hr Documented by: Infusion: 10/14/18 03:35 Dose: 125 mls/hr Documented by: Admin: 10/14/18 01:45 Dose: Not Given Documented by: Admin: 10/13/18 19:48 Dose: 125 mls/hr Documented by: Infusion: 10/13/18 19:48 Dose: 125 mls/hr Documented by: Admin: 10/13/18 18:41 Dose: Not Given Documented by: Admin: 10/13/18 12:35 Dose: 125 mls/hr Documented by: Infusion: 10/13/18 12:01 Dose: 125 mls/hr Documented by: Admin: 10/13/18 04:01 Dose: 125 mls/hr Documented by: Admin: 10/13/18 03:07 Dose: Not Given Documented by: Infusion: 10/12/18 20:45 Dose: 125 mls/hr Documented by: Admin: 10/12/18 18:45 Dose: Not Given Documented by: Admin: 10/12/18 12:45 Dose: 125 mls/hr Documented by: [email or web address] Lisinopril (Zestril) 40 mg PO DAILY COUNT INCLUDES THE [facility] Last Admin: 10/14/18 08:30 Dose: 40 mg Documented by: [email or web address] Metoclopramide HCl (Reglan) 10 mg IV Q6 Critical access hospital Admin: 10/14/18 11:58 Dose: 10 mg Documented by: Admin: 10/14/18 05:06 Dose: 10 mg Documented by: Admin: 10/13/18 22:50 Dose: 10 mg Documented by: Admin: 10/13/18 17:52 Dose: 10 mg Documented by: Admin: 10/13/18 11:44 Dose: 10 mg Documented by: Admin: 10/13/18 04:01 Dose: 10 mg Documented by: Admin: 10/12/18 23:21 Dose: 10 mg Documented by: Admin: 10/12/18 17:50 Dose: 10 mg Documented by: Admin: 10/12/18 12:44 Dose: 10 mg Documented by: [email or web address] Metoprolol Tartrate (Lopressor) 50 mg PO BID COUNT INCLUDES THE [facility] Last Admin: 10/14/18 08:31 Dose: 50 mg Documented by: Admin: 10/13/18 19:46 Dose: 50 mg Documented by: IVAN Pantoprazole Sodium (Protonix) 40 mg IV BIDAC COUNT INCLUDES THE [facility] Last Admin: 10/14/18 07:13 Dose: 40 mg Documented by: Admin: 10/13/18 17:51 Dose: 40 mg Documented by: Admin: 10/13/18 08:30 Dose: 40 mg Documented by: [email or web address] Admin: 10/12/18 17:49 Dose: 40 mg Documented by: [email or web address] Mometasone/Formoterol [Dulera 200 Mcg/5 Mcg Inhaler 1 dose INH BID Critical access hospital Admin: 10/14/18 09:05 Dose: 1 dose Documented by: Admin: 10/13/18 19:50 Dose: 1 dose Documented by: Admin: 10/13/18 08:39 Dose: 1 dose Documented by: Admin: 10/12/18 20:14 Dose: Not Given Documented by: IVAN Sodium Chloride (Saline Flush) 10 ml IV Q8 Critical access hospital Admin: 10/14/18 14:09 Dose: 10 ml Documented by: Admin: 10/14/18 05:06 Dose: 10 ml Documented by: Admin: 10/13/18 20:50 Dose: Not Given Documented by: Admin: 10/13/18 19:51 Dose: 10 ml Documented by: Admin: 10/13/18 17:35 Dose: Not Given Documented by: Admin: 10/13/18 04:02 Dose: Not Given Documented by: Admin: 10/12/18 20:19 Dose: Not Given Documented by: Admin: 10/12/18 16:18 Dose: Not Given Documented by: [email or web address] Shift Summary 10/14/18 02:48 Shift Summary by Delmy Thomas AOx4. VSS on RA. Colostomy LUQ. Tolerating regular diet. No nausea reported overnight. Continue scheduled reglan. R arm PIV x2. NS @125ml/hr. Ambulated hallway SBA with FWW + gait belt. c/o 8/10 ABD pain. PRN IV dilaudid x1. Patient reported relief from pain medication and is currently resting in bed without complaint. Initialized on 10/14/18 02:48 - END OF NOTE
== END 2018-10-14 17:20 | disposition home or self-care (01) | DRG 392 ==
LOC: MEDSUR 09:05
PROVIDERS: ADMIT Family Medicine Adult Medicine; ATTEND Family Medicine Adult Medicine

== ENCOUNTER 2019-01-17 18:08 | Observation (INO) ==
[2019-01-17] MEDS ORDERED: IPRATROPIUM/ALBUTEROL 3 ML AMPUL.NEB NEB ONE ×3 (18:10→20:37)
[2019-01-17] MEDS ORDERED: methylPREDNISolone SOD SUCC 125 MG/2 ML VIAL IV ONE (18:21)
[2019-01-17 19:16] LABS: Basophils # (Auto) 0 K/mcL (0.0-0.3); Basophils % (Auto) 0.2 % (0.0-2.0); Eosinophils # (Auto) 0 K/mcL (0.0-0.7); Eosinophils % (Auto) 0 % (0.0-7.0); Granulocytes % (Auto) 82.9 % (38.0-78.0); Hematocrit 46.3 % (41.0-55.0); Hemoglobin 15.4 g/dL (13.5-16.5); Lymphocytes # (Auto) 0.9 K/mcL (1.5-4.8); Lymphocytes % (Auto) 10.7 % (15.5-49.0); Mean Cell Volume 89.8 fL (80.0-100.0); Mean Corpuscular HGB Conc 33.3 g/dL (31.0-36.0); Mean Platelet Volume 7.2 fL (7.4-10.4); Monocytes # (Auto) 0.5 K/mcL (0.1-0.9); Monocytes % (Auto) 6.2 % (1.0-12.0); Platelet Count 181 K/mcL (140-440); RBC 5.16 M/mcL (4.50-5.90); Red Cell Distribution Width 13.9 % (11.5-14.5); WBC 8.4 K/mcL (4.5-11.0)
[2019-01-17 19:27] LABS: ALT/SGPT 10 U/l (0-40); AST/SGOT 18 U/l (0-37); Albumin 3.9 gm/dL (3.2-5.2); Albumin/Globulin Ratio 1.1 (1.0-2.3); Alkaline Phosphatase 94 U/L (39-117); Bilirubin,Total 0.5 mg/dL (0.0-1.0); Blood Urea Nitrogen 23 mg/dl (8-23); Calcium 8.8 mg/dl (8.6-10.4); Carbon Dioxide 27 mmol/L (22-30); Chloride 94 mmol/L (96-108); Globulin 3.4 gm/dL (2.2-3.7); Glomerular Filtration Rate 92; Glucose 117 mg/dL (70-105); Potassium 3.9 mmol/L (3.3-5.1); Sodium 135 mmol/L (133-145)
[2019-01-17] MEDS ORDERED: 0.9 % SODIUM CHLORIDE 1,000 ML IV ONE (21:25)
[2019-01-17] MEDS ORDERED: LEVOFLOXACIN 500 MG TABLET PO ONE (22:00)
--- NOTE | 2019-01-17 22:06 | Emergency Department Note ---
SOB HPI - General Chief Complaint: Shortness of Breath/Dyspnea Stated Complaint: shortness of breath, COPD exac Time Seen by Provider: 01/17/19 18:12 Source: patient Mode of arrival: wheelchair Limitations: no limitations - History of Present Illness This pleasant 68-year-old male comes in with third day of feeling short of breath and significant worsening cough. Triage is pulse of 126, oximetry 93% on room air, respiratory rate 16. He reports that he has had trouble sleeping due to worsening cough. He comes by private car. He has had poor oral intake. He has surgery scheduled 2 days for a takedown of a colostomy, Dr. Heard here. This colostomy was due to bowel blockage/diverticulitis and created on 22 May. He has had previous COPD exacerbations on a couple of times. He denies chills but has had some sweatiness. He denies fevers. REVIEW OF SYSTEMS: Denies chest pain Denies wheezing or shortness of breath but has had an increase in phlegm. Has chronic back pain with degenerative disc disease. - Related Data Home Medications Medication Instructions Recorded Confirmed aspirin 81 mg tablet 81 mg PO DAILY 04/21/17 01/12/19 Albuterol Sulfate [Proventil Hfa] 2 puff INHALATION Q6HP PRN 09/02/18 01/12/19 Atorvastatin [Lipitor] 80 mg PO DAILY 09/02/18 01/12/19 Benazepril HCl 40 mg PO DAILY 09/02/18 01/12/19 Hydrochlorothiazide [Oretic] 25 mg PO DAILY 09/02/18 01/12/19 Mirtazapine [Remeron] 15 mg PO HS 01/12/19 01/12/19 guaiFENesin [Mucus Relief] 400 mg PO DAILY 01/12/19 01/12/19 traMADol [Ultram] 100 mg PO TIDP PRN 01/12/19 01/12/19 Previous Rx's Medication Instructions Recorded metoprolol tartrate 25 mg tablet 50 mg PO BID #180 tab 08/31/18 mometasone-formoterol HFA 200 2 puff INHALATION BID #8.8 g 11/01/18 mcg-5 mcg/actuation aerosol inhaler peg 3350-electrolytes 236 240 ml PO Q10M #4000 ml 01/10/19 gram-22.74 gram-6.74 gram-5.86 gram solution Allergies Allergy/AdvReac Type Severity Reaction Status Date / Time morphine AdvReac Intermediate Other Verified 01/17/19 18:11 Past Medical History - Past Medical History [facility] Narrative: Medical History (Last Reviewed 01/11/19 @ 13:20 by Jairo Heard MD) Diverticulosis (Chronic) Low back pain (Chronic) Tobacco abuse (Chronic) Diverticulitis (Chronic ~09/2015) Hyperlipidemia (Chronic ~1986) Hypertension, essential (Chronic ~1986) Abdominal aneurysm (Chronic ~09/2015) Gout (Chronic ~1996) Back pain (Chronic ~2006) COPD (chronic obstructive pulmonary disease) (Chronic ~2011) Past Surgical History (Last Reviewed 01/11/19 @ 13:20 by Jairo Heard MD) History of colectomy (Acute) History of exploratory laparotomy (Acute) H/O colonoscopy (Chronic ~2011) Family History (Last Reviewed 01/11/19 @ 13:20 by Jairo Heard MD) Mother Colon cancer Father Hypertension, essential Heart attack Brother Hypertension, essential Thyroid disease Medical history: Reports: aortic aneurysm, COPD, hyperlipidemia, hypertension, YAS. Denies: CAD (coronary artery disease), CVA, DVT, myocardial infarction, pneumonia, pulmonary embolus, TIA Psychiatric history: Reports: no psych history Surgical history ED: Reports: other (colonoscopy; colostomy for diverticulitis/blockage Apr 2018.) Family history: Reports: cancer (colon mother ()) - Social History smoking status: Current every day smoker Packs per day: 0.3 Alcohol use: Reports: Rarely Drug use: Reports: none. Denies: marijuana Physical Exam Limitations: no limitations General appearance: alert, cachectic (milod), in no apparent distress Head: atraumatic, normocephalic Eye: Present: EOMI ENT: mucous membranes moist Neck: Present: trachea midline. Absent: lymphadenopathy, thyromegaly Chest: Present: symmetric chest wall rise Respiratory: Present: wheezes (And to faint), accessory muscle use, prolonged expiratory phase (Mildly). Absent: stridor, other Cardiovascular: Present: regular rate, normal rhythm. Absent: systolic murmur, diastolic murmur Abdominal: Present: soft. Absent: distention, tenderness, guarding, rebound, rigidity, organomegaly, mass Extremities: Absent: pedal edema, pretibial edema, calf tenderness Back: Absent: CVA tenderness (R), CVA tenderness (L), spinous process tenderness Neurological: Present: alert, oriented X3 Psychiatric: Present: normal affect, normal mood Skin: Present: warm, dry Course Vital Signs Temperature 98.3 F 01/17/19 18:08 Pulse Rate 126 H 01/17/19 18:08 Respiratory Rate 16 01/17/19 18:08 Blood Pressure 130/78 01/17/19 18:08 Pulse Oximetry (%) 93 01/17/19 18:08 Temperature 98.3 F 01/17/19 18:08 Pulse Rate 100 H 01/17/19 21:45 Respiratory Rate 37 H 01/17/19 21:45 Blood Pressure 123/75 01/17/19 21:45 Pulse Oximetry (%) 91 01/17/19 21:45 Shortness of Breath/Dyspnea - Medical Records Medical records reviewed: Yes I reviewed the patient's medical records. - Lab Data Lab results reviewed: Yes I reviewed the patient's lab results. Result diagrams: 01/17/19 18:19 01/17/19 18:19 Lab Results 01/17/19 01/17/19 01/17/19 Range/Units 18:19 18:19 18:19 WBC 8.4 (4.5-11.0) K/mcL RBC 5.16 (4.50-5.90) M/mcL Hgb 15.4 (13.5-16.5) g/dL Hct 46.3 (41.0-55.0) % MCV 89.8 (80.0-100.0) fL MCH 29.9 (26.0-34.0) pg MCHC 33.3 (31.0-36.0) g/dL RDW 13.9 (11.5-14.5) % Plt Count 181 (140-440) K/mcL MPV 7.2 L (7.4-10.4) fL Gran % 82.9 H (38.0-78.0) % Lymph % (Auto) 10.7 L (15.5-49.0) % Barry % (Auto) 6.2 (1.0-12.0) % Eos % (Auto) 0 (0.0-7.0) % Baso % (Auto) 0.2 (0.0-2.0) % Gran # 7.0 (1.8-8.0) K/mcL Lymph # (Auto) 0.9 L (1.5-4.8) K/mcL Barry # (Auto) 0.5 (0.1-0.9) K/mcL Eos # (Auto) 0 (0.0-0.7) K/mcL Baso # (Auto) 0 (0.0-0.3) K/mcL VBG Lactic Acid 2.1 H (0.5-2.0) mmol/L Sodium 135 (133-145) mmol/L Potassium 3.9 (3.3-5.1) mmol/L Chloride 94 L (96-108) mmol/L Carbon Dioxide 27 (22-30) mmol/L Anion Gap 14.0 (8-16) BUN 23 (8-23) mg/dl Creatinine 0.8 (0.7-1.2) mg/dl GFR Calculation 92 Glucose 117 H (70-105) mg/dL Calcium 8.8 (8.6-10.4) mg/dl Total Bilirubin 0.5 (0.0-1.0) mg/dL AST 18 (0-37) U/l ALT 10 (0-40) U/l Alkaline Phosphatase 94 (39-117) U/L Total Protein 7.3 (5.9-8.4) gm/dL Albumin 3.9 (3.2-5.2) gm/dL Globulin 3.4 (2.2-3.7) gm/dL Albumin/Globulin Ratio 1.1 (1.0-2.3) Procalcitonin (<0.10) ng/mL 01/17/19 Range/Units Unknown WBC (4.5-11.0) K/mcL RBC (4.50-5.90) M/mcL Hgb (13.5-16.5) g/dL Hct (41.0-55.0) % MCV (80.0-100.0) fL MCH (26.0-34.0) pg MCHC (31.0-36.0) g/dL RDW (11.5-14.5) % Plt Count (140-440) K/mcL MPV (7.4-10.4) fL Gran % (38.0-78.0) % Lymph % (Auto) (15.5-49.0) % Barry % (Auto) (1.0-12.0) % Eos % (Auto) (0.0-7.0) % Baso % (Auto) (0.0-2.0) % Gran # (1.8-8.0) K/mcL Lymph # (Auto) (1.5-4.8) K/mcL Barry # (Auto) (0.1-0.9) K/mcL Eos # (Auto) (0.0-0.7) K/mcL Baso # (Auto) (0.0-0.3) K/mcL VBG Lactic Acid (0.5-2.0) mmol/L Sodium (133-145) mmol/L Potassium (3.3-5.1) mmol/L Chloride (96-108) mmol/L Carbon Dioxide (22-30) mmol/L Anion Gap (8-16) BUN (8-23) mg/dl Creatinine (0.7-1.2) mg/dl GFR Calculation Glucose (70-105) mg/dL Calcium (8.6-10.4) mg/dl Total Bilirubin (0.0-1.0) mg/dL AST (0-37) U/l ALT (0-40) U/l Alkaline Phosphatase (39-117) U/L Total Protein (5.9-8.4) gm/dL Albumin (3.2-5.2) gm/dL Globulin (2.2-3.7) gm/dL Albumin/Globulin Ratio (1.0-2.3) Procalcitonin < 0.05 (<0.10) ng/mL - Radiology Data Radiology results reviewed: Yes I reviewed the patient's radiology results. Disposition Pt seen by ADMINISTRATIVE REPRESENTATIVE/PA only: No Clinical Impression: COPD exacerbation, Hypoxia, Elevated lactic acid level, Diaphoresis Summary: Patient was admitted to the emergency room for COPD type exacerbation syndrome. He was given Solu-Medrol 125 mg and 2 different DuoNeb's. On room air he continued to desaturate below 88% at rest. He was significantly diaphoretic. He did have improvement from the DuoNeb's but persisted with these symptoms and findings such that it necessitates arranging for oxygen if needed if he does not improve over the next 24-48 hours. I spoke with Dr. Ames who kindly accepts this patient for further treatment and evaluation. Levaquin added to his regimen. Disposition: Xfer As Inpt ([facility]) Condition: Fair Referrals: Luciano Griffin DO [Primary Care Provider] -
--- NOTE | 2019-01-17 22:19 | Internal Med History&Physical ---
Medical - H&P: [facility] Patient information: Note initiated : 01/17/19 at 10:19 pm Service Date, if different from initiated Date: [] Patient: Luciano Nixon a 68 y/o M admitted on for shortness of breath, COPD exac. Chief Complaint: [] Chief complaint: shortness of breath and weakness History of present illness: Mr. Nixon is a 68 year old M History of known COPD who presents to [facility] ER with 3 days' onset of worsening shortness of breath, increasing cough and purulent sputum without fever. Patient's symptoms progressed to the point he could barely function prompting him to come to the emergency department. Initial workup was consistent with COPD exacerbation with sats to low 90s. Chest imaging/labs no significant abnormality. Hospitalist service was consulted Patient was started on bronchodilators/steroids along with breathing treatments and oxygen. at the time of evaluation patient is alert oriented. He is able to talk in near full sentences. Minimally labored breathing. He denies sick contacts/recent changes in medication. He denies active smoking or exposure to allergens. Denies fever but endorses to productive sputum and increasing dyspnea with minimal exertion. Notably patient is due for colostomy takedown on . Review of systems 10 point review of systems was performed and is negative except as discussed above Medical - H&P: PM Medical history: Diverticulosis (Chronic) Low back pain (Chronic) Tobacco abuse (Chronic) Diverticulitis (Chronic ~09/2015) Hyperlipidemia (Chronic ~1986) Hypertension, essential (Chronic ~1986) Abdominal aneurysm (Chronic ~09/2015) Hereditary Gout (Chronic ~1996) Back pain (Chronic ~2006) L-5 COPD (chronic obstructive pulmonary disease) (Chronic ~2011) Surgical History History of colectomy (Acute) 09/08/2018-sigmoid colectomy with Hartmans pouch History of exploratory laparotomy (Acute) 05/22/2018-with creation of transverse loop colostomy H/O colonoscopy (Chronic ~2011) Family History Mother , from colon cancer Colon cancer Father Hypertension, essential Heart attack Brother Hypertension, essential Thyroid disease Social History marital status: smoking status: Current every day smoker tobacco type: cigarettes alcohol intake frequency: holiday/special occasion only substance use type: does not use Medical - H&P: Meds Home Medications Medication Instructions Recorded Confirmed Type aspirin 81 mg tablet 325 mg PO DAILY 04/21/17 01/18/19 History metoprolol tartrate 25 mg tablet 50 mg PO BID #180 tab 08/31/18 01/18/19 Rx Albuterol Sulfate [Proventil Hfa] 2 puff INHALATION Q6HP PRN 09/02/18 01/18/19 History Atorvastatin [Lipitor] 10 mg PO DAILY 09/02/18 01/18/19 History Benazepril HCl 40 mg PO DAILY 09/02/18 01/18/19 History Hydrochlorothiazide [Oretic] 25 mg PO DAILY 09/02/18 01/18/19 History mometasone-formoterol HFA 200 2 puff INHALATION BID #8.8 g 11/01/18 01/18/19 Rx mcg-5 mcg/actuation aerosol inhaler peg 3350-electrolytes 236 240 ml PO Q10M #4000 ml 01/10/19 01/12/19 Rx gram-22.74 gram-6.74 gram-5.86 gram solution Mirtazapine [Remeron] 15 mg PO HS 01/12/19 01/18/19 History guaiFENesin [Mucus Relief] 400 mg PO DAILY 01/12/19 01/18/19 History traMADol [Ultram] 100 mg PO TIDP PRN 01/12/19 01/18/19 History Allergies Allergy/AdvReac Type Severity Reaction Status Date / Time morphine AdvReac Mild Other Verified 01/18/19 06:24 Medical - H&P: Exam - Constitutional Vitals: Temp Pulse Resp BP Pulse Ox 98.3 F 100 H 37 H 123/75 91 01/17/19 18:08 01/17/19 21:45 01/17/19 21:45 01/17/19 21:45 01/17/19 21:45 General appearance: no acute distress Exam: Alert oriented Frail and thin Head normocephalic Neck no lymph adenopathy Oral cavity dry No ear discharge S1 and S2 tachycardia Ejection systolic murmur grade 1 Diminished breath sounds bases bilateral expiratory rhonchi Abdomen soft nontender Lower extremity no cyanosis swelling no joint swelling skin no suspicious lesion Psych alert cooperative Neuro nonfocal Medical - H&P: Reslt - Labs CBC & Chem 7: 01/18/19 03:30 01/18/19 03:30 Labs: Short CBC 01/17/19 Range/Units 18:19 WBC 8.4 (4.5-11.0) K/mcL Hgb 15.4 (13.5-16.5) g/dL Hct 46.3 (41.0-55.0) % Plt Count 181 (140-440) K/mcL BMP 01/17/19 18:19 Sodium 135 Potassium 3.9 Chloride 94 L Carbon Dioxide 27 BUN 23 Creatinine 0.8 Glucose 117 H Calcium 8.8 Liver Function 01/17/19 Range/Units 18:19 Total Bilirubin 0.5 (0.0-1.0) mg/dL AST 18 (0-37) U/l ALT 10 (0-40) U/l Alkaline Phosphatase 94 (39-117) U/L Albumin 3.9 (3.2-5.2) gm/dL Medical - H&P: A/P (1) COPD exacerbation Current visit: Yes Status: Acute * COPD exacerbation-with increasing dyspnea/hypoxia and sputum volume, continue management per guidelines bronchodilators/antibiotics/steroids * Hypoxic respiratory failure continue supplemental oxygen/nebulizer liters * Hyperlipidemia continue statin * History of hypertension continue benazepril/metoprolol/thiazide * Degenerative joint disease chronic pain continue tramadol * Anxiety disorder continue mirtazapine * Full code * Prophylaxis heparin Plan * COPD management per guidelines * Observation admitted * Pre-existing medical condition management as above
[2019-01-17] MEDS ORDERED: ONDANSETRON 4 MG/2 ML VIAL IV PRN (22:52)
[2019-01-17] MEDS ORDERED: ACETAMINOPHEN 325 MG TABLET PO PRN (22:52)
[2019-01-17] MEDS ORDERED: ACETAMINOPHEN 1,000 MG/100 ML BOTTLE IV PRN (22:52)
[2019-01-17] MEDS ORDERED: LEVOFLOXACIN 250 MG/50 ML BAG IV ONE (23:25)
[2019-01-17] MEDS: LEVOFLOXACIN 750 MG/150 ML BAG IV SCH (23:26)
[2019-01-17] MEDS: IPRATROPIUM/ALBUTEROL 3 ML AMPUL.NEB NEB SCH (23:42)
[2019-01-17] MEDS: 0.9 % SODIUM CHLORIDE 10 ML SYRINGE IV SCH (23:42)
[2019-01-18] MEDS: IPRATROPIUM/ALBUTEROL 3 ML AMPUL.NEB NEB SCH ×6 (03:37→23:24)
[2019-01-18] MEDS ORDERED: IPRATROPIUM/ALBUTEROL 3 ML AMPUL.NEB NEB ONE (03:38)
[2019-01-18] MEDS: 0.9 % SODIUM CHLORIDE 10 ML SYRINGE IV SCH ×3 (06:30→20:44)
[2019-01-18 07:11] LABS: Hemoglobin 13.9 g/dL (13.5-16.5); Mean Platelet Volume 7.2 fL (7.4-10.4); Platelet Count 152 K/mcL (140-440); RBC 4.61 M/mcL (4.50-5.90); Red Cell Distribution Width 13.8 % (11.5-14.5); WBC 4.9 K/mcL (4.5-11.0)
[2019-01-18 07:17] LABS: ALT/SGPT 9 U/l (0-40); AST/SGOT 17 U/l (0-37); Albumin 3.4 gm/dL (3.2-5.2); Albumin/Globulin Ratio 1.1 (1.0-2.3); Alkaline Phosphatase 74 U/L (39-117); Bilirubin,Direct < 0.2 mg/dL (0.0-0.3); Bilirubin,Total 0.3 mg/dL (0.0-1.0); Blood Urea Nitrogen 27 mg/dl (8-23); Calcium 8.3 mg/dl (8.6-10.4); Carbon Dioxide 27 mmol/L (22-30); Chloride 99 mmol/L (96-108); Gamma Glutamyl Transpeptidase 18 U/L (8-61); Globulin 3.2 gm/dL (2.2-3.7); Glomerular Filtration Rate 87; Glucose 185 mg/dL (70-105); Lactate Dehydrogenase 206 U/L (94-250); Magnesium 1.8 mg/dL (1.6-2.5); Phosphorous 2.7 mg/dL (2.7-4.5); Potassium 4.2 mmol/L (3.3-5.1); Sodium 141 mmol/L (133-145); Triglycerides 74 mg/dl (<150); Uric Acid 6.3 mg/dL (2.5-8.0)
[2019-01-18] MEDS: BUDESONIDE 0.5 MG/2 ML AMPUL.NEB NEB SCH ×2 (07:35→19:33)
--- NOTE | 2019-01-18 07:51 | XRay Report ---
HISTORY: Shortness of breath, cough and COPD FINDINGS: Lungs are mildly hyperinflated and there is subtle interstitial fibrosis. There is no evidence of pneumonia, mass, congestive heart failure or pleural effusion. The air trapping has improved since the prior x-ray done on 01/12/19. The heart size is relatively small. There is a stable small sclerotic bone island in the right scapula. IMPRESSION: Mild COPD with pulmonary fibrosis. Interpreted and Authenticated by: Christopher Clark 01/18/19
[2019-01-18 08:15] LABS: Band Neutrophils % 7 % (0-10); Lymphocytes % 5 % (15-49); Monocytes % (Manual) 3 % (1-12); Platelet Estimate NORMAL (NORMAL); RBC Morphology NORMAL (NORMAL); Segmented Neutrophils % 86 % (38-78)
[2019-01-18] MEDS: DOCUSATE SODIUM 100 MG CAPSULE PO SCH ×2 (09:48→20:40)
[2019-01-18] MEDS: MULTIVIT,THER IRON,CA,FA & MIN 1 TABLET PO SCH (09:48)
[2019-01-18] MEDS: HEPARIN 5,000 UNIT/ML VIAL SQ SCH ×2 (09:48→20:45)
[2019-01-18] MEDS: methylPREDNISolone SOD SUCC 125 MG/2 ML VIAL IV SCH ×2 (09:48→20:42)
[2019-01-18] MEDS: traMADol 50 MG TABLET PO PRN ×2 (09:58→18:42)
[2019-01-18] MEDS: Mometasone/Formoterol [Dulera 200 Mcg/5 Mcg Inhaler] INH SCH ×2 (10:14→20:46)
[2019-01-18] MEDS: ATORVASTATIN 20 MG TABLET PO SCH (10:15)
[2019-01-18] MEDS: LISINOPRIL 20 MG TABLET PO SCH (10:15)
[2019-01-18] MEDS: guaiFENesin 600 MG TAB.SR.12H PO SCH (10:15)
[2019-01-18] MEDS: ASPIRIN 325 MG ENTERIC COATED TABLET PO SCH (10:15)
[2019-01-18] MEDS: METOPROLOL TARTRATE 25 MG TABLET PO SCH ×2 (10:15→20:41)
[2019-01-18] MEDS: HYDROCHLOROTHIAZIDE 25 MG TABLET PO SCH (10:15)
--- NOTE | 2019-01-18 12:57 | Internal Med Progress Note ---
Medical - PN: Subj Patient information: Note initiated : 01/18/19 at 12:45 pm Service Date, if different from initiated Date: [] Patient: Luciano Nixon 68 y/o M admitted on 01/17/19 for shortness of breath, COPD exac. Chief Complaint: [] Interval history: Mr. Nixon is a 68 year old M History of known COPD who presents to [facility] ER with 3 days' onset of worsening shortness of breath, increasing cough and purulent sputum without fever. Patient's symptoms progressed to the point he could barely function prompting him to come to the emergency department. Initial workup was consistent with COPD exacerbation with sats to low 90s. Chest imaging/labs no significant abnormality. Hospitalist service was consulted Patient was started on bronchodilators/steroids along with breathing treatments and oxygen. At the time of evaluation patient is alert oriented. He is able to talk in near full sentences. Minimally labored breathing. He denies sick contacts/recent changes in medication. He denies active smoking or exposure to allergens. Denies fever but endorses to productive sputum and increasing dyspnea with minimal exertion. Notably patient is due for colostomy takedown on . 01/18-patient did well overnight on steroids and bronchodilators and oxygen support. Doing well. Able to talk in full sentences. No fever chills. No telemetry events. Discussed delaying colostomy takedown surgery in light of acute exacerbation of COPD. Continue PT OT nutrition support - Constitutional Vitals: Vital Signs Temp Pulse Resp BP Pulse Ox 98.1 F 88 16 105/60 96 01/18/19 07:00 01/18/19 11:44 01/18/19 11:44 01/18/19 07:00 01/18/19 08:00 Period Temp Pulse Resp BP Sys/Faria Pulse Ox Last 24 Hr 97.4 F-98.5 F 88-129 10-37 104-158/57-95 90-97 Intake and Output 01/17/19 01/18/19 01/18/19 21:59 05:59 13:59 Intake Total 1050 240 Output Total 0 200 Balance 1050 40 Weight 125 lb 126 lb 8 oz Intake & Output: Intake & Output 01/17/19 01/18/19 01/18/19 21:59 05:59 13:59 Intake Total 1050 240 Output Total 0 200 Balance 1050 40 Weight 125 lb 126 lb 8 oz Intake: IV 1050 Oral 0 240 Output: Void Amount 200 Stool 0 Other: Meal Breakfast Percent of Meal Consumed 100% Feeding Ability Assist with Tray Set Up Urine Appearance Clear Urine Color Light Lyric General appearance: no acute distress Exam: Expiratory rhonchi Diminished breath sounds No anxiety Alert and oriented Ambulating Medical - PN: Obj Da - Labs CBC & Chem 7: 01/18/19 03:30 01/18/19 03:30 Labs: Abnormal Lab Results 01/18/19 01/18/19 01/17/19 03:30 03:30 18:19 MPV 7.2 L Gran % Lymph % (Auto) Lymph # (Auto) Seg Neutrophils % 86 H Lymphocytes % 5 L VBG Lactic Acid 2.1 H Chloride BUN 27 H Glucose 185 H Calcium 8.3 L 01/17/19 01/17/19 18:19 18:19 MPV 7.2 L Gran % 82.9 H Lymph % (Auto) 10.7 L Lymph # (Auto) 0.9 L Seg Neutrophils % Lymphocytes % VBG Lactic Acid Chloride 94 L BUN Glucose 117 H Calcium Meds: Medications Acetaminophen (Tylenol) 650 mg PO Q4-6HP PRN PRN Reason: PAIN/FEVER > 101 Last Admin: 01/18/19 07:21 Dose: 650 mg Documented by: Albuterol/Ipratropium (Duoneb) 3 ml NEB Q4HRT [facility] Last Admin: 01/18/19 11:32 Dose: 3 ml Documented by: Aspirin (Ecotrin) 325 mg PO DAILY [facility] Last Admin: 01/18/19 10:15 Dose: 325 mg Documented by: Atorvastatin Calcium (Lipitor) 10 mg PO DAILY [facility] Last Admin: 01/18/19 10:15 Dose: 10 mg Documented by: Budesonide (Pulmicort) 0.5 mg NEB Q12 [facility] Last Admin: 01/18/19 07:35 Dose: 0.5 mg Documented by: Docusate Sodium (Colace) 100 mg PO BID [facility] Last Admin: 01/18/19 09:48 Dose: 100 mg Documented by: Guaifenesin (Mucinex) 600 mg PO DAILY [facility] Last Admin: 01/18/19 10:15 Dose: 600 mg Documented by: Heparin Sodium (Porcine) (Heparin) 5,000 unit SQ Q12 [facility] Last Admin: 01/18/19 09:48 Dose: 5,000 unit Documented by: Hydrochlorothiazide (Oretic) 25 mg PO DAILY [facility] Last Admin: 01/18/19 10:15 Dose: 25 mg Documented by: Levofloxacin (Levaquin) 750 mg in 150 mls @ 100 mls/hr IV Q24H [facility]; Protocol Last Admin: 01/17/19 23:26 Dose: Not Given Documented by: Acetaminophen (Ofirmev) 1,000 mg in 100 mls @ 200 mls/hr IV Q6HP PRN PRN Reason: PAIN/FEVER > 101 Iron Carb/Multivit/[place]/Folic Acid (Multivitamin W/Minerals) 1 tab PO DAILY [facility] Last Admin: 01/18/19 09:48 Dose: 1 tab Documented by: Lisinopril (Zestril) 40 mg PO DAILY [facility] Last Admin: 01/18/19 10:15 Dose: 40 mg Documented by: Methylprednisolone Sodium Succinate (Solu-Medrol) 60 mg IV Q12 [facility] Last Admin: 01/18/19 09:48 Dose: 60 mg Documented by: Metoprolol Tartrate (Lopressor) 50 mg PO BID [facility] Last Admin: 01/18/19 10:15 Dose: 50 mg Documented by: Mirtazapine (Remeron) 15 mg PO HS [facility] Ondansetron HCl (Zofran) 4 mg IV Q4-6HP PRN PRN Reason: Nausea And Vomiting Mometasone/Formoterol [Dulera 200 Mcg/5 Mcg Inhaler] 1 dose INH BID [facility] Last Admin: 01/18/19 10:14 Dose: 1 dose Documented by: Senna/Docusate Sodium (Senna Plus Tablet) 1 tab PO HS [facility] Sodium Chloride (Saline Flush) 10 ml IV Q8 [facility] Last Admin: 01/18/19 06:30 Dose: Not Given Documented by: Tramadol HCl (Ultram) 100 mg PO TIDP PRN PRN Reason: Pain Last Admin: 01/18/19 09:58 Dose: 100 mg Documented by: Medical - PN: A/P - Time Spent With Patient Total time spent is greater than 50% in coordination of care (as documented) at patient's floor/unit and/or counseling patient: 25 - 35 minutes (1) COPD exacerbation Status: Acute Assessment and plan: * COPD exacerbation-Clinically improving with management per guidelines on bronchodilators and steroids. Continue supplemental oxygen. Recommend outpatient PFT once stable baseline or better optimization of COPD management * Hypoxic respiratory failure continue supplemental oxygen/nebulizer , excise oximetry. * Hyperlipidemia continue statin * History of hypertension continue benazepril/metoprolol/thiazide * Degenerative joint disease chronic pain continue tramadol * Anxiety disorder continue mirtazapine * Full code * Prophylaxis heparin Plan * Continue steroids and bronchodilators * Pre-existing medical condition management as above * Recommend delaying colostomy takedown for 2 weeks until COPD flare resolves Current Visit: Yes Medical - PN: Qual - Stroke Symptom Onset Unknown: No - VTE Deep Vein Thrombosis/Pulmonary Embolism Present on Admission: No
[2019-01-18] MEDS: LEVOFLOXACIN 750 MG/150 ML BAG IV SCH (14:18)
[2019-01-18] MEDS ORDERED: SENNOSIDES/DOCUSATE SODIUM 1 TAB TABLET PO SCH (21:00)
[2019-01-18] MEDS ORDERED: MIRTAZAPINE 15 MG TABLET PO SCH (21:00)
[2019-01-19] MEDS: IPRATROPIUM/ALBUTEROL 3 ML AMPUL.NEB NEB SCH ×3 (03:32→11:27)
[2019-01-19] MEDS: traMADol 50 MG TABLET PO PRN (03:35)
[2019-01-19 06:14] LABS: Hemoglobin 13.2 g/dL (13.5-16.5); Mean Cell Volume 91.6 fL (80.0-100.0); Mean Platelet Volume 7.4 fL (7.4-10.4); Platelet Count 160 K/mcL (140-440); RBC 4.37 M/mcL (4.50-5.90); Red Cell Distribution Width 13.9 % (11.5-14.5); WBC 9.9 K/mcL (4.5-11.0)
[2019-01-19 06:20] LABS: ALT/SGPT 9 U/l (0-40); AST/SGOT 24 U/l (0-37); Alkaline Phosphatase 67 U/L (39-117); Bilirubin,Direct < 0.2 mg/dL (0.0-0.3); Bilirubin,Total 0.2 mg/dL (0.0-1.0); Blood Urea Nitrogen 39 mg/dl (8-23); Calcium 8.4 mg/dl (8.6-10.4); Carbon Dioxide 26 mmol/L (22-30); Chloride 100 mmol/L (96-108); Gamma Glutamyl Transpeptidase 15 U/L (8-61); Globulin 3.1 gm/dL (2.2-3.7); Glomerular Filtration Rate 69; Glucose 120 mg/dL (70-105); Lactate Dehydrogenase 305 U/L (94-250); Magnesium 1.8 mg/dL (1.6-2.5); Potassium 4.3 mmol/L (3.3-5.1); Sodium 138 mmol/L (133-145); Triglycerides 78 mg/dl (<150); Uric Acid 7.2 mg/dL (2.5-8.0)
[2019-01-19] MEDS: BUDESONIDE 0.5 MG/2 ML AMPUL.NEB NEB SCH (07:14)
[2019-01-19 08:39] LABS: Band Neutrophils % 6 % (0-10); Lymphocytes % 7 % (15-49); Monocytes % (Manual) 2 % (1-12); Platelet Estimate NORMAL (NORMAL); RBC Morphology NORMAL (NORMAL); Segmented Neutrophils % 85 % (38-78)
[2019-01-19] MEDS: 0.9 % SODIUM CHLORIDE 10 ML SYRINGE IV SCH ×2 (08:47→09:19)
[2019-01-19] MEDS: Mometasone/Formoterol [Dulera 200 Mcg/5 Mcg Inhaler] INH SCH (09:16)
[2019-01-19] MEDS: methylPREDNISolone SOD SUCC 125 MG/2 ML VIAL IV SCH (09:17)
[2019-01-19] MEDS: HEPARIN 5,000 UNIT/ML VIAL SQ SCH (09:17)
[2019-01-19] MEDS: METOPROLOL TARTRATE 25 MG TABLET PO SCH (09:17)
[2019-01-19] MEDS: LEVOFLOXACIN 750 MG/150 ML BAG IV SCH (09:17)
[2019-01-19] MEDS: MULTIVIT,THER IRON,CA,FA & MIN 1 TABLET PO SCH (09:18)
[2019-01-19] MEDS: guaiFENesin 600 MG TAB.SR.12H PO SCH (09:18)
[2019-01-19] MEDS: ASPIRIN 325 MG ENTERIC COATED TABLET PO SCH (09:18)
[2019-01-19] MEDS: ATORVASTATIN 20 MG TABLET PO SCH (09:18)
[2019-01-19] MEDS: HYDROCHLOROTHIAZIDE 25 MG TABLET PO SCH (09:18)
[2019-01-19] MEDS: DOCUSATE SODIUM 100 MG CAPSULE PO SCH (09:18)
[2019-01-19] MEDS: LISINOPRIL 20 MG TABLET PO SCH (09:18)
[2019-01-19] MEDS ORDERED: LEVOFLOXACIN 500 MG TABLET PO SCH (10:20)
--- NOTE | 2019-01-19 10:24 | Discharge Summary ---
Medical - DS: Prov Patient information: Note initiated : 01/19/19 at 10:21 am Service Date, if different from initiated Date: [] Patient: Luciano Nixon 68 y/o M admitted on 01/17/19 for shortness of breath, COPD exac. Chief Complaint: [] Date of admission: 01/17/19 22:46 Discharge date: 01/19/19 Primary care physician: Luciano Griffin Consults: 01/17/19 Consult to Physician [CONS] Stat Comment: Consulting Provider: Erick Stephens Reason For Exam: Physician to Consult Medical - DS: Meds - Discharge Medications Active and Home Medications: Home Medications aspirin 81 mg tablet 325 mg PO DAILY 04/21/17 [History Confirmed 01/18/19 Last Taken 10/12/18] metoprolol tartrate 25 mg tablet 50 mg PO BID #180 tab 08/31/18 [Rx Confirmed 01/18/19 Last Taken 10/12/18] Albuterol Sulfate [Proventil Hfa] 2 puff INHALATION Q6HP PRN 09/02/18 [History Confirmed 01/18/19 Last Taken 10/11/18] Atorvastatin [Lipitor] 80 mg PO DAILY 09/02/18 [History Confirmed 01/18/19 Last Taken 10/11/18] Benazepril HCl 40 mg PO DAILY 09/02/18 [History Confirmed 01/18/19 Last Taken 10/12/18] Hydrochlorothiazide [Oretic] 25 mg PO DAILY 09/02/18 [History Confirmed 01/18/19 Last Taken 10/12/18] mometasone-formoterol HFA 200 mcg-5 mcg/actuation aerosol inhaler 2 puff INHALATION BID #8.8 g 11/01/18 [Rx Confirmed 01/18/19 Last Taken Unknown] peg 3350-electrolytes 236 gram-22.74 gram-6.74 gram-5.86 gram solution 240 ml PO Q10M #4000 ml 01/10/19 [Rx Confirmed 01/12/19 Last Taken Unknown] Mirtazapine [Remeron] 15 mg PO HS 01/12/19 [History Confirmed 01/18/19 Last Taken Unknown] guaiFENesin [Mucus Relief] 400 mg PO DAILY 01/12/19 [History Confirmed 01/18/19 Last Taken Unknown] traMADol [Ultram] 100 mg PO TIDP PRN 01/12/19 [History Confirmed 01/18/19 Last Taken Unknown] Medical - DS: Hosp Hospital course: Discharge diagnoses * COPD exacerbation-Clinically improved with management per guidelines on bronchodilators and steroids. Continue oral prednisone for additional 3 days along with Levaquin. Recommend outpatient PFTs. Exercise oximetry prior to discharge * Hypoxic respiratory failure secondary to COPD exacerbation. -weaning oxygen as tolerated. * Hyperlipidemia continue statin * History of hypertension stable on benazepril/metoprolol/thiazide * Degenerative joint disease chronic pain managed on tramadol * Anxiety disorder continue mirtazapine Brief hospital course Mr. Nixon is a 68 year old M History of known COPD who presents to [facility] ER with 3 days' onset of worsening shortness of breath, increasing cough and purulent sputum without fever. Patient's symptoms progressed to the point he could barely function prompting him to come to the emergency department. Initial workup was consistent with COPD exacerbation with sats to low 90s. Chest imaging/labs no significant abnormality. Hospitalist service was consulted Patient was started on bronchodilators/steroids along with breathing treatments and oxygen. At the time of evaluation patient is alert oriented. He is able to talk in near full sentences. Minimally labored breathing. He denies sick contacts/recent changes in medication. He denies active smoking or exposure to allergens. Denies fever but endorses to productive sputum and increasing dyspnea with minimal exertion. Notably patient is due for colostomy takedown on . 01/18-patient did well overnight on steroids and bronchodilators and oxygen support. Doing well. Able to talk in full sentences. No fever chills. No telemetry events. Discussed delaying colostomy takedown surgery in light of acute exacerbation of COPD. Continue PT OT nutrition support 01/19-patient doing well. No overnight events. Feels a lot better. Ambulating. We'll perform exercise oximetry and will be discharged today on home oxygen if qualifies. Continue additional 3 days oral Levaquin. Follow primary care physician as advised. Continue recommendations as below Discharge diagnosis: . - Time Spent with Patient Total time spent providing and/or coordinating discharge services: Greater than 30 minutes Medical - DS: Exam - Constitutional Vitals: Vital Signs Temp Pulse Pulse Resp BP BP Pulse Ox 01/19/19 07:39 85 20 92 01/19/19 07:38 85 20 01/19/19 06:57 97.0 F 88 18 95/60 93 01/19/19 03:33 85 20 01/19/19 03:26 98.3 F 85 20 114/61 90 01/18/19 23:51 98.8 F 82 20 111/65 95 01/18/19 23:25 83 18 01/18/19 22:11 22 92 01/18/19 20:01 102 H 108/63 95 01/18/19 20:00 97.7 F 92 H 20 108/63 89 L 01/18/19 19:35 96 H 18 01/18/19 18:51 90 01/18/19 18:19 113/57 01/18/19 16:33 98.8 F 96 H 16 113/57 88 L 01/18/19 15:35 85 18 01/18/19 11:44 88 16 01/18/19 11:00 97.5 F 81 16 105/60 91 Intake and Output 01/18/19 01/19/19 01/19/19 21:59 05:59 13:59 Intake Total 990 50 Output Total 250 150 Balance 740 -100 Intake: IV 150 Oral 840 50 Output: Void Amount 250 150 Other: Weight 127 lb Medical - DS: Data Labs on day of discharge: Labs from last 24 hours 01/19/19 01/19/19 03:40 03:40 WBC 9.9 RBC 4.37 L Hgb 13.2 L Hct 40.0 L MCV 91.6 MCH 30.2 MCHC 33.0 RDW 13.9 Plt Count 160 MPV 7.4 Total Counted 100 Seg Neutrophils % 85 H Band Neutrophils % 6 Lymphocytes % 7 L Monocytes % (Manual) 2 Platelet Estimate Normal RBC Morphology Normal Sodium 138 Potassium 4.3 Chloride 100 Carbon Dioxide 26 Anion Gap 12.0 BUN 39 H Creatinine 1.1 GFR Calculation 69 Glucose 120 H Uric Acid 7.2 Calcium 8.4 L Phosphorus 4.0 Magnesium 1.8 Total Bilirubin 0.2 Direct Bilirubin < 0.2 GGT 15 AST 24 ALT 9 Alkaline Phosphatase 67 Lactate Dehydrogenase 305 H Total Protein 6.1 Albumin 3.0 L Globulin 3.1 Albumin/Globulin Ratio 1.0 Triglycerides 78 Medical - DS: A/P - Patient/Caregiver Discharge Instructions Activity: increase activity as tolerated Diet: Regular Diet Additional Instructions: Follow-up PCP in 5 days Follow-up with surgery Dr. Heard for rescheduling colostomy takedown Continue steroids and antibiotics for additional 3 days I recommend primary care physician to check CBC BMP UA as a posthospital follow- up and Chest x-ray in 1 week. I recommend pulmonary function test as outpatient in 3 weeks All meals on chair sitting upright at 90 degrees to prevent aspiration Return to ER if worsening fever chills shortness of breath, diarrhea, bleeding Review risk and side effect profile of medications including antibiotics. Side effect may include mild to severe reaction including rash, diarrhea, cdiff and even which can be prevented by close follow-up with PCP and monitoring for side effects Refrain from smoking and alcohol Continue diet and activity as advised Discussed importance of medication adherence Please review medication list with patient prior to discharge Please schedule follow-up with PCP/Providers prior to discharge and provide printouts Prescriptions: Levofloxacin [Levaquin] 500 mg PO DAILY #3 tab predniSONE [Deltasone] 40 mg PO DAILY #6 tab - Problem Maintenance (1) COPD exacerbation Status: Acute - Follow up Plan Follow up with: Luciano Griffin DO [Primary Care Provider] - 01/26/19 2:00 pm (Please check in at 1:45 pm.) Disposition: Home, Self-Care Prognosis: Fair Rehab Potential: Fair I certify that the patient requires SNF services: No Overall status at discharge: patient is back to baseline Medical - DS: Qual - VTE Deep Vein Thrombosis/Pulmonary Embolism Present on Admission: No
== END 2019-01-19 12:31 | disposition home or self-care (01) ==
LOC: ED 18:08 → INTOOBSV 22:46 → ICU 22:46
PROVIDERS: ADMIT Internal Medicine; ATTEND Internal Medicine